=== PATIENT | female | born 1935 | race Caucasian/White ===

== ENCOUNTER 2023-06-02 18:45 | Emergency (ER) | payer MEDICARE, BC, SELFPAY ==
[2023-06-02 18:49] VITALS: BP 163/69; PULSE 87; RESP 20; TEMP 37.1; O2SAT 98; BMI 21.2
[2023-06-02] MEDS: TETANUS/DIPHTH/PERTUSSIS 0.5 ML SYRINGE IM (19:45)
--- NOTE | 2023-06-02 19:46 | ED_ITS ---
HPI - General Adult General Date Seen: 06/02/23 Chief complaint: Laceration/Wound Stated complaint: Lac R fnger Time Seen by Provider: 06/02/23 19:25 Source: patient Mode of arrival: ambulatory Limitations: no limitations History of Present Illness HPI narrative: Patient is an 87-year-old who was using a mandolin to cut dianai and she clipped off the tip of her right finger. She is on Eliquis. Bleeding has continued but is not brisk. Last tetanus unknown. Related Data Home Medications Medication Instructions Recorded Confirmed amiodarone 200 mg tablet 200 mg PO DAILY 05/24/23 06/02/23 apixaban 2.5 mg tablet (Eliquis) 2.5 mg PO BID 05/24/23 06/02/23 blood sugar diagnostic (Prodigy No #10 ea 05/24/23 05/24/23 Coding strips) bumetanide 1 mg tablet mg PO 05/24/23 05/24/23 carvedilol 3.125 mg tablet 3.125 mg PO BID 05/24/23 06/02/23 donepezil 5 mg tablet 5 mg PO DAILY 05/24/23 06/02/23 glimepiride 1 mg tablet mg PO 05/24/23 05/24/23 omeprazole 20 mg capsule,delayed 20 mg PO DAILY 05/24/23 06/02/23 release sacubitril 24 mg-valsartan 26 mg 1 tab PO BID 05/24/23 06/02/23 tablet (Entresto) sennosides 8.6 mg tablet (senna) 8.6 mg PO DAILY PRN 05/24/23 06/02/23 simvastatin 10 mg tablet 10 mg PO QPM 05/24/23 06/02/23 Allergies Allergy/AdvReac Type Severity Reaction Status Date / Time Penicillins Allergy Unknown Verified 05/24/23 13:17 PFSH PFSH Social History How often do you have a drink containing alcohol: never AUDIT-C Alcohol total score: 0 Non-prescribed substance use: denies use Exam Narrative: Exam Narrative: Vital signs reviewed In general, alert, will well-appearing elderly woman. Extremities: Examination of the right hand shows small avulsion off of finger tip, mild venous bleeding. Nail is not involved. Const: Vital Signs, click to edit/add: Vital Signs - 24 hr 06/02/23 18:49 Temperature 98.8 F Pulse Rate [Pulse Oximeter] 87 Respiratory Rate 20 Blood Pressure [Ri ght Upper Arm] 163/69 H Pulse Oximetry 98 Oxygen Delivery Me thod Room Air Documenting provider has reviewed patient's vital signs: yes Course Course Hospital Course: Wound is cleaned and dressed with surgery foam and tube gauze. I have advised that she can leave this on for couple of days and then gently removed, use Vaseline and a bandage over the area while it heals. Tetanus was updated today. Return for signs of infection. Vital Signs Vital signs: Initial Vital Signs Temperature 98.8 F 06/02/23 18:49 Temperature Source Temporal Artery Scan 06/02/23 18:49 Pulse Rate 87 06/02/23 18:49 Respiratory Rate 20 06/02/23 18:49 Blood Pressure 163/69 H 06/02/23 18:49 Blood Pressure Mean 100 06/02/23 18:49 Pulse Oximetry 98 06/02/23 18:49 Oxygen Delivery Method Room Air 06/02/23 18:49 Vital Signs Temperature 98.8 F 06/02/23 18:49 Pulse Rate 87 06/02/23 18:49 Respiratory Rate 20 06/02/23 18:49 Blood Pressure 163/69 H 06/02/23 18:49 Pulse Oximetry 98 06/02/23 18:49 Oxygen Delivery Method Room Air 06/02/23 18:49 Temperature 98.8 F 06/02/23 18:49 Pulse Rate 87 06/02/23 18:49 Respiratory Rate 20 06/02/23 18:49 Blood Pressure 163/69 H 06/02/23 18:49 Pulse Oximetry 98 06/02/23 18:49 Oxygen Delivery Method Room Air 06/02/23 18:49 Discharge Plan Discharge Clinical Impression: Avulsion of skin Patient Disposition: Home, Self-Care Condition: Stable Instructions: Laceration Without Closure (ED) Additional Instructions: Remove dressing in a couple of days, use an ointment after that such as Vaseline or Aquaphor, bandage while healing. Prescriptions: No Action simvastatin 10 mg tablet 10 mg PO QPM amiodarone 200 mg tablet 200 mg PO DAILY (DME) Prodigy No Coding Strip See Rx Instructions .ROUTE DAILY Qty: 10 Rx Instructions: As directed glimepiride 1 mg tablet PO carvedilol 3.125 mg tablet 3.125 mg PO BID donepezil 5 mg tablet 5 mg PO DAILY bumetanide 1 mg tablet PO omeprazole 20 mg capsule,delayed release(DR/EC) 20 mg PO DAILY Eliquis 2.5 mg tablet 2.5 mg PO BID Entresto 24-26 mg tablet 1 tab PO BID sennosides [senna] 8.6 mg tablet 8.6 mg PO DAILY PRN Follow Up/Referrals: Raphael Michelle MD [Referring] - Stand Alone Forms: [facility] Info Instructions
== END 2023-06-02 19:51 | disposition home or self-care (01) ==
LOC: ED 19:43
PROVIDERS: Emergency Provider Emergency Medicine; PCP Family Medicine
DX: S61.218A Laceration without foreign body of other finger without damage to nail, initial encounter (principal); W26.0XXA Contact with knife, initial encounter
CPT/HCPCS: 90471; 90715; 99282; 99284

== ENCOUNTER 2023-08-11 10:50 | Outpatient (CLI) | payer MEDICARE, BC, SELFPAY | END 2023-08-11 10:51 | disposition home or self-care (01) | LOC: AMB 08-13 15:53 | PROVIDERS: PCP Family Medicine; Visit Provider Emergency Medicine Emergency Medical Services | DX: S09.90XA Unspecified injury of head, initial encounter (principal); G89.29 Other chronic pain; M54.9 Dorsalgia, unspecified; W18.30XA Fall on same level, unspecified, initial encounter; Y92.009 Unspecified place in unspecified non-institutional (private) residence as the place of occurrence of the external cause | CPT/HCPCS: A0425; A0429 ==

== ENCOUNTER 2023-08-11 11:21 | Emergency (ER) | payer MEDICARE, BC, SELFPAY ==
[2023-08-11] VITALS (43 sets, daily range): BP systolic 122–177; BP diastolic 61–87; PULSE 59–78; RESP 16–20; TEMP 36.3; O2SAT 82–100; BMI 21.4
--- NOTE | 2023-08-11 11:50 | CRLHL7_ITS ---
For Patients: As a result of the Century Cures Act, medical imaging exams and procedure reports are released immediately into your electronic medical record. You may view this report before your referring provider. If you have questions, please contact your health care provider. Indication: Fall, midline back pain Technique: Noncontrast axial CT of the lumbar spine with coronal and sagittal reformats. Comparison: Same day CT thoracic Spine Findings: Preserved lumbar lordosis. No significant spondylolisthesis. No evidence of acute lumbar spine fracture. Severe chronic anterior wedge compression deformity of T12, with minor posterosuperior corner retropulsion, as noted on CT thoracic spine from same date. Aortoiliac atherosclerotic plaquing. Included SI joints are unremarkable. T12-L1: No significant neural foraminal or spinal canal stenosis. L1-L2: Mild diffuse disc bulge. No significant neural foraminal or spinal canal stenosis. L2-L3: Diffuse disc bulge, mild facet arthropathy. No significant neural foraminal stenosis. Moderate spinal canal stenosis. L3-L4: Diffuse disc bulge, facet arthropathy. Mild bilateral neural foraminal narrowing. Mild spinal canal narrowing. L4-L5: Diffuse disc bulge, facet arthropathy. No left, moderate right neural foraminal stenosis. No spinal canal stenosis. L5-S1: Diffuse disc bulge, facet arthropathy. Moderate left, moderately severe right neural foraminal stenosis. No spinal canal stenosis. Impression: 1. No evidence of acute fracture or traumatic malalignment in the lumbar spine 2. Severe chronic anterior wedge compression deformity of T12, with minor posterior superior corner retropulsion. 3. At L2-3, moderate spinal canal stenosis. 4. At L4-5, moderate right neural foraminal stenosis. 5. At L5-S1, moderate left and moderately severe right neural foraminal stenosis. Please note that all CT scans at this facility use dose modulation, iterative reconstruction, and/or weight-based dosing when appropriate to reduce radiation dose to as low as reasonably achievable. Dictated by Esther Goins MD @ 08/11/2023 2:37:18 PM (Electronically Signed)
--- NOTE | 2023-08-11 11:50 | CRLHL7_ITS ---
For Patients: As a result of the Century Cures Act, medical imaging exams and procedure reports are released immediately into your electronic medical record. You may view this report before your referring provider. If you have questions, please contact your health care provider. Indication: Fall, midline back pain Technique: Noncontrast axial CT of the thoracic spine with coronal and sagittal reformats. Comparison: CT chest abdomen pelvis 08/29/2019 Findings: Preserved thoracic kyphotic curve. No significant spondylolisthesis. Vertebral body heights are preserved. Mild chronic-appearing anterior wedge/superior plate deformities at C7 and T1. Thin anterior bridging syndesmophytes throughout the thoracic spine, with horizontally oriented fracture at the T10 level involving the superior endplate and vertebral body. No convincing evidence of posterior element extension. Chronic appearing severe anterior wedge compression deformity of T12, with minor posterosuperior cortical retropulsion. Chronic healed right lateral rib fractures. Spinal canal appears grossly patent, without evidence of significant spinal canal stenosis. Scattered spondylosis, with uncovertebral and facet arthropathy at C5-6 contributing to moderately severe bilateral neural foraminal stenosis. Thoracic facet arthropathy contributes to mild-moderate neural foraminal narrowing on the left at T8-9, right at T9-10, and left at T10-11. Left pectoral transvenous pacemaker and leads. Bibasal atelectasis. Scattered aortic atherosclerotic plaquing. Small hiatal hernia. Impression: 1. Acute, horizontally oriented fracture through anterior bridging syndesmophytes at the T10 level, involving the vertebral body and superior endplate, without convincing evidence of posterior element involvement. 2. Chronic-appearing severe anterior wedge compression deformity of T12, with minor posterosuperior corner retropulsion, new relative to 2019. 3. Multilevel spondylosis as detailed. Please note that all CT scans at this facility use dose modulation, iterative reconstruction, and/or weight-based dosing when appropriate to reduce radiation dose to as low as reasonably achievable. Dictated by Esther Goins MD @ 08/11/2023 2:30:56 PM (Electronically Signed)
--- NOTE | 2023-08-11 11:51 | CRLHL7_ITS ---
For Patients: As a result of the Century Cures Act, medical imaging exams and procedure reports are released immediately into your electronic medical record. You may view this report before your referring provider. If you have questions, please contact your health care provider. Indication: Fall Technique: Volumetric multidetector CT images of the head were obtained without the administration of low osmolar intravenous contrast. Comparison: CT head April 10, 2021 Findings: There is no intra-axial or extra-axial fluid collection. There is no mass effect or midline shift. There is age-related cortical atrophy with mild sulcal widening and ex vacuo dilatation of the lateral ventricles. There is encephalomalacia of the left temporal lobe with moderate chronic small vessel disease change of the subcortical and periventricular white matter. Likely calcified vascular lesion of the left basal ganglia is again seen. Additional encephalomalacia of the left occipital lobe is appreciated. The remaining brain parenchyma is preserved in attenuation and olivarez-white differentiation. The orbits and their contents are grossly within normal limits. The bony calvarium is grossly intact. The paranasal sinuses are clear. The mastoid air cells are well aerated. Impression: Stable age related and likely remote ischemic changes of the brain without acute intracranial abnormality. Please note that all CT scans at this facility use dose modulation, iterative reconstruction, and/or weight-based dosing when appropriate to reduce radiation dose to as low as reasonably achievable. Dictated by Raul Ellis MD @ 08/11/2023 2:25:46 PM (Electronically Signed)
--- NOTE | 2023-08-11 11:53 | CRLHL7_ITS ---
For Patients: As a result of the Century Cures Act, medical imaging exams and procedure reports are released immediately into your electronic medical record. You may view this report before your referring provider. If you have questions, please contact your health care provider. Indication: Fall, patient on blood thinners Technique: Volumetric multidetector CT images of the chest were obtained without the administration of IV contrast. Comparison: None available. Findings: The thoracic inlet and thyroid gland are unremarkable. The thoracic aorta is non aneurysmal with scattered atherosclerotic calcification. There is no mediastinal, hilar or axillary adenopathy. There is mild bronchial thickening. There is moderate dependent basilar atelectasis and parenchymal scar. There is mild biapical pleural thickening. There is no dense consolidation, effusion or pneumothorax. There is no evidence of pulmonary mass or suspicious pulmonary nodule. There are somewhat age-indeterminate deformities of the anterolateral right 5th, 6th and 7th ribs. No evidence of large, displaced fractures are identified. The thoracic vertebral body heights are grossly maintained with demonstration of an acute fracture through the superior T10 level with extension through bridging syndesmophytes. Chronic compression deformity of the T12 level is appreciated with minimal retropulsion. Impression: Demonstration of a horizontally oriented fracture through the superior T10 level extending through anterior and bridging syndesmophytes. Additional chronic vertebral plana change of the T12 level is identified. There is dependent basilar atelectasis and parenchymal scar. Age-indeterminate deformities of the anterolateral right 5th, 6th and 7th ribs. Please note that all CT scans at this facility use dose modulation, iterative reconstruction, and/or weight-based dosing when appropriate to reduce radiation dose to as low as reasonably achievable. Dictated by Raul Ellis MD @ 08/11/2023 2:38:23 PM (Electronically Signed)
[2023-08-11] MEDS: 0.9 % SODIUM CHLORIDE 500 ML 500 ML IV (12:30)
[2023-08-11] MEDS: MORPHINE 4 MG/ML INJ IVP ×2 (12:31→22:03)
[2023-08-11 12:40] LABS: Creatinine, Point-of-Care* 2.8 mg/dl (0.6-1.3)
[2023-08-11 12:49] LABS: Basophils Percent Auto 0.2 % (0.0-3.0); Eosinophils Percent Auto 2.1 % (0.0-7.0); Hematocrit 37.1 % (33.0-51.0); Hemoglobin* 11.9 gm/dL (12.0-16.0); Immature Granulocytes Pct Auto 1.3 %; Lymphocytes Percent Auto 5.2 % (20-44); Mean Corpuscular HGB Conc 32 gm/dL (32-36); Mean Corpuscular Hemoglobin 32 pg (26-34); Mean Corpuscular Volume 98 fL (80-100); Monocytes Percent Auto 4.7 % (0.0-11.0); Neutrophils Percent Auto 86.5 % (42.0-72.0); Platelet Count* 159 K/uL (140-440); RDW Coefficient of Variation % 13.8 % (11.5-15.5); Red Blood Count 3.78 m/uL (4.00-5.20); White Blood Count* 11.65 K/uL (4.50-11.00)
[2023-08-11 12:51] LABS: Slide Review Reflex No
[2023-08-11 12:58] LABS: Troponin, Point-of-Care* 0.02 ng/ml (0.01-0.04)
[2023-08-11 13:00] LABS: Albumin* 4.2 g/dL (3.3-5.0)
[2023-08-11 13:01] LABS: Chloride* 100 mmol/L (96-114); Potassium* 4.8 mmol/L (3.6-5.1); Sodium* 133 mmol/L (135-149)
[2023-08-11 13:03] LABS: Anion Gap 12 mEq/L (7-15); Bilirubin Direct* 0.2 mg/dL (0.0-0.5); Bilirubin Total* 0.6 mg/dL (0.1-1.5); Carbon Dioxide* 21 mmol/L (20-32); Creatinine* 2.5 mg/dL (0.5-1.5); Est. Creatinine Clearance* 13.95; Estimated Glomerular Filt Rate 18 ml/min
[2023-08-11 13:04] LABS: Alanine Aminotransferase* 23 U/L (4-35); Alkaline Phosphatase* 99 U/L (40-150); Aspartate Amino Transferase* 32 U/L (12-35); Blood Urea Nitrogen* 65 mg/dL (7-30); Glucose* 244 mg/dL (60-115); Total Protein* 7.5 g/dL (6.0-8.3)
[2023-08-11 13:13] LABS: INR 1.31 (0.91-1.10); Prothrombin Time 17.1 Seconds
[2023-08-11 13:39] LABS: Appearance Urine Clear (Clear); Bilirubin Urine Negative (Negative); Blood Urine Negative (Negative); Color Urine Yellow (Yellow); Glucose Urine Negative (Negative); Ketones Urine Negative (Negative); Leukocyte Esterase Urine Trace (Negative); Nitrite Urine Negative (Negative); Protein Urine Negative (Negative); Specific Gravity Urine 1.015 (1.000-1.030); Urobilinogen Urine 0.2 (0.2-1.0)
[2023-08-11 14:01] LABS: Bacteria Urine Few; RBC Urine 0-2 (0-2); Squamous Epithelial Cell Urine Few (None-Few); WBC Urine 0-2 (0-5)
--- NOTE | 2023-08-11 14:05 | ED.GENADULT ---
HPI - General Adult General Date Seen: 08/11/23 <Sindy Emmanuel MD - Last Filed: 08/12/23 14:48> Chief complaint: Fall/Minor Trauma <Sindy Emmanuel MD - Last Filed: 08/12/23 14:48> Stated complaint: Fall <Sindy Emmanuel MD - Last Filed: 08/12/23 14:48> Time Seen by Provider: 08/11/23 11:27 <Sindy Emmanuel MD - Last Filed: 08/12/23 14:48> Source: patient and EMS <Sindy Emmanuel MD - Last Filed: 08/12/23 14:48> Mode of arrival: EMS <Sindy Emmanuel MD - Last Filed: 08/12/23 14:48> Limitations: no limitations <Sindy Emmanuel MD - Last Filed: 08/12/23 14:48> History of Present Illness HPI narrative: Patient is an 88-year-old woman who comes in by EMS from home after a fall. She says that she was drinking her coffee, stood up to walk across the dining room got dizzy and fell back. She did hit her head, does take Eliquis, it does not report any loss of consciousness, hematoma, severe headache. She denies neck pain. Her primary complaint is of pain in her right posterior ribcage area and across her back fairly diffusely. She does not complain of any extremity pain, weakness, numbness. She says that she did have an episode of dizziness last week that she was not seen for. She has not had any syncope. She denies chest pain, palpitations, shortness of breath, fevers, vomiting or diarrhea, black or bloody stools or other complaints. Her daughter is here with her today. <Sindy Emmanuel MD - Last Filed: 08/12/23 14:48> Related Data Home medications: Home Medications Medication Instructions Recorded Confirmed amiodarone 200 mg tablet 200 mg PO DAILY 05/24/23 06/02/23 apixaban 2.5 mg tablet (Eliquis) 2.5 mg PO BID 05/24/23 06/02/23 blood sugar diagnostic (Lingohub No #10 ea 05/24/23 05/24/23 Coding strips) bumetanide 1 mg tablet mg PO 05/24/23 05/24/23 carvedilol 3.125 mg tablet 3.125 mg PO BID 05/24/23 06/02/23 donepezil 5 mg tablet 5 mg PO DAILY 05/24/23 06/02/23 glimepiride 1 mg tablet mg PO 05/24/23 05/24/23 omeprazole 20 mg capsule,delayed 20 mg PO DAILY 05/24/23 06/02/23 release sacubitril 24 mg-valsartan 26 mg 1 tab PO BID 05/24/23 06/02/23 tablet (Entresto) sennosides 8.6 mg tablet (senna) 8.6 mg PO DAILY PRN 05/24/23 06/02/23 simvastatin 10 mg tablet 10 mg PO QPM 05/24/23 06/02/23 <Sindy Emmanuel MD - Last Filed: 08/12/23 14:48> Allergies/adverse reactions: Allergies Allergy/AdvReac Type Severity Reaction Status Date / Time Penicillins Allergy Unknown Verified 05/24/23 13:17 <Sindy Emmanuel MD - Last Filed: 08/12/23 14:48> Review of Systems Status of ROS: Reports: 6 or more systems reviewed and unremarkable except as noted in History and below <Sindy Emmanuel MD - Last Filed: 08/12/23 14:48> [facility] Social History: Social History Smoking Status: Never smoker Do you use any of these nicotine containing products: None How often do you have a drink containing alcohol: never How often do you have six or more drinks on one occasion: Never AUDIT-C Alcohol total score: 0 Non-prescribed substance use: denies use <Sindy Emmanuel MD - Last Filed: 08/12/23 14:48> Exam Narrative: Exam Narrative: Vital signs as noted above. In general, an alert, well-appearing elderly woman. Conversant, cooperative. Head: Normocephalic, atraumatic. No hematoma, laceration, abrasion. Eyes: Pupils are equal reactive. Extraocular movements are full. Conjunctivae are normal. ENT: Mucous membranes are moist. No facial trauma. Neck: Supple without lymphadenopathy. Nontender to palpation. Heart: Regular rate and rhythm. No murmur or rub. Lungs: Clear bilaterally. No increased work of breathing, crackles or wheezes. Back: Atraumatic in appearance. She has some tenderness in the lower thoracic/upper lumbar region, as well as the right posterior thorax. No crepitus or subcu air. Abdomen: Soft and nontender. No organomegaly. Extremities: Well perfused. No edema. No calf tenderness. Pulses intact. Neurologic: Patient is alert and oriented to person and place. Speech is fluent. Face is symmetric. Moves all extremities equally. Affect: Normal. Skin: Warm and dry. Well perfused. <Sindy Emmanuel MD - Last Filed: 08/12/23 14:48> Const: Vital Signs, click to edit/add: Vital Signs - 24 hr 08/11/23 15:00 08/11/23 15:01 08/11/23 15:30 Pulse Rate 63 62 62 Pulse Rate [Pulse Oximeter] Respiratory Rate Blood Pressure 140/64 H Blood Pressure [Ri ght Upper Arm] Pulse Oximetry 99 98 95 Oxygen Delivery Me thod 08/11/23 15:32 08/11/23 16:00 08/11/23 16:02 Pulse Rate 63 67 63 Pulse Rate [Pulse Oximeter] Respiratory Rate 16 Blood Pressure 133/69 136/61 Blood Pressure [Ri ght Upper Arm] Pulse Oximetry 96 93 94 Oxygen Delivery Me thod 08/11/23 16:30 08/11/23 16:32 08/11/23 17:00 Pulse Rate 64 63 59 L Pulse Rate [Pulse Oximeter] Respiratory Rate Blood Pressure 148/80 H Blood Pressure [Ri ght Upper Arm] Pulse Oximetry 98 95 89 Oxygen Delivery Me thod 08/11/23 17:01 08/11/23 17:02 08/11/23 17:30 Pulse Rate 62 66 63 Pulse Rate [Pulse Oximeter] Respiratory Rate Blood Pressure 146/74 H Blood Pressure [Ri ght Upper Arm] Pulse Oximetry 96 95 97 Oxygen Delivery Me thod Room Air Room Air 08/11/23 17:32 08/11/23 18:00 08/11/23 18:05 Pulse Rate 65 68 67 Pulse Rate [Pulse Oximeter] Respiratory Rate Blood Pressure 164/82 H Blood Pressure [Ri ght Upper Arm] Pulse Oximetry 93 95 91 Oxygen Delivery Me od Room Air Room Air Room Air 08/11/23 18:20 08/11/23 18:30 08/11/23 18:31 Pulse Rate 71 72 69 Pulse Rate [Pulse Oximeter] Respiratory Rate Blood Pressure 137/75 122/80 Blood Pressure [Ri ght Upper Arm] Pulse Oximetry 95 96 94 Oxygen Delivery [facility] Room Air Room Air Room Air 08/11/23 19:00 08/11/23 19:02 08/11/23 19:03 Pulse Rate 70 68 69 Pulse Rate [Pulse Oximeter] Respiratory Rate Blood Pressure 145/87 H Blood Pressure [Ri ght Upper Arm] Pulse Oximetry 96 84 L 82 L Oxygen Delivery [facility] Room Air 08/11/23 19:30 08/11/23 19:33 08/11/23 20:00 Pulse Rate 67 70 68 Pulse Rate [Pulse Oximeter] Respiratory Rate 18 Blood Pressure 177/81 H Blood Pressure [Ri ght Upper Arm] Pulse Oximetry 96 97 97 Oxygen Delivery [facility] 08/11/23 20:02 08/11/23 20:30 08/11/23 20:32 Pulse Rate 68 74 72 Pulse Rate [Pulse Oximeter] Respiratory Rate Blood Pressure 151/71 H 171/79 H Blood Pressure [Ri ght Upper Arm] Pulse Oximetry 96 97 97 Oxygen Delivery [facility] 08/11/23 20:33 08/11/23 21:00 08/11/23 21:02 Pulse Rate 72 71 73 Pulse Rate [Pulse Oximeter] Respiratory Rate Blood Pressure 161/79 H Blood Pressure [Ri ght Upper Arm] Pulse Oximetry 99 85 L 95 Oxygen Delivery [facility] 08/11/23 21:30 08/11/23 21:32 08/11/23 22:00 Pulse Rate 74 71 77 Pulse Rate [Pulse Oximeter] Respiratory Rate Blood Pressure 163/79 H Blood Pressure [Ri ght Upper Arm] Pulse Oximetry 97 95 96 Oxygen Delivery [facility] 08/12/23 01:00 08/12/23 01:09 08/12/23 03:00 Pulse Rate 78 74 Pulse Rate [Pulse Oximeter] Respiratory Rate 16 16 Blood Pressure 152/70 H 145/74 H Blood Pressure [Ri ght Upper Arm] Pulse Oximetry 98 96 91 Oxygen Delivery Me od 08/12/23 06:24 08/12/23 07:00 08/12/23 07:30 Pulse Rate 78 66 82 Pulse Rate [Pulse Oximeter] Respiratory Rate 16 Blood Pressure 158/89 H Blood Pressure [Ri ght Upper Arm] Pulse Oximetry 95 92 96 Oxygen Delivery Me thod 08/12/23 08:00 08/12/23 08:25 08/12/23 08:25 Pulse Rate 69 74 Pulse Rate [Pulse Oximeter] 74 Respiratory Rate 18 Blood Pressure Blood Pressure [Ri ght Upper Arm] 132/71 Pulse Oximetry 94 94 94 Oxygen Delivery Me thod Room Air 08/12/23 08:27 08/12/23 08:30 08/12/23 09:00 Pulse Rate 71 72 67 Pulse Rate [Pulse Oximeter] Respiratory Rate Blood Pressure 132/71 Blood Pressure [Ri ght Upper Arm] Pulse Oximetry 93 94 96 Oxygen Delivery Me thod 08/12/23 09:30 08/12/23 10:00 08/12/23 10:30 Pulse Rate 72 66 64 Pulse Rate [Pulse Oximeter] Respiratory Rate Blood Pressure Blood Pressure [Ri ght Upper Arm] Pulse Oximetry 96 92 93 Oxygen Delivery Me thod 08/12/23 10:52 08/12/23 10:55 08/12/23 11:00 Pulse Rate 69 69 Pulse Rate [Pulse Oximeter] 70 Respiratory Rate 18 Blood Pressure 152/56 H Blood Pressure [Ri ght Upper Arm] 152/56 H Pulse Oximetry 93 96 94 Oxygen Delivery Me thod Room Air 08/12/23 11:30 Pulse Rate 65 Pulse Rate [Pulse Oximeter] Respiratory Rate Blood Pressure Blood Pressure [Ri ght Upper Arm] Pulse Oximetry 93 Oxygen Delivery Me thod <Sindy Emmanuel MD - Last Filed: 08/12/23 14:48> Vital Signs, click to edit/add: Vital Signs - 24 hr 08/11/23 15:00 08/11/23 15:01 08/11/23 15:30 Pulse Rate 63 62 62 Pulse Rate [Pulse Oximeter] Respiratory Rate Blood Pressure 140/64 H Blood Pressure [Ri ght Upper Arm] Pulse Oximetry 99 98 95 Oxygen Delivery Me thod 08/11/23 15:32 08/11/23 16:00 08/11/23 16:02 Pulse Rate 63 67 63 Pulse Rate [Pulse Oximeter] Respiratory Rate 16 Blood Pressure 133/69 136/61 Blood Pressure [Ri ght Upper Arm] Pulse Oximetry 96 93 94 Oxygen Delivery Me thod 08/11/23 16:30 08/11/23 16:32 08/11/23 17:00 Pulse Rate 64 63 59 L Pulse Rate [Pulse Oximeter] Respiratory Rate Blood Pressure 148/80 H Blood Pressure [Ri ght Upper Arm] Pulse Oximetry 98 95 89 Oxygen Delivery Me thod 08/11/23 17:01 08/11/23 17:02 08/11/23 17:30 Pulse Rate 62 66 63 Pulse Rate [Pulse Oximeter] Respiratory Rate Blood Pressure 146/74 H Blood Pressure [Ri ght Upper Arm] Pulse Oximetry 96 95 97 Oxygen Delivery Me thod Room Air Room Air 08/11/23 17:32 08/11/23 18:00 08/11/23 18:05 Pulse Rate 65 68 67 Pulse Rate [Pulse Oximeter] Respiratory Rate Blood Pressure 164/82 H Blood Pressure [Ri ght Upper Arm] Pulse Oximetry 93 95 91 Oxygen Delivery Me thod Room Air Room Air Room Air 08/11/23 18:20 08/11/23 18:30 08/11/23 18:31 Pulse Rate 71 72 69 Pulse Rate [Pulse Oximeter] Respiratory Rate Blood Pressure 137/75 122/80 Blood Pressure [Ri ght Upper Arm] Pulse Oximetry 95 96 94 Oxygen Delivery Me thod Room Air Room Air Room Air 08/11/23 19:00 08/11/23 19:02 08/11/23 19:03 Pulse Rate 70 68 69 Pulse Rate [Pulse Oximeter] Respiratory Rate Blood Pressure 145/87 H Blood Pressure [Ri ght Upper Arm] Pulse Oximetry 96 84 L 82 L Oxygen Delivery Me thod Room Air 08/11/23 19:30 08/11/23 19:33 08/11/23 20:00 Pulse Rate 67 70 68 Pulse Rate [Pulse Oximeter] Respiratory Rate 18 Blood Pressure 177/81 H Blood Pressure [Ri ght Upper Arm] Pulse Oximetry 96 97 97 Oxygen Delivery Me thod 08/11/23 20:02 08/11/23 20:30 08/11/23 20:32 Pulse Rate 68 74 72 Pulse Rate [Pulse Oximeter] Respiratory Rate Blood Pressure 151/71 H 171/79 H Blood Pressure [Ri ght Upper Arm] Pulse Oximetry 96 97 97 Oxygen Delivery Me thod 08/11/23 20:33 08/11/23 21:00 08/11/23 21:02 Pulse Rate 72 71 73 Pulse Rate [Pulse Oximeter] Respiratory Rate Blood Pressure 161/79 H Blood Pressure [Ri ght Upper Arm] Pulse Oximetry 99 85 L 95 Oxygen Delivery Me thod 08/11/23 21:30 08/11/23 21:32 08/11/23 22:00 Pulse Rate 74 71 77 Pulse Rate [Pulse Oximeter] Respiratory Rate Blood Pressure 163/79 H Blood Pressure [Ri ght Upper Arm] Pulse Oximetry 97 95 96 Oxygen Delivery Me thod 08/12/23 01:00 08/12/23 01:09 08/12/23 03:00 Pulse Rate 78 74 Pulse Rate [Pulse Oximeter] Respiratory Rate 16 16 Blood Pressure 152/70 H 145/74 H Blood Pressure [Ri ght Upper Arm] Pulse Oximetry 98 96 91 Oxygen Delivery Me thod 08/12/23 06:24 08/12/23 07:00 08/12/23 07:30 Pulse Rate 78 66 82 Pulse Rate [Pulse Oximeter] Respiratory Rate 16 Blood Pressure 158/89 H Blood Pressure [Ri ght Upper Arm] Pulse Oximetry 95 92 96 Oxygen Delivery Me thod 08/12/23 08:00 08/12/23 08:25 08/12/23 08:25 Pulse Rate 69 74 Pulse Rate [Pulse Oximeter] 74 Respiratory Rate 18 Blood Pressure Blood Pressure [Ri ght Upper Arm] 132/71 Pulse Oximetry 94 94 94 Oxygen Delivery Me thod Room Air 08/12/23 08:27 08/12/23 08:30 08/12/23 09:00 Pulse Rate 71 72 67 Pulse Rate [Pulse Oximeter] Respiratory Rate Blood Pressure 132/71 Blood Pressure [Ri ght Upper Arm] Pulse Oximetry 93 94 96 Oxygen Delivery Me thod 08/12/23 09:30 08/12/23 10:00 08/12/23 10:30 Pulse Rate 72 66 64 Pulse Rate [Pulse Oximeter] Respiratory Rate Blood Pressure Blood Pressure [Ri ght Upper Arm] Pulse Oximetry 96 92 93 Oxygen Delivery Me thod 08/12/23 10:52 08/12/23 10:55 08/12/23 11:00 Pulse Rate 69 69 Pulse Rate [Pulse Oximeter] 70 Respiratory Rate 18 Blood Pressure 152/56 H Blood Pressure [Ri ght Upper Arm] 152/56 H Pulse Oximetry 93 96 94 Oxygen Delivery Me thod Room Air 08/12/23 11:30 Pulse Rate 65 Pulse Rate [Pulse Oximeter] Respiratory Rate Blood Pressure Blood Pressure [Ri ght Upper Arm] Pulse Oximetry 93 Oxygen Delivery Me thod <Leo Raymond DO - Last Filed: 08/12/23 07:35> Documenting provider has reviewed patient's vital signs: yes <Sindy Emmanuel MD - Last Filed: 08/12/23 14:48> Course Course ED Course: Following initial evaluation, patient had an EKG which by my review showed a probable sinus rhythm, ventricular rate of 61. Right bundle-branch block, diffuse T-wave flattening or inversion. The appearance of her EKG today is slightly different in terms of the T-waves from previous EKGs although looking back these all seem to be clearly paste and I do not see obvious pacer spikes on today's EKG. Point of care troponin was 0.02. Creatinine is elevated today at 2.5 with a BUN of 65, suggesting there may be a component of prerenal azotemia. Her baseline creatinine generally looks to be about 1.6-1.7. I did give her 500 mL of normal saline. UA is negative, no ketones, 0-2 red cells 0-2 white cells. Other electrolytes are unremarkable. White blood cell count mildly elevated 11.6, hemoglobin 11.9. Patient went on to have CT scans of the head, thoracic and lumbar spine as well as the chest. By my review, CT of the chest is negative. She appears to have a significant compression fracture at T12 that looks like it was previously diagnosed in 2020, but there does appear to be a new fracture through T10. Radiology reads her thoracic spine imaging as follows:Findings: Preserved thoracic kyphotic curve. No significant spondylolisthesis. Vertebral body heights are preserved. Mild chronic-appearing anterior wedge/superior plate deformities at C7 and T1. Thin anterior bridging syndesmophytes throughout the thoracic spine, with horizontally oriented fracture at the T10 level involving the superior endplate and vertebral body. No convincing evidence of posterior element extension. Chronic appearing severe anterior wedge compression deformity of T12, with minor posterosuperior cortical retropulsion. Chronic healed right lateral rib fractures. Spinal canal appears grossly patent, without evidence of significant spinal canal stenosis. Scattered spondylosis, with uncovertebral and facet arthropathy at C5-6 contributing to moderately severe bilateral neural foraminal stenosis. Thoracic facet arthropathy contributes to mild-moderate neural foraminal narrowing on the left at T8-9, right at T9-10, and left at T10-11. Left pectoral transvenous pacemaker and leads. Bibasal atelectasis. Scattered aortic atherosclerotic plaquing. Small hiatal hernia. Impression: 1. Acute, horizontally oriented fracture through anterior bridging syndesmophytes at the T10 level, involving the vertebral body and superior endplate, without convincing evidence of posterior element involvement. 2. Chronic-appearing severe anterior wedge compression deformity of T12, with minor posterosuperior corner retropulsion, new relative to 2019. 3. Multilevel spondylosis as detailed. She does have rib fractures noted but they were read as age indeterminate on her chest CT and as healed old fractures on the CT, unlikely to be acute. I did discuss her T10 fracture with Dr. Thomas who was on-call for Neurosurgery at [facility]. She reviewed her CT scan as well. Patient has underlying DISH, which has led to significant calcifications along her entire spine. She has broken through those anterior calcifications at T10, leaving her with an unusual amount of mobility. There is not clear CT evidence of fracture through the posterior elements, but Dr. Thomas recommended that she have an MRI to make sure that there is not in the posterior fracture as that would make this an unstable fracture. She has a pacemaker and therefore we are not able to do MRI here. Plan will be transfer to [facility] for MRI and neurosurgery evaluation. With regard to her dizziness, I did not find any significant abnormalities in her lab aside from her elevated BUN and creatinine. I did give her 500 mL of normal saline here in bolus. Will add on some maintenance fluids as well. Patient should be NPO after midnight. Lumbar spine imaging and chest imaging otherwise unremarkable. Patient was still here when I came back to work this morning at 8. No changes overnight. Pain is controlled. I waited a few hours this morning that at about 11:00 a.m. called [facility] to find out the status of a possible bed for her. I was told that there is no clear sign that there will be a bed [facility] today, that when nursing staff rounds this afternoon it is possible that something will open up but right now there 10 discharges in 10 admissions to the spine floor. I attempted to talk with Dr. Thomas again, given the yesterday our plan was to get this patient to [facility], but was told that she is now gone until August 21. As a result, I had them look at other options and was able to provide a bed within 4 hours. I talked to nurse practitioner there with the last name Nikolay, who felt it would be reasonable to transfer the patient there. Images were pushed to the [facility] system, where they should be visible according to the manager of radiology. She had a regular medicines here, I do think she had her scheduled dose of Eliquis unfortunately. I did not start any DVT prophylaxis since she has been anticoagulated to this point. She has not had any further dizziness. <Sindy Emmanuel MD - Last Filed: 08/12/23 14:48> Vital Signs Vital signs: Initial Vital Signs Temperature 97.4 F L 08/11/23 11:35 Temperature Source Temporal Artery Scan 08/11/23 11:35 Pulse Rate 78 08/11/23 11:35 Respiratory Rate 18 08/11/23 11:35 Blood Pressure 158/77 H 08/11/23 11:35 Blood Pressure Mean 104 08/11/23 11:35 Pulse Oximetry 100 08/11/23 11:35 Oxygen Delivery Method Room Air 08/11/23 11:35 Vital Signs Temperature 97.4 F L 08/11/23 11:35 Pulse Rate 78 08/11/23 11:35 Respiratory Rate 18 08/11/23 11:35 Blood Pressure 158/77 H 08/11/23 11:35 Pulse Oximetry 100 08/11/23 11:35 Oxygen Delivery Method Room Air 08/11/23 11:35 Temperature 97.4 F L 08/11/23 11:35 Pulse Rate 65 08/12/23 11:30 Respiratory Rate 18 08/12/23 10:55 Blood Pressure 152/56 H 08/12/23 10:55 Pulse Oximetry 93 08/12/23 11:30 Oxygen Delivery Method Room Air 08/12/23 10:55 <Sindy Emmanuel MD - Last Filed: 08/12/23 14:48> Initial Vital Signs Temperature 97.4 F L 08/11/23 11:35 Temperature Source Temporal Artery Scan 08/11/23 11:35 Pulse Rate 78 08/11/23 11:35 Respiratory Rate 18 08/11/23 11:35 Blood Pressure 158/77 H 08/11/23 11:35 Blood Pressure Mean 104 08/11/23 11:35 Pulse Oximetry 100 08/11/23 11:35 Oxygen Delivery Method Room Air 08/11/23 11:35 Vital Signs Temperature 97.4 F L 08/11/23 11:35 Pulse Rate 78 08/11/23 11:35 Respiratory Rate 18 08/11/23 11:35 Blood Pressure 158/77 H 08/11/23 11:35 Pulse Oximetry 100 08/11/23 11:35 Oxygen Delivery Method Room Air 08/11/23 11:35 Temperature 97.4 F L 08/11/23 11:35 Pulse Rate 65 08/12/23 11:30 Respiratory Rate 18 08/12/23 10:55 Blood Pressure 152/56 H 08/12/23 10:55 Pulse Oximetry 93 08/12/23 11:30 Oxygen Delivery Method Room Air 08/12/23 10:55 <Leo Raymond, - Last Filed: 08/12/23 07:35> Medical Decision Making MDM Narrative Medical decision making narrative: Patient was signed out to me pending transfer. No acute events occurred during my shift. I did replace her lidocaine patch and give her some Mucinex because she states she has some mucus in her throat. Patient is doing well and was signed back out to Dr. Emmanuel <Leo Raymond, DO - Last Filed: 08/12/23 07:35> Lab Data Labs: Lab Results 08/11/23 08/11/23 08/11/23 Range/Units 11:52 12:28 12:39 WBC 11.65 H (4.50-11.00) K/uL RBC 3.78 L (4.00-5.20) m/uL Hgb 11.9 L (12.0-16.0) gm/dL Hct 37.1 (33.0-51.0) % MCV 98 (80-100) fL MCH 32 (26-34) pg MCHC 32 (32-36) gm/dL RDW Coeff of Vilma 13.8 (11.5-15.5) % Plt Count 159 (140-440) K/uL Neut % (Auto) 86.5 H (42.0-72.0) % Lymph % (Auto) 5.2 L (20-44) % Bowman % (Auto) 4.7 (0.0-11.0) % Eos % (Auto) 2.1 (0.0-7.0) % Baso % (Auto) 0.2 (0.0-3.0) % Neut # (Auto) 10.10 H (1.7-7.0) K/uL Lymph # (Auto) 0.60 L (0.90-2.90) K/uL Bowman # (Auto) 0.50 (0.00-0.90) K/UL Eos # (Auto) 0.20 (0.00-0.50) K/uL Baso # (Auto) 0.00 (0.00-0.30) K/uL Abs Immat Gran (auto) 0.20 (0.00-0.30) K/uL Imm/Tot Granulo (auto) 1.3 % INR 1.31 H (0.91-1.10) Sodium 133 L (135-149) mmol/L Potassium 4.8 (3.6-5.1) mmol/L Chloride 100 (96-114) mmol/L Carbon Dioxide 21 (20-32) mmol/L Anion Gap 12 (7-15) mEq/L BUN 65 H (7-30) mg/dL Creatinine 2.5 H (0.5-1.5) mg/dL Estimated Creat Clear 13.95 Estimated GFR 18 ml/min Glucose 244 H (60-115) mg/dL Calcium 10.0 (8.4-10.6) mg/dL Total Bilirubin 0.6 (0.1-1.5) mg/dL Direct Bilirubin 0.2 (0.0-0.5) mg/dL AST 32 (12-35) U/L ALT 23 (4-35) U/L Alkaline Phosphatase 99 (40-150) U/L Total Protein 7.5 (6.0-8.3) g/dL Albumin 4.2 (3.3-5.0) g/dL Urine Color (Yellow) Urine Appearance (Clear) Urine pH (5.0-8.5) Ur Specific [place] (1.000-1.030) Urine Protein (Negative) Urine Glucose (UA) (Negative) Urine Ketones (Negative) Urine Blood (Negative) Urine Nitrite (Negative) Urine Bilirubin (Negative) Urine Urobilinogen (0.2-1.0) Ur Leukocyte Esterase (Negative) Urine RBC (0-2) Urine WBC (0-5) Ur Squamous Epith Cells (None-Few) Urine Bacteria (None) POC Creatinine 2.8 H (0.6-1.3) mg/dl POC Troponin I 0.02 (0.01-0.04) ng/ml 08/11/23 Range/Units 13:15 WBC (4.50-11.00) K/uL RBC (4.00-5.20) m/uL Hgb (12.0-16.0) gm/dL Hct (33.0-51.0) % MCV (80-100) fL MCH (26-34) pg MCHC (32-36) gm/dL RDW Coeff of Vilma (11.5-15.5) % Plt Count (140-440) K/uL Neut % (Auto) (42.0-72.0) % Lymph % (Auto) (20-44) % Bowman % (Auto) (0.0-11.0) % Eos % (Auto) (0.0-7.0) % Baso % (Auto) (0.0-3.0) % Neut # (Auto) (1.7-7.0) K/uL Lymph # (Auto) (0.90-2.90) K/uL Bowman # (Auto) (0.00-0.90) K/UL Eos # (Auto) (0.00-0.50) K/uL Baso # (Auto) (0.00-0.30) K/uL Abs Immat Gran (auto) (0.00-0.30) K/uL Imm/Tot Granulo (auto) % INR (0.91-1.10) Sodium (135-149) mmol/L Potassium (3.6-5.1) mmol/L Chloride (96-114) mmol/L Carbon Dioxide (20-32) mmol/L Anion Gap (7-15) mEq/L BUN (7-30) mg/dL Creatinine (0.5-1.5) mg/dL Estimated Creat Clear Estimated GFR ml/min Glucose (60-115) mg/dL Calcium (8.4-10.6) mg/dL Total Bilirubin (0.1-1.5) mg/dL Direct Bilirubin (0.0-0.5) mg/dL AST (12-35) U/L ALT (4-35) U/L Alkaline Phosphatase (40-150) U/L Total Protein (6.0-8.3) g/dL Albumin (3.3-5.0) g/dL Urine Color Yellow (Yellow) Urine Appearance Clear (Clear) Urine pH 6.0 (5.0-8.5) Ur Specific [place] 1.015 (1.000-1.030) Urine Protein Negative (Negative) Urine Glucose (UA) Negative (Negative) Urine Ketones Negative (Negative) Urine Blood Negative (Negative) Urine Nitrite Negative (Negative) Urine Bilirubin Negative (Negative) Urine Urobilinogen 0.2 (0.2-1.0) Ur Leukocyte Esterase Trace A (Negative) Urine RBC 0-2 (0-2) Urine WBC 0-2 (0-5) Ur Squamous Epith Cells Few (None-Few) Urine Bacteria Few A (None) POC Creatinine (0.6-1.3) mg/dl POC Troponin I (0.01-0.04) ng/ml <Sindy Emmanuel MD - Last Filed: 08/12/23 14:48> Lab Results 08/11/23 08/11/23 08/11/23 Range/Units 11:52 12:28 12:39 WBC 11.65 H (4.50-11.00) K/uL RBC 3.78 L (4.00-5.20) m/uL Hgb 11.9 L (12.0-16.0) gm/dL Hct 37.1 (33.0-51.0) % MCV 98 (80-100) fL MCH 32 (26-34) pg MCHC 32 (32-36) gm/dL RDW Coeff of Vilma 13.8 (11.5-15.5) % Plt Count 159 (140-440) K/uL Neut % (Auto) 86.5 H (42.0-72.0) % Lymph % (Auto) 5.2 L (20-44) % Bowman % (Auto) 4.7 (0.0-11.0) % Eos % (Auto) 2.1 (0.0-7.0) % Baso % (Auto) 0.2 (0.0-3.0) % Neut # (Auto) 10.10 H (1.7-7.0) K/uL Lymph # (Auto) 0.60 L (0.90-2.90) K/uL Bowman # (Auto) 0.50 (0.00-0.90) K/UL Eos # (Auto) 0.20 (0.00-0.50) K/uL Baso # (Auto) 0.00 (0.00-0.30) K/uL Abs Immat Gran (auto) 0.20 (0.00-0.30) K/uL Imm/Tot Granulo (auto) 1.3 % INR 1.31 H (0.91-1.10) Sodium 133 L (135-149) mmol/L Potassium 4.8 (3.6-5.1) mmol/L Chloride 100 (96-114) mmol/L Carbon Dioxide 21 (20-32) mmol/L Anion Gap 12 (7-15) mEq/L BUN 65 H (7-30) mg/dL Creatinine 2.5 H (0.5-1.5) mg/dL Estimated Creat Clear 13.95 Estimated GFR 18 ml/min Glucose 244 H (60-115) mg/dL Calcium 10.0 (8.4-10.6) mg/dL Total Bilirubin 0.6 (0.1-1.5) mg/dL Direct Bilirubin 0.2 (0.0-0.5) mg/dL AST 32 (12-35) U/L ALT 23 (4-35) U/L Alkaline Phosphatase 99 (40-150) U/L Total Protein 7.5 (6.0-8.3) g/dL Albumin 4.2 (3.3-5.0) g/dL Urine Color (Yellow) Urine Appearance (Clear) Urine pH (5.0-8.5) Ur Specific [place] (1.000-1.030) Urine Protein (Negative) Urine Glucose (UA) (Negative) Urine Ketones (Negative) Urine Blood (Negative) Urine Nitrite (Negative) Urine Bilirubin (Negative) Urine Urobilinogen (0.2-1.0) Ur Leukocyte Esterase (Negative) Urine RBC (0-2) Urine WBC (0-5) Ur Squamous Epith Cells (None-Few) Urine Bacteria (None) POC Creatinine 2.8 H (0.6-1.3) mg/dl POC Troponin I 0.02 (0.01-0.04) ng/ml 08/11/23 Range/Units 13:15 WBC (4.50-11.00) K/uL RBC (4.00-5.20) m/uL Hgb (12.0-16.0) gm/dL Hct (33.0-51.0) % MCV (80-100) fL MCH (26-34) pg MCHC (32-36) gm/dL RDW Coeff of Vilma (11.5-15.5) % Plt Count (140-440) K/uL Neut % (Auto) (42.0-72.0) % Lymph % (Auto) (20-44) % [place] % (Auto) (0.0-11.0) % Eos % (Auto) (0.0-7.0) % Baso % (Auto) (0.0-3.0) % Neut # (Auto) (1.7-7.0) K/uL Lymph # (Auto) (0.90-2.90) K/uL [place] # (Auto) (0.00-0.90) K/UL Eos # (Auto) (0.00-0.50) K/uL Baso # (Auto) (0.00-0.30) K/uL Abs Immat Gran (auto) (0.00-0.30) K/uL Imm/Tot Granulo (auto) % INR (0.91-1.10) Sodium (135-149) mmol/L Potassium (3.6-5.1) mmol/L Chloride (96-114) mmol/L Carbon Dioxide (20-32) mmol/L Anion Gap (7-15) mEq/L BUN (7-30) mg/dL Creatinine (0.5-1.5) mg/dL Estimated Creat Clear Estimated GFR ml/min Glucose (60-115) mg/dL Calcium (8.4-10.6) mg/dL Total Bilirubin (0.1-1.5) mg/dL Direct Bilirubin (0.0-0.5) mg/dL AST (12-35) U/L ALT (4-35) U/L Alkaline Phosphatase (40-150) U/L Total Protein (6.0-8.3) g/dL Albumin (3.3-5.0) g/dL Urine Color Yellow (Yellow) Urine Appearance Clear (Clear) Urine pH 6.0 (5.0-8.5) Ur Specific [place] 1.015 (1.000-1.030) Urine Protein Negative (Negative) Urine Glucose (UA) Negative (Negative) Urine Ketones Negative (Negative) Urine Blood Negative (Negative) Urine Nitrite Negative (Negative) Urine Bilirubin Negative (Negative) Urine Urobilinogen 0.2 (0.2-1.0) Ur Leukocyte Esterase Trace A (Negative) Urine RBC 0-2 (0-2) Urine WBC 0-2 (0-5) Ur Squamous Epith Cells Few (None-Few) Urine Bacteria Few A (None) POC Creatinine (0.6-1.3) mg/dl POC Troponin I (0.01-0.04) ng/ml <Leo Raymond DO - Last Filed: 08/12/23 07:35> Discharge Plan Discharge Clinical Impression: Closed fracture of T10 vertebra, Renal insufficiency <Sindy Emmanuel MD - Last Filed: 08/12/23 14:48> Patient Disposition: Xfer Other <Sindy Emmanuel MD - Last Filed: 08/12/23 14:48> Condition: Stable <Sindy Emmanuel MD - Last Filed: 08/12/23 14:48> Prescriptions: No Action simvastatin 10 mg tablet 10 mg PO QPM amiodarone 200 mg tablet 200 mg PO DAILY (DME) Prodigy No Coding Strip See Rx Instructions .ROUTE DAILY Qty: 10 Rx Instructions: As directed glimepiride 1 mg tablet PO carvedilol 3.125 mg tablet 3.125 mg PO BID donepezil 5 mg tablet 5 mg PO DAILY bumetanide 1 mg tablet PO omeprazole 20 mg capsule,delayed release(DR/EC) 20 mg PO DAILY Eliquis 2.5 mg tablet 2.5 mg PO BID Entresto 24-26 mg tablet 1 tab PO BID sennosides [senna] 8.6 mg tablet 8.6 mg PO DAILY PRN <Sindy Emmanuel MD - Last Filed: 08/12/23 14:48> Stand Alone Forms: [facility] Info Instructions <Sindy Emmanuel MD - Last Filed: 08/12/23 14:48>
[2023-08-11] MEDS: HYDROmorphone 0.5 mg/0.5 ml inj IVP (14:57)
[2023-08-11] MEDS: LIDOCAINE 5% PATCH 1 PATCH TRANSDERMA (15:13)
--- NOTE | 2023-08-11 15:21 | ED.NURSE ---
pt feeling nauseous after Dilaudid given
--- NOTE | 2023-08-11 15:50 | ED.NURSE ---
pt reports no more nausea.
--- NOTE | 2023-08-11 17:52 | ED.NURSE ---
pt vomited 150ml of red/purple emesis. Does say she had a blueberry muffin this morning.
--- NOTE | 2023-08-11 18:24 | ED.NURSE ---
pt transferring to commode x1, reports not feeling dizzy.
[2023-08-11] MEDS: 0.9 % SODIUM CHLORIDE 1000 ml 1,000 ML 75 ML IV (18:45)
--- NOTE | 2023-08-11 21:09 | ED.NURSE ---
pt report given to oncjuan RN
[2023-08-12] VITALS (26 sets, daily range): BP systolic 132–183; BP diastolic 56–95; PULSE 64–83; RESP 16–18; O2SAT 91–98
--- NOTE | 2023-08-12 01:45 | ED.NURSE ---
pt. used bedpan to urinate.
[2023-08-12] MEDS: MELATONIN 3 MG TABLET 6 MG PO (01:47)
[2023-08-12] MEDS: LIDOCAINE 5% PATCH 1 PATCH TRANSDERMA (07:30)
--- NOTE | 2023-08-12 07:30 | ED.NURSE ---
Pt assisted to use bedpan to void. Clean draw sheet applied after voiding.
[2023-08-12] MEDS: guaiFENesin 600 MG TAB.ER.12H PO (08:31)
[2023-08-12] MEDS: 0.9 % SODIUM CHLORIDE 1000 ml 1,000 ML 75 ML IV (08:40)
--- NOTE | 2023-08-13 13:49 | ED.NURSE ---
patient was transferred to [facility] and called to see if patient was still there. Obtained fax number [phone] and att: [phone] results of the urine culture with the sensitivities so can have treatment.
== END 2023-08-12 15:00 | disposition other institution (70) ==
PROVIDERS: Emergency Provider Emergency Medicine; PCP Family Medicine
DX: S22.089A Unspecified fracture of T11-T12 vertebra, initial encounter for closed fracture (principal); N28.9 Disorder of kidney and ureter, unspecified; W18.30XA Fall on same level, unspecified, initial encounter; Y93.01 Activity, walking, marching and hiking; Y92.011 Dining room of single-family (private) house as the place of occurrence of the external cause
CPT/HCPCS: 36415; 70450; 71250; 72128; 72131; 80048; 80076; 81001; 82565; 84484; 85025; 85610; 87086; 87186; 93005; 94761; 96361; 96374; 96375; 96376; 99284; 99285; A9270; J1170; J2270; J7030; J7120

== ENCOUNTER 2024-01-27 04:35 | Outpatient (CLI) | payer MEDICARE, BC, SELFPAY | END 2024-01-27 04:36 | disposition home or self-care (01) | LOC: AMB 02-05 01:43 | PROVIDERS: PCP Family Medicine; Visit Provider Emergency Medicine | DX: S09.93XA Unspecified injury of face, initial encounter (principal); W18.30XA Fall on same level, unspecified, initial encounter; Y92.008 Other place in unspecified non-institutional (private) residence as the place of occurrence of the external cause | CPT/HCPCS: A0425; A0427 ==

== ENCOUNTER 2024-01-27 05:19 | Observation (INO) | payer MEDICARE, BC, SELFPAY ==
[2024-01-27] VITALS (25 sets, daily range): BP systolic 96–116; BP diastolic 47–76; PULSE 76–124; RESP 16–20; TEMP 35.9–36.6; O2SAT 94–99; BMI 22.9; BMI 23.6
--- NOTE | 2024-01-27 05:21 | ED_ITS ---
HPI - General Adult General Time Seen by Provider: 05:21 Date Seen: 01/27/24 Chief complaint: Fall/Minor Trauma Stated complaint: Fall Time Seen by Provider: 01/27/24 05:21 Source: patient, EMS, RN notes reviewed and old records reviewed Mode of arrival: EMS Limitations: no limitations History of Present Illness HPI narrative: 88-year-old female brought in by ambulance today for fall at home. Patient got up to go to the bathroom, says after going to the bathroom she got up and became lightheaded. Unsure if she passed out but she did fall. She complains of some back pain and pain in the right elbow, unsure if she hit her head. She denies any recent illness. No nausea, vomiting, diarrhea, cough, runny nose, chest pain, palpitations, shortness of breath. Related Data Home Medications Medication Instructions Recorded Confirmed apixaban 2.5 mg tablet (Eliquis) 2.5 mg PO BID 05/24/23 01/27/24 blood sugar diagnostic (Prodigy No #10 ea 05/24/23 01/27/24 Coding strips) carvedilol 3.125 mg tablet 3.125 mg PO BID 05/24/23 01/27/24 donepezil 5 mg tablet 5 mg PO HS 05/24/23 01/27/24 glimepiride 1 mg tablet 0.5 mg PO DAILY 05/24/23 01/27/24 sennosides 8.6 mg tablet (senna) 8.6 mg PO DAILY PRN 05/24/23 01/27/24 simvastatin 10 mg tablet 10 mg PO HS 05/24/23 01/27/24 acetaminophen 650 mg 1,300 mg PO HS PRN 01/27/24 01/27/24 tablet,extended release calcium carbonate 500 mg calcium 500 mg PO BID PRN 01/27/24 01/27/24 (1,250 mg) chewable tablet (Calcium 500) carvedilol 12.5 mg tablet 12.5 mg PO BID 01/27/24 01/27/24 clobetasol 0.05 % topical ointment 1 applic topical BID 01/27/24 01/27/24 gabapentin 100 mg capsule 100 mg PO HS 01/27/24 01/27/24 nitroglycerin 0.4 mg sublingual 0.4 mg sublingual Q5M PRN 01/27/24 01/27/24 tablet Previous Rx's Medication Instructions Recorded bumetanide 1 mg tablet 0.25 mg (1/4 x 1 mg) PO DAILY #20 01/28/24 tabs calcitonin (salmon) 200 1 spray intranasal HS #1 mL 01/28/24 unit/actuation nasal spray cephalexin 250 mg capsule 250 mg PO BID #12 caps 01/28/24 fluconazole 100 mg tablet 100 mg PO ONCE PRN #1 tab 01/28/24 (Diflucan) lidocaine 5 % topical patch 1 patch transdermal Q24H #30 ea 01/28/24 sacubitril 24 mg-valsartan 26 mg 0.5 tab PO BID #30 tabs 01/28/24 tablet (Entresto) Allergies Allergy/AdvReac Type Severity Reaction Status Date / Time Penicillins Allergy Unknown Verified 01/27/24 05:30 [facility] Medical History (Updated 01/28/24 @ 12:24 by Magy Weir MD) Chronic systolic heart failure ?I50.22 - Chronic systolic (congestive) heart failure (ICD-10) History of congestive heart failure ?Z86.79 - Personal history of other diseases of the circulatory system (ICD- 10) Recurrent falls ?R29.6 - Repeated falls (ICD-10) Type 2 diabetes mellitus ?E11.9 - Type 2 diabetes mellitus without complications (ICD-10) Compression fracture Essential tremor ?G25.0 - Essential tremor (ICD-10) Presence of CardioMEMS HF system ?Z95.818 - Presence of other cardiac implants and grafts (ICD-10) Paroxysmal A-fib ?I48.0 - Paroxysmal atrial fibrillation (ICD-10) Acute idiopathic myocarditis ?I40.1 - Isolated myocarditis (ICD-10) Osteopenia ?M85.80 - Other specified disorders of bone density and structure, unspecified site (ICD-10) Macular degeneration ?H35.30 - Unspecified macular degeneration (ICD-10) Psoriasis ?L40.9 - Psoriasis, unspecified (ICD-10) History of breast cancer ?Z85.3 - Personal history of malignant neoplasm of breast (ICD-10) Hypertension ?I10 - Essential (primary) hypertension (ICD-10) Surgical History (Updated 01/27/24 @ 13:09 by Magy Weir MD) Hx of tonsillectomy ?Z90.89 - Acquired absence of other organs (ICD-10) H/O mastectomy ?Z90.10 - Acquired absence of unspecified breast and nipple (ICD-10) History of hysterectomy ?Z90.710 - Acquired absence of both cervix and uterus (ICD-10) Hx of mitral valve repair ?Z98.890 - Other specified postprocedural states (ICD-10) Presence of combination internal cardiac defibrillator (ICD) and pacemaker ?Z95.810 - Presence of automatic (implantable) cardiac defibrillator (ICD-10) Social History What is your current living situation?: I presently have a place to live Problems where you live: no known problems Problems where you live details: n/a In the past 12 months, utilities in danger of being shut off: no In past 12 months, lack of transportation kept you from medical appts, meetings, work, or getting things needed for daily living: no In the past 12 mos, have been you worried that your food would run out before you had money to buy more?: never true In the past 12 mos, the food you bought just didn't last and you didn't have money to buy more?: never true Smoking Status: Never smoker Do you use any of these nicotine containing products: None How often do you have a drink containing alcohol: never How often do you have six or more drinks on one occasion: Never AUDIT-C Alcohol total score: 0 Non-prescribed substance use: denies use Caffeine: Yes How often does anyone, including family, friends and others, physically hurt you : never How often does anyone, including family, friends and others, insult or talk down to you: never How often does anyone, including family, friends and others, threaten you with harm: never How often does anyone, including family, friends and others, scream or curse at you: never service: No Exam Narrative: Exam Narrative: General: Well-developed and well-nourished, no acute distress Head: Atraumatic and normocephalic Eyes: Pupils are equal reactive, extraocular motions intact, conjunctiva clear ENT: External nose and ears are normal, posterior pharynx without erythema or exudate Neck: No midline cervical tenderness, full spontaneous range of motion the neck, trachea midline, no adenopathy Heart: Tachycardic but regular Lungs: Clear to auscultation bilaterally without wheezes or crackles Abdomen: Soft, nontender, nondistended with active bowel sounds Musculoskeletal: Mild midthoracic tenderness, hematoma the right elbow, no hip tenderness, straight leg raise sides with no difficulty Neurologic: Awake, alert, and oriented x3, no gross focal neurologic deficits, cranial nerves intact as tested Psych: Mood and affect are appropriate Skin: No rashes Const: Vital Signs, click to edit/add: Vital Signs - 24 hr 01/27/24 05:23 Temperature 97.9 F Pulse Rate [Right Pulse Oximeter] 112 H Respiratory Rate 20 Blood Pressure [Ri ght Upper Arm] 105/47 L Pulse Oximetry 94 Oxygen Delivery Me thod Room Air Course Course ED Course: Patient seen and examined, prior records reviewed. Patient presents today with a near syncopal episode after going to the bathroom this morning. She denies head injury, no external signs of head trauma but is on blood thinners, CT scan is ordered. Also some midline thoracic tenderness and CT scan is ordered. She does have a hematoma of the right elbow although good motion of this, x-rays ordered. She is little tachycardic and blood pressure is borderline, but at last emergency department his heart rate was in the 60s. Labs ordered along with IV fluids. Reevaluation(s) Time of Reevaluation #1: 06:58 Reevaluation #1: Labs ordered and independently interpreted by me with normal CBC, basic metabolic panel significant for creatinine of 2 which is similar to prior, glucose slightly elevated 178, lactate normal, BNP elevated 1960. Troponin is 0.02. Time of Reevaluation #2: 07:17 Reevaluation #2: CT scan of the head and panel interpreted by me with sequelae of old stroke but no acute findings. CT scan of the chest with cardiomegaly and mild vascular prominence but no acute pulmonary edema. CT of the lumbar spine with previously CT 10 compression fracture, now also appears to be a T8 compression Time of Reevaluation #3: 07:27 Reevaluation #3: Patient recheck, she still has no complaints. Still noted to be tachycardic and a little hypotensive. Urinalysis is pending. Anticipate admission due to abnormal vital signs and near syncopal episode Additional Reevaluation(s): 7:45 a.[address]. care discussed with Dr. Weir, hospitalist for observation, requests blood cultures and inflammatory markers. Vital Signs Vital signs: Initial Vital Signs Temperature 97.9 F 01/27/24 05:23 Temperature Source Temporal Artery Scan 01/27/24 05:23 Pulse Rate 112 H 01/27/24 05:23 Respiratory Rate 20 01/27/24 05:23 Blood Pressure 105/47 L 01/27/24 05:23 Blood Pressure Mean 66 L 01/27/24 05:23 Blood Pressure Position Supine 01/27/24 05:23 Pulse Oximetry 94 01/27/24 05:23 Oxygen Delivery Method Room Air 01/27/24 05:23 Vital Signs Temperature 97.9 F 01/27/24 05:23 Pulse Rate 112 H 01/27/24 05:23 Respiratory Rate 20 01/27/24 05:23 Blood Pressure 105/47 L 01/27/24 05:23 Pulse Oximetry 94 01/27/24 05:23 Oxygen Delivery Method Room Air 01/27/24 05:23 Temperature 97.6 F 01/28/24 07:00 Pulse Rate 64 01/28/24 07:39 Respiratory Rate 16 01/28/24 09:00 Blood Pressure 142/93 H 01/28/24 07:00 Pulse Oximetry 95 01/28/24 09:46 Oxygen Delivery Method Room Air 01/28/24 09:00 Medications Administered Medications: Discontinued Medications Generic Name Dose Route Start Last Admin Trade Name Freq PRN Reason Stop Dose Admin Acetaminophen 650 mg 01/27/24 06:57 01/27/24 07:15 Acetaminophen 325 Mg Tablet PO 01/27/24 06:58 650 mg ONCE ONE Administration Acetaminophen 650 - 975 mg 01/27/24 09:45 01/27/24 13:22 Acetaminophen 325 Mg Tablet PO 325 mg Q6H PRN Administration Acetaminophen 1,300 mg 01/27/24 13:27 01/27/24 21:22 Acetaminophen 650 Mg Tablet Er PO 1,300 mg TID PRN Administration Apixaban 2.5 mg 01/27/24 09:50 01/28/24 09:29 Apixaban 5 Mg Tablet PO 2.5 mg BID NGOC Administration Bumetanide 0.5 mg 01/27/24 09:50 01/27/24 10:34 Bumetanide 1 Mg Tablet PO 0.5 mg DAILY NGOC Administration Bumetanide 0.25 mg 01/28/24 09:00 01/28/24 09:28 Bumetanide 1 Mg Tablet PO 0.25 mg DAILY NGOC Administration Calcitonin [place] 1 spray 01/27/24 21:00 01/27/24 21:15 Calcitonin [place] Nasal [place] 200 Unit NOSTRIL-B 1 spray HS NGOC Administration Carvedilol 3.125 mg 01/27/24 10:00 01/27/24 10:37 Carvedilol 6.25 Mg Tablet PO 3.125 mg BID NGOC Administration Carvedilol 12.5 mg 01/27/24 09:50 01/28/24 09:28 Carvedilol 6.25 Mg Tablet PO 12.5 mg BID NGOC Administration Cephalexin HCl 250 mg 01/27/24 13:15 01/28/24 09:29 Cephalexin 250 Mg Capsule PO 250 mg BID NGOC Administration Donepezil HCl 5 mg 01/27/24 21:00 01/27/24 21:17 Donepezil 5 Mg Tablet PO 5 mg HS NGOC Administration Fluconazole 100 mg 01/27/24 12:59 01/27/24 13:16 Fluconazole 100 Mg Tablet PO 01/27/24 13:00 100 mg ONCE ONE Administration Gabapentin 100 mg 01/27/24 21:00 01/27/24 21:17 Gabapentin 100 Mg Capsule PO 100 mg HS NGOC Administration Glimepiride 0.5 mg 01/27/24 09:50 01/28/24 09:28 Glimepiride 1 Mg Tablet PO 0.5 mg DAILY NGOC Administration Sodium Chloride 500 mls @ 500 mls/hr 01/27/24 05:25 01/27/24 06:38 0.9 % Sodium Chloride 500 Ml IV 01/27/24 06:24 Infused .Q1H ONE Infusion Sodium Chloride 500 mls @ 500 mls/hr 01/27/24 07:26 01/27/24 09:00 0.9 % Sodium Chloride 500 Ml IV 01/27/24 08:25 Infused .Q1H ONE Infusion Sodium Chloride 500 mls @ 250 mls/hr 01/27/24 11:36 01/27/24 14:23 0.9 % Sodium Chloride 500 Ml IV 01/27/24 13:35 Infused .Q2H ONE Infusion Lidocaine 1 patch 01/27/24 13:00 01/27/24 13:16 Lidocaine 5% Patch TRANSDERMA 1 patch Q24H NGOC Administration Protocol Melatonin 3 - 6 mg 01/27/24 09:45 01/27/24 21:18 Melatonin 3 Mg Tablet PO 3 mg HS PRN Administration Menthol 1 applic 01/27/24 20:30 01/28/24 09:40 Menthol 57 Gm Gel TOPICAL 1 applic Q6H NGOC Administration Sacubitril/Valsartan 1 tab 01/27/24 09:50 01/27/24 10:34 Sacubitril 24 Mg/Valsartan 26 Mg Tablet PO 1 tab BID NGOC Administration Sacubitril/Valsartan 0.5 tab 01/27/24 21:00 01/28/24 09:29 Sacubitril 24 Mg/Valsartan 26 Mg Tablet PO 0.5 tab BID NGOC Administration Simvastatin 10 mg 01/27/24 21:00 01/27/24 21:18 Simvastatin 10 Mg Tablet PO 10 mg HS NGOC Administration Sodium Chloride 5 ml 01/27/24 21:00 01/28/24 09:40 Sodium Chloride 0.9 % (Flush) 10 Ml Syringe IVF 5 ml BID NGOC Administration Medical Decision Making Lab Data Labs: Lab Results 01/27/24 01/27/24 01/27/24 Range/Units 05:34 07:35 07:55 WBC 7.28 (4.50-11.00) K/uL RBC 3.72 L (4.00-5.20) m/uL Hgb 11.5 L (12.0-16.0) gm/dL Hct 36.3 (33.0-51.0) % MCV 98 (80-100) fL MCH 31 (26-34) pg MCHC 32 (32-36) gm/dL RDW Coeff of Vilma 14.6 (11.5-15.5) % Plt Count 166 (140-440) K/uL Neut % (Auto) 70.1 (42.0-72.0) % Lymph % (Auto) 15.5 L (20-44) % [place] % (Auto) 9.6 (0.0-11.0) % Eos % (Auto) 3.3 (0.0-7.0) % Baso % (Auto) 0.4 (0.0-3.0) % Neut # (Auto) 5.10 (1.7-7.0) K/uL Lymph # (Auto) 1.10 (0.90-2.90) K/uL [place] # (Auto) 0.70 (0.00-0.90) K/UL Eos # (Auto) 0.24 (0.00-0.50) K/uL Baso # (Auto) 0.03 (0.00-0.30) K/uL Abs Immat Gran (auto) 0.08 (0.00-0.30) K/uL Imm/Tot Granulo (auto) 1.1 % Sodium 136 (135-149) mmol/L Potassium 4.4 (3.6-5.1) mmol/L Chloride 106 (96-114) mmol/L Carbon Dioxide 21 (20-32) mmol/L Anion Gap 9 (7-15) mEq/L BUN 52 H (7-30) mg/dL Creatinine 2.0 H (0.5-1.5) mg/dL Estimated Creat Clear 16.70 Estimated GFR 24 ml/min Glucose 178 H (60-115) mg/dL Lactate 1.5 (0.5-1.9) mmol/L Calcium 11.1 H (8.4-10.6) mg/dL Magnesium 2.1 (1.5-2.6) mg/dL C-Reactive Protein < 0.5 L (0.5-1.0) mg/dL NT-Pro-B Natriuret Pep 1960 pg/mL TSH 6.480 H (0.270-4.20) uIU/mL Urine Color Yellow (Yellow) Urine Appearance Clear (Clear) Urine pH 6.0 (5.0-8.5) Ur Specific [place] 1.015 (1.000-1.030) Urine Protein 2+ A (Negative) Urine Glucose (UA) Negative (Negative) Urine Ketones Negative (Negative) Urine Blood Negative (Negative) Urine Nitrite Negative (Negative) Urine Bilirubin Negative (Negative) Urine Urobilinogen 0.2 (0.2-1.0) Ur Leukocyte Esterase 1+ A (Negative) Urine RBC 0-2 (0-2) Urine WBC 10-25 A (0-5) Ur Squamous Epith Cells Few (None-Few) Urine Bacteria Few A (None) SARS-CoV-2 (PCR) Negative SARS-CoV-2 (Negative) Influenza Type A (PCR) Negative PCR FLU A (Negative) Influenza Type B (PCR) Negative PCR FLU B (Negative) RSV (PCR) Negative PCR RSV (Negative) POC Troponin I 0.02 (0.01-0.04) ng/ml ECG Data Attestation: I personally reviewed and interpreted this ECG as follows: Prior ECG tracings: available for review Interpretation: Performed at 5:42 a.m. demonstrates paced rhythm rate 108, no acute ST elevations or depressions, QTC 522. Compared to prior of August 2023, paced rhythm has replaced sinus rhythm Discharge Plan Discharge Clinical Impression: Acute hypotension, Traumatic hematoma of right elbow, Near syncope, Tachycardia Patient Disposition: Admitted As Observation Activity Level: Activity as Tolerated Discharge Diet: Heart Healthy (2 gm sodium, low fat)
--- NOTE | 2024-01-27 05:25 | CT_ITS ---
Patient: AVIVA SANTOS Facility:?[facility] Patient ID:?[id number] Site Patient ID:?[id number]. Site :?[id number] Study:?CT-Spine Thoracic w/o-01/27/2024 7:14:36 AM Ordering Physician:Kenrick Garcia Final Report: INDICATION: Trauma. COMPARISON: The examination is compared to a CT of the chest dated August 11, 2023. TECHNIQUE: : CT examination of the chest was performed without contrast. Thin axial sections were obtained from above the apices of the lungs to the lung bases. In addition, a thoracic spine study was reformatted from the current acquisition. Please note that all CT scans at this facility use dose modulation, iterative reconstruction, and/or weight-based dosing when appropriate to reduce radiation dose to as low as reasonably achievable. FINDINGS: : HEART and MEDIASTINUM: The heart is enlarged. There is no mediastinal or hilar adenopathy or mass. No pericardial effusion. No mediastinal vascular injury identified within the limitations of a noncontrast study. LUNGS: The lungs show linear areas of basilar atelectasis or scarring. No pleural effusion or pneumothorax. PLEURAL SPACES: There is no pleural effusion, pneumothorax or pleural based mass. VISUALIZED UPPER ABDOMEN: No acute upper abdominal abnormality. OSSEOUS STRUCTURES: This includes the thoracic spine: There is no sternal fracture. There are nonacute rib fractures. There is syndesmophyte formation throughout much of the thoracic spine consistent with DISH or ankylosing spondylitis. There is minimal loss of height of the superior endplate of T3. This is new since the prior study. The age is uncertain though I suspect it as subacute. Correlate with point tenderness. Loss of height is about 10 percent. There is anterior distraction at T9-T10. 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 However, this is very similar to August 11, 2023. There is a superior endplate deformity of T10 which is slightly progressive since the prior study and could be acute on chronic. Loss of height is at most 15 percent. No visible burst component. There is complete loss of height of T12 in a vertebra plana configuration which is unchanged. TUBES and LINES: A pacer is noted IMPRESSION: 1. CHEST: No evidence of mediastinal vascular injury. Linear areas of atelectasis. No posttraumatic findings involving the lungs or pleural spaces. 2. OSSEOUS STRUCTURES EXCLUDING THE THORACIC SPINE: Nonacute rib fractures. 3. THORACIC SPINE: Syndesmophyte formation consistent with DISH or ankylosing spondylitis. Minimal loss of height of the superior endplate of T3 which is new since the prior study and may be acute. Fracture and distraction of the ossified anterior longitudinal ligament at T9-T10. However, this is unchanged. There is mild loss of height of T10 which is mildly progressive since the prior study and could be acute. Complete loss of height of T12 is again noted and is unchanged. Please note that all CT scans at this facility use dose modulation, iterative reconstruction, and/or weight-based dosing when appropriate to reduce radiation dose to as low as reasonably achievable. Dictated by Titus Casey MD @ 01/27/2024 7:38:30 AM Signed by:?Titus Casey MD @01/27/2024 7:38:30 AM (Electronic Signature)
--- NOTE | 2024-01-27 05:25 | CT_ITS ---
Patient: AVIVA SANTOS Facility:?[facility] R[facility] Patient ID:?[id number] Site Patient ID:?[id number]. Site :?[id number] Study:?CT-Head w/o-01/27/2024 7:14:32 AM Ordering Physician:?Roberto Garcia Final Report: INDICATION: Injury. On E liquids COMPARISON: August 11, 2020 TECHNIQUE: CT examination of the head was performed as axial sections without intravenous contrast. Images were obtained from the vertex of the skull through the skull base. Please note that all CT scans at this facility use dose modulation, iterative reconstruction, and/or weight-based dosing when appropriate to reduce radiation dose to as low as reasonably achievable. FINDINGS: The brain shows no sign of mass lesion, mass effect, hemorrhage, or edema. There are involutional changes. There is moderate cortical atrophy and there is moderate white matter disease. There is no hydrocephalus. The visualized portions of the orbits are normal in appearance. The osseous structures are normal in appearance with no sign of abnormality in the skull base or calvarium. Redemonstration of encephalomalacia of the left temporal lobe consistent with an old infarct. IMPRESSION: Involutional changes. No acute-appearing findings. 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 No intracranial hemorrhage. Please note that all CT scans at this facility use dose modulation, iterative reconstruction, and/or weight-based dosing when appropriate to reduce radiation dose to as low as reasonably achievable. Dictated by Titus Casey MD @ 01/27/2024 7:24:15 AM Signed by:?Titus Casey MD @01/27/2024 7:24:15 AM (Electronic Signature)
--- NOTE | 2024-01-27 05:25 | CT_ITS ---
Patient: AVIVA SANTOS Facility:?[facility] Patient ID:?[id number] Site Patient ID:?[id number]. Site :?1935 Study:?CT-Spine Cervical w/o-01/27/2024 7:14:34 AM Ordering Physician:?Roberto Garcia Final Report: INDICATION: Injury COMPARISON: A prior study dated August 29, 2019 TECHNIQUE: CT examination of the cervical spine is performed without contrast using spiral technique. Thin axial, sagittal and coronal reconstructions were made. Please note that all CT scans at this facility use dose modulation, iterative reconstruction, and/or weight-based dosing when appropriate to reduce radiation dose to as low as reasonably achievable. FINDINGS: : The osseous structures are demineralized. There are moderate degenerative changes. There is no visible acute fracture, dislocation or destructive process. Atherosclerotic vascular calcifications. IMPRESSION: No acute fracture, dislocation or destructive process. Please note that all CT scans at this facility use dose modulation, iterative reconstruction, and/or weight-based dosing when appropriate to reduce radiation dose to as low as reasonably achievable. Dictated by Titus Casey MD @ 01/27/2024 7:27:39 AM Signed by:?Titus Casey MD @01/27/2024 7:27:39 AM (Electronic Signature)
--- NOTE | 2024-01-27 05:25 | CT_ITS ---
Patient: AVIVA SANTOS Facility:?[facility] R[facility] Patient ID:?[id number] Site Patient ID:?[id number]. Site :?1935 Study:?CT-Chest w/o-01/27/2024 7:14:39 AM Ordering Physician:Kenrick Garcia Final Report: INDICATION: Trauma. COMPARISON: The examination is compared to a CT of the chest dated August 11, 2023. TECHNIQUE: : CT examination of the chest was performed without contrast. Thin axial sections were obtained from above the apices of the lungs to the lung bases. In addition, a thoracic spine study was reformatted from the current acquisition. Please note that all CT scans at this facility use dose modulation, iterative reconstruction, and/or weight-based dosing when appropriate to reduce radiation dose to as low as reasonably achievable. FINDINGS: : HEART and MEDIASTINUM: The heart is enlarged. There is no mediastinal or hilar adenopathy or mass. No pericardial effusion. No mediastinal vascular injury identified within the limitations of a noncontrast study. LUNGS: The lungs show linear areas of basilar atelectasis or scarring. No pleural effusion or pneumothorax. PLEURAL SPACES: There is no pleural effusion, pneumothorax or pleural based mass. VISUALIZED UPPER ABDOMEN: No acute upper abdominal abnormality. OSSEOUS STRUCTURES: This includes the thoracic spine: There is no sternal fracture. There are nonacute rib fractures. There is syndesmophyte formation throughout much of the thoracic spine consistent with DISH or ankylosing spondylitis. There is minimal loss of height of the superior endplate of T3. This is new since the prior study. The age is uncertain though I suspect it as subacute. Correlate with point tenderness. Loss of height is about 10 percent. There is anterior distraction at T9-T10. 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 However, this is very similar to August 11, 2023. There is a superior endplate deformity of T10 which is slightly progressive since the prior study and could be acute on chronic. Loss of height is at most 15 percent. No visible burst component. There is complete loss of height of T12 in a vertebra plana configuration which is unchanged. TUBES and LINES: A pacer is noted IMPRESSION: 1. CHEST: No evidence of mediastinal vascular injury. Linear areas of atelectasis. No posttraumatic findings involving the lungs or pleural spaces. 2. OSSEOUS STRUCTURES EXCLUDING THE THORACIC SPINE: Nonacute rib fractures. 3. THORACIC SPINE: Syndesmophyte formation consistent with DISH or ankylosing spondylitis. Minimal loss of height of the superior endplate of T3 which is new since the prior study and may be acute. Fracture and distraction of the ossified anterior longitudinal ligament at T9-T10. However, this is unchanged. There is mild loss of height of T10 which is mildly progressive since the prior study and could be acute. Complete loss of height of T12 is again noted and is unchanged. Please note that all CT scans at this facility use dose modulation, iterative reconstruction, and/or weight-based dosing when appropriate to reduce radiation dose to as low as reasonably achievable. Dictated by Titus Casey MD @ 01/27/2024 7:37:53 AM Signed by:?Titus Casey MD @01/27/2024 7:37:53 AM (Electronic Signature)
[2024-01-27 05:40] LABS: Lactate* 1.5 mmol/L (0.5-1.9)
[2024-01-27] MEDS: 0.9 % SODIUM CHLORIDE 500 ML 500 ML IV ×2 (05:41→07:40)
[2024-01-27 05:44] LABS: Troponin, Point-of-Care* 0.02 ng/ml (0.01-0.04)
[2024-01-27 05:50] LABS: Basophils Absolute Auto 0.03 K/uL (0.00-0.30); Basophils Percent Auto 0.4 % (0.0-3.0); Eosinophils Absolute Auto 0.24 K/uL (0.00-0.50); Eosinophils Percent Auto 3.3 % (0.0-7.0); Hematocrit 36.3 % (33.0-51.0); Hemoglobin* 11.5 gm/dL (12.0-16.0); Immature Granulocytes Abs Auto 0.08 K/uL (0.00-0.30); Immature Granulocytes Pct Auto 1.1 %; Lymphocytes Percent Auto 15.5 % (20-44); Mean Corpuscular HGB Conc 32 gm/dL (32-36); Mean Corpuscular Hemoglobin 31 pg (26-34); Mean Corpuscular Volume 98 fL (80-100); Monocytes Percent Auto 9.6 % (0.0-11.0); Neutrophils Percent Auto 70.1 % (42.0-72.0); Platelet Count* 166 K/uL (140-440); RDW Coefficient of Variation % 14.6 % (11.5-15.5); Red Blood Count 3.72 m/uL (4.00-5.20); White Blood Count* 7.28 K/uL (4.50-11.00)
[2024-01-27 05:53] LABS: Slide Review Reflex No
[2024-01-27 06:21] LABS: NT Pro B Type NatriureticPept* 1960 pg/mL
[2024-01-27 06:27] LABS: Chloride* 106 mmol/L (96-114)
[2024-01-27 06:28] LABS: Potassium* 4.4 mmol/L (3.6-5.1); Sodium* 136 mmol/L (135-149)
[2024-01-27 06:30] LABS: Estimated Glomerular Filt Rate 24 ml/min
[2024-01-27 06:31] LABS: Anion Gap 9 mEq/L (7-15); Blood Urea Nitrogen* 52 mg/dL (7-30); Calcium* 11.1 mg/dL (8.4-10.6); Carbon Dioxide* 21 mmol/L (20-32); Glucose* 178 mg/dL (60-115); Magnesium* 2.1 mg/dL (1.5-2.6)
[2024-01-27] MEDS: ACETAMINOPHEN 325 MG TABLET 650 MG PO (07:15)
[2024-01-27 07:42] LABS: Appearance Urine Clear (Clear); Bilirubin Urine Negative (Negative); Blood Urine Negative (Negative); Color Urine Yellow (Yellow); Glucose Urine Negative (Negative); Ketones Urine Negative (Negative); Leukocyte Esterase Urine 1+ (Negative); Nitrite Urine Negative (Negative); Protein Urine 2+ (Negative); Specific Gravity Urine 1.015 (1.000-1.030); Urobilinogen Urine 0.2 (0.2-1.0)
[2024-01-27 07:46] LABS: PCR FLU A Negative PCR FLU A (Negative); PCR FLU B Negative PCR FLU B (Negative); PCR RSV Negative PCR RSV (Negative); SARS PCR* Negative SARS-CoV-2 (Negative)
[2024-01-27 07:58] LABS: Bacteria Urine Few; RBC Urine 0-2 (0-2); Squamous Epithelial Cell Urine Few (None-Few)
[2024-01-27 08:35] LABS: C Reactive Protein* < 0.5 mg/dL (0.5-1.0)
--- NOTE | 2024-01-27 09:07 | ED.NURSE ---
pt report given to shanta CAMACHO
--- NOTE | 2024-01-27 09:48 | PM.IMHP1 ---
Hospitalist- H&P: HPI History of Present Illness Date Seen: 01/27/24 Chief complaint: Fall Narrative: ADMISSION HISTORY AND PHYSICAL - HOSPITALIST Chief Complaint: I fell and I could not get up HPI: This is a 88-year-old female who lives with her adult daughter and has been in her usual state of health until she fell this morning about 3:00 a.m.. She had gotten up to go to the restroom and just felt like was going down and then she was on the floor. She does not remember hitting her head or passing out. She was able to scoot and call 911. Her daughter was home but was sleeping so hard she did hear her phone. EMS brought her into the ER. They identified a ventricular paced rhythm that was over 100 and some mild hypotension. This is slightly new for her. Otherwise her workup was essentially negative. She has a known T10 compression fracture and she has a new hematoma on her right elbow. She was able to ambulate and denies pain. ER COURSE: Small fluid blows, acetaminophen, labs and x-rays. Secondary to her syncope, tachycardia, hypotension hospital medicine team was asked to admit. CODE STATUS: FULL CODE EMERGENCY CONTACT PLAN: Justine Russo? Daughter?Rel to [facility]? [phone]?Cell Phone? I've updated the PFSH, medications and allergies in the Expanse tabs. INVESTIGATIONS: LABS/MICRO/ECG/IMAGING from cardiology Tonya Wyatt Russo is a 88 y.o. female with CAD (with history of NSTEMI felt due to embolic event), chronic systolic CHF (LVEF ~20%, has cardiomems), s/p biventricular dual chamber ICD 11/2017, LBBB, parox atrial fibrillation, hypertension, type 2 diabetes, stage 3 CKD, chronic head tremor, anxiety and history breast cancer (s/p right mastectomy 1999, completed chemotherapy 11/2000) who was hospitalized at?[facility] from 03/02/2021-?03/05/2021 with left parietal intracerebral hemorrhage. CBC demonstrates stability. No elevation in her white blood cell count. Hemoglobin is 11.5, historically 11.9. Normal platelets. Electrolytes are all normal. Her renal function is actually better than it is typically. Her BUN is 52 and a creatinine is 2.0. GFR for 24. Lactate normal. CRP less than 0.5 BNP 1960 Calcium mildly elevated 11.1 UA shows a clear urine sample with 2+ protein, 1+ leukocyte esterase and some pyuria. Urine cultures pending. Two blood cultures are pending Quad respiratory screen negative Troponin 0.02 EKG shows a paced ventricular rhythm with a rate anywhere from 99-114 Orthostatic blood pressure check shows that her systolic dropped from 116-108 pulse goes up from 113-[address] Involutional changes. No acute-appearing findings. 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 No intracranial hemorrhage. Cspine CT No acute fracture, dislocation or destructive proces TSPINE CT CHEST CT 1. CHEST: No evidence of mediastinal vascular injury. Linear areas of atelectasis. No posttraumatic findings involving the lungs or pleural spaces. 2. OSSEOUS STRUCTURES EXCLUDING THE THORACIC SPINE: Nonacute rib fractures. 3. THORACIC SPINE: Syndesmophyte formation consistent with DISH or ankylosing spondylitis. Minimal loss of height of the superior endplate of T3 which is new since the prior study and may be acute. Fracture and distraction of the ossified anterior longitudinal ligament at T9-T10. However, this is unchanged. There is mild loss of height of T10 which is mildly progressive since the prior study and could be acute. Complete loss of height of T12 is again noted and is unchanged. February 2022 Final Impressions: Limited Echocardiogram performed 1. Normal LV size, moderately increased wall thickness, moderately reduced global systolic function with an estimated EF of 35%. 2. Right ventricular cavity size is mildly enlarged, global systolic RV function is normal. 3. Severely enlarged left atrium. 4. The mitral valve is repaired using a MitraClip, mild mitral regurgitation. Mean gradient 3.3 mmHg at HR 62 bpm. 5. Color Doppler suggests a left to right atrial level shunt. REVIEW OF SYSTEMS: 12-point ROS completed with patient and negative unless otherwise stated in HPI or below. PHYSICAL EXAM: CONSTITUTIONAL: Conversive, good historian. A/O. Knows setting and context. resting tremor VITAL SIGNS: see record. HEENT: Normocephalic, atraumatic. PERRL, EOMI, conjunctivae pink, no scleral icterus. Ears and nose externally normal. Pharynx normal. NECK: No JVD. No carotid bruit, no thyromegaly, no adenopathy. CHEST: Clear to auscultation bilaterally HEART: S1 and S2 normal. No harsh murmurs. No edema MUSCULOSKELETAL: No gross joint deformity or swelling. NEURO: Cranial nerves intact. Grossly intact. No asymmetric findings. SKIN: No rashes, petechiae, concerning changes PSYCHIATRIC: Euthymic. ADMIT TO MEDSURG: FLOOR CARE DVT: apixiban GI: PO intake Time spent: Today I spent 75 minutes seeing the patient, discussing the patient with ER staff, reviewing Expanse and EPIC notes/diagnostics, discussing the care plan with our care time that includes social work, PT/OT, pharmacy, RT, chcf and documenting my impressions and plan in the medical record. [facility] Medical History (Updated 01/27/24 @ 13:28 by Magy Weir MD) Chronic systolic heart failure ?I50.22 - Chronic systolic (congestive) heart failure (ICD-10) History of congestive heart failure ?Z86.79 - Personal history of other diseases of the circulatory system (ICD-10) Recurrent falls ?R29.6 - Repeated falls (ICD-10) Type 2 diabetes mellitus ?E11.9 - Type 2 diabetes mellitus without complications (ICD-10) Compression fracture Essential tremor ?G25.0 - Essential tremor (ICD-10) Presence of CardioMEMS HF system ?Z95.818 - Presence of other cardiac implants and grafts (ICD-10) Paroxysmal A-fib ?I48.0 - Paroxysmal atrial fibrillation (ICD-10) Acute idiopathic myocarditis ?I40.1 - Isolated myocarditis (ICD-10) Osteopenia ?M85.80 - Other specified disorders of bone density and structure, unspecified site (ICD-10) Macular degeneration ?H35.30 - Unspecified macular degeneration (ICD-10) Psoriasis ?L40.9 - Psoriasis, unspecified (ICD-10) History of breast cancer ?Z85.3 - Personal history of malignant neoplasm of breast (ICD-10) Hypertension ?I10 - Essential (primary) hypertension (ICD-10) Surgical History (Updated 01/27/24 @ 13:09 by Magy Weir MD) Hx of tonsillectomy ?Z90.89 - Acquired absence of other organs (ICD-10) H/O mastectomy ?Z90.10 - Acquired absence of unspecified breast and nipple (ICD-10) History of hysterectomy ?Z90.710 - Acquired absence of both cervix and uterus (ICD-10) Hx of mitral valve repair ?Z98.890 - Other specified postprocedural states (ICD-10) Presence of combination internal cardiac defibrillator (ICD) and pacemaker ?Z95.810 - Presence of automatic (implantable) cardiac defibrillator (ICD-10) Social History What is your current living situation?: I presently have a place to live Problems where you live: no known problems Problems where you live details: n/a In the past 12 months, utilities in danger of being shut off: no In past 12 months, lack of transportation kept you from medical appts, meetings, work, or getting things needed for daily living: no In the past 12 mos, have been you worried that your food would run out before you had money to buy more?: never true In the past 12 mos, the food you bought just didn't last and you didn't have money to buy more?: never true Smoking Status: Never smoker Do you use any of these nicotine containing products: None How often do you have a drink containing alcohol: never How often do you have six or more drinks on one occasion: Never AUDIT-C Alcohol total score: 0 Non-prescribed substance use: denies use Caffeine: Yes How often does anyone, including family, friends and others, physically hurt you: never How often does anyone, including family, friends and others, insult or talk down to you: never How often does anyone, including family, friends and others, threaten you with harm: never How often does anyone, including family, friends and others, scream or curse at you: never service: No Meds Home Medications and Allergies Home Medications Medication Instructions Recorded Confirmed Type apixaban 2.5 mg tablet (Eliquis) 2.5 mg PO BID 05/24/23 01/27/24 History blood sugar diagnostic (Prodigy No #10 ea 05/24/23 01/27/24 History Coding strips) bumetanide 1 mg tablet 0.5 - 1 mg PO DAILY 05/24/23 01/27/24 History carvedilol 3.125 mg tablet 3.125 mg PO BID 05/24/23 01/27/24 History donepezil 5 mg tablet 5 mg PO HS 05/24/23 01/27/24 History glimepiride 1 mg tablet 0.5 mg PO DAILY 05/24/23 01/27/24 History sacubitril 24 mg-valsartan 26 mg 1 tab PO BID 05/24/23 01/27/24 History tablet (Entresto) sennosides 8.6 mg tablet (senna) 8.6 mg PO DAILY PRN 05/24/23 01/27/24 History simvastatin 10 mg tablet 10 mg PO HS 05/24/23 01/27/24 History acetaminophen 650 mg 1,300 mg PO HS PRN 01/27/24 01/27/24 History tablet,extended release calcium carbonate 500 mg calcium 500 mg PO BID PRN 01/27/24 01/27/24 History (1,250 mg) chewable tablet (Calcium 500) carvedilol 12.5 mg tablet 12.5 mg PO BID 01/27/24 01/27/24 History clobetasol 0.05 % topical ointment 1 applic topical BID 01/27/24 01/27/24 History gabapentin 100 mg capsule 100 mg PO HS 01/27/24 01/27/24 History nitroglycerin 0.4 mg sublingual 0.4 mg sublingual Q5M PRN 01/27/24 01/27/24 History tablet Allergies Allergy/AdvReac Type Severity Reaction Status Date / Time Penicillins Allergy Unknown Verified 01/27/24 05:30 Exam Const: Vital Signs, click to edit/add: Vital Signs - 24 hr 01/27/24 05:23 01/27/24 07:50 01/27/24 07:51 Temperature 97.9 F Pulse Rate 109 H 102 H Pulse Rate [Right Pulse Oximeter] 112 H Respiratory Rate 20 Blood Pressure 104/58 L Blood Pressure [Ri ght Upper Arm] 105/47 L Pulse Oximetry 94 96 94 Oxygen Delivery Me thod Room Air 01/27/24 08:00 01/27/24 08:15 01/27/24 08:16 Temperature Pulse Rate 107 H 102 H 116 H Pulse Rate [Right Pulse Oximeter] Respiratory Rate Blood Pressure 96/64 Blood Pressure [Ri ght Upper Arm] Pulse Oximetry 96 95 94 Oxygen Delivery Me thod 01/27/24 08:30 01/27/24 08:32 01/27/24 08:45 Temperature Pulse Rate 99 99 109 H Pulse Rate [Right Pulse Oximeter] Respiratory Rate Blood Pressure 100/67 Blood Pressure [Ri ght Upper Arm] Pulse Oximetry 95 94 95 Oxygen Delivery In thod 01/27/24 08:46 01/27/24 08:46 01/27/24 08:47 Temperature Pulse Rate 102 H 102 H 106 H Pulse Rate [Right Pulse Oximeter] Respiratory Rate Blood Pressure 101/76 101/76 Blood Pressure [Ri ght Upper Arm] Pulse Oximetry 96 96 97 Oxygen Delivery [facility] Hospitalist - H&P: Result Labs Labs: Short CBC 01/27/24 Range/Units 05:34 WBC 7.28 (4.50-11.00) K/uL Hgb 11.5 L (12.0-16.0) gm/dL Hct 36.3 (33.0-51.0) % Plt Count 166 (140-440) K/uL BMP 01/27/24 05:34 Sodium 136 Potassium 4.4 Chloride 106 Carbon Dioxide 21 BUN 52 H Creatinine 2.0 H Glucose 178 H Calcium 11.1 H Urine 01/27/24 Range/Units 07:35 Urine Color Yellow (Yellow) Urine Appearance Clear (Clear) Urine pH 6.0 (5.0-8.5) Ur Specific [place] 1.015 (1.000-1.030) Urine Protein 2+ A (Negative) Urine Glucose (UA) Negative (Negative) Assessment and Plan Assessment and plan (1) Acute hypotension: Problem comment: Mild. Systolic is 95-116. Chronic med adjustment pt is at risk for hypovolumia given her bumex/PAD goal 12-14 (MEMs-guided management) will reduce coreg to 12.5mg will reduce entresto by 1/2 will reduce bumex by 1/2 Status: Acute (2) Near syncope: Problem comment: Multifactorial. Status: Acute (3) Tachycardia: Problem comment: Patient has a ventricularly paced rhythm so this is difficult to interpret. Fluid bolus for mild hypovolemia. However lactate creatinine are stable. Status: Acute (4) Chronic systolic heart failure: Problem comment: With reduced ejection fraction, 20% Likely related to embolic [place] and non ischemic changes (+/- left bundle branch block, +/- chemotherapy). Stage III, NYHA II LVEF: * 35% by echo Feb * 20% by JOSE LUIS (Oct) * 10-20% by echo Jun (LV 5.8 cm, noted severe MR) * 25-30% with mild MR by echo Jan GDMT: * Coreg 15.625 mg bid * Entresto 24/26 mg bid * Aldosterone antagonist: Stopped d/t prior TAM and hyperkalemia * SGLT2i: Prompted hypotension/syncope Structural options: Mitral CRISTY Jan with mild MR and mean gradient 3.3 at 62 bpm Volume status and diuretics: Management by Cardiomems/bumex. Change PAD to 14-20. Decrease Bumex to 0.5mg daily with 1mg dose 1 time per week Device therapy: TAPE RECORDER REPAIRER-D Nov Ischemic assessment: As above Status: Acute (5) Recurrent falls: Problem comment: -multifactorial. Her essential tremor is severe, she has macular degeneration, she has nonischemic heart disease with dilated cardiomyopathy Status: Acute (6) Traumatic hematoma of right elbow: Problem comment: X-rays were not done but her flexion and extension are normal. Status: Acute (7) Chronic kidney disease: Problem comment: -stable Status: Acute (8) Presence of CardioMEMS HF system: Problem comment: 04/16/2018, Dr. Shoemaker, [place] [facility] safe Status: Acute (9) Essential tremor: Problem comment: Severe Status: Acute (10) UTI (urinary tract infection): Problem comment: keflex 250mg bid; awaiting c/s Status: Acute (11) Vaginitis: Problem comment: diflucan x 1 Status: Acute (12) Compression fracture: Problem comment: continue lidoderm; add nasal calcitonin scheduled acetaminophen Status: Acute
[2024-01-27] MEDS: BUMETANIDE 1 MG TABLET 0.5 MG PO (10:34)
[2024-01-27] MEDS: SACUBITRIL 24 mg/VALSARTAN 26 mg TABLET 1 TAB PO (10:34)
[2024-01-27] MEDS: APIXABAN 5 MG TABLET 2.5 MG PO ×2 (10:35→21:14)
[2024-01-27] MEDS: GLIMEPIRIDE 1 MG TABLET 0.5 MG PO (10:36)
[2024-01-27] MEDS: carvediloL 6.25 MG TABLET 12.5 MG PO ×2 (10:37→21:16)
[2024-01-27] MEDS: carvediloL 6.25 MG TABLET 3.125 MG PO (10:37)
[2024-01-27] MEDS: 0.9 % SODIUM CHLORIDE 500 ML 500 ML 250 ML IV (12:08)
[2024-01-27] MEDS: cephALEXin 250 MG CAPSULE PO ×2 (13:16→21:17)
[2024-01-27] MEDS: LIDOCAINE 5% PATCH 1 PATCH TRANSDERMA (13:16)
[2024-01-27] MEDS: FLUCONAZOLE 100 MG TABLET PO (13:16)
[2024-01-27] MEDS: ACETAMINOPHEN 325 MG TABLET PO (13:22)
--- NOTE | 2024-01-27 14:13 | PC.NURSE ---
End of shift [id number]: Pt arrived to unit at 0900 from ED accompanied by her daughter. She comes from home independently with adult daughter living with her. Pt is A&O x4, afebrile and VSS. Pt is SBA with 4ww and gait belt for ambulation. Denies any dizziness or nausea with activity today. PIV in left AC SL and C/D/I. Pt received x1 500mL bolus for acute hypovolemia. Received 325mg Tylenol (per pt request) @1320 for chronic lower back pain. Lidocaine patch applied to lower back. Pt had x1 BM today after walking the halls with PT. TELE reads ventricular paced with BBB. Right arm restriction d/t h/o breast CA. Plan to have an ECHO done, adjust medications and hopefully discharge back home tomorrow 01/27. ?
[2024-01-27] MEDS: ACETAMINOPHEN 650 MG TABLET ER 1300 MG PO ×2 (18:08→21:22)
--- NOTE | 2024-01-27 18:18 | PC.NURSE ---
End of Shift [id number] - RN took over pt care at approximately 1500. Pt alert, oriented, pleasant. Up with standby assistance to bathroom, continent of bladder. Pt tolerating RA, regular diet, fluids. Pt reported pain in R elbow, R hip from fall prior to hospital stay. Pt requested Tylenol from JAN appropriately. Family at bedside, pt appears to be resting comfortably at end of shift.
[2024-01-27] MEDS: CALCITONIN SALMON NASAL SPRAY 200 UNIT 1 SPRAY NOSTRIL-B (21:15)
[2024-01-27] MEDS: DONEPEZIL 5 MG TABLET PO (21:17)
[2024-01-27] MEDS: GABAPENTIN 100 MG CAPSULE PO (21:17)
[2024-01-27] MEDS: SIMVASTATIN 10 MG TABLET PO (21:18)
[2024-01-27] MEDS: MELATONIN 3 MG TABLET PO (21:18)
[2024-01-27] MEDS: SACUBITRIL 24 mg/VALSARTAN 26 mg TABLET 0.5 TAB PO (21:19)
[2024-01-27] MEDS: SODIUM CHLORIDE 0.9 % (FLUSH) 10 ML SYRINGE 5 ML IVF (21:20)
[2024-01-27] MEDS: MENTHOL 57 GM GEL 1 APPLIC TOPICAL (21:30)
[2024-01-28] VITALS (7 sets, daily range): BP systolic 118–142; BP diastolic 60–93; PULSE 64–76; RESP 16; TEMP 36.3–36.4; O2SAT 90–95
[2024-01-28] MEDS: MENTHOL 57 GM GEL 1 APPLIC TOPICAL ×2 (02:09→09:40)
--- NOTE | 2024-01-28 06:25 | PC.NURSE ---
End of shift note [id number]: Pt noted to be alert & oriented x 4 and able to make needs known. IV to L hand patent and SL. Pt continent of bladder. VSS and pt has been afebrile this shift. Pt remains on telemetry and is V paced. She is transferring/ambulating with SBA using GB and walker. Pt requested to sleep with pants on last night. Pt and daughter report pt has had vaginal itching which was reported to day hospitalist today per pt and daughter report. Pt currently being treated with oral ABX for suspected UTI. Pt denies cough when asked and has no edema noted. Hematoma to R elbow present as a result of fall sustained at home before admission and covered with dressing. Pt noted to have tremor which is also noted in hx. Pt requested PRN Melatonin and PRN Tylenol last evening, rating pain to R elbow, shoulder and hip??/? with no further complaints of pain noted throughout the shift. ?
[2024-01-28 06:30] LABS: HCO3 VBG 22 mmol/L (21-28); PCO2 VBG 38 mmHG (40-50); PO2 VBG 86.2 mmHG (25-47); pH VBG 7.376 (7.32-7.43)
[2024-01-28 06:43] LABS: Hematocrit 29.1 % (33.0-51.0); Hemoglobin* 9.2 gm/dL (12.0-16.0); Mean Corpuscular HGB Conc 32 gm/dL (32-36); Mean Corpuscular Hemoglobin 31 pg (26-34); Mean Corpuscular Volume 98 fL (80-100); Platelet Count* 115 K/uL (140-440); Red Blood Count 2.98 m/uL (4.00-5.20); White Blood Count* 6.88 K/uL (4.50-11.00)
[2024-01-28 06:47] LABS: Slide Review Reflex No
[2024-01-28 07:06] LABS: Albumin* 3.5 g/dL (3.3-5.0); Chloride* 107 mmol/L (96-114); Potassium* 4.8 mmol/L (3.6-5.1); Sodium* 132 mmol/L (135-149)
[2024-01-28 07:09] LABS: Anion Gap 4 mEq/L (7-15); Carbon Dioxide* 21 mmol/L (20-32); Creatinine* 2.1 mg/dL (0.5-1.5); Est. Creatinine Clearance* 15.91; Estimated Glomerular Filt Rate 23 ml/min
[2024-01-28 07:10] LABS: Blood Urea Nitrogen* 59 mg/dL (7-30); Calcium* 9.5 mg/dL (8.4-10.6); Glucose* 72 mg/dL (60-115); Phosphorus* 4.7 mg/dL (2.5-4.5)
[2024-01-28] MEDS: BUMETANIDE 1 MG TABLET 0.25 MG PO (09:28)
[2024-01-28] MEDS: GLIMEPIRIDE 1 MG TABLET 0.5 MG PO (09:28)
[2024-01-28] MEDS: carvediloL 6.25 MG TABLET 12.5 MG PO (09:28)
[2024-01-28] MEDS: APIXABAN 5 MG TABLET 2.5 MG PO (09:29)
[2024-01-28] MEDS: cephALEXin 250 MG CAPSULE PO (09:29)
[2024-01-28] MEDS: SACUBITRIL 24 mg/VALSARTAN 26 mg TABLET 0.5 TAB PO (09:29)
[2024-01-28] MEDS: SODIUM CHLORIDE 0.9 % (FLUSH) 10 ML SYRINGE 5 ML IVF (09:40)
[2024-01-28 10:37] LABS: Free T4 Free Thyroxine* 1.46 ng/dL (0.70-1.85)
--- NOTE | 2024-01-28 12:21 | PM.DS1 ---
DS: Providers Provider Date Seen: 01/28/24 Date of admission: 01/27/24 09:13 Primary care physician: Radha Grimes MD Admitting Clinician: Magy Weir MD Consults: 01/27/24 09:45 Consult to Occupational Therapy [CONS] Routine Comment: Reason(s) for OT Consult:: Evaluate and Treat Any Restrictions?:: No Restrictions Consult to Physical Therapy [CONS] Routine Comment: Reason(s) for PT Consult:: Evaluate and Treat Any Restrictions?:: No Restrictions Consult to Radiographer Mammographer [CONS] Routine Comment: Reason for Consult:: Social Service Consult Attending Physician on discharge: Magy Weir MD Date of Discharge: 01/28/24 DS: Diagnosis Discharge Diagnosis (1) Chronic systolic heart failure: Status: Acute Problem details: With reduced ejection fraction, 35-40% Likely related to embolic LA and non ischemic changes (+/- left bundle branch block, +/- chemotherapy). Stage III, NYHA II LVEF: * 35% by echo Feb * 20% by JOSE LUIS (Oct) * 10-20% by echo Jun (LV 5.8 cm, noted severe MR) * 25-30% with mild MR by echo Jan GDMT: * Coreg 15.625 mg bid * Entresto 24/26 mg bid * Aldosterone antagonist: Stopped d/t prior TAM and hyperkalemia * SGLT2i: Prompted hypotension/syncope Structural options: Mitral CRISTY Jan with mild MR and mean gradient 3.3 at 62 bpm Volume status and diuretics: Management by Cardiomems/bumex. Change PAD to 14-20. 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 Her essential tremor is severe, she has macular degeneration, she has nonischemic heart disease with dilated cardiomyopathy, recent UTI (3) Near syncope: Status: Acute Problem details: Multifactorial. (4) Acute hypotension: Status: Acute Problem details: Mild. Systolic is 95-116. I will temporarily adjust chronic medications. pt is at risk for hypovolumia given her bumex/PAD goal 12-14 (MEMs-guided management) will reduce coreg to 12.5mg will reduce entresto by 1/2 will reduce bumex by 1/2 (5) Tachycardia: Status: Acute Problem details: Patient has a ventricularly paced rhythm so this is difficult to interpret. Fluid bolus for mild hypovolemia. However lactate creatinine are stable. (6) Traumatic hematoma of right elbow: Status: Acute Problem details: X-rays were not done but her flexion and extension are normal. (7) UTI (urinary tract infection): Status: Acute Problem details: keflex 250mg bid; awaiting c/s (8) Vaginitis: Status: Acute Problem details: diflucan x 1 (9) Compression fracture: Status: Acute Problem details: continue lidoderm; add nasal calcitonin scheduled acetaminophen DS: Summary Hospital Course Hospital Course: FINAL DIAGNOSIS/FOLLOW UP ISSUES: 1. Relative hypotension and tachycardia causing syncope. It is unclear if this was just a UTI, chronic medication in need of adjustment, relative hypovolemia. I adjusted down her Coreg, Bumex, Entresto. A very strict precautions to reach out to Dr. Paez and his staff review these changes. 2. UTI, finished course of oral Keflex. 3. Vaginitis, given 1 dose of Diflucan 4. Insufficiency compression fractures, continued her Lidoderm patch, scheduled Tylenol and trial of nasal Calcitonin. BRIEF HOSPITAL COURSE: Patient was admitted overnight. Synopsis of acute inpatient issues are outlined above. Chronic medical conditions with notable findings outlined above. Essentially several hours after her arrival her vital sign seemed all stabilized. She was independent within the room. We identified an acute UTI and vaginitis to treat. I adjusted some of her chronic medications. She felt well this morning and would like to go home a follow-up with cardiology. DISCHARGE MEDICATIONS: See reconciled list with reductions in her 3 most significant cardiac meds. Specific instructions to the patient and follow-up are outlined below. REVIEW OF SYSTEMS No new chest pain or dyspnea Pain controlled No voiding difficulties Tolerating diet challenge PHYSICAL EXAM: CONSTITUTIONAL: VITAL SIGNS: see record. HEENT: Normocephalic, atraumatic. PERRL, EOMI, conjunctivae pink, no scleral icterus. Ears and nose externally normal. Pharynx normal. NECK: No JVD. No carotid bruit, no thyromegaly, no adenopathy. CHEST: Clear to auscultation bilaterally. HEART: S1 and S2 normal. Edema ABDOMEN: Soft, nontender. Normal bowel sounds. MUSCULOSKELETAL: No gross joint deformity or swelling. NEURO: Cranial nerves intact. Grossly intact. No asymmetric findings. SKIN: No rashes, petechiae, concerning changes PSYCHIATRIC: Mood euthymic. DISPOSITION: Home with daughter Time spent on discharge 37 minutes. Status at Discharge Functional status at discharge: uses cane/walker Overall status at discharge: patient is progressing back to baseline Time Spent with Patient Time attestation: Total time spent providing and/or coordinating discharge services: Time spent: Greater than 30 minutes Exam Const: Vital Signs, click to edit/add: Vital Signs - 24 hr 01/27/24 13:03 01/27/24 17:13 01/27/24 17:24 Temperature 97.7 F Pulse Rate 84 Pulse Rate [Pulse Oximeter] 99 Respiratory Rate 20 Blood Pressure [Le ft Arm] 105/67 Pulse Oximetry 97 96 Oxygen Delivery Me thod Room Air Room Air 01/27/24 17:27 01/27/24 20:05 01/27/24 20:09 Temperature 96.7 F L Pulse Rate Pulse Rate [Pulse Oximeter] 77 Respiratory Rate 20 18 18 Blood Pressure [Le ft Arm] 115/67 Pulse Oximetry 96 95 95 Oxygen Delivery Me thod Room Air Room Air Room Air 01/27/24 22:41 01/27/24 23:00 01/27/24 23:06 Temperature 96.7 F L Pulse Rate 76 Pulse Rate [Pulse Oximeter] 77 77 Respiratory Rate 16 16 Blood Pressure [Le ft Arm] 112/56 L Pulse Oximetry 96 Oxygen Delivery Me thod Room Air 01/28/24 01:00 01/28/24 02:39 01/28/24 04:57 Temperature 97.4 F L Pulse Rate Pulse Rate [Pulse Oximeter] 74 Respiratory Rate 16 16 16 Blood Pressure [Le ft Arm] 118/60 Pulse Oximetry 90 94 94 Oxygen Delivery Me thod Room Air Room Air Room Air 01/28/24 07:00 01/28/24 07:39 01/28/24 09:00 Temperature 97.6 F Pulse Rate 64 Pulse Rate [Pulse Oximeter] 76 Respiratory Rate 16 16 Blood Pressure [Le ft Arm] 142/93 H Pulse Oximetry 95 95 Oxygen Delivery Me thod Room Air Room Air 01/28/24 09:46 Temperature Pulse Rate Pulse Rate [Pulse Oximeter] Respiratory Rate Blood Pressure [Le ft Arm] Pulse Oximetry 95 Oxygen Delivery Me thod DS: Data Data Completed and Pending Labs on day of discharge: Labs from last 24 hours 01/28/24 01/28/24 01/27/24 07:08 05:51 13:29 WBC 6.88 RBC 2.98 L Hgb 9.2 L Hct 29.1 L MCV 98 MCH 31 MCHC 32 Plt Count 115 L VBG pH 7.376 VBG pCO2 38 L VBG pO2 86.2 H VBG HCO3 22 Sodium 132 L Potassium 4.8 Chloride 107 Carbon Dioxide 21 Anion Gap 4 L BUN 59 H Creatinine 2.1 H Estimated Creat Clear 15.91 Estimated GFR 23 Glucose 72 Calcium 9.5 Phosphorus 4.7 H Albumin 3.5 TSH Free T4 1.46 Lab Acknowledgement Test Added Test Added 01/27/24 05:34 WBC RBC Hgb Hct MCV MCH MCHC Plt Count VBG pH VBG pCO2 VBG pO2 VBG HCO3 Sodium Potassium Chloride Carbon Dioxide Anion Gap BUN Creatinine Estimated Creat Clear Estimated GFR Glucose Calcium Phosphorus Albumin TSH 6.480 H Free T4 Lab Acknowledgement Preliminary micro results at discharge 01/27/24 07:55 Blood Culture - Preliminary Blood NO GROWTH AFTER 24 HOURS 01/27/24 07:55 Blood Culture - Preliminary Blood NO GROWTH AFTER 24 HOURS 01/27/24 Unknown Urine Culture - Preliminary Urine,Clean Catch Gram negative damion Discharge Plan Discharge Disposition: Home w/ Parent or Adult Date of Admission: 01/27/24 09:13 Attending Provider on Discharge: Magy Weir Primary Care Provider: Radha Grimes Anticipated Discharge Date/Time: 01/28/24 10:38 Discharge Medications: New cephalexin 250 mg Capsule 250 mg PO BID Qty: 12 0RF lidocaine 5 % Adhesive Patch,Medicated 1 patch transdermal Q24H Qty: 30 0RF fluconazole [Diflucan] 100 mg tablet 100 mg PO ONCE PRNQty: 1 0RF calcitonin (salmon) 200 unit/actuation [place],Non-Aerosol 1 spray intranasal HS Qty: 1 0RF Continued simvastatin 10 mg tablet 10 mg PO HS (DME) Prodigy No Coding Strip See Rx Instructions .ROUTE DAILY Qty: 10 Rx Instructions: As directed glimepiride 1 mg tablet 0.5 mg PO DAILY donepezil 5 mg tablet 5 mg PO HS Eliquis 2.5 mg tablet 2.5 mg PO BID sennosides [senna] 8.6 mg tablet 8.6 mg PO DAILY PRN nitroglycerin 0.4 mg tablet, sublingual 0.4 mg sublingual Q5M PRN gabapentin 100 mg capsule 100 mg PO HS clobetasol 0.05 % ointment 1 applic topical BID carvedilol 12.5 mg tablet 12.5 mg PO BID acetaminophen 650 mg tablet extended release 1,300 mg PO HS PRN calcium carbonate [Calcium 500] 500 mg calcium (1,250 mg) tablet,chewable 500 mg PO BID PRN Changed bumetanide 1 mg tablet 0.25 mg PO DAILY Qty: 20 0RF Rx Instructions: TAKES 0.5 MG DAILY 1 MG ONE DAY PER WEEK Entresto 24-26 mg tablet 0.5 tab PO BID Qty: 30 0RF Held carvedilol 3.125 mg tablet 3.125 mg PO BID Hold Instructions: Resume on 02/04/24. until you speak with Dr. 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 This persisted for many hours. We diagnosed you with a UTI, you are now on Keflex. In addition I made some temporary changes: I decreased your Coreg to 12.5mg BID (holding the 3.125mg dose), I decreased your Bumex and Entresto dose by 1/2. Please take your blood pressure, pulse and pulse ox twice a day and use your CardioMEMS system to check in on your volume status as we discussed. You also had one dose of diflucan for your vaginal yeast infection. I've made one available dose if needed in the future. Activity Level: Activity as Tolerated Discharge Diet: Heart Healthy (2 gm sodium, low fat) Follow Up Appointments: Radha Grimes MD [Primary Care Provider] - 02/05/24 9:05 am ([facility] for follow-up.) Forms: [employer] Info Instructions
--- NOTE | 2024-01-28 12:33 | PC.NURSE ---
Discharge - Pt alert, oriented, cooperative and pleasant. Pt up to bathroom with standby assistance, continent of bladder. Pt tolerating RA, regular diet, fluids. Denies pain, reports stiffness of R shoulder, elbow, hip. Pt stated medicated pain cream provided relief, RN administered per JAN. Family at bedside. IV catheter removed with tip intact, discharge education given to patient and family member/primary healthcare project manager. Understanding verbalized. Pt discharged to home via wheelchair with family member at approximately 1205.
== END 2024-01-28 12:05 | disposition home or self-care (01) ==
LOC: ED 09:12 → MEDSURG 09:14
PROVIDERS: Admitting Provider Family Medicine; Emergency Provider Family Medicine; PCP Family Medicine; Visit Provider Family Medicine
DX: R55 Syncope and collapse (principal); I95.9 Hypotension, unspecified; R00.0 Tachycardia, unspecified; N39.0 Urinary tract infection, site not specified; B96.20 Unspecified Escherichia coli [E. coli] as the cause of diseases classified elsewhere; N76.0 Acute vaginitis; S50.01XA Contusion of right elbow, initial encounter; M25.521 Pain in right elbow; M54.9 Dorsalgia, unspecified; G25.0 Essential tremor; R29.6 Repeated falls; E11.22 Type 2 diabetes mellitus with diabetic chronic kidney disease; I13.0 Hypertensive heart and chronic kidney disease with heart failure and stage 1 through stage 4 chronic kidney disease, or unspecified chronic kidney disease; N18.30 Chronic kidney disease, stage 3 unspecified; I50.22 Chronic systolic (congestive) heart failure; I25.10 Atherosclerotic heart disease of native coronary artery without angina pectoris; I42.8 Other cardiomyopathies; T14.8XXA Other injury of unspecified body region, initial encounter; H35.30 Unspecified macular degeneration; M85.80 Other specified disorders of bone density and structure, unspecified site; I44.7 Left bundle-branch block, unspecified; Z79.84 Long term (current) use of oral hypoglycemic drugs; Z79.01 Long term (current) use of anticoagulants; Z95.818 Presence of other cardiac implants and grafts; Z95.810 Presence of automatic (implantable) cardiac defibrillator; Z85.3 Personal history of malignant neoplasm of breast; Z86.79 Personal history of other diseases of the circulatory system; Z90.710 Acquired absence of both cervix and uterus; Z90.89 Acquired absence of other organs; Z90.10 Acquired absence of unspecified breast and nipple; Z98.890 Other specified postprocedural states
CPT/HCPCS: 36415; 70450; 71250; 72125; 72128; 80048; 80069; 81001; 82803; 83605; 83735; 83880; 84439; 84443; 84484; 85025; 85027; 86140; 87040; 87086; 87186; 87631; 93005; 93306; 96360; 96361; 97161; 97165; 97535; 99285; G0378; A9270; J7030

== ENCOUNTER 2024-02-15 09:18 | Outpatient (CLI) | payer MEDICARE, BC, SELFPAY | END 2024-02-15 09:19 | disposition home or self-care (01) | LOC: AMB 02-19 10:06 | PROVIDERS: PCP Family Medicine; Visit Provider Family Medicine | DX: R53.1 Weakness (principal); R29.810 Facial weakness | CPT/HCPCS: A0425; A0427 ==

== ENCOUNTER 2024-07-11 20:01 | Observation (INO) | payer MEDICARE, BC, SELFPAY ==
[2024-07-11 20:03] VITALS: BP 183/100; PULSE 92; RESP 18; TEMP 36.2; O2SAT 95; BMI 22.7
[2024-07-11 20:23] LABS: Fecal Occult Blood* Positive (Negative)
--- NOTE | 2024-07-11 20:39 | ED.GIBLEED ---
HPI - GI Bleed General Date Seen: 07/11/24 Chief complaint: GI Bleed Stated complaint: blood in urine/stool Time Seen by Provider: 07/11/24 20:06 Source: patient and family Mode of arrival: ambulatory Limitations: no limitations History of Present Illness HPI Narrative: Patient is a very nice 89-year-old female who presents here for evaluation of blood in her stools, they noticed this in the last hour she had some blood, when she went to the bathroom it was not a lot in here she had approximately 10-15 mL of clotted jelly like blood. Stains Hemoccult positive. She says she is otherwise asymptomatic she does not feel lightheaded she has no abdominal pain she does remember ever having this before her daughter confirms this. She does not remember when her last colonoscopy was, she does have a history of chronic kidney disease hypertension diabetes and heart failure. She is on Eliquis, I believe for atrial fibrillation. MD complaint: blood streaked stool and gross hematochezia Onset (ago): hour(s) Pain Consistency: intermittent and now resolved Severity: mild Relieving factors: none Exacerbating factors: bowel movement Context: anticoagulant use Associated symptoms: denies other symptoms Treatments Prior to Arrival: none Related Data Home Medications ?Medication ?Instructions ?Recorded ?Confirmed apixaban 2.5 mg tablet (Eliquis) 2.5 mg PO BID 05/24/23 01/27/24 blood sugar diagnostic (Prodigy No #10 ea 05/24/23 01/27/24 Coding strips) carvedilol 3.125 mg tablet 3.125 mg PO BID 05/24/23 01/27/24 donepezil 5 mg tablet 5 mg PO HS 05/24/23 01/27/24 glimepiride 1 mg tablet 0.5 mg PO DAILY 05/24/23 01/27/24 sennosides 8.6 mg tablet (senna) 8.6 mg PO DAILY PRN 05/24/23 01/27/24 simvastatin 10 mg tablet 10 mg PO HS 05/24/23 01/27/24 acetaminophen 650 mg 1,300 mg PO HS PRN 01/27/24 01/27/24 tablet,extended release calcium carbonate (Calcium 500) 500 mg PO BID PRN 01/27/24 01/27/24 carvedilol 12.5 mg tablet 12.5 mg PO BID 01/27/24 01/27/24 gabapentin 100 mg capsule 100 mg PO HS 01/27/24 01/27/24 nitroglycerin 0.4 mg sublingual 0.4 mg sublingual Q5M PRN 01/27/24 01/27/24 tablet Previous Rx's ?Medication ?Instructions ?Recorded bumetanide 1 mg tablet 0.25 mg (1/4 x 1 mg) PO DAILY #20 01/28/24 tabs calcitonin (salmon) 200 1 spray intranasal HS #1 mL 01/28/24 unit/actuation nasal spray cephalexin 250 mg capsule 250 mg PO BID #12 caps 01/28/24 fluconazole 100 mg tablet 100 mg PO ONCE PRN #1 tab 01/28/24 (Diflucan) lidocaine 5 % topical patch 1 patch transdermal Q24H #30 ea 01/28/24 sacubitril 24 mg-valsartan 26 mg 0.5 tab PO BID #30 tabs 01/28/24 tablet (Entresto) Allergies Allergy/AdvReac Type Severity Reaction Status Date / Time Penicillins Allergy Unknown Verified 01/27/24 05:30 Review of Systems Status of ROS: Reports: 10 or more systems reviewed and unremarkable except as noted in History and below [facility] Medical History Chronic systolic heart failure ?I50.22 - Chronic systolic (congestive) heart failure (ICD-10) History of congestive heart failure ?Z86.79 - Personal history of other diseases of the circulatory system (ICD-10) Recurrent falls ?R29.6 - Repeated falls (ICD-10) Type 2 diabetes mellitus ?E11.9 - Type 2 diabetes mellitus without complications (ICD-10) Compression fracture Essential tremor ?G25.0 - Essential tremor (ICD-10) Presence of CardioMEMS HF system ?Z95.818 - Presence of other cardiac implants and grafts (ICD-10) Paroxysmal A-fib ?I48.0 - Paroxysmal atrial fibrillation (ICD-10) Acute idiopathic myocarditis ?I40.1 - Isolated myocarditis (ICD-10) Osteopenia ?M85.80 - Other specified disorders of bone density and structure, unspecified site (ICD-10) Macular degeneration ?H35.30 - Unspecified macular degeneration (ICD-10) Psoriasis ?L40.9 - Psoriasis, unspecified (ICD-10) History of breast cancer ?Z85.3 - Personal history of malignant neoplasm of breast (ICD-10) Hypertension ?I10 - Essential (primary) hypertension (ICD-10) Surgical History Hx of tonsillectomy ?Z90.89 - Acquired absence of other organs (ICD-10) H/O mastectomy ?Z90.10 - Acquired absence of unspecified breast and nipple (ICD-10) History of hysterectomy ?Z90.710 - Acquired absence of both cervix and uterus (ICD-10) Hx of mitral valve repair ?Z98.890 - Other specified postprocedural states (ICD-10) Presence of combination internal cardiac defibrillator (ICD) and pacemaker ?Z95.810 - Presence of automatic (implantable) cardiac defibrillator (ICD-10) Social History What is your current living situation?: I presently have a place to live Problems where you live: no known problems Problems where you live details: n/a In the past 12 months, utilities in danger of being shut off: no In past 12 months, lack of transportation kept you from medical appts, meetings, work, or getting things needed for daily living: no In the past 12 mos, have been you worried that your food would run out before you had money to buy more?: never true In the past 12 mos, the food you bought just didn't last and you didn't have money to buy more?: never true Smoking Status: Never smoker Do you use any of these nicotine containing products: None How often do you have a drink containing alcohol: never How often do you have six or more drinks on one occasion: Never AUDIT-C Alcohol total score: 0 Non-prescribed substance use: denies use Caffeine: Yes How often does anyone, including family, friends and others, physically hurt you: never How often does anyone, including family, friends and others, insult or talk down to you: never How often does anyone, including family, friends and others, threaten you with harm: never How often does anyone, including family, friends and others, scream or curse at you: never service: No Exam Narrative: Exam Narrative: Patient is seen in room 5 she is in no apparent distress she is seen with the 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 Her pupils equal round reactive to light there is no scleral icterus redness TMs normal oropharynx normal or abdomen is soft, there is no guarding no organomegaly heart sounds 106 systolic murmur across the left sternal border, do not hear an S3 or S4. Her chest is good air entry bilaterally no wheezing crackles noted. Moves all extremities independently well. Using anus scope, I was able to evaluate her, finger digital little bit of blood on the finger, and the bleeding of the right hand scope appears to be higher than the actually anoscope. The no masses felt, no tenderness. Const: Vital Signs, click to edit/add: Vital Signs - 24 hr 07/11/24 20:03 Temperature 97.1 F L Pulse Rate [Right Pulse Oximeter] 92 Respiratory Rate 18 Blood Pressure [Le ft Upper Arm] 183/100 H Pulse Oximetry 95 Oxygen Delivery Me thod Room Air Documenting provider has reviewed patient's vital signs: yes Course Course ED Course: I spoke to the hospitalist about admission, she was requesting a CT scan to, this is to be done without contrast, read results of the CT showed no acute findings, she does have a left-sided exophytic renal lesion, and will need a follow-up CT scan with renal protocol or MRI. She has had no further bleeding here in the ER despite going to the bathroom once, but given the fact she is anticoagulated with Eliquis for atrial fibrillation, I do believe admission to observation status is warranted, serial hemoglobins and see how she does. We do have the option of a colonoscopy tomorrow, if needed, but I would suspect that we will need this given her stability and if she stops bleeding. I do not think that we need to reverse her anticoagulation at the present time, I did type and screen her for packed red blood cells. Vital Signs Vital signs: Initial Vital Signs Temperature 97.1 F L 07/11/24 20:03 Temperature Source Temporal Artery Scan 07/11/24 20:03 Pulse Rate 92 07/11/24 20:03 Pulse Rhythm Regular 07/11/24 20:03 Respiratory Rate 18 07/11/24 20:03 Blood Pressure 183/100 H 07/11/24 20:03 Blood Pressure Mean 127 H 07/11/24 20:03 Blood Pressure Position Sitting 07/11/24 20:03 Pulse Oximetry 95 07/11/24 20:03 Oxygen Delivery Method Room Air 07/11/24 20:03 Vital Signs Temperature 97.1 F L 07/11/24 20:03 Pulse Rate 92 07/11/24 20:03 Respiratory Rate 18 07/11/24 20:03 Blood Pressure 183/100 H 07/11/24 20:03 Pulse Oximetry 95 07/11/24 20:03 Oxygen Delivery Method Room Air 07/11/24 20:03 Temperature 97.1 F L 07/11/24 20:03 Pulse Rate 92 07/11/24 20:03 Respiratory Rate 18 07/11/24 20:03 Blood Pressure 183/100 H 07/11/24 20:03 Pulse Oximetry 95 07/11/24 20:03 Oxygen Delivery Method Room Air 07/11/24 20:03 MDM - GI Bleed MDM Narrative Medical decision making narrative: Differential diagnosis includes but is not limited to Crohn's disease, gastric ulcer, duodenal ulcer, intussusception, lower GI bleeding, bleeding from hemorrhoids, anal fissure, angiodysplasia, inflammatory bowel disease, dysentery, ulcerative colitis, Meckel's diverticulum, Henoch-Schoenlein purpura, colorectal polyps or with or without removal. Life-threatening differential diagnosis include hypovolemia from the bleeding and/or cancer Medical Records Attestation: I reviewed the patient's medical records. Lab Data Attestation: I reviewed the patient's lab results. Labs: Lab Results 07/11/24 07/11/24 Range/Units 20:15 20:52 WBC 5.60 (4.50-11.00) K/uL RBC 3.57 L (4.00-5.20) m/uL Hgb 11.0 L (12.0-16.0) gm/dL Hct 34.1 (33.0-51.0) % MCV 96 (80-100) fL MCH 31 (26-34) pg MCHC 32 (32-36) gm/dL RDW Coeff of Vilma 16.7 H (11.5-15.5) % Plt Count 170 (140-440) K/uL Neut % (Auto) 68.9 (42.0-72.0) % Lymph % (Auto) 15.0 L (20-44) % [place] % (Auto) 12.9 H (0.0-11.0) % Eos % (Auto) 1.6 (0.0-7.0) % Baso % (Auto) 0.5 (0.0-3.0) % Neut # (Auto) 3.86 (1.7-7.0) K/uL Lymph # (Auto) 0.80 L (0.90-2.90) K/uL [place] # (Auto) 0.70 (0.00-0.90) K/UL Eos # (Auto) 0.09 (0.00-0.50) K/uL Baso # (Auto) 0.03 (0.00-0.30) K/uL Abs Immat Gran (auto) 0.06 (0.00-0.30) K/uL Imm/Tot Granulo (auto) 1.1 % INR 1.12 H (0.91-1.10) APTT 30 (23-33) Seconds Sodium 131 L (135-149) mmol/L Potassium 5.2 H (3.6-5.1) mmol/L Chloride 99 (96-114) mmol/L Carbon Dioxide 19 L (20-32) mmol/L Anion Gap 13 (7-15) mEq/L BUN 57 H (7-30) mg/dL Creatinine 2.1 H (0.5-1.5) mg/dL Estimated Creat Clear 15.61 Estimated GFR 22 ml/min Glucose 279 H (60-115) mg/dL Calcium 10.3 (8.4-10.6) mg/dL Stool Occult Blood Positive A (Negative) Blood Type A Positive Antibody Screen NEGATIVE ECG Data Attestation: I personally reviewed and interpreted this ECG as follows: ECG interpretation date: 07/11/24 Prior ECG tracings: available for review Interpretation: Paced rhythm, rate was 71. No change from previous Discharge Plan Discharge Clinical Impression: Acute lower gastrointestinal bleeding, Chronic anticoagulation, Congestive heart failure, Atrial fibrillation, Chronic kidney insufficiency Patient Disposition: Admitted As Observation Condition: Stable
[2024-07-11 21:06] LABS: Basophils Absolute Auto 0.03 K/uL (0.00-0.30); Basophils Percent Auto 0.5 % (0.0-3.0); Eosinophils Absolute Auto 0.09 K/uL (0.00-0.50); Eosinophils Percent Auto 1.6 % (0.0-7.0); Hematocrit 34.1 % (33.0-51.0); Immature Granulocytes Abs Auto 0.06 K/uL (0.00-0.30); Immature Granulocytes Pct Auto 1.1 %; Mean Corpuscular HGB Conc 32 gm/dL (32-36); Mean Corpuscular Hemoglobin 31 pg (26-34); Mean Corpuscular Volume 96 fL (80-100); Monocytes Percent Auto 12.9 % (0.0-11.0); Neutrophils Absolute Auto 3.86 K/uL (1.7-7.0); Neutrophils Percent Auto 68.9 % (42.0-72.0); Platelet Count* 170 K/uL (140-440); RDW Coefficient of Variation % 16.7 % (11.5-15.5); Red Blood Count 3.57 m/uL (4.00-5.20)
[2024-07-11 21:09] LABS: Chloride* 99 mmol/L (96-114); Potassium* 5.2 mmol/L (3.6-5.1); Sodium* 131 mmol/L (135-149)
[2024-07-11 21:10] LABS: Slide Review Reflex No
[2024-07-11 21:11] LABS: Creatinine* 2.1 mg/dL (0.5-1.5); Est. Creatinine Clearance* 15.61; Estimated Glomerular Filt Rate 22 ml/min
[2024-07-11 21:12] LABS: Anion Gap 13 mEq/L (7-15); Blood Urea Nitrogen* 57 mg/dL (7-30); Calcium* 10.3 mg/dL (8.4-10.6); Carbon Dioxide* 19 mmol/L (20-32); Glucose* 279 mg/dL (60-115)
[2024-07-11 21:14] LABS: INR 1.12 (0.91-1.10); Partial Thromboplastin Time* 30 Seconds (23-33); Prothrombin Time 15.1 Seconds
--- NOTE | 2024-07-11 21:30 | CRLHL7_ITS ---
For Patients: As a result of the Century Cures Act, medical imaging exams and procedure reports are released immediately into your electronic medical record. You may view this report before your referring provider. If you have questions, please contact your health care provider. INDICATION: Hematochezia. TECHNIQUE: CT abdomen and pelvis without contrast. COMPARISON: 08/29/2019. FINDINGS: Lower chest: Bibasilar atelectasis/scarring, unchanged. Stable cardiomegaly. Liver: Normal in size and attenuation. Gallbladder and bile ducts: Cholelithiasis. No inflammation. No biliary ductal dilatation. Spleen: Normal in size. Adrenal glands: Normal in size. No nodules. Pancreas: Unremarkable. No mass or inflammation. Kidneys: Heterogeneous exophytic mass along the left renal lower pole measuring approximately 4.5 cm. Bilateral proteinaceous/hemorrhagic cysts. No stones or hydronephrosis. GI tract: Tiny hiatal hernia. Colonic diverticulosis without evidence of diverticulitis. No evidence of obstruction. Normal appendix. Lymph nodes: No lymphadenopathy. Vasculature: Moderate scattered atherosclerotic calcifications. Abdominal aorta is normal in caliber. Abdominal wall/Omentum/Peritoneum: Fat containing umbilical hernia. No free air or significant free fluid. Pelvis: Status post hysterectomy. Bones: Degenerative changes. Chronic appearing severe T12 anterior wedge deformity. IMPRESSION: 1. No acute abdominal or pelvic abnormality on this noncontrast examination. 2. 4.5 cm left renal lower pole exophytic mass. Recommend further characterization with CT or MRI abdomen (renal protocol). 3. Colonic diverticulosis without evidence of diverticulitis. 4. Cholelithiasis. Please note that all CT scans at this facility use dose modulation, iterative reconstruction, and/or weight-based dosing when appropriate to reduce radiation dose to as low as reasonably achievable. Dictated by Jae Alexander MD @ 07/11/2024 10:06:07 PM (Electronically Signed)
[2024-07-11 22:54] VITALS: BP 161/84; PULSE 77; RESP 18; TEMP 36.4; O2SAT 99; BMI 23.6
--- NOTE | 2024-07-11 23:50 | PM.IMHP1 ---
Hospitalist- H&P: HPI History of Present Illness Date Seen: 07/12/24 Chief complaint: blood in urine/stool Narrative: Tonya Russo is a 89 year old female with CAD, chronic systolic CHF (LVEF ~20%), s/p biventricular dual chamber ICD 11/2017, LBBB, parox atrial fibrillation, hypertension, type 2 diabetes, stage 3 CKD, chronic head tremor, Hx of left parietal intracerebral hemorrhage, anxiety and history breast cancer (s/p right mastectomy 1999 and chemotherapy) who presents to the ED due to lower GI bleed. The patient lives with her daughter . Pt found out that her diaper has about 10-15 mL of jellylike blood in her stool today at 6.30 pm. Later on patient had another bowel movement at our ED that did not show any bleeding. Patient is hemodynamically stable hemoglobin is stable at 11 (her last hemoglobin in 01/2024 was about the same). CT scan w/out IV contrast ordered d/t CKD and it didn?t show free air or significant free fluid. No acute abdominal or pelvic abnormality on this noncontrast examination. Colonic diverticulosis without evidence of diverticulitis. There is a 4.5 cm left renal lower pole exophytic mass. Recommend further characterization with CT or MRI abdomen (renal protocol). Review of Systems Status of ROS: Reports: 6 or more systems reviewed and unremarkable except as noted in History and below PFSH FORMERLY [facility], [facility] Medical History Chronic systolic heart failure ?I50.22 - Chronic systolic (congestive) heart failure (ICD-10) History of congestive heart failure ?Z86.79 - Personal history of other diseases of the circulatory system (ICD-10) Recurrent falls ?R29.6 - Repeated falls (ICD-10) Type 2 diabetes mellitus ?E11.9 - Type 2 diabetes mellitus without complications (ICD-10) Compression fracture Essential tremor ?G25.0 - Essential tremor (ICD-10) Presence of CardioMEMS HF system ?Z95.818 - Presence of other cardiac implants and grafts (ICD-10) Paroxysmal A-fib ?I48.0 - Paroxysmal atrial fibrillation (ICD-10) Acute idiopathic myocarditis ?I40.1 - Isolated myocarditis (ICD-10) Osteopenia ?M85.80 - Other specified disorders of bone density and structure, unspecified site (ICD-10) Macular degeneration ?H35.30 - Unspecified macular degeneration (ICD-10) Psoriasis ?L40.9 - Psoriasis, unspecified (ICD-10) History of breast cancer ?Z85.3 - Personal history of malignant neoplasm of breast (ICD-10) Hypertension ?I10 - Essential (primary) hypertension (ICD-10) Surgical History Hx of tonsillectomy ?Z90.89 - Acquired absence of other organs (ICD-10) H/O mastectomy ?Z90.10 - Acquired absence of unspecified breast and nipple (ICD-10) History of hysterectomy ?Z90.710 - Acquired absence of both cervix and uterus (ICD-10) Hx of mitral valve repair ?Z98.890 - Other specified postprocedural states (ICD-10) Presence of combination internal cardiac defibrillator (ICD) and pacemaker ?Z95.810 - Presence of automatic (implantable) cardiac defibrillator (ICD-10) Social History What is your current living situation?: I presently have a place to live Problems where you live: no known problems Problems where you live details: n/a In the past 12 months, utilities in danger of being shut off: no In past 12 months, lack of transportation kept you from medical appts, meetings, work, or getting things needed for daily living: no In the past 12 mos, have been you worried that your food would run out before you had money to buy more?: never true In the past 12 mos, the food you bought just didn't last and you didn't have money to buy more?: never true Smoking Status: Never smoker Do you use any of these nicotine containing products: None How often do you have a drink containing alcohol: never How often do you have six or more drinks on one occasion: Never AUDIT-C Alcohol total score: 0 Non-prescribed substance use: denies use Caffeine: Yes How often does anyone, including family, friends and others, physically hurt you: never How often does anyone, including family, friends and others, insult or talk down to you: never How often does anyone, including family, friends and others, threaten you with harm: never How often does anyone, including family, friends and others, scream or curse at you: never service: No Meds Home Medications and Allergies Home Medications ?Medication ?Instructions ?Recorded ?Confirmed ?Type apixaban 2.5 mg tablet (Eliquis) 2.5 mg PO BID 05/24/23 01/27/24 History blood sugar diagnostic (Prodigy No #10 ea 05/24/23 01/27/24 History Coding strips) carvedilol 3.125 mg tablet 3.125 mg PO BID 05/24/23 01/27/24 History donepezil 5 mg tablet 5 mg PO HS 05/24/23 01/27/24 History glimepiride 1 mg tablet 0.5 mg PO DAILY 05/24/23 01/27/24 History sennosides 8.6 mg tablet (senna) 8.6 mg PO DAILY PRN 05/24/23 01/27/24 History simvastatin 10 mg tablet 10 mg PO HS 05/24/23 01/27/24 History acetaminophen 650 mg 1,300 mg PO HS PRN 01/27/24 01/27/24 History tablet,extended release calcium carbonate (Calcium 500) 500 mg PO BID PRN 01/27/24 01/27/24 History carvedilol 12.5 mg tablet 12.5 mg PO BID 01/27/24 01/27/24 History gabapentin 100 mg capsule 100 mg PO HS 01/27/24 01/27/24 History nitroglycerin 0.4 mg sublingual 0.4 mg sublingual Q5M PRN 01/27/24 01/27/24 History tablet Allergies Allergy/AdvReac Type Severity Reaction Status Date / Time Penicillins Allergy Unknown Verified 01/27/24 05:30 Exam Narrative: Exam Narrative: Physical exam GENERAL: Comfortable, no acute distress. HEAD AND NECK: Atraumatic, normocephalic CARDIOVASCULAR: Normal S1, S2. No murmurs. RESPIRATORY: Clear to auscultation B/L. Good air entry B/L. No wheezes or rhonchi. GASTROINTESTINAL: obese, not tender to palpation. NEUROLOGY: Alert, awake oriented , no focal weakness PSYCH: Normal mood, normal affect. Const: Vital Signs, click to edit/add: Vital Signs - 24 hr 07/11/24 20:03 Temperature 97.1 F L Pulse Rate [Right Pulse Oximeter] 92 Respiratory Rate 18 Blood Pressure [Le ft Upper Arm] 183/100 H Pulse Oximetry 95 Oxygen Delivery Me thod Room Air Hospitalist - H&P: Result Labs Labs: Short CBC 07/11/24 Range/Units 20:52 WBC 5.60 (4.50-11.00) K/uL Hgb 11.0 L (12.0-16.0) gm/dL Hct 34.1 (33.0-51.0) % Plt Count 170 (140-440) K/uL BMP 07/11/24 20:52 Sodium 131 L Potassium 5.2 H Chloride 99 Carbon Dioxide 19 L BUN 57 H Creatinine 2.1 H Glucose 279 H Calcium 10.[address] scan - abdomen: Radiologist's impression: CT abdomen and pelvis without contrast. COMPARISON: 08/29/2019. FINDINGS: Lower chest: Bibasilar atelectasis/scarring, unchanged. Stable cardiomegaly. Liver: Normal in size and attenuation. Gallbladder and bile ducts: Cholelithiasis. No inflammation. No biliary ductal dilatation. Spleen: Normal in size. Adrenal glands: Normal in size. No nodules. Pancreas: Unremarkable. No mass or inflammation. Kidneys: Heterogeneous exophytic mass along the left renal lower pole measuring approximately 4.5 cm. Bilateral proteinaceous/hemorrhagic cysts. No stones or hydronephrosis. GI tract: Tiny hiatal hernia. Colonic diverticulosis without evidence of diverticulitis. No evidence of obstruction. Normal appendix. Lymph nodes: No lymphadenopathy. Vasculature: Moderate scattered atherosclerotic calcifications. Abdominal aorta is normal in caliber. Abdominal wall/Omentum/Peritoneum: Fat containing umbilical hernia. No free air or significant free fluid. Pelvis: Status post hysterectomy. Bones: Degenerative changes. Chronic appearing severe T12 anterior wedge deformity. IMPRESSION: 1. No acute abdominal or pelvic abnormality on this noncontrast examination. 2. 4.5 cm left renal lower pole exophytic mass. Recommend further characterization with CT or MRI abdomen (renal protocol). 3. Colonic diverticulosis without evidence of diverticulitis. 4. Cholelithiasis. Please note that all CT scans at this facility use dose modulation, iterative reconstruction, and/or weight-based dosing when appropriate to reduce radiation dose to as low as reasonably achievable. Dictated by Jae Alexander MD @ 07/11/2024 10:06:07 PM Assessment and Plan Assessment and plan (1) Acute lower gastrointestinal bleeding: Problem comment: - CT scan w/out IV contrast ordered d/t CKD and it didn?t show free air or significant free fluid. No acute abdominal or pelvic abnormality on this noncontrast examination. Colonic diverticulosis without evidence of diverticulitis. - There is a 4.5 cm left renal lower pole exophytic mass. Radiologist recommends further characterization with CT or MRI abdomen (renal protocol). - Type & Screen ordered. Transfuse blood only if symptomatic or if Hb is < 8 as pt has CAD and HF. - Frequent Hb - Hold apixaban - IV Pantoprazole 80 mg ordered - NPO - Pt will need colonoscopy. Status: Acute (2) Atrial fibrillation: Problem comment: -Hold Apixaban Status: Acute (3) Chronic anticoagulation: Problem comment: Hold Apixaban Status: Acute (4) Chronic kidney insufficiency: Status: Acute (5) Congestive heart failure: Problem comment: Resume home meds Status: Acute (6) Essential tremor: Problem comment: Severe Status: Acute Plan As above Total Time Spent Total Time Spent: Time spent: Today I spent 75 minutes seeing the patient, discussing the patient with ER staff, reviewing Expanse and EPIC notes/diagnostics, discussing the care plan with our care time that includes social work, PT/OT, pharmacy, RT, chcf and documenting my impressions and plan in the medical record.
[2024-07-12] VITALS (7 sets, daily range): BP systolic 99–134; BP diastolic 50–74; PULSE 70–84; RESP 16–18; TEMP 36.4–36.5; O2SAT 94–99
[2024-07-12] MEDS: PANTOPRAZOLE SODIUM 40 MG INJ 80 MG IVP (00:55)
[2024-07-12 01:00] LABS: Hemoglobin* 9.9 gm/dL (12.0-16.0)
[2024-07-12] MEDS: SODIUM CHLORIDE 0.9 % (FLUSH) 10 ML SYRINGE 5 ML IVF ×2 (01:01→09:46)
[2024-07-12 01:19] LABS: Potassium* 4.6 mmol/L (3.6-5.1)
--- NOTE | 2024-07-12 06:53 | PC.NURSE ---
Pt alert and oriented to self x3. Afebrile. Room air. Pt denies pain, chest pain, SOB, and N/V. Pt had 1 smear bm overnight with scant?bright red streaks on toilet paper. Pt is up SBA with walker, tolerating and NPO diet since 225407/11/24. ?
[2024-07-12 07:11] LABS: Basophils Absolute Auto 0.02 K/uL (0.00-0.30); Basophils Percent Auto 0.3 % (0.0-3.0); Eosinophils Absolute Auto 0.15 K/uL (0.00-0.50); Eosinophils Percent Auto 2.5 % (0.0-7.0); Hematocrit 33.6 % (33.0-51.0); Hemoglobin* 10.8 gm/dL (12.0-16.0); Immature Granulocytes Abs Auto 0.08 K/uL (0.00-0.30); Immature Granulocytes Pct Auto 1.3 %; Lymphocytes Percent Auto 18.1 % (20-44); Mean Corpuscular HGB Conc 32 gm/dL (32-36); Mean Corpuscular Hemoglobin 31 pg (26-34); Mean Corpuscular Volume 96 fL (80-100); Monocytes Percent Auto 13.7 % (0.0-11.0); Neutrophils Absolute Auto 3.83 K/uL (1.7-7.0); Neutrophils Percent Auto 64.1 % (42.0-72.0); Platelet Count* 168 K/uL (140-440); RDW Coefficient of Variation % 16.7 % (11.5-15.5); Red Blood Count 3.52 m/uL (4.00-5.20); White Blood Count* 5.98 K/uL (4.50-11.00)
[2024-07-12 07:22] LABS: Slide Review Reflex No
[2024-07-12 08:01] LABS: Chloride* 104 mmol/L (96-114)
[2024-07-12 08:02] LABS: Albumin* 4.3 g/dL (3.3-5.0); Potassium* 4.7 mmol/L (3.6-5.1); Sodium* 133 mmol/L (135-149)
[2024-07-12 08:05] LABS: Alanine Aminotransferase* 15 U/L (4-35); Alkaline Phosphatase* 71 U/L (40-150); Anion Gap 11 mEq/L (7-15); Aspartate Amino Transferase* 22 U/L (12-35); Bilirubin Total* 0.4 mg/dL (0.1-1.5); Blood Urea Nitrogen* 55 mg/dL (7-30); Carbon Dioxide* 18 mmol/L (20-32); Creatinine* 2.1 mg/dL (0.5-1.5); Est. Creatinine Clearance* 15.61; Estimated Glomerular Filt Rate 22 ml/min; Glucose* 159 mg/dL (60-115); Phosphorus* 4.3 mg/dL (2.5-4.5); Total Protein* 7.4 g/dL (6.0-8.3)
[2024-07-12 08:06] LABS: Calcium* 10.8 mg/dL (8.4-10.6)
[2024-07-12] MEDS: carvediloL 6.25 MG TABLET 15.625 MG PO (09:46)
[2024-07-12] MEDS: BUMETANIDE 1 MG TABLET 0.25 MG PO (09:48)
[2024-07-12] MEDS: SACUBITRIL 24 mg/VALSARTAN 26 mg TABLET 1 TAB PO (09:48)
--- NOTE | 2024-07-12 09:54 | REH.OT ---
OT - Patient had a bowel movement with blood in stool. Nursing and MD informed.
--- NOTE | 2024-07-12 11:42 | PM.DS1 ---
DS: Providers Provider Date Seen: 07/12/24 Date of admission: 07/11/24 22:47 Primary care physician: Radha Grimes MD Admitting Clinician: Niya Verduzco MD Consults: OT, PT Attending Physician on discharge: Tammy Troy MD Date of Discharge: 07/12/24 DS: Diagnosis Discharge Diagnosis (1) Acute lower gastrointestinal bleeding: Status: Acute Problem details: - CT on 07/11 revealed no acute abnormalities, + diverticulosis without evidence of diverticulitis - incidentally noted: 4.5 cm left renal lower pole exophytic mass. Radiologist recommends further characterization with CT or MRI abdomen (renal protocol) as outpt - Hgb remained stable during stay - Apixaban held - Patient noted decreased bleeding and back to baseline 07/12; Tonya wasn't sure if she wanted to proceed with colonoscopy, plans to discuss with PCP (2) Atrial fibrillation: Status: Acute Problem details: - paroxysmal, has pacemaker. Remained in sinus rhythm during stay - held Eliquis during stay and will hold upon d/c until f/u with PCP (3) Essential tremor: Status: Acute Problem details: - stable (4) Renal mass: Status: Acute Problem details: - incidental finding on imaging 07/11 - outpatient f/u with PCP for this (5) Congestive heart failure: Status: Acute Problem details: - HFrEF, on Entresto and Carvedilol - continued these during stay and will continue upon d/c - last TTE 02/24 with results below: 1. Normal LV size, normal wall thickness, mildly reduced global systolic function with an estimated EF of 35 - 40%. 2. Right ventricular cavity size is mildly enlarged, global systolic RV function is normal. Pacemaker wire present. 3. The mitral valve is repaired with a MitraClip, mild mitral regurgitation. Mean diastolic gradient not obtained. 4. Tricuspid valve is non coapting. 5. Severe tricuspid regurgitation. 6. Mildly enlarged left atrium. 7. Right to left shunt (atrial) noted on color doppler. 8. The inferior vena cava is normal sized, respiratory size variation less than 50%. 9. Echo contrast was administered to enhance visualization of all left ventricular segments. DS: Summary Hospital Course Hospital Course: Tonya is a delightful 89-year-old female with a past medical history of HFrEF, essential tremor, paroxysmal atrial fibrillation (anticoagulated on Eliquis), hyperlipidemia, and CKD who presented to the hospital on 07/11/2024 for painless rectal bleeding. Exam (including anoscope) in the ER did not reveal any obvious masses, external or internal hemorrhoids. CT scan reassuring without evidence of acute abnormalities (incidental diverticulosis and renal mass noted, see details above). On hospital day 1, bleeding improved (noted x1 on TP after wiping post BM). Tonya had no abdmoinal pain and was toleraring po intake. Seen and cleared by PT/OT. Hgb stable (11 --> 9.9 --> 10.8), did have mild hypotension but no tachycardia (upon chart review, she has had hypotension during hospital stays before, likely iatrogenic). She was asymptomatic from her lower blood pressures and appropriate for d/c home with close f/u on 07/12/24. We are holding her Eliquis until PCP f/u and Hgb recheck. Time Spent with Patient Time attestation: Total time spent providing and/or coordinating discharge services: Exam Narrative: Exam Narrative: GEN: Alert and oriented, sitting in bedside chair HEENT: EOMIs bilaterally, no scleral icterus CV: RRR, No concerning murmurs R: LCTA bilaterally without concerning wheezing Ab: Soft, no tenderness to palpation Skin: No concerning skin lesions or rashes on exposed skin Neuro: Essential tremor noted, primarily head. Noted to be ambulating well with walker during therapies Psych: Appropriate Const: Vital Signs, click to edit/add: Vital Signs - 24 hr 07/11/24 20:03 07/11/24 22:54 07/11/24 22:54 Temperature 97.1 F L 97.6 F Pulse Rate Pulse Rate [Pulse Oximeter] 77 Pulse Rate [Right Pulse Oximeter] 92 Pulse Rate [orthos tatic lying] Pulse Rate [orthos tatic sitting] Pulse Rate [orthos tatic standing] Respiratory Rate 18 18 Blood Pressure [Le ft Arm] 161/84 H Blood Pressure [Le ft Upper Arm] 183/100 H Blood Pressure [or thostatic lying Le ft Arm] Blood Pressure [or thostatic sitting Left Arm] Blood Pressure [or thostatic standing Left Arm] Pulse Oximetry 95 99 99 Oxygen Delivery Me thod Room Air Room Air Room Air 07/12/24 03:30 07/12/24 06:30 07/12/24 07:55 Temperature 97.6 F Pulse Rate 84 Pulse Rate [Pulse Oximeter] 72 Pulse Rate [Right Pulse Oximeter] Pulse Rate [orthos tatic lying] 72 Pulse Rate [orthos tatic sitting] 71 Pulse Rate [orthos tatic standing] 78 Respiratory Rate 16 Blood Pressure [Le ft Arm] 106/58 L Blood Pressure [Le ft Upper Arm] Blood Pressure [or thostatic lying Le ft Arm] 134/71 Blood Pressure [or thostatic sitting Left Arm] 133/73 Blood Pressure [or thostatic standing Left Arm] 123/74 Pulse Oximetry 96 Oxygen Delivery Me thod Room Air 07/12/24 08:24 Temperature 97.7 F Pulse Rate Pulse Rate [Pulse Oximeter] 70 Pulse Rate [Right Pulse Oximeter] Pulse Rate [orthos tatic lying] Pulse Rate [orthos tatic sitting] Pulse Rate [orthos tatic standing] Respiratory Rate 16 Blood Pressure [Le ft Arm] 99/50 L Blood Pressure [Le ft Upper Arm] Blood Pressure [or thostatic lying Le ft Arm] Blood Pressure [or thostatic sitting Left Arm] Blood Pressure [or thostatic standing Left Arm] Pulse Oximetry 99 Oxygen Delivery Me thod Room Air DS: Data Data Completed and Pending Labs on day of discharge: Labs from last 24 hours 07/12/24 07/12/24 07/11/24 07:00 00:55 20:52 WBC 5.98 5.60 RBC 3.52 L 3.57 L Hgb 10.8 L 9.9 L 11.0 L Hct 33.6 34.1 MCV 96 96 MCH 31 31 MCHC 32 32 RDW Coeff of Vilma 16.7 H 16.7 H Plt Count 168 170 Neut % (Auto) 64.1 68.9 Lymph % (Auto) 18.1 L 15.0 L [place] % (Auto) 13.7 H 12.9 H Eos % (Auto) 2.5 1.6 Baso % (Auto) 0.3 0.5 Neut # (Auto) 3.83 3.86 Lymph # (Auto) 1.10 0.80 L [place] # (Auto) 0.80 0.70 Eos # (Auto) 0.15 0.09 Baso # (Auto) 0.02 0.03 Abs Immat Gran (auto) 0.08 0.06 Imm/Tot Granulo (auto) 1.3 1.1 INR 1.12 H APTT 30 Sodium 133 L 131 L Potassium 4.7 4.6 5.2 H Chloride 104 99 Carbon Dioxide 18 L 19 L Anion Gap 11 13 BUN 55 H 57 H Creatinine 2.1 H 2.1 H Estimated Creat Clear 15.61 15.61 Estimated GFR 22 22 Glucose 159 H 279 H Calcium 10.8 H 10.3 Phosphorus 4.3 Magnesium 2.0 Total Bilirubin 0.4 AST 22 ALT 15 Alkaline Phosphatase 71 Total Protein 7.4 Albumin 4.3 Stool Occult Blood Blood Type A Positive A Positive Antibody Screen NEGATIVE NEGATIVE 07/11/24 20:15 WBC RBC Hgb Hct MCV MCH MCHC RDW Coeff of Vilma Plt Count Neut % (Auto) Lymph % (Auto) [place] % (Auto) Eos % (Auto) Baso % (Auto) Neut # (Auto) Lymph # (Auto) [place] # (Auto) Eos # (Auto) Baso # (Auto) Abs Immat Gran (auto) Imm/Tot Granulo (auto) INR APTT Sodium Potassium Chloride Carbon Dioxide Anion Gap BUN Creatinine Estimated Creat Clear Estimated GFR Glucose Calcium Phosphorus Magnesium Total Bilirubin AST ALT Alkaline Phosphatase Total Protein Albumin Stool Occult Blood Positive A Blood Type Antibody Screen Discharge Plan Discharge Disposition: Home, Self-Care Date of Admission: 07/11/24 22:47 Attending Provider on Discharge: Tammy Troy Primary Care Provider: Radha Grimes Condition: Stable Anticipated Discharge Date/Time: 07/12/24 16:30 Discharge Medications: Continued simvastatin 10 mg tablet 10 mg PO HS (DME) Prodigy No Coding Strip See Rx Instructions .ROUTE DAILY Qty: 10 Rx Instructions: As directed carvedilol 3.125 mg tablet 3.125 mg PO BID Hold Instructions: Resume on 02/04/24. until you speak with Dr. Frey donepezil 5 mg tablet 5 mg PO HS nitroglycerin 0.4 mg tablet, sublingual 0.4 mg sublingual Q5M PRN gabapentin 100 mg capsule 100 mg PO HS carvedilol 12.5 mg tablet 12.5 mg PO BID acetaminophen 650 mg tablet extended release 1,300 mg PO HS PRN calcium carbonate [Calcium 500] 500 mg calcium (1,250 mg) tablet,chewable 500 mg PO BID PRN lidocaine 5 % Adhesive Patch,Medicated 1 patch transdermal Q24H Qty: 30 0RF bumetanide 1 mg tablet 0.25 mg PO DAILY Qty: 20 0RF Rx Instructions: TAKES 0.5 MG DAILY 1 MG ONE DAY PER WEEK glipizide 5 mg tablet 5 mg PO DAILY Entresto 24-26 mg tablet 1 tab PO BID Ocuvite with Lutein 300 mcg-200 mg-27 mg-2 mg tablet 1 tab PO DAILY Rx Instructions: administer after a meal polyethylene glycol 3350 [ClearLax] 17 gram/dose powder 17 g PO DAILY Held Eliquis 2.5 mg tablet 2.5 mg PO BID Hold Instructions: Hold until f/u with Dr. Grimes Discontinued bumetanide 0.5 mg tablet PO Discharge Orders: Discharge Order (Routine); Ordered 07/12/24 Ordered By: Tammy Troy Patient Education: Diverticulosis Diet (GEN) Additional Instructions: The only change to your home medications: HOLD Eliquis until your followup appointment with Dr. Grimes. I've left a message for both her and Dr. Frey with this plan. Keep an eye on your bleeding; a little bit of blood on your TP or in the toilet is okay as long as you DON'T have any dizziness or lightheadedness. If your bleeding changes or worsens, or you feel dizzy or lightheaded, you need to return to the clinic or ER. Activity Level: Activity as Tolerated Discharge Diet: High Fiber Follow Up Appointments: Radha Grimes MD [Primary Care Provider] - 07/15/24 9:05 am ([facility] [place] hospital f/u and Hgb check.) Forms: [facility] Info Instructions
[2024-07-12] MEDS: INSULIN ASPART 100 UNIT/ML SUBCUT (12:11)
--- NOTE | 2024-07-12 17:06 | NUTR.NU ---
Nutrition: Message received late today, related to patient request for diabetes education prior to discharge. Patient does not want to come to clinic for outpatient education. Provided brief education reviewing carbohydrate foods and choices. Also, reviewed non-carbohydrate foods and balanced intake using the plate method for blood sugar management and satiety. Handouts provided: Carbohydrate counting for people with diabetes (NCM) and My Plate Special Distribution Clerk. Patient and daughter expressed gratitude for information provided. Provided contact information for follow up questions and encouraged to contact.
--- NOTE | 2024-07-12 17:19 | PC.NURSE ---
discharge pt has been very pleasant, Pt alert and oriented to self x3. No pain. Pt is up SBA with walker. went over discharge packet with pt and daughter. went over medications, appointment, education and instructions. SL was d/c intact. tele was removed. pt got a w/c ride out
== END 2024-07-12 17:15 | disposition home or self-care (01) ==
LOC: ED 22:27 → MEDSURG 22:48
PROVIDERS: Admitting Provider Student in an Organized Health Care Education/Training Program; Emergency Provider Family Medicine; PCP Family Medicine; Visit Provider Student in an Organized Health Care Education/Training Program
DX: K92.2 Gastrointestinal hemorrhage, unspecified (principal); I48.0 Paroxysmal atrial fibrillation; Z79.02 Long term (current) use of antithrombotics/antiplatelets; E78.5 Hyperlipidemia, unspecified; E11.9 Type 2 diabetes mellitus without complications; I50.20 Unspecified systolic (congestive) heart failure; N28.9 Disorder of kidney and ureter, unspecified
CPT/HCPCS: 36415; 74176; 80048; 80053; 82270; 82962; 83735; 84100; 84132; 85018; 85025; 85610; 85730; 86850; 86900; 86901; 93005; 96374; 97161; 97165; 99284; 99285; G0378; A9270; J2470

== ENCOUNTER 2024-12-11 13:05 | Emergency (ER) | payer MEDICARE, BC, SELFPAY ==
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
--- OUTSIDE RECORDS SUMMARY | 2024-12-11 13:07 | XMS_ITS | Clinical Summary ---
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 Name Role Phone Leonard Newman MD Unavailable Sony Darling MD Unavailable Titus Grijalva MD Unavailable [phone] Jose Daniel Lilly MD Unavailable Unavail able Nurses, Advanced Heart Failure Unavailable + Kashif Frey MD Unavailable Rosie Sabillon RN Unavailable oYla Hernandez RN Unavailable Unavailable Radha Grimes MD Primary Care Provide r Shaka Alicea Unavailable Allergies Active Allergy Reactions Criticality Noted Date Comments Dapagliflozin Intolerance-Can't Take High 04/20/2020 Syncope and falls Furosemide Rash Medium 07/16/2017 Hydralazine Nausea And Vomiting High 06/24/2018 Penicillins Edema Medium 10/12/2024 Arm swelling 07/13/15 received rx for Keflex 30 doses per med history Medications vit A,C and P-ytlakc-spnqddct (OCUVITE WITH LUTEIN) 300 mcg-200 mg-27 mg-2 mg tabIndications:vi tamin deficiency Take 1 tablet by mouth once daily. Active acetaminophen SR (Tylenol Arthritis Pain) 650 mg Extended-Release tabletIndications :arthritic pain,back pain,pain Take 2 every night at bedtime. Max acetaminophen dose: 4000mg in 24 hrs. 0 021 Active calcium carbonate 500 mg calcium (1,250 mg) chewable tabletIndications :hypocalcemia prevention,post-m enopausal osteoporosis prevention CHEW 1 TAB BY MOUTH TWICE DAILY NEEDED Active lidocaine 4 % topical patchIndications: Traumatic compression fracture of T10 thoracic vertebra, sequela Apply to intact skin to cover most painful area for max 12hr per 24hr period. 0 023 Active simvastatin (ZOCOR) 10 mg tabletIndications :hyperlipidemia Take 1 Tablet (10 mg) by mouth at bedtime. 90 Tablet 3 023 Active nitroglycerin (NITROSTAT) 0.4 mg sublingual tabletIndications :Nonischemic cardiomyopathy (HC) Place 1 Tablet (0.4 mg) under the tongue every 5 minutes if needed for Chest Pain. Up to 3 tablets in 15 minutes. 25 Tablet 024 Active carvediloL (COREG) 12.5 mg tabletIndications :chf Take 1 Tablet (12.5 mg) by mouth two times daily. Take with (1) 3.125 mg tablet twice daily for a total of 15.625 mg twice daily. 180 Tablet 3 024 Active miconazole nitrate 2% ointment (CRITIC-AID CLEAR AF) 2 % ointIndications:V ulvar dermatitis Apply topically to affected area(s) two times daily. 56.7 g 024 Active polyethylene glycoL (MIRALAX) 17 gram/scoop powderIndications :Constipation, acute Mix 1 scoop (17 g) in liquid then take by mouth once daily. 765 g 024 Active miscellaneous medical supply miscIndications:C hronic systolic CHF (congestive heart failure), NYHA class 3 (HC),Bilateral exudative age-related macular degeneration, unspecified stage (HC) As directed. Talking scale--patient has CHF and poor vision due to macular degeneration 1 Each 024 Active sennosides (SENNA) 8.6 mg tablet Take 8.6 mg by mouth once daily if needed for Constipation. 023 Active carvediloL (Coreg) 3.125 mg tabletIndications :Chronic systolic CHF (congestive heart failure), NYHA class 3 (HC) Take 1 Tablet (3.125 mg) by mouth two times daily with meals. Take with (1) 12.5 mg tablet twice daily for a total of 15.625 mg twice daily. 180 Tablet 3 024 Active apixaban (Eliquis) 2.5 mg tabletIndications :Paroxysmal atrial fibrillation (HC) Take 1 Tablet (2.5 mg) by mouth two times daily. 180 Tablet 3 024 Active sacubitril-valsar jung (ENTRESTO) 24-26 mg tabletIndications :chronic heart failure Take 1 Tablet by mouth two times daily. 180 Tablet 3 024 Active bumetanide (BUMEX) 0.5 mg tabletIndications :Chronic systolic CHF (congestive heart failure), NYHA class 3 (HC) Take 0.5 tablet (0.25 mg) by mouth every other day. Take an additional 0.5 tablet (0.25 mg) by mouth once daily as needed for weight gain of 3 lbs in 1 day or 5 lbs in 1 week. 68 Tablet 3 024 Active pen needle (BD Insulin Pen Needle UF) 31 gauge x 5/16 (disposable insulin pen needle)Indication s:Type 2 diabetes mellitus with stage 3 chronic kidney disease, with long-term current use of insulin, unspecified whether stage 3a or 3b CKD (HC) For administering insulin at home. 100 Each 3 024 Active clobetasol (TEMOVATE) 0.05 % ointmentIndicatio ns:Atrophic vaginitis Apply topically to vulva once nightly for 2-3 times per week 60 g 5 025 Active gabapentin (NEURONTIN) 100 mg capsuleIndication s:Restless legs TAKE 1 CAPSULE (100 MG) BY MOUTH AT BEDTIME. 90 Capsule 1 025 Active blood sugar diagnostic (Prodigy No Coding) stripIndications: Type 2 diabetes mellitus without complication, without long-term current use of insulin (HC) As directed two times daily. Dispense item covered by pt ins. E11.9 NIDDM type II - Test 2 times daily 200 Each 3 02/05/2 025 Active empty container (Sharps Container) miscIndications:T ype 2 diabetes mellitus with stage 3 chronic kidney disease, with long-term current use of insulin, unspecified whether stage 3a or 3b CKD (HC) As directed. 1 Each 025 Active Basaglar KwikPen U-100 Insulin 100 unit/mL (3 mL) penIndications:Ty pe 2 diabetes mellitus with stage 3 chronic kidney disease, with long-term current use of insulin, unspecified whether stage 3a or 3b CKD (HC) Product desired: BASAGLAR KWIKPEN. Take 6 units in the AM and 2 units in the PM 3 mL 3 025 Active pen needle (Arianna Pen Needle) 32 gauge x 5/32 (disposable insulin pen needle)Indication s:Type 2 diabetes mellitus with stage 3 chronic kidney disease, with long-term current use of insulin, unspecified whether stage 3a or 3b CKD (HC) Remove the 2 covers on the pen needle before administering medication dose. Check Blood glucose 2 times daily 200 Each 11 025 Active gabapentin (NEURONTIN) 100 mg capsuleIndication s:Restless legs Take 1 Capsule (100 mg) by mouth at bedtime. 90 Capsule 3 024 2024 Discontinued blood sugar diagnostic (Prodigy No Coding) stripIndications: Type 2 diabetes mellitus without complication, without long-term current use of insulin (HC) DIRECTED ONCE DAILY. DISPENSE ITEM COVERED BY PT INS. E11.9 NIDDM TYPE II - TEST 1 TIME/DAY 100 Each 3 024 2024 Discontinued(R eorder (E-cancel not sent)) Basaglar KwikPen U-100 Insulin 100 unit/mL (3 mL) penIndications:Ty pe 2 diabetes mellitus with stage 3 chronic kidney disease, with long-term current use of insulin, unspecified whether stage 3a or 3b CKD (HC) Product desired: BASAGLAR KWIKPEN. Take 4 units in the AM and 2 units in the PM 025 2024 Discontinued(R eorder (E-cancel not sent)) Basaglar KwikPen U-100 Insulin 100 unit/mL (3 mL) penIndications:Ty pe 2 diabetes mellitus with stage 3 chronic kidney disease, with long-term current use of insulin, unspecified whether stage 3a or 3b CKD (HC) Product desired: ALICIA OVALLE. Take 6 units in the AM and 2 units in the PM 025 2024 Discontinued(R eorder (E-cancel not sent)) pen needle (Arianna Pen Needle) 32 gauge x 5/32 (disposable insulin pen needle)Indication s:Type 2 diabetes mellitus with stage 3 chronic kidney disease, with long-term current use of insulin, unspecified whether stage 3a or 3b CKD (HC) Remove the 2 covers on the pen needle before administering medication dose. 200 Each 11 025 2024 Discontinued(* Medication adjustment) Active Problems Patient Care Coordination No te Formatting of this note migh t be different from the original. HF/Structural Research Eligibility Review Date: 07/29/19 Age: 84 y.o. Insurance: Medicare Etiology: Likely combination of embolic MO and nonischemic (perhaps +/- LBBB +/- chemotherapy) EF: 25-30% Valve/Imaging: No moderate-severe disease NYHA: III Pro-BNP: 18,914 Last HF admit: (dx: chronic systolic CHF) Comments: s/p CardioMEMs HF: FID: No d/t receiving iron infusions (but last appears to be 03/26/18) Guide-HF: No d/t s/p CardioMEMs AccuCinch 5017: no d/t GFR Reduce LAP: No d/t EF <40% Structural: Does not qualify d/t no moderate-severe disease Alt Flow: No d/t PCW <15 per latest RHC Problem Noted Date Diagnosed Date Mitral regurgitation s/p MitraClip 02/18/2024 Tricuspid regurgitation 02/18/2024 atrial right to left shunt 02/18/2024 Atrial fibrillation with RVR 02/15/2024 Traumatic subdural hemorrhag e with loss of consciousness of unspecified duration, initial encounter 02/05/2024 Fall 08/12/2023 Traumatic compression fracture of T10 vertebra 1 T12 compression fracture, sequela 08/12/2023 Hoarseness 04/22/2022 Anemia in stage 4 chronic kidney disease 022 Compression fracture of T12 vertebra 09/13/2021 Overview (09/13/2021): Noted on x-ray from 09/13/2021 SAH (subarachnoid hemorrhage) 03/09/2021 Type 2 diabetes mellitus wit h chronic kidney disease, without long-term current use of insulin 12/13/2020 Hematoma of occipital surface of head 05/14/2020 Closed wedge compression fra cture of T1 vertebra with routine healing 04/18/2020 Overview (04/18/2020): Noted on CT scan on 04/14/2020 Benign head tremor 07/21/2018 Coronary artery disease involving [place] coronar y artery 06/24/2018 Overview (06/24/2018): Non-obstructive Nonischemic cardiomyopathy 04/15/2018 CardioMEMS PAD Goal 14-20 04/06/2018 Overview (01/24/2021): CardioMEMs device implanted on 04/06/2018. Primary business office director is Kashif Frey MD. CardioMEMs is MRI safe. Please see FYI section for more information. 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 william mber biventricular implantable cardioverter defibrillator on 12/02/2017 12/02/2017 CKD (chronic kidney disease) stage 4, GFR 15-29 ml/min 08/05/2017 Onychomycosis 07/29/2017 Iron deficiency anemia 07/24/2017 Anxiety 07/09/2017 LBBB (left bundle branch block) 04/23/2017 Overview (04/23/2017): - present since 2012 per [facility] NSTEMI (non-ST elevated myocardial infarction) 0 04/23/2017 Overview (04/23/2017): - negative angiogram, ?Stress cmp ACP (advance care planning) 05/11/2013 Overview (05/11/2013): Patient has identified Health Care Agent(s): Yes Add Health Care Agents: Yes Health Care Agent(s): Primary Health Care Agent: Jeffery Russo Relationship: spouse Secondary Health Care Agent: Delmy Russo Relationship: daughter (y) [phone](w) Secondary Health Care Agent: Justine Russo Relationship: daughter (c) [phone] (w) Guardian: Relationship: Phone: Patient has Advance Care Plan Documents (Health Care Directive, POLST): Yes Advance Care Plan Documents: Health Care Directive Patient has identified Specific Treatment Preferences: Yes Specific Treatment Preferences: Code Status: CPR/Attempt Resuscitation Tonya would want CPR attempted unless her provider determines any of the following: She has an incurable illness or injury and is dying; She has no reasonable chance of survival if her heart stops; She has little chance of shelter survival if her heart stops and the process of resuscutation would cause significant suffering. Goals of Treatment: Limited Interventions and treat reversible conditions. Provide interventions aimed at treatment of new or reversible illness/injury or non-life threatening chronic conditions. Duration of invasive or uncomfortable interventions should generally be limited.- Trial of intubation short term for reversible conditions and with physician recommendation. c.) Interventions and Treatments: Short term use of medical interventions, based on advice of my physician in consultation with my family. Do not prolong my life if low chance of survival or I do not know who I am or who I am with, keep me comfortable as possible. Assessment & Plan (05/11/2013 10:30 AM CDT): Advance Care Planning: Disease-specific Session Tonya Russo is a [facility] patient. Her PCP is Dr Raphael Michelle at [facility]. Advance care planning discussions were completed with Tonya and her spouse and healthcare agent, Jeffery Russo. Her daughter and alternative HCA, Delmy Russo, was also present. Understanding of Illness and Disease [place]: Tonya identifies her medical condition as being a survivor of breast cancer, mastectomy in 1999, Diabetes managed with oral medications and diet: Congestive Heart Failure, hospitalized and diagnosed Dec 2012; hypertension; macular degeneration and describes it as stable. She identifies the following symptoms of her medical condition as being the most bothersome:Complying with diabetic diet-to be able to eat and drink anything; if you cheat, you pay; shortness of breath episode leading to hospitalization in Dec. Goals of Care: Tonya currently hopes to maintain independence, delay progression of, but not cure, the illness, have comfort cares and with dignity. Hope to maintain good health and not have to change my current life style. Lifestyle has not changed due to medical conditions, able to drive, complete all activities of daily living. Has LTC insurance. Hopes to remain home with support of family and services i.e. Home Care and /or Hospice when/if appropriate. Would desire placement at [facility] if not able to be cared for at home. 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 oTnya priyanka with serious challenges in her life: Family: Spouse and Daughters, always there and my jurgen. Tonya identifies the following fears and worries about her medical care: Daughter defines worry, My name is Tonya. Tonya states only worries for good reason. Difficulty breathing, not being able to communicate and losing mental capacity are some fears, does not dwell on illness, too many things to do yet. Treatment and Care Preferences: Past experiences in dealing with family and/or friends that have or been seriously ill include her mother and sister. Cared for mother 6 years in her home and moved to detention center prior to . As a result of these experiences, Tonya expresses these health care preferences: Summary Tonya's Treatment Preferences: LOW SURVIVAL; HIGH TREATMENT BURDEN: If Tonya suffered a serious complication, such that she was facing a prolonged hospital stay, required ongoing medical interventions, and the chance of living through the complication was low (for example, only 5 out of 100 would live), Tonya would choose: to focus treatment on comfort and quality of life (Quality of life is more important than length of life to Tonya.) HIGH SURVIVAL; LOW FUNCTIONAL STATUS: If Tonya had a serious complication and had a good chance of living through the complication but it was expected that she would never be able to walk or talk again and would require 24 hour nursing care, she would choose: to focus treatment on comfort and quality of life (Quality of life is more important than length of life to Tonya.) Limited trial of medical interventions based on advise of physician in consultation with family. HIGH SURVIVAL; LOW COGNITIVE STATUS: If Tonya had a serious complication and had a good chance of living through the complication but it was expected that she would never know who she was or who she was with and would require 24 hour nursing care, she would choose: to focus treatment on comfort and quality of life (Quality of life is more important than length of life to Tonya.) CARDIO-PULMONARY RESUSCITATION (CPR): The facts, risks and benefits of CPR were discussed with Tonya. If she had a sudden event that caused her heart and breathing to stop, she: WOULD want CPR attempted unless her provider determines any one of the following: she has an incurable illness or injury and is dying, she has no reasonable chance of survival if her heart stops or she has little chance of long-term survival if her heart stops and the process of resuscutation would cause significant suffering. MECHANICAL VENTILATION: If Tonya had an episode where she was unable to breathe on her own, she would choose the following: attempt to use any appropriate non- invasive method to assist breathing, and use mechanical ventilation if other methods fail short term per physician recommendation Tonya has chosen her healthcare agent to: do what he or she thinks is best at the time, considering Tonya's wishes Follow Up Plan: Tonya was encouraged to continue advance care planning discussions with her family and primary care provider. Hard Choices for [employer] booklet was given to Tonya and her health care agent for review. Tonya identified the following concerns during her advance care planning session: effectiveness of CPR in Tonya's current health state Questions identified for her primary care provider: Effectiveness of CPR Documents addressed during this advance care planning session: Health Care Directive completed and scanned into medical record. Statement of Treatment Preferences for advanced illness completed and scanned into the medical record. Recommendations/Plan: Tonya and her health care agent to review Advance Care Plan with family her alternative healthcare agents. Tonya would benefit from: Home Care and/ or Hospice when /if appropriate. Hospice Care, [facility], Home Care, and [facility] brochure(s) were given to Tonya and/or her healthcare agent. Advance Care Planning recommendations and Tonya's concerns and questions were cc e d to her primary provider. Interviewer: Maris Cantrell RN 05/10/2013 Essential hypertension 03/17/2012 Osteopenia 10/04/2009 Macular degeneration (senile) of retina, unspeci fied 03/17/2009 Psoriasis 08/12/2008 Personal history of malignant neoplasm of breast 09/03/2007 Overview (09/03/2007): s/p R mastectomy 07/2000 chemotherapy completed 11/2000 Diverticulosis of colon (without mention of hemo rrhage) 09/03/2007 UNSPECIFIED ESSENTIAL HYPERTENSION Other atopic dermatitis and related conditions Acute idiopathic myocarditis Paroxysmal atrial fibrillation Acute on chronic systolic heart failure Resolved Problems Problem Noted Date Diagnosed Date Resolved Date Dementia without behavioral disturbance, psychotic disturbance, mood disturbance, or anxiety, unspecified dementia severity, unspecified dementia type 03/10/2024 10/12/2024 T12 compression fracture, initial encounter 08/12/2023 08/12/2023 Traumatic compression fractu re of T10 thoracic vertebra, sequela 08/12/2023 08/12/2023 SDH (subdural hematoma) 03/09/202111/04 Traumatic hemorrhage of left cerebrum without loss of consciousness 03/02/2021 11/28/2021 Anemia of unknown etiology 07/09/2017 0 07/09/2017 Pseudoaneurysm of right femoral artery 05/27/2017 01/10/2020 Diastolic heart failure 03/17/201203/03 Need for prophylactic vaccin ation and inoculation against influenza 09/18/2007 09/13/2010 Cardiogenic shock 01/10/2020 Encounters Date Type Department Care Team Description 12/08/2024 3:30 PM CURRICULUM SUPERVISOR Orders Only [facility] [address] [place] [address] Lab, [place] [facility] 12/08/2024 Travel 12/01/2024 Telephone [facility] [address] [place] [address] Kashif Frey MD Cardiology Appointment 11/29/2024 9:50 AM CURRICULUM SUPERVISOR Procedure Only [facility] [address] [place] [address] Device Check (Monthly Remote CardioMEMs De... 11/29/2024 Travel 11/26/2024 Telephone [facility] [address] [place] [address] Maty Baer RN EP Procedure 11/23/2024 Refill [facility] [address] [place] [address] Radha Grimes MD Refill Request (Gabapentin) 11/09/2024 3:30 PM CURRICULUM SUPERVISOR Office Visit [facility] [address] [place] [address] Radha Grimes MD Follow Up (Diabetes/insulin/D oing 3 units BID. Diet is not much different from day to day.) 11/09/2024 Travel 11/05/2024 Travel 11/05/2024 Telephone [facility] [address] [place] [address] Piper Espinoza RN Follow Up 10/29/2024 9:30 AM CURRICULUM SUPERVISOR Procedure Only [facility] [address] [place] [address] Device Check (Monthly Remote CardioMEMs De... 10/29/2024 Travel 10/20/2024 Refill [facility] [address] [place] [address] Radha Grimes MD Refill Request (Test strips ) 10/19/2024 3:20 PM CURRICULUM SUPERVISOR Nurse/Clinic Staff Only [facility] [address] [place] [address] Education (Basaglar insulin teaching) 10/19/2024 Travel 10/12/2024 3:30 PM CURRICULUM SUPERVISOR Office Visit [facility] [address] [place] [address] Radha Grimes MD Diabetes (Discuss labs/Mouth is always dry/Nose bleeds, using saline spray at night and it has help) 10/12/2024 Telephone [facility] [address] [place] [address] Radha Grimes MD Medication Management (Basaglar) 10/12/2024 Telephone [facility] [address] [place] [address] Radha Grimes MD Medication Management (Lantus Solostar U-100 Insulin 100 unit/mL (3 mL) pen) 10/12/2024 Travel 10/07/2024 9:15 AM CURRICULUM SUPERVISOR Orders Only [address] [address] Lab, [place] [facility] 10/07/2024 Travel 10/05/2024 Telephone [facility] [address] [place] [address] Radha Grimes MD 10/04/2024 Telephone [facility] [address] [place] [address] [facility] 09/29/2024 9:30 AM CURRICULUM SUPERVISOR Procedure Only [facility] [address] [place] [address] Device Check (Monthly Remote CardioMEMs De... 09/29/2024 Travel 09/17/2024 Refill [facility] [address] [place] [address] Kashif Frey MD Refill Request (Eliquis) from Last 3 Months Immunizations Name Administration Dates Next Due AMB INFLUENZA IIV3 (AGE 65+ YRS) PF (Flu Clinic Only) 08/01/2017 AMB Influenza, IIV3 (Age >=3 years)(Flu Clinic Only) 09/24/2010,09/24/2010 AMB Influenza, IIV4 PF (=>6 mos Flulaval,Fluzone Fluarix)(Flu Clinic Only) 08/11/2019 Amb Influenza, Inact (High-d ose) (Flu Clinic Only) 09/01/2014 Amb Influenza, Inactivated A IIV4 (Age 65+ Years) Preserv Free 07/26/2020 COVID-19 VACCINE SPIKEVAX (M ODERNA 50MCG/0.5ML) 12YO+ PFS 09/11/2023 COVID-19 vaccine (Moderna 100mcg/0.5mL) PF, MDV 02/04/2022 COVID-19 vaccine (Moderna 50 mcg/0.5mL) 12YO+ BIVALENT PF, MDV 07/17/2022 COVID-19 vaccine (Seekly NTech 30mcg/0.3mL) 12YO+ BIVALENT PF, MDV 03/07/2023 COVID-19 vaccine (Seekly NTech 30mcg/0.3mL) PF, MDV 12/30/2020,12/09/2020 DTP 09/18/2007 Dtap-5 Pertussis Antigens 09/18/2007 Influenza A (H1N1), Inactiva eusebio (Age >=3 Years) 11/16/2009 Influenza Virus, Unspecified 08/07/2022, 07/25/2021,07/26/2020,08/01,10/11/2016,09/26/2015,09/01/2014 ,09/21/2013,09/18/2012,09/17/2011,09/04,11/16/2009,09/08/2009, 8,08/25/2007,09/24/2005,08/24/2004,,09/03/2002 Influenza, High-dose Inactivated 024,10/11/2016,09/26/2015,09/01 Influenza, IIV3 (Age 6-35 mos) 09/17/2011 Influenza, IIV3 (Age >=3 years) 08/07/20 22,07/25/2021,07/26/2020,08/01,10/11/2016,09/26/2015,09/01/2014 ,09/21/2013,09/18/2012,09/17/2011,09/04,11/16/2009,09/08/2009, 8,08/25/2007,09/01/2006,09/24/2005,,08/31/2003,09/03/2002 Influenza, IIV4 07/27/2018, 3,09/18/2012,09/17,09/08/2009,09/06/2008,08/25/2007 Influenza, Inactivated AIIV4 (Age 65+ Years) Preserv Free 08/26/2023,08/07/2022,07/25/2021 Pneumococcal Poly,23-Valent (Pneumovax) 08/02/2003 Pneumococcal conj 13-Valent (Prevnar 13) 09/22/2014 RSV, Bivalent Vaccine Recons tituted (Abrysvo 120MCG/0.5mL) 10/31/2024 Td (Age >=7 Years) 10/14/2017 Td, Preservative Free (age >= 7 Years) 7 Tdap 06/02/2023 Family History Medical History Relation Name Comments Cancer-breast Daughter Diabetes Father d 85 yo Arthritis Mother also had tempor al arteritis d 95 yo Hypertension Mother also had CHF Diabetes type II Other 1 paernal aunt 1 Diabetes Other 2 cousin Diabetes Other 3 cousin Diabetes Other 4 cousin Diabetes Paternal Aunt 1 Diabetes Paternal Aunt 2 Diabetes Paternal Grandmother Cancer-breast Sister Relation Name Status Comments Daughter Father Mother (Age 95) Other 1 paernal aunt 1 Other 2 cousin Alive Other 3 cousin Alive Other 4 cousin Alive Paternal Aunt 1 Paternal Aunt 2 Paternal Grandmother Sister Social History Tobacco Use Types Packs/Day Years Used Date Smoking Tobacco: Never Smokeless Tobacco: Never Tobacco Cessation:Counseling Given: No Alcohol Use Standard Drinks/Week Comments Not Currently 1 (1 standard drink = 0.6 oz pure alcohol) glass of wine once in a while PHQ-2 Answer Date Recorded PHQ-2 TOTAL SCORE 1 07/09/2024 Social Connections Answer Date Recorded Do you often feel lonely or isolated from those around you? 0 10/12/2024 Financial Resource Strain Answer Date R ecorded Difficulty of Paying Living Expenses 3 10/12/2024 Difficulty of Paying Living Expenses Not on file 10/12/2024 Food Insecurity Answer Date Recorded Do you worry your food will run out before you are able to buy more? 1 10/12/2024 Transportation Needs Answer Date Record ed Does lack of transportation keep you from medica l appointments? 1 10/12/2024 Does lack of transportation keep you from work, meetings or getting things that you need? 1 10/12/2024 Housing Stability Answer Date Recorded What is your housing situation today? 1 10/12/2024 Interpersonal Safety Answer Date Record ed Are you being hit, kicked, p ushed or yelled at (see row info)? No 02/15/2024 Interpersonal Safety Abuse 12 - 18 Not on file 02/15/2024 Interpersonal Safety Ambulatory Vulnerability No t on file 02/15/2024 Utilities Answer Date Recorded Do you have trouble paying f or utilities (for example, heat, electricity, water, phone)? 1 10/12/2024 Comments No Sex and Gender Information Value Date Recorded Sex Assigned at Female 02/15/2024 10:51 AM CDT Legal Sex Female 5:24 AM CURRICULUM SUPERVISOR Gender Identity Female 02/15/2024 10:51 AM CDT Sexual Orientation Not on file Occupation Industry Job Start Date Job End Date retired Not on file Not on file Not on file Obstetrics History Para Term AB IAB SAB Ectopic Multiple Livin g Live Births 2 2 2 0 0 0 0 0 2 Date Outcome GA Total Labor Labor/2nd/3rd Weight Sex Type Anes PTL Snehal A1 A5 Name Clin Term Term Last Filed Vital Signs Vital Sign Reading Time Taken Comments Blood Pressure 148/87 11/09/2024 3:43 PM CURRICULUM SUPERVISOR Pulse 86 11/09/2024 3:43 PM CURRICULUM SUPERVISOR Temperature 36.7 C (98.1 F) 03/26/2024 10:45 AM CDT Respiratory Rate 16 03/26/2024 10:45 AM CDT Oxygen Saturation 99% 11/09/2024 3:41 PM CURRICULUM SUPERVISOR Inhaled Oxygen Concentration - - Weight 57.2 kg (126 lb) 11/09/2024 3:41 PM CURRICULUM SUPERVISOR Height 160 cm (5' 3) 07/09/2024 12:03 PM CDT Body Mass Index 22.32 07/09/2024 12:03 PM CDT Plan of Treatment Upcoming Encounters Date Type Department Care Team (Late st Contact Info) Description 12/16/2024 11:00 AM CURRICULUM SUPERVISOR Appointment [facility] [id number] [facility] [address] [place] [address] Kaila Hu MD [address] [place] [address] 12/29/2024 9:50 AM CURRICULUM SUPERVISOR Procedure Only [facility] [address] [place] [address] 01/28/2025 9:50 AM CDT Procedure Only [facility] [address] [place] [address] 02/09/2025 9:00 AM CDT Orders Only [facility] [address] [place] [address] 02/09/2025 10:00 AM CDT Office Visit [facility] [address] [place] [address] Kashif Frey MD [address] [place] [address] 02/28/2025 9:50 AM CDT Procedure Only [facility] [address] [place] [address] 03/30/2025 9:50 AM CDT Procedure Only [facility] [address] [place] [address] 04/29/2025 9:50 AM CDT Procedure Only [facility] [address] [place] [address] 05/30/2025 9:50 AM CDT Procedure Only [facility] [address] [place] [address] 06/29/2025 9:50 AM CDT Procedure Only [facility] [address] [place] [address] 07/29/2025 9:50 AM CDT Procedure Only [facility] [address] [place] [address] 08/29/2025 9:50 AM CDT Procedure Only [facility] [address] [place] [address] 09/28/2025 9:50 AM CURRICULUM SUPERVISOR Procedure Only [facility] [address] [place] [address] 10/28/2025 9:50 AM CURRICULUM SUPERVISOR Procedure Only [facility] [address] [place] [address] Health Maintenance Due Date Last Done Comments Zoster (shingles) series for age 50+ (1 of 2) 1987 BMI (ht and wt on same day) for age 18+ 07/09/2025 07/09/2024, 03/16/2024, 04/04/2023, Additional history exists Medicare Wellness for age 65+ 07/10/2025, 08/07/2022, 02/08/2019, Additional history exists Depression screening for age 12+ 07/12/2025 07/12/2024, 07/09/2024, 06/30/2024, Additional history exists Tetanus booster 06/02/2033 06/02/2023, 10/03, 10/14/2017, Additional history exists DEXA/DXA scan for age 65+ Completed 2010, 09/22/2009, 04/17/2004 Pneumococcal series for age 50+ Completed 4, 08/02/2003 Tdap Completed 06/02/2023 COVID-19 vaccine series Completed 08/04/20 24, 09/11/2023, 03/07/2023, Additional history exists Influenza for age 65+ Completed 08/04/2024 , 08/26/2023, 08/07/2022, Additional history exists RSV vaccine for adults or Completed 10/31/2024 Goals Goal Patient Goal Type Associated Problems Recent Progress Patient-Stated? Author BLOOD PRESSURE - Maintains BP less than 140/90 Blood Pressure No Christianne Bridges LPN Medical Devices Implanted Type Area Computer Technology Instructor Device Identifier Shelf Expiration Date Model / Serial / Lot Mri Conditional Human Resource Statistician-D Implanted:12/02 by Simone Lemon MD (Quantity not on file) GANG DRILL OPERATOR-D [employer] CLARIA MRI QUAD GANG DRILL OPERATOR-D SURESCAN [id number] / [id number] / Cardiomems-2017 Implanted:04/06 (Quantity not on file) [facility]ioMEMS Procedures Procedure Name Priority Date/Time Associated Diagnosis Comments CBC W PLT NO DIFF Routine 12/08/2024 3:4 3 PM CURRICULUM SUPERVISOR Pre-op testing BASIC METABOLIC PANEL Routine 12/08/2024 3:43 PM CURRICULUM SUPERVISOR Pre-op testing HEMOGLOBIN A1C MONITORING (POCT) Routine 10/07/2024 9:52 AM CURRICULUM SUPERVISOR Type 2 diabetes mellitus with stage 3a chronic kidney disease, without long-term current use of insulin (HC) BASIC METABOLIC PANEL Routine 10/07/2024 9:51 AM CURRICULUM SUPERVISOR Chronic systolic CHF (congestive heart failure), NYHA class 3 (HC) CBC WITH AUTO DIFFERENTIAL Routine 10/07/2024 9:51 AM CURRICULUM SUPERVISOR Type 2 diabetes mellitus with stage 3a chronic kidney disease, without long-term current use of insulin (HC) XR DXA BONE DENSITY 2 SITES AXIAL Routine 10/03/2011 11:17 AM CURRICULUM SUPERVISOR Osteopenia from Last 3 Months or Most Recently Relevant to Health Maintenance Results * CBC W PLT NO DIFF (12/08/2024 3:43 PM CURRICULUM SUPERVISOR) WHITE BLOOD CELL COUNT 9.3 3.8 - 10.8 Thousand/u L [facility] RED BLOOD CELL COUNT 3.93 3.80 - 5.10 Million/uL [facility] HEMOGLOBIN 12.6 11.7 - 15.5 g/dL [facility] HEMATOCRIT 38.5 35.0 - 45.0 % [facility] MCV 98.0 80.0 - 100.0 fL [facility] MCH 32.1 27.0 - 33.0 pg [facility] MCHC 32.7 32.0 - 36.0 g/dL [facility] Comment: For adults, a slight decrease in the calculated MCHC value (in the range of 30 to 32 g/dL) is most likely not clinically significant; however, it should be interpreted with caution in correlation with other red cell parameters and the patient's clinical condition. RDW 11.9 11.0 - 15.0 % [email or web address] PLATELET COUNT 159 140 - 400 Thousand/u L [facility] MPV 12.4 7.5 - 12.5 fL [facility] Blood BLOOD SPECIMEN / Unknown 12/08/2024 3:43 PM CURRICULUM SUPERVISOR 12/08/2024 3:43 PM CURRICULUM SUPERVISOR us Kaila Hu MD HEMATOLOGY Final Re sult [id number] [place] [address], [facility] [address] * (ABNORMAL) BASIC METABOLIC PANEL (12/08/2024 3:43 PM CURRICULUM SUPERVISOR) Only the most recent of2 resultswithin the time period is included. GLUCOSE 455(H) 65 - 99 mg/dL [facility] Comment: Verified by repeat analysis. Fasting reference interval For someone without known diabetes, a glucose value >125 mg/dL indicates that they may have diabetes and this should be confirmed with a follow-up test. UREA NITROGEN (BUN) 47(H) 7 - 25 mg/dL [facility] CREATININE 1.81(H) 0.60 - 0.95 mg/dL [facility] EGFR 27(L) > OR = 60 mL/min/1.7 3m2 [facility] BUN/CREATININE RATIO 26(H) 6 - 22 (calc) [facility] SODIUM 133(L) 135 - 146 mmol/L [facility] POTASSIUM 5.5(H) 3.5 - 5.3 mmol/L [facility] CHLORIDE 102 98 - 110 mmol/L [facility] CARBON DIOXIDE 21 20 - 32 mmol/L [facility] ELECTROLYTE BALANCE 10 7 - 17 mmol/L (calc) [facility] CALCIUM 10.5(H) 8.6 - 10.4 mg/dL [facility] Blood BLOOD SPECIMEN / Unknown 12/08/2024 3:43 PM CURRICULUM SUPERVISOR 12/08/2024 3:43 PM CURRICULUM SUPERVISOR Kaila Hu MD CHEMISTRY Final Re sult [facility] [address] [place] [address], [place] [phone] [facility] [address] [place] [address] * (ABNORMAL) HEMOGLOBIN A1C MONITORING (POCT) (10/07/2024 9:52 AM CURRICULUM SUPERVISOR) POC HEMOGLOBIN A1C 11.8(H) <6.0 % OF TOTAL HGB [facility] Comment: Any point of care results exhibiting inconsistency with the patient's clinical status should be repeated using a different testing method. Blood BLOOD SPECIMEN / Unknown 10/07/2024 9:52 AM CURRICULUM SUPERVISOR 10/07/2024 9:52 AM CURRICULUM SUPERVISOR Radha Grimes MD CHEMISTRY Final Result [facility] [address] [place] [address], [place] [phone] [facility] [address] [place] [address] * (ABNORMAL) CBC AND DIFFERENTIAL (10/07/2024 9:51 AM CURRICULUM SUPERVISOR) WHITE BLOOD CELL COUNT 7.6 3.8 - 10.8 Thousand/u L [facility] RED BLOOD CELL COUNT 3.72(L) 3.80 - 5.10 Million/uL [facility] HEMOGLOBIN 11.7 11.7 - 15.5 g/dL [facility] HEMATOCRIT 36.7 35.0 - 45.0 % [facility] MCV 98.7 80.0 - 100.0 fL [facility] MCH 31.5 27.0 - 33.0 pg [facility] MCHC 31.9(L) 32.0 - 36.0 g/dL [facility] Comment: For adults, a slight decrease in the calculated MCHC value (in the range of 30 to 32 g/dL) is most likely not clinically significant; however, it should be interpreted with caution in correlation with other red cell parameters and the patient's clinical condition. RDW 11.7 11.0 - 15.0 % [facility] PLATELET COUNT 181 140 - 400 Thousand/u L [facility] MPV 11.6 7.5 - 12.5 fL [facility] ABSOLUTE NEUTROPHILS 5,860 1,500 - 7,800 cells/uL [facility] ABSOLUTE LYMPHOCYTES 768(L) 850 - 3,900 cells/uL [facility] ABSOLUTE MONOCYTES 745 200 - 950 cells/uL [facility] ABSOLUTE EOSINOPHILS 190 15 - 500 cells/uL [facility] ABSOLUTE BASOPHILS 38 0 - 200 cells/uL [facility] NEUTROPHILS 77.1 % [facility] LYMPHOCYTES 10.1 % [facility] MONOCYTES 9.8 % [facility] EOSINOPHILS 2.5 % [facility] BASOPHILS 0.5 % [facility] Blood BLOOD SPECIMEN / Unknown 10/07/2024 9:51 AM CURRICULUM SUPERVISOR 10/07/2024 9:51 AM CURRICULUM SUPERVISOR us Radha Grimes MD HEMATOLOGY Final Result [facility] [address] [place] [address], [facility] [address] [place] [address] * XR DEXA BONE DENSITY 2 SITES (10/03/2011 11:17 AM CURRICULUM SUPERVISOR) Anatomical Region Laterality Modality Spine, HIPS, HIPL, HIPR Other Narrative 10/16/2011 2:29 PM CURRICULUM SUPERVISOR Please see scanned document for results of this study. Procedure Note Rita Augustin - 10/16/2011 Please see scanned document for results of this study. us Raphael Michelle MD DEXA Final Re sult from Last 3 Months or Most Recently Relevant to Health Maintenance Insurance MEDICARE [place] ONLY MEDICARE PART B HB ONLY [facility] MEDICARE PART A HB [place] [address] MEDICARE PPS MEDICARE PART B HB ONLY [facility] MEDICARE PART A HB ONLY [place] MEDICARE PB ONLY [facility] Advance Directives Documents on File Type Date Recorded Patient Blueprint Developer Expl anation POLST 03/14/2021 12:00 AM * Full Code (Latest Code Status on File) Date Activated Date Inactivated Comments 02/15/2024 3:11 PM 02/19/2024 1:00 PM Question Answer Comments Code Status Discussion: Reviewed Preferences * Full Code Date Activated Date Inactivated Comments 08/12/2023 4:04 PM 08/19/2023 1:43 PM Question Answer Comments Code Status Discussion: Reviewed Preferences * Full Code Date Activated Date Inactivated Comments 01/17/2022 11:59 AM 01/18/2022 2:29 PM Question Answer Comments Code Status Discussion: Reviewed Preferences * DNR Date Activated Date Inactivated Comments 03/02/2021 11:08 PM 03/09/2021 12:31 PM Question Answer Comments Code Status Discussion: Discussed * DNR Date Activated Date Inactivated Comments 05/14/2020 7:25 PM 05/15/2020 6:27 PM Question Answer Comments Code Status Discussion: Discussed Care Teams Motor Scooter Repairer Relationship Specialty Start Date End Date Radha Grimes MD [address] [place] [id number] PCP - General Family Practice 02/26/23 Leonard Newman MD [address] [place] [address] Cardiology Cardiovascular Disease 02/25/12 Sony Darling MD [address] [place] [address] Surgery - Otolaryngology 09/18/12 Titus Grijalva MD [address] [place] [address] Otolaryngology Surgery - Otolaryngology 02/02/13 Jose Daniel Lilly MD [address] [place] [address] Surgery - Orthopedics 09/21/13 Nurses, Advanced Heart Failure [address] [place] [address] Heart Failure Care Coordination Surfacing Machine Operator 04/28/17 Kashif Frey MD [address] [place] [address] Cardiology - CHF Cardiovascular Disease 03/09/18 Rosie Sabillon RN [address] [address] Registered Nurse Registered Nurse 06/17/18 Yola Hernandez, RN Registered Nurse 07/27/18 Shaka Alicea [facility] [address] [place] [address] Occupational Therapy 02/20/24
--- OUTSIDE RECORDS SUMMARY | 2024-12-11 13:07 | XMS_ITS | Data Portability ---
Author Organization [place] [facility] [place] [facility] Address [address] [place] [address] Care Team Providers Care Principal Electrical Engineer Name Role Phone KENDRAPERICO RILEY Referring Provider [phone] Assessment No assessment recorded. Plan of Treatment Reminders Order Date Submit Date Provider Last Modified By Organization Details Last Modified Time Details Appointments None recorded . Lab None recorded . Referral None recorded . Procedures None recorded . Surgeries None recorded . Imaging US, kidney 024 01/13/20 25 [email or web address] 89 [facility], [address], [place], [address], 14:51:19 Medication Orders None recorded . Patient TargetsNo targets recorded. Patient InstructionsNo instructions recorded. Reason for Referral None Reported. Results Created Date Observation Date Name Description Value Unit Range Abnormal Flag Note LastModifiedBy Organization Detail LastModifiedTime 07/26/20 24 07/15/2024 US, renal No observ ation record ed. [email or web address] Not Available 2023 12:09:19 07/26/[address], abdom en + pelvi s, w/o contr ast No observ ation record ed. [email or web address] Not Available 2023 12:11:28 Result Notes None recorded. Procedures Surgical History None recorded. Imaging Results Imaging Date Name Status LastModified by Organiz ation Details LastModified Time 07/15/2024 US, renal completed Information no t available 07/26/2024 12:09:[address], abdomen + pelvis, w/o contrast completed Information not available 07/26/2024 12:11:28 Procedure Notes None recorded. Medical Equipment None Reported. Allergies Allergen ID Allergen Name Allergen Category Reaction Reaction Severity Criticality Documentation Date Start Date Code Code System Note Provider Name and Address Organization Details Recorded Time 953832 Product containin g penicilli n and antibioti c (product) medicatio n Not available Not available Not available 07/29/2024 10767 05 SNOMED Not Available Not Available Not Available Medications Name Sig Start Date Stop Date Status Note LastModified by Organization Details LastModified Time fluconazole 100 mg tablet TAKE ONE TABLET BY MOUTH ONCE NEEDED active Not Available Not Available No t Available carvedilol 12.5 mg tablet TAKE 1 TABLET (12.5 MG) BY MOUTH TWO TIMES DAILY. TAKE WITH (1) 3.125 MG TABLET FOR A TOTAL OF 15.625 MG active Not Available Not Available No t Available donepezil 5 mg tablet TAKE 1 TABLET (5 MG) BY MOUTH AT BEDTIME. active Not Available Not Available No t Available ketoconazol e 2 % shampoo WASH SCALP, EARS, AND FACE 2-3X WEEKLY. LATHER AND LET SIT FOR SEVERAL MINUTES BEFORE RINSING. active Not Available Not Available No t Available fluconazole 150 mg tablet TAKE 1 TABLET (150 MG) BY MOUTH ONE TIME FOR 1 DOSE. IF SYMPTOMS PERSISTEN T AFTER 72 HOURS, TAKE THE SECOND TABLET. active Not Available Not Available No t Available amiodarone 200 mg tablet TAKE 1 TABLET (200 MG) BY MOUTH ONCE DAILY. active Not Available Not Available No t Available cephalexin 250 mg capsule TAKE ONE CAPSULE BY MOUTH TWICE A DAY 07/29 completed Not Available Not Available Not Available simvastatin 10 mg tablet TAKE 1 TABLET (10 MG) BY MOUTH AT BEDTIME. active Not Available Not Available No t Available carvedilol 3.125 mg tablet TAKE 1 TABLET (3.125 MG) BY MOUTH TWO TIMES DAILY WITH MEALS. TAKE WITH (1) 12.5 MG TABLET TWICE DAILY FOR A TOTAL OF 15.625 MG. active Not Available Not Available No t Available glimepiride 1 mg tablet TAKE ONE-HALF TABLET DAILY WITH A MEAL DO NOT TAKE IF NOT EATING active Not Available Not Available No t Available calcitonin (salmon) 200 unit/actuat ion nasal spray USE 1 SPRAY INTRANASA LLY AT BEDTIME active Not Available Not Available No t Available bumetanide 0.5 mg tablet TAKE ONE-HALF TABLET (0.25 MG) BY MOUTH ONCE DAILY. active Not Available Not Available No t Available triamcinolo ne acetonide 0.1 % topical ointment APPLY TO AFFECTED AREAS ON EARS TWICE DAILY FOR UP TO TWO WEEKS AND THE EYEBROWS FOR ONE WEEK. REPEAT NEEDED FOR FLARES. active Not Available Not Available No t Available nitroglycer in 0.[address] 1 TABLET (0.4 MG) UNDER THE TONGUE EVERY 5 MINUTES IF NEEDED FOR CHEST PAIN. UP TO 3 TABLETS IN 15 MINUTES. active Not Available Not Available No t Available bumetanide 1 mg tablet TAKE ONE TABLET (1 MG) BY MOUTH EVERY MORNING. TAKE AN ADDITIONA L 0.5 MG ONLY DIRECTED BY CARDIOLOG Y. active Not Available Not Available No t Available gabapentin 100 mg capsule TAKE 1 CAPSULE (100 MG) BY MOUTH AT BEDTIME. active Not Available Not Available No t Available clobetasol 0.05 % topical ointment APPLY TOPICALLY TO VULVA ONCE NIGHTLY FOR 12 WEEKS. THIS CAN TAKE UP TO 4-6 WEEKS TO START TO IMPROVE, FOLLOW-UP IN CLINIC AT THAT TIME. active Not Available Not Available No t Available polyethylen e glycol 3350 17 gram/dose oral powder MIX 1 SCOOP (17 G) IN LIQUID THEN TAKE BY MOUTH ONCE DAILY. active Not Available Not Available No t Available clobetasol 0.05 % scalp solution APPLY A THIN LAYER TO AFFECTED AREAS ON SCALP 1-2X DAILY FOR UP TO 2 WEEKS, THEN TAKE 2 WEEKS OFF, THEN REPEAT ON/OFF CYCLE NEEDED FOR [place] active Not Available Not Available No t Available doxycycline hyclate 100 mg tablet TAKE ONE TABLET BY MOUTH TWICE A DAY FOR 10 DAYS active Not Available Not Available No t Available glipizide 5 mg tablet TAKE 1 TABLET (5 MG) BY MOUTH ONCE DAILY BEFORE A MEAL. active Not Available Not Available No t Available Ventolin HFA 90 mcg/actuati on aerosol inhaler INHALE 1-2 PUFFS BY MOUTH EVERY 4 HOURS IF NEEDED FOR WHEEZING. active Not Available Not Available No t Available Critic-Aid Clear AF (miconazole ) 2 % topical ointment APPLY TO AFFECTED AREA TOPICALLY TWICE A DAY active Not Available Not Available No t Available Prodigy Autocode Meter kit FOR HOME USE active Not Available Not Available No t Available Prodigy No Coding strips DIRECTED ONCE DAILY. DISPENSE ITEM COVERED BY PT INS. E11.9 NIDDM TYPE II - TEST 1 TIME/DAY active Not Available Not Available No t Available Eliquis 2.5 mg tablet TAKE 1 TABLET (2.5 MG) BY MOUTH TWO TIMES DAILY. active Not Available Not Available No t Available Entresto 24 mg-26 mg tablet TAKE 1 TABLET BY MOUTH TWO TIMES DAILY. active Not Available Not Available No t Available Vitals Date Recorded Body weight Body mass index (BMI) Body height Provider Name and Address Organization Details Last Updated DateTime 07/29/2024 94316.82 g 22.7 kg/m2 160.02 cm Jeannette Chamberlain [facility] 07/29/2024 14:08:54 Social History Question Answer Notes LastModified by [employer] Details LastModified Time Tobacco Smoking Status Never Smoker Jeannette Chamberlain [facility] 07/29/2024 14:10:18 What Is Your Level Of Alcohol Consumption? None Information not available 07/29/2024 What Is Your Level Of Caffeine Consumption? None Information not available 07/29/2024 What Was The Date Of Your Most Recent Tobacco Screening? 07/29/2024 Information not available 07/29/2024 Sex: Unknown Functional Status None recorded. Mental Status None recorded. Family History Relationship Description Onset Age of this Age Resolved Age Notes LastModified by Organization Details LastModified Time Father No current problems or disability [email or web address] Not available 14:10:06 Mother No current problems or disability [email or web address] Not available 14:10:06 Medical History Condition Response Diabetes N Sexually Transmitted Infection N Other N Bleeding Disorder N High Blood Pressure N Kidney Stones N Cancer N Lung Disease N Depression N High Cholesterol N GERD/Acid Reflux N Heart Disease N Gynecological HistoryNo gynecological history recorded. Obstetrics History GPAL:G 0 P 0 0 0 0 Immunizations Vaccine Type Date Status Note Provider Nam e and Address Organization Details Recorded Time Influenza, adjuvanted, trivalent, PF 7 completed Jeannette Chamberlain [facility] 07/29/2024 14:09:25 Influenza, adjuvanted, quadrivalent, PF [facility] 14:09:25 Influenza, adjuvanted, quadrivalent, PF 0 [facility] 14:09:25 Influenza, adjuvanted, quadrivalent, PF 2 completed [facility] 14:09:25 Influenza, adjuvanted, quadrivalent, PF 3 completed [facility] 14:09:25 COVID-19, mRNA, LNP-S, PF, 100 mcg/0.5mL dose or 50 mcg/0.25mL dose 2 [facility] 14:09:25 COVID-19, mRNA, LNP-S, PF, 30 mcg/0.3 mL dose 1 [facility] 14:09:25 COVID-19, mRNA, LNP-S, PF, 30 mcg/0.3 mL dose 1 [facility] 14:09:25 COVID-19, mRNA, LNP-S, PF, 30 mcg/0.3 mL dose 1 completed [facility]24 14:09:26 COVID-19, mRNA, LNP-S, bivalent, PF, 50 mcg/0.5 mL or 25mcg/0.25 mL dose 2 completed [facility] 14:09:26 COVID-19, mRNA, LNP-S, bivalent, PF, 30 mcg/0.3 mL dose 3 completed [facility] 14:09:26 COVID-19, mRNA, LNP-S, PF, 50 mcg/0.5 mL 3 completed [facility]24 14:09:26 pneumococcal polysaccharide PPV23 3 completed Jeannette adan, [facility] 07/29/2024 14:09:26 Tdap 3 completed Jeannette adan, [facility] 07/29/2024 14:09:26 Novel [id number], all formulations 0 completed Jeannette adan, [facility] 07/29/2024 14:09:26 Pneumococcal conjugate PCV 13 4 completed Jeannette adan, [facility] 07/29/2024 14:09:26 DTP 7 completed Jeannette Nashuday loco, [facility] 07/29/2024 14:09:26 Influenza, high-dose, trivalent, PF 4 completed Jeannette Nashbrenchrist adan, [facility] 07/29/2024 14:09:26 Influenza, high-dose, trivalent, PF 5 completed Jeannette Nashuday loco, [facility] 07/29/2024 14:09:26 Influenza, high-dose, trivalent, PF 6 completed Jeannette Nashbrenauer loco, [facility] 07/29/2024 14:09:26 Influenza, split virus, trivalent, preservative 4 completed Jeannette adan, [facility] 07/29/2024 14:09:26 Influenza, split virus, trivalent, preservative 7 completed Jeannette Nashuday loco, [facility] 07/29/2024 14:09:26 Influenza, split virus, trivalent, preservative 3 completed Jeannette Nashbrenauer null, [facility] 07/29/2024 14:09:26 Influenza, split virus, trivalent, preservative 2 completed Jeannette Nashbrenauer null, [facility] 07/29/2024 14:09:26 Influenza, split virus, trivalent, preservative 8 completed Jeannette Nashbrenauer loco, [facility] 07/29/2024 14:09:26 Influenza, split virus, trivalent, preservative 9 [facility] 14:09:26 Influenza, split virus, trivalent, preservative 2 completed [facility] 14:09:26 Influenza, split virus, trivalent, preservative 3 completed [facility] 14:09:26 Influenza, split virus, trivalent, preservative 5 completed [facility] 14:09:26 Influenza, split virus, trivalent, preservative 0 completed [facility] 14:09:26 Influenza, split virus, trivalent, PF 1 completed [facility] 07/29/2024 14:09:26 Td (adult), 5 Lf tetanus toxoid, preservative free, adsorbed 7 completed [facility] 07/29/2024 14:09:26 Influenza, split virus, quadrivalent, PF 8 [facility] 14:09:26 Influenza, split virus, quadrivalent, PF 9 completed [facility] 07/29/2024 14:09:26 Past Encounters Encounter ID Performer Location Encounter Start Date Encounter Closed Date Diagnosis/Indication Diagnosis SNOMED-CT Code Diagnosis ICD10 Code Diagnosis Note [id number] MD DARYL Lucio_Yolanda [address] [place], [place] [address] 07/29/2024 14:00:36 07/30/2024 14:51:18 Renal mass [id number] N28.89 We discussed the AUA guidelines for small renal masses and the options include: surveillan ce, robotic partial nephrectom y or thermal ablation. After a thorough discussion of the risks and benefits, the patient would like to proceed with surveillan ce. Ultrasound in six months. Health Concerns Section Related Observation LastModified by Organization Detai ls LastModified Time None Recorded Concern Status LastModified by Organization Details LastModified Time None Recorded Advance Directives Directive None Recorded Payers Encounter Date Sequence Insurance Name Policy Number Policy Wisdom Covered Member ID Wisdom Member ID Guarantor Name 07/29/2024 1 [place] [employer] [facility] Tonya Russo [id number] Tonya Wyatt Russo 07/29/2024 2 [place] [id number] Tonya Wyatt Russo [id number] Tonya Wyatt Russo Notes Date Note Type Note Provider Name and Address Organization Details Recorded Time 07/29/2024 text/html Referred for the incidental finding of 4cm lower pole left renal mass. This was an incidental finding on a CT scan done for diverticulitis.Sh e is diabetic and has renal insufficiency, CHF, pacemaker. Efrain Hugo MD [address], [place], [address], [facility] 07/29/2024 14:25:53 OBGyn Episode No OBEpisode recorded.
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
[2024-12-11 13:16] VITALS: BP 172/93; PULSE 84; RESP 20; TEMP 35; O2SAT 97; BMI 22.1
--- NOTE | 2024-12-11 13:24 | CRLHL7_ITS ---
For Patients: As a result of the Century Cures Act, medical imaging exams and procedure reports are released immediately into your electronic medical record. You may view this report before your referring provider. If you have questions, please contact your health care provider. INDICATION: Fall TECHNIQUE: Noncontrast axial CT of the head. Coronal and sagittal reformats. Bone and soft tissue algorithms. COMPARISON: CT head 02/15/2024, CT head report 03/02/2021 FINDINGS: Left posterior parietal scalp hematoma. No skull fracture identified. No acute intracranial hemorrhage or abnormal extra-axial fluid collection. Encephalomalacia and gliosis throughout the left temporal lobe, sequela of remote traumatic parenchymal contusion/hematoma. Parsons-white matter differentiation is grossly preserved. Small foci of encephalomalacia at the paramedian left frontal lobe and posterior left occipital lobe.. Mineralization changes at the basal ganglia. Calcific intracranial atherosclerotic plaquing. Clear visualized paranasal sinuses and mastoid air cells. Bilateral lens implants. IMPRESSION: 1. Left posterior parietal scalp hematoma. 2. No skull fracture or acute intracranial hemorrhage identified. 3. Remote sequela of left temporal hemorrhagic contusion/hematoma 4. Small foci of encephalomalacia at the left frontal and left occipital lobe. Please note that all CT scans at this facility use dose modulation, iterative reconstruction, and/or weight-based dosing when appropriate to reduce radiation dose to as low as reasonably achievable. Dictated by Esther Goins MD @ 12/11/2024 2:41:44 PM (Electronically Signed)
--- NOTE | 2024-12-11 13:39 | CRLHL7_ITS ---
For Patients: As a result of the Century Cures Act, medical imaging exams and procedure reports are released immediately into your electronic medical record. You may view this report before your referring provider. If you have questions, please contact your health care provider. Indication: Fall Technique: Noncontrast axial CT of the cervical spine with coronal and sagittal reformats. Comparison: CT cervical spine report 02/15/2024 Findings: The normal cervical lordosis is preserved. No evidence for traumatic malalignment. Vertebral body heights are maintained. No acute fracture identified. Scattered spondylosis, without evidence of high-grade spinal canal stenosis. Neural foraminal narrowing greatest on the left at C3-4, right at C4-5, bilaterally at C5-6. No suspicious findings in the prevertebral or paraspinal soft tissues. Included intracranial structures are detailed in a separate report. No apical pneumothorax. Impression: 1. No evidence of acute fracture or traumatic malalignment in the cervical spine. 2. Cervical spondylosis as detailed. Please note that all CT scans at this facility use dose modulation, iterative reconstruction, and/or weight-based dosing when appropriate to reduce radiation dose to as low as reasonably achievable. Dictated by Esther Goins MD @ 12/11/2024 2:36:05 PM (Electronically Signed)
--- NOTE | 2024-12-11 13:39 | CRLHL7_ITS ---
For Patients: As a result of the Century Cures Act, medical imaging exams and procedure reports are released immediately into your electronic medical record. You may view this report before your referring provider. If you have questions, please contact your health care provider. INDICATION: Trauma, fall. Thoracic pain. TECHNIQUE: CT chest without contrast. COMPARISON: 01/27/2024. FINDINGS: Lungs and pleura: Few linear parenchymal bands, likely representing subsegmental atelectasis. No suspicious nodules or infiltrates. No pleural effusions, pleural thickening, or pneumothorax. Heart and vasculature: Stable mild cardiomegaly. Thoracic aorta and pulmonary artery are normal in caliber. Mitral annular, thoracic aorta, and coronary artery calcifications. Mitral clip and left chest wall cardiac conduction device, unchanged. Lymph nodes/mediastinum: No mediastinal, hilar, or axillary adenopathy. Thyroid gland is unremarkable. Chest wall: Right mastectomy. Upper abdomen: Left renal midpole hyperdense cyst. Bones: Diffuse osteopenia. No acute fracture or dislocation. Old rib fractures. Chronic mild T3 superior endplate, mild T10 superior endplate, and severe T12 vertebral body compression deformities. Degenerative changes of the spine with exaggerated thoracic kyphosis. Bridging syndesmophytes, which may be seen in the setting of ankylosing spondylitis. IMPRESSION: 1. No acute traumatic abnormality of the chest. 2. Chronic findings as above. Please note that all CT scans at this facility use dose modulation, iterative reconstruction, and/or weight-based dosing when appropriate to reduce radiation dose to as low as reasonably achievable. Dictated by Jae Alexander MD @ 12/11/2024 3:17:40 PM (Electronically Signed)
--- NOTE | 2024-12-11 13:42 | ED_ITS ---
HPI - Fall General Chief Complaint: Fall/Minor Trauma Stated Complaint: fell, hit head Time Seen by Provider: 12/11/24 13:12 History of Present Illness HPI Narrative: Patient is an 89-year-old woman who unfortunately fell today in her friend's garage. Patient was about to go up some stairs using a grab bar when she stumbled falling in to the car. Patient struck the back of her head on the car. She did not lose consciousness. She has had no seizure activity. She was able to get up but because she is on blood thinners in the form of Coumadin she is brought in the emergency room by her friends. Patient has no neck pain but does have pain in the left side of her chest wall. He is now having no difficulty breathing. She has a small area of tenderness in the left posterior elbow. No other injuries no skin breakdown no bruising. Patient has a I a normal sensorium and feels well with the exception of the posterior occiput. Related Data Home Medications ?Medication ?Instructions ?Recorded ?Confirmed apixaban 2.5 mg tablet (Eliquis) 2.5 mg PO BID 05/24/23 07/12/24 blood sugar diagnostic (Prodigy No #10 ea 05/24/23 01/27/24 Coding strips) carvedilol 3.125 mg tablet 3.125 mg PO BID 05/24/23 07/12/24 donepezil 5 mg tablet 5 mg PO HS 05/24/23 07/12/24 simvastatin 10 mg tablet 10 mg PO HS 05/24/23 07/12/24 acetaminophen 650 mg 1,300 mg PO HS PRN 01/27/24 07/12/24 tablet,extended release calcium carbonate (Calcium 500) 500 mg PO BID PRN 01/27/24 07/12/24 carvedilol 12.5 mg tablet 12.5 mg PO BID 01/27/24 07/12/24 gabapentin 100 mg capsule 100 mg PO HS 01/27/24 07/12/24 nitroglycerin 0.4 mg sublingual 0.4 mg sublingual Q5M PRN 01/27/24 07/12/24 tablet glipizide 5 mg tablet 5 mg PO DAILY 07/12/24 07/12/24 polyethylene glycol 3350 17 17 g PO DAILY 09/09/24 09/09/24 gram/dose oral powder (ClearLax) sacubitril 24 mg-valsartan 26 mg 1 tab PO BID 07/12/24 07/12/24 tablet (Entresto) vit A 300 mcg-C 200 mg-E 27 1 tab PO DAILY 07/12/24 07/12/24 mg-lutein 2 mg and minerals tablet (Ocuvite with Lutein) Previous Rx's ?Medication ?Instructions ?Recorded bumetanide 1 mg tablet 0.25 mg (1/4 x 1 mg) PO DAILY #20 01/28/24 tabs lidocaine 5 % topical patch 1 patch transdermal Q24H #30 ea 01/28/24 Allergies Allergy/AdvReac Type Severity Reaction Status Date / Time Penicillins Allergy Unknown Verified 12/11/24 13:15 Review of Systems Status of ROS: Reports: 10 or more systems reviewed and unremarkable except as noted in History and below [facility] Medical History Chronic kidney insufficiency ?N18.9 - Chronic kidney disease, unspecified (ICD-10) Atrial fibrillation ?I48.91 - Unspecified atrial fibrillation (ICD-10) Congestive heart failure ?I50.9 - Heart failure, unspecified (ICD-10) Chronic anticoagulation ?Z79.01 - FDC (current) use of anticoagulants (ICD-10) Acute lower gastrointestinal bleeding ?K92.2 - Gastrointestinal hemorrhage, unspecified (ICD-10) Chronic systolic heart failure ?I50.22 - Chronic systolic (congestive) heart failure (ICD-10) History of congestive heart failure ?Z86.79 - Personal history of other diseases of the circulatory system (ICD- 10) Recurrent falls ?R29.6 - Repeated falls (ICD-10) Type 2 diabetes mellitus ?E11.9 - Type 2 diabetes mellitus without complications (ICD-10) Compression fracture Essential tremor ?G25.0 - Essential tremor (ICD-10) Presence of CardioMEMS HF system ?Z95.818 - Presence of other cardiac implants and grafts (ICD-10) Paroxysmal A-fib ?I48.0 - Paroxysmal atrial fibrillation (ICD-10) Acute idiopathic myocarditis ?I40.1 - Isolated myocarditis (ICD-10) Osteopenia ?M85.80 - Other specified disorders of bone density and structure, unspecified site (ICD-10) Macular degeneration ?H35.30 - Unspecified macular degeneration (ICD-10) Psoriasis ?L40.9 - Psoriasis, unspecified (ICD-10) History of breast cancer ?Z85.3 - Personal history of malignant neoplasm of breast (ICD-10) Hypertension ?I10 - Essential (primary) hypertension (ICD-10) Surgical History Hx of tonsillectomy ?Z90.89 - Acquired absence of other organs (ICD-10) H/O mastectomy ?Z90.10 - Acquired absence of unspecified breast and nipple (ICD-10) History of hysterectomy ?Z90.710 - Acquired absence of both cervix and uterus (ICD-10) Hx of mitral valve repair ?Z98.890 - Other specified postprocedural states (ICD-10) Presence of combination internal cardiac defibrillator (ICD) and pacemaker ?Z95.810 - Presence of automatic (implantable) cardiac defibrillator (ICD-10) Social History What is your current living situation?: I presently have a place to live Problems where you live: no known problems Problems where you live details: no known problems In the past 12 months, utilities in danger of being shut off: no In past 12 months, lack of transportation kept you from medical appts, meetings, work, or getting things needed for daily living: no In the past 12 mos, have been you worried that your food would run out before you had money to buy more?: never true In the past 12 mos, the food you bought just didn't last and you didn't have money to buy more?: never true Smoking Status: Never smoker Do you use any of these nicotine containing products: None Second hand tobacco smoke exposure: No How often do you have a drink containing alcohol: never How often do you have six or more drinks on one occasion: Never AUDIT-C Alcohol total score: 0 Non-prescribed substance use: denies use Caffeine: Yes (coffee) How often does anyone, including family, friends and others, physically hurt you : never How often does anyone, including family, friends and others, insult or talk down to you: never How often does anyone, including family, friends and others, threaten you with harm: never How often does anyone, including family, friends and others, scream or curse at you: never service: No Exam Narrative: Exam Narrative: EXAM GENERAL: Patient appears comfortable and well. Hematoma noted the posterior occiput without skin breakdown. EYES: No scleral icterus. LYMPH: No supraclavicular or cervical lymphadenopathy. SKIN: Visible skin seen during exam normal or with benign process only. EXT: No dependent lower extremity pedal edema. Left elbow thoroughly examined no signs of fracture. HEART: Regular rate and rhythm with no murmurs, rubs, or gallops. LUNGS: Clear to auscultation bilaterally with no crackles or wheezes. No chest wall pain with palpation. ABD: Soft, non tender, non distended. PSYCH: Good eye contact, speech is not pressured. Const: Vital Signs, click to edit/add: Vital Signs - 24 hr 12/11/24 13:16 Temperature 95 F L Pulse Rate [Pulse Oximeter] 84 Respiratory Rate 20 Blood Pressure [Le ft Upper Arm] 172/93 H Pulse Oximetry 97 Oxygen Delivery Me thod Room Air Course Course ED Course: Patient seen and examined. CT chest cervical spine and thorax pending. Vital Signs Vital signs: Initial Vital Signs Temperature 95 F L 12/11/24 13:16 Temperature Source Temporal Artery Scan 12/11/24 13:16 Pulse Rate 84 12/11/24 13:16 Pulse Rhythm Regular 12/11/24 13:16 Respiratory Rate 20 12/11/24 13:16 Blood Pressure 172/93 H 12/11/24 13:16 Blood Pressure Mean 119 H 12/11/24 13:16 Blood Pressure Position Semi-Fowlers 12/11/24 13:16 Pulse Oximetry 97 12/11/24 13:16 Oxygen Delivery Method Room Air 12/11/24 13:16 Vital Signs Temperature 95 F L 12/11/24 13:16 Pulse Rate 84 12/11/24 13:16 Respiratory Rate 20 12/11/24 13:16 Blood Pressure 172/93 H 12/11/24 13:16 Pulse Oximetry 97 12/11/24 13:16 Oxygen Delivery Method Room Air 12/11/24 13:16 Temperature 95 F L 12/11/24 13:16 Pulse Rate 84 12/11/24 13:16 Respiratory Rate 20 12/11/24 13:16 Blood Pressure 172/93 H 12/11/24 13:16 Pulse Oximetry 97 12/11/24 13:16 Oxygen Delivery Method Room Air 12/11/24 13:16 MDM - Fall MDM Narrative Medical decision making narrative: Patient is 89-year-old woman on Coumadin for atrial fibrillation who fell today. She has a hematoma on the posterior occiput. CT head and neck as well as chest showed no acute abnormalities. She appears to be otherwise uninjured. I did check an INR is 1.2. I gave her these result asked her to adjust her Coumadin per previous recommendations. At this time symptomatic care Tylenol ice follow- up with her primary physician as needed. Lab Data Labs: Lab Results 12/11/24 12/11/24 Range/Units 13:11 14:30 INR 1.20 H (0.91-1.10) Urine Color Yellow (Yellow) Urine Appearance Clear (Clear) Urine pH 5.5 (5.0-8.5) Ur Specific [place] 1.015 (1.000-1.030) Urine Protein 2+ A (Negative) Urine Glucose (UA) 1+ A (Negative) Urine Ketones Negative (Negative) Urine Blood 2+ A (Negative) Urine Nitrite Negative (Negative) Urine Bilirubin Negative (Negative) Urine Urobilinogen 0.2 (0.2-1.0) Ur Leukocyte Esterase 2+ A (Negative) Discharge Plan Discharge Clinical Impression: Fall Patient Disposition: Home, Self-Care Condition: Stable Instructions: Head Injury (ED) Additional Instructions: Ice Tylenol Rest INR is 1.2 please report this to your primary doctor on Friday. Activity Level: No Restrictions Discharge Diet: Regular Prescriptions: No Action simvastatin 10 mg tablet 10 mg PO HS (DME) Prodigy No Coding Strip See Rx Instructions .ROUTE DAILY Qty: 10 Rx Instructions: As directed carvedilol 3.125 mg tablet 3.125 mg PO BID donepezil 5 mg tablet 5 mg PO HS Eliquis 2.5 mg tablet 2.5 mg PO BID nitroglycerin 0.4 mg tablet, sublingual 0.4 mg sublingual Q5M PRN gabapentin 100 mg capsule 100 mg PO HS carvedilol 12.5 mg tablet 12.5 mg PO BID acetaminophen 650 mg tablet extended release 1,300 mg PO HS PRN calcium carbonate [Calcium 500] 500 mg calcium (1,250 mg) tablet,chewable 500 mg PO BID PRN lidocaine 5 % Adhesive Patch,Medicated 1 patch transdermal Q24H Qty: 30 0RF bumetanide 1 mg tablet 0.25 mg PO DAILY Qty: 20 0RF Rx Instructions: TAKES 0.5 MG DAILY 1 MG ONE DAY PER WEEK glipizide 5 mg tablet 5 mg PO DAILY Entresto 24-26 mg tablet 1 tab PO BID Ocuvite with Lutein 300 mcg-200 mg-27 mg-2 mg tablet 1 tab PO DAILY Rx Instructions: administer after a meal polyethylene glycol 3350 [ClearLax] 17 gram/dose powder 17 g PO DAILY Follow Up/Referrals: Radha Grimes MD [Primary Care Provider] - Stand Alone Forms: Turned On [employer] Info Instructions
--- OUTSIDE RECORDS SUMMARY | 2024-12-11 14:14 | XMS_ITS | Referral Summary ---
Author Organization [facility] Address [address] [place] [id number] Phone Care Team Providers Care Supervisor Feed House Name Role Phone Raphael Michelle MD Primary Care Provider [phone] Source Comments [employer] is fully rolled out on [employer]. 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 Lemon at [facility]. 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 PatientFamily Care Teams Supervisor Feed House Relationship Specialty Start Date End Date Raphael Michelle MD PCP - General Outside Provider 08/30/19
--- OUTSIDE RECORDS SUMMARY | 2024-12-11 14:14 | XMS_ITS | Clinical Summary ---
Author Organization [facility] Address [address] [place] [id number] Phone Care Team Providers Care Manager Of Digital Name Role Phone Raphael Michelle MD Primary Care Provider [phone] Source Comments [employer] is fully rolled out on [employer]. 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 Lemon at [facility]. 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 PatientFamily Care Teams Manager Of Digital Relationship Specialty Start Date End Date Raphael Michelle MD PCP - General Outside Provider 08/30/19
--- OUTSIDE RECORDS SUMMARY | 2024-12-11 14:14 | XMS_ITS | Clinical Summary ---
Author Organization [employer] [facility] Address [place], [place] [address] Care Team Providers Care Dry Transfer Worker Name Role Phone Leonard Newman MD Unavailable Sony Darling MD Unavailable Titus Grijalva MD Unavailable Jose Daniel Lilly MD Unavailable Unavail able Nurses, Advanced Heart Failure Unavailable + Kashif Frey MD Unavailable Rosie Sabillon RN Unavailable [phone] Yola Hernandez RN Unavailable Unavailable Radha Grimes MD Primary Care Provide r Shaka Alicea Unavailable Allergies Active Allergy Reactions Criticality Noted Date Comments Dapagliflozin Intolerance-Can't Take High 04/20/2020 Syncope and falls Furosemide Rash Medium 07/16/2017 Hydralazine Nausea And Vomiting High 06/24/2018 Penicillins Edema Medium 10/12/2024 Arm swelling 07/13/15 received rx for Keflex 30 doses per med history Medications vit A,C and W-mxkogp-jffdmzuv (OCUVITE WITH LUTEIN) 300 mcg-200 mg-27 mg-2 [...] Insurance: Medicare 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 Primary cement truck driver is Kashif Frey MD. CardioMEMs is MRI [...] Overview (04/23/2017): - present since 2012 per [facility] NSTEMI (non-ST elevated myocardial infarction) 0 04/23/2017 Overview (04/23/2017): - negative angiogram, ?Stress cmp ACP (advance care planning) 05/11/2013 Overview (05/11/2013): Patient has identified Health Care Agent(s): Yes Add Health Care Agents: Yes Health Care Agent(s): Primary Health Care Agent: Jeffery Russo Relationship: spouse Secondary Health Care Agent: Delmy Russo Relationship: daughter (q) [phone](w) Secondary Health Care Agent: Justine Russo Relationship: daughter (c) [phone] (w) Guardian: Relationship: Phone: Patient has Advance [...] heart stops; She has little chance of skilled nursing survival if her heart stops and the [...] Her PCP is Dr Raphael Michelle at [facility]. Advance care planning discussions were completed with Tonya and her spouse and healthcare agent, Jeffery Russo. Her daughter and alternative HCA, Delmy Russo, was also present. Understanding of Illness and Disease [place]: Tonya identifies her medical condition as being [...] Hospice when/if appropriate. Would desire placement at [facility] if not able to be cared for at home. 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 Tonya priyanka with serious challenges in her life: [...] years in her home and [facility] to . As a result [...] and primary care provider. Hard Choices for [place] People booklet was given to Tonya and [...] or Hospice when /if appropriate. Hospice Care, [facility], Home Care, and Lost of [...] Department Care Team Description 12/08/2024 3:30 PM SALES & SERVICE ASSOCIATE Orders Only [facility] [address] [place] [address] Lab, [place] Lab 12/08/2024 Travel 12/01/2024 Telephone [facility] [address] [place] [address] Kashif Frey MD Cardiology Appointment 11/29/2024 9:50 AM SALES & SERVICE ASSOCIATE Procedure Only [facility] [address] [place] [address] Device Check (Monthly Remote CardioMEMs De... 11/29/2024 Travel 11/26/2024 Telephone [facility] [address] [place] [address] Maty Baer RN EP Procedure 11/23/2024 Refill [facility] [address] [place] [address] Radha Grimes MD Refill Request (Gabapentin) 11/09/2024 3:30 PM SALES & SERVICE ASSOCIATE Office Visit [facility] [address] [place] [address] Radha Grimes MD Follow Up (Diabetes/insulin/D oing 3 units BID. Diet is not much different from day to day.) 11/09/2024 Travel 11/05/2024 Travel 11/05/2024 Telephone [facility] [address] [place] [address] Piper Espinoza RN Follow Up 10/29/2024 9:30 AM SALES & SERVICE ASSOCIATE Procedure Only [facility] [address] [place] [address] Device Check (Monthly Remote CardioMEMs De... 10/29/2024 Travel 10/20/2024 Refill [facility] [address] [place] [address] Radha Grimes MD Refill Request (Test strips ) 10/19/2024 3:20 PM SALES & SERVICE ASSOCIATE Nurse/Clinic Staff Only [facility] [address] [place] [address] Education (Basaglar insulin teaching) 10/19/2024 Travel 10/12/2024 3:30 PM SALES & SERVICE ASSOCIATE Office Visit [facility] [address] [place] [address] Radha Grimes MD Diabetes (Discuss labs/Mouth is always dry/Nose bleeds, using saline spray at night and it has help) 10/12/2024 Telephone [facility] [address] [place] [address] Radha Grimes MD Medication Management (Basaglar) 10/12/2024 Telephone [facility] [address] [place] [address] Radha Grimes MD Medication Management (Lantus Solostar U-100 Insulin 100 unit/mL (3 mL) pen) 10/12/2024 Travel 10/07/2024 9:15 AM SALES & SERVICE ASSOCIATE Orders Only [address] [address] Lab, [place] Lab 10/07/2024 Travel 10/05/2024 Telephone [facility] [address] [place] [address] Radha Grimes MD 10/04/2024 Telephone [facility] [address] [place] [address] [facility] 09/29/2024 9:30 AM SALES & SERVICE ASSOCIATE Procedure Only [facility] [address] [place] [address] Device Check (Monthly Remote CardioMEMs De... 09/29/2024 Travel 09/17/2024 Refill [facility] [address] [place] [address] Kashif Frey MD Refill Request (Eliquis) from [...] 12YO+ BIVALENT PF, MDV 07/17/2022 COVID-19 vaccine (Diversion NTech 30mcg/0.3mL) 12YO+ BIVALENT PF, MDV 03/07/2023 COVID-19 vaccine (Diversion NTech 30mcg/0.3mL) PF, MDV 12/30/2020,12/09/2020 DTP 09/18/2007 [...] AM CDT Legal Sex Female 5:24 AM SALES & SERVICE ASSOCIATE Gender Identity Female 02/15/2024 10:51 AM CDT [...] Comments Blood Pressure 148/87 11/09/2024 3:43 PM SALES & SERVICE ASSOCIATE Pulse 86 11/09/2024 3:43 PM SALES & SERVICE ASSOCIATE Temperature 36.7 C (98.1 F) 03/26/2024 10:45 AM CDT Respiratory Rate 16 03/26/2024 10:45 AM CDT Oxygen Saturation 99% 11/09/2024 3:41 PM SALES & SERVICE ASSOCIATE Inhaled Oxygen Concentration - - Weight 57.2 kg (126 lb) 11/09/2024 3:41 PM SALES & SERVICE ASSOCIATE Height 160 cm (5' 3) 07/09/2024 12:03 PM CDT Body Mass Index 22.32 07/09/2024 12:03 PM CDT Plan of Treatment Upcoming Encounters Date Type Department Care Team (Late st Contact Info) Description 12/16/2024 11:00 AM SALES & SERVICE ASSOCIATE [facility]ointment [facility] [address] [facility] [address] [place] [address] Kaila Hu MD [address] [place] [address] 12/29/2024 9:50 AM SALES & SERVICE ASSOCIATE Procedure Only [facility] [address] [place] [address] 01/28/2025 9:50 AM CDT Procedure Only [facility] [address] [place] [address] 02/09/2025 9:00 AM CDT Orders Only [facility] [address] [place] [address] 02/09/2025 10:00 AM CDT Office Visit [facility] [address] [place] [address] Kashif Frey MD [address] [place] [address] 02/28/2025 9:50 AM CDT Procedure Only [facility] [address] [place] [address] 03/30/2025 9:50 AM CDT Procedure Only [facility] [address] [place] [address] 04/29/2025 9:50 AM CDT Procedure Only [facility] [address] [place] [address] 05/30/2025 9:50 AM CDT Procedure Only [facility] [address] [place] [address] 06/29/2025 9:50 AM CDT Procedure Only [facility] [address] [place] [address] 07/29/2025 9:50 AM CDT Procedure Only [facility] [address] [place] [address] 08/29/2025 9:50 AM CDT Procedure Only [facility] [address] [place] [address] 09/28/2025 9:50 AM SALES & SERVICE ASSOCIATE Procedure Only [facility] [address] [place] [address] 10/28/2025 9:50 AM SALES & SERVICE ASSOCIATE Procedure Only [facility] [address] [place] [address] Health Maintenance Due Date Last Done Comments [...] Bridges LPN Medical Devices Implanted Type Area Communications Specialist Device Identifier Shelf Expiration Date Model / Serial / Lot Mri Conditional Derrick Builder-D Implanted:12/02 by Simone Lemon MD (Quantity not on file) ELEMENTARY SCHOOL TEACHER-D Medtronic MEDTRONIC CLARIA MRI QUAD ELEMENTARY SCHOOL TEACHER-D SURESCAN [id number] / [id number] / Cardiomems-2017 Implanted:04/06 (Quantity not on file) CardioMEMS Procedures Procedure Name Priority Date/Time Associated Diagnosis Comments CBC W PLT NO DIFF Routine 12/08/2024 3:4 3 PM SALES & SERVICE ASSOCIATE Pre-op testing BASIC METABOLIC PANEL Routine 12/08/2024 3:43 PM SALES & SERVICE ASSOCIATE Pre-op testing HEMOGLOBIN A1C MONITORING (POCT) Routine 10/07/2024 9:52 AM SALES & SERVICE ASSOCIATE Type 2 diabetes mellitus with stage 3a chronic kidney disease, without long-term current use of insulin (HC) BASIC METABOLIC PANEL Routine 10/07/2024 9:51 AM SALES & SERVICE ASSOCIATE Chronic systolic CHF (congestive heart failure), NYHA class 3 (HC) CBC WITH AUTO DIFFERENTIAL Routine 10/07/2024 9:51 AM SALES & SERVICE ASSOCIATE Type 2 diabetes mellitus with stage 3a chronic kidney disease, without long-term current use of insulin (HC) XR DXA BONE DENSITY 2 SITES AXIAL Routine 10/03/2011 11:17 AM SALES & SERVICE ASSOCIATE Osteopenia from Last 3 Months or Most Recently Relevant to Health Maintenance Results * CBC W PLT NO DIFF (12/08/2024 3:43 PM SALES & SERVICE ASSOCIATE) WHITE BLOOD CELL COUNT 9.3 3.8 - 10.8 Thousand/u L [facility] RED BLOOD CELL COUNT 3.93 3.80 - 5.10 Million/uL [facility] HEMOGLOBIN 12.6 11.7 - 15.5 g/dL [facility] HEMATOCRIT 38.5 35.0 - 45.0 % [facility] MCV 98.0 80.0 - 100.0 fL [facility] MCH 32.1 27.0 - 33.0 pg [facility] MCHC 32.7 32.0 - 36.0 g/dL [facility] Comment: For adults, a slight decrease in the calculated MCHC value (in the range of 30 to 32 g/dL) is most likely not clinically significant; however, it should be interpreted with caution in correlation with other red cell parameters and the patient's clinical condition. RDW 11.9 11.0 - 15.0 % [facility] PLATELET COUNT 159 140 - 400 Thousand/u L [facility] MPV 12.4 7.5 - 12.5 fL [facility] Blood BLOOD SPECIMEN / Unknown 12/08/2024 3:43 PM SALES & SERVICE ASSOCIATE 12/08/2024 3:43 PM SALES & SERVICE ASSOCIATE us Kaila Hu MD HEMATOLOGY Final Re sult [facility] [address] [place] [address], [facility] [address] * (ABNORMAL) BASIC METABOLIC PANEL (12/08/2024 3:43 PM SALES & SERVICE ASSOCIATE) Only the most recent of2 resultswithin the time period is included. GLUCOSE 455(H) 65 - 99 mg/dL [facility] Comment: Verified by repeat analysis. Fasting reference interval For someone without known diabetes, a glucose value >125 mg/dL indicates that they may have diabetes and this should be confirmed with a follow-up test. UREA NITROGEN (BUN) 47(H) 7 - 25 mg/dL [facility] CREATININE 1.81(H) 0.60 - 0.95 mg/dL [facility] EGFR 27(L) > OR = [...] BLOOD SPECIMEN / Unknown 12/08/2024 3:43 PM SALES & SERVICE ASSOCIATE 12/08/2024 3:43 PM SALES & SERVICE ASSOCIATE Kaila Hu MD CHEMISTRY Final Re sult [facility] [address] [place] [address], [place] [phone] [facility] [address] [place] [address] * (ABNORMAL) HEMOGLOBIN A1C MONITORING (POCT) (10/07/2024 9:52 AM SALES & SERVICE ASSOCIATE) POC HEMOGLOBIN A1C 11.8(H) <6.0 % OF TOTAL HGB [facility] Comment: Any point of care results exhibiting inconsistency with the patient's clinical status should be repeated using a different testing method. Blood BLOOD SPECIMEN / Unknown 10/07/2024 9:52 AM SALES & SERVICE ASSOCIATE 10/07/2024 9:52 AM SALES & SERVICE ASSOCIATE Radha Grimes MD CHEMISTRY Final Result [facility] [address] [place] [address], [place] [phone] [facility] [address] [place] [address] * (ABNORMAL) CBC AND DIFFERENTIAL (10/07/2024 9:51 AM SALES & SERVICE ASSOCIATE) WHITE BLOOD CELL COUNT 7.6 3.8 - [...] BLOOD SPECIMEN / Unknown 10/07/2024 9:51 AM SALES & SERVICE ASSOCIATE 10/07/2024 9:51 AM SALES & SERVICE ASSOCIATE us Radha Grimes MD HEMATOLOGY Final Result [facility] [address] [place] [address], [facility] [address] [place] [address] * XR DEXA BONE DENSITY 2 SITES (10/03/2011 11:17 AM SALES & SERVICE ASSOCIATE) Anatomical Region Laterality Modality Spine, HIPS, HIPL, HIPR Other Narrative 10/16/2011 2:29 PM SALES & SERVICE ASSOCIATE Please see scanned document for results of this study. Procedure Note Rita Augustin - 10/16/2011 Please see scanned document for results of this study. us Raphael Michelle MD DEXA Final Re sult from Last 3 Months or Most Recently Relevant to Health Maintenance Insurance MEDICARE PB ONLY MEDICARE PART B HB ONLY [facility]IC[facility] PART A [place] [address] [place] [address] MEDICARE PPS MEDICARE PART B HB ONLY [facility] MEDICARE PART A HB ONLY [place] MEDICARE PB ONLY [facility] Advance Directives Documents on File Type Date Recorded Patient Director Immunology Expl anation POLST 03/14/2021 12:00 AM * [...] Comments Code Status Discussion: Discussed Care Teams Dry Transfer Worker Relationship Specialty Start Date End Date Radha Grimes MD [address] [place] [address] PCP - General Family Practice 02/26/23 Leonard Newman MD [address] [place] [address] Cardiology Cardiovascular Disease 02/25/12 Sony Darling MD [address] [place] [address] Surgery - Otolaryngology 09/18/12 Titus Grijalva MD [address] [place] [address] Otolaryngology Surgery - Otolaryngology 02/02/13 Jose Daniel Lilly MD [address] [place] [address] Surgery - Orthopedics 09/21/13 Nurses, Advanced Heart Failure [address] [place] [address] Heart Failure Care Coordination [place]ucl[place] Operator 04/28/17 Kashif Fery MD [address] [place] [address] Cardiology - CHF Cardiovascular Disease 03/09/18 Rosie Sabillon RN [address] [address] Registered Nurse Registered Nurse 06/17/18 Yola Hernandez, RN Registered Nurse 07/27/18 Shaka Alicea COTA [address] [place] [address] Occupational Therapy 02/20/24
[2024-12-11 15:04] LABS: Appearance Urine Clear (Clear); Bilirubin Urine Negative (Negative); Blood Urine 2+ (Negative); Color Urine Yellow (Yellow); Glucose Urine 1+ (Negative); Ketones Urine Negative (Negative); Leukocyte Esterase Urine 2+ (Negative); Nitrite Urine Negative (Negative); Protein Urine 2+ (Negative); Specific Gravity Urine 1.015 (1.000-1.030); Urobilinogen Urine 0.2 (0.2-1.0); pH Urine 5.5 (5.0-8.5)
[2024-12-11 15:28] LABS: Bacteria Urine Moderate; RBC Urine 50-100 (0-2); Squamous Epithelial Cell Urine Few (None-Few); WBC Urine >100 (0-5)
== END 2024-12-11 15:47 | disposition home or self-care (01) ==
PROVIDERS: Emergency Provider Internal Medicine; PCP Family Medicine
DX: S09.90XA Unspecified injury of head, initial encounter (principal); W10.9XXA Fall (on) (from) unspecified stairs and steps, initial encounter; Y92.015 Private garage of single-family (private) house as the place of occurrence of the external cause; I48.91 Unspecified atrial fibrillation; Z79.01 Long term (current) use of anticoagulants; Z79.85 Long-term (current) use of injectable non-insulin antidiabetic drugs
CPT/HCPCS: 36415; 70450; 71250; 72125; 81001; 85610; 87086; 99283; 99285

== ENCOUNTER 2024-12-13 13:39 | Emergency (ER) | payer MEDICARE, BC, SELFPAY ==
--- OUTSIDE RECORDS SUMMARY | 2024-12-13 13:42 | XMS_ITS | Referral Summary ---
Author Organization [employer] Address [address] [place] [address] Phone Care Team Providers Care Back Digger Operator Name Role Phone Raphael Michelle MD Primary Care Provider [phone] Source Comments [employer] is fully rolled out on Virtual Call Center. Last update 04/07/09.[facility] Allergies Active Allergy Reactions Criticality Noted Date [...] cardioverter-defibrillator) in place 04/14/2020 Overview (04/14/2020): Medtronic Nevolutionia MRI CABLE REPAIRER-D SN [id number] Implanted 12/02/[address] Lemon at [facility]. Syncope, unspecified syncope type 04/14/2020 Acute blood [...] on file Legal Sex Female 10:27 AM DEAN OF WOMEN Gender Identity Not on file Sexual Orientation [...] of Treatment Not on file Insurance MEDICARE [facility] MEDICARE [facility] [employer] Advance Directives For more information, please contact: [phone] * Full Code (Latest Code Status on [...] Code Status With Whom? PatientFamily Care Teams Back Digger Operator Relationship Specialty Start Date End Date Raphael Michelle MD PCP - General Outside Provider 08/30/19
--- OUTSIDE RECORDS SUMMARY | 2024-12-13 13:42 | XMS_ITS | Clinical Summary ---
Author Organization [facility] Address [place], [place] [address] Care Team Providers Care Runner On Name Role Phone Leonard Newman MD Unavailable Sony Darling MD Unavailable [phone] Titus Grijalva MD Unavailable [phone] JoseD aniel Lilly MD Unavailable Unavail able Nurses, Advanced Heart Failure Unavailable + Kashif Frey MD Unavailable [phone] Rosie Sabillon RN Unavailable [phone] Yola Hernandez RN Unavailable Unavailable Radha Grimes MD Primary Care Provide r Shaka Alicea Unavailable [phone] Allergies Active Allergy Reactions Criticality Noted Date Comments Dapagliflozin Intolerance-Can't Take High 04/20/2020 Syncope and falls Furosemide Rash Medium 07/16/2017 Hydralazine Nausea And Vomiting High 06/24/2018 Penicillins Edema Medium 10/12/2024 Arm swelling 07/13/15 received rx for Keflex 30 doses per med history Medications vit A,C and A-lmhqeh-pzrpluum (OCUVITE WITH LUTEIN) 300 mcg-200 mg-27 mg-2 [...] Insurance: Medicare 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 Primary head wood grinder is Kashif Frey MD. CardioMEMs is MRI [...] Overview (04/23/2017): - present since [address] [facility] NSTEMI (non-ST elevated myocardial infarction) 0 04/23/2017 Overview (04/23/2017): - negative angiogram, ?Stress cmp ACP (advance care planning) 05/11/2013 Overview (05/11/2013): Patient has identified Health Care Agent(s): Yes Add Health Care Agents: Yes Health Care Agent(s): Primary Health Care Agent: Jeffery Russo Relationship: spouse Secondary Health Care Agent: Delmy Russo Relationship: daughter (w) [phone](w) Secondary Health Care Agent: Justine Russo Relationship: daughter (c) [phone] (w) Guardian: Relationship: Phone: Patient has Advance [...] heart stops; She has little chance of [place] [facility] survival if her heart stops and the [...] Her PCP is Dr Raphael Michelle at [facility]. Advance care planning discussions were completed with Tonya and her spouse and healthcare agent, Jeffery Russo. Her daughter and alternative HCA, Delmy Russo, was also present. Understanding of Illness and Disease [place]: Tonya identifies her medical condition as being [...] when/if appropriate. Would desire placement at [facility] if not able to be cared for at home. 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 Tonya priyanka with serious challenges [...] years in her home and moved to residential center prior to . As a result [...] and primary care provider. Hard Choices for [place] People booklet was given to Tonya and [...] or Hospice when /if appropriate. Hospice Care, [facility], Home Care, and Lost of [...] Encounters Date Type Department Care Team Description 12/13/2024 Telephone [facility] [place] [facility] [place] [address] [place] [phone] Maty Baer RN 12/11/2024 Orders Only [facility] Scanner 1 scan: (1-Ord) [facility], CT HEAD/BRAIN WO CON, 12/11/2024 12/08/2024 3:30 PM INSECT CONTROL AIDE Orders Only [facility] [address] [place] [address] Lab, [place] Lab 12/08/2024 Travel 12/01/[address] [facility] [address] [place] [phone] Kashif Frey MD Cardiology Appointment 11/29/2024 9:50 AM INSECT CONTROL AIDE Procedure Only [facility] [address] [place] [address] Device Check (Monthly Remote CardioMEMs De... 11/29/2024 Travel 11/26/[address] [facility] [address] [place] [address] Maty Baer, RN EP Procedure 11/23/2024 Refill [facility] [address] [place] [address] Radha Grimes MD Refill Request (Gabapentin) 11/09/2024 3:30 PM INSECT CONTROL AIDE Office Visit [facility] [address] [place] [address] Radha Grimes MD Follow Up (Diabetes/insulin/D oing 3 units BID. Diet is not much different from day to day.) 11/09/2024 Travel 11/05/2024 Travel 11/05/[address] [facility] [address] [place] [address] Piper Espinoza, JANICE Follow Up 10/29/2024 9:30 AM INSECT CONTROL AIDE Procedure Only [facility] [address] [place] [address] Device Check (Monthly Remote CardioMEMs De... 10/29/2024 Travel 10/20/2024 Refill [facility] [address] [place] [address] Radha Grimes MD Refill Request (Test strips ) 10/19/2024 3:20 PM INSECT CONTROL AIDE Nurse/Clinic Staff Only [facility] [address] [place] [address] Education (Basaglar insulin teaching) 10/19/2024 Travel 10/12/2024 3:30 PM INSECT CONTROL AIDE Office Visit [facility] [address] [facility] [place] [address] Radha Grimes MD Diabetes (Discuss labs/Mouth is always dry/Nose bleeds, using saline spray at night and it has help) 10/12/2024 Telephone [facility] [address] [place] [address] Radha Grimes MD Medication Management (Basaglar) 10/12/2024 Telephone [facility] [address] [place] [address] Radha Grimes MD Medication Management (Lantus Solostar U-100 Insulin 100 unit/mL (3 mL) pen) 10/12/2024 Travel 10/07/2024 9:15 AM INSECT CONTROL AIDE Orders Only [address] [place] [address] Lab, [place] [facility] 10/07/2024 Travel 10/05/2024 Telephone [facility] [address] [place] [address] Radha Grimes MD 10/04/[address] [facility] [address] [place] [address] Cardiomeor, [facility] CardioMEMS 09/29/2024 9:30 AM INSECT CONTROL AIDE Procedure Only [facility] [address] [place] [address] Device Check (Monthly Remote CardioMEMs De... 09/29/2024 Travel 09/17/[address] [facility] [address] [place] [address] Kashif Frey MD Refill Request (Eliquis) from [...] 12YO+ BIVALENT PF, MDV 07/17/2022 COVID-19 vaccine (Pfizer-Bio NTech 30mcg/0.3mL) 12YO+ BIVALENT PF, MDV 03/07/2023 COVID-19 vaccine (Pfizer-Bio NTech 30mcg/0.3mL) PF, MDV 12/30/2020,12/09/2020 DTP 09/18/2007 [...] AM CDT Legal Sex Female 5:24 AM INSECT CONTROL AIDE Gender Identity Female 02/15/2024 10:51 AM CDT [...] Comments Blood Pressure 148/87 11/09/2024 3:43 PM INSECT CONTROL AIDE Pulse 86 11/09/2024 3:43 PM INSECT CONTROL AIDE Temperature 36.7 C (98.1 F) 03/26/2024 10:45 AM CDT Respiratory Rate 16 03/26/2024 10:45 AM CDT Oxygen Saturation 99% 11/09/2024 3:41 PM INSECT CONTROL AIDE Inhaled Oxygen Concentration - - Weight 57.2 kg (126 lb) 11/09/2024 3:41 PM INSECT CONTROL AIDE Height 160 cm (5' 3) 07/09/2024 12:03 PM CDT Body Mass Index 22.32 07/09/2024 12:03 PM CDT Plan of Treatment Upcoming Encounters Date Type Department Care Team (Late st Contact Info) Description 12/17/2024 11:00 AM INSECT CONTROL AIDE Appointment [facility] [address] [place] [address] 12/17/2024 2:00 PM INSECT CONTROL AIDE Appointment [facility] [address] [place] [address] Harley Espinal MD [address] [place] [address] 12/29/2024 9:50 AM INSECT CONTROL AIDE Procedure Only [facility] [address] [place] [address] 01/28/2025 9:50 AM CDT Procedure Only [facility] [address] [place] [address] 02/09/2025 9:00 AM CDT Orders Only [facility] [address] [place] [address] 02/09/2025 10:00 AM CDT Office Visit [facility] [address] [place] [address] Kashif Frey MD [address] [place] [address] 02/28/2025 9:50 AM CDT Procedure Only [facility] [address] [place] [address] 03/30/2025 9:50 AM CDT Procedure Only [facility] [address] [place] [address] 04/29/2025 9:50 AM CDT Procedure Only [facility] [address] [place] [address] 05/30/2025 9:50 AM CDT Procedure Only [facility] [address] [place] [address] 06/29/2025 9:50 AM CDT Procedure Only [facility] [address] [place] [address] 07/29/2025 9:50 AM CDT Procedure Only [facility] [address] [place] [address] 08/29/2025 9:50 AM CDT Procedure Only [facility] [address] [place] [address] 09/28/2025 9:50 AM INSECT CONTROL AIDE Procedure Only [facility] [address] [place] [address] 10/28/2025 9:50 AM INSECT CONTROL AIDE Procedure Only [facility] [address] [place] [address] Health Maintenance Due Date Last Done Comments [...] Bridges LPN Medical Devices Implanted Type Area Crew Director Device Identifier Shelf Expiration Date Model / Serial / Lot Mri Conditional Game Designer/Creative Director-D Implanted:12/02 by Simone Lemon MD (Quantity not on file) EDI SPECIALIST-D Medtronic MEDTRONIC CLARIA MRI QUAD EDI SPECIALIST-D SURESCAN [id number] / [id number] / Cardiomems-2017 Implanted:04/06 (Quantity not on file) CardioMEMS Procedures Procedure Name Priority Date/Time Associated Diagnosis Comments SCAN-CT INTERPRETATION 12:00 AM INSECT CONTROL AIDE CBC W PLT NO DIFF Routine 12/08/2024 3:4 3 PM INSECT CONTROL AIDE Pre-op testing BASIC METABOLIC PANEL Routine 12/08/2024 3:43 PM INSECT CONTROL AIDE Pre-op testing HEMOGLOBIN A1C MONITORING (POCT) Routine 10/07/2024 9:52 AM INSECT CONTROL AIDE Type 2 diabetes mellitus with stage 3a chronic kidney disease, without long-term current use of insulin (HC) BASIC METABOLIC PANEL Routine 10/07/2024 9:51 AM INSECT CONTROL AIDE Chronic systolic CHF (congestive heart failure), NYHA class 3 (HC) CBC WITH AUTO DIFFERENTIAL Routine 10/07/2024 9:51 AM INSECT CONTROL AIDE Type 2 diabetes mellitus with stage 3a chronic kidney disease, without long-term current use of insulin (HC) XR DXA BONE DENSITY 2 SITES AXIAL Routine 10/03/2011 11:17 AM INSECT CONTROL AIDE Osteopenia from Last 3 Months or Most Recently Relevant to Health Maintenance Results * SCAN-CT INTERPRETATION (12/11/2024 12:00 AM INSECT CONTROL AIDE) Anatomical Region Laterality Modality Other us Scanner OTHER Final Result * CBC W PLT NO DIFF (12/08/2024 3:43 PM INSECT CONTROL AIDE) WHITE BLOOD CELL COUNT 9.3 3.8 - 10.8 Thousand/u L [facility] RED BLOOD CELL COUNT 3.93 3.80 - 5.10 Million/uL [facility] HEMOGLOBIN 12.6 11.7 - 15.5 g/dL [facility] HEMATOCRIT 38.5 35.0 - 45.0 % [facility] MCV 98.0 80.0 - 100.0 fL [facility] MCH 32.1 27.0 - 33.0 pg [facility] MCHC 32.7 32.0 - 36.0 g/dL [facility] Comment: For adults, a slight decrease in the calculated MCHC value (in the range of 30 to 32 g/dL) is most likely not clinically significant; however, it should be interpreted with caution in correlation with other red cell parameters and the patient's clinical condition. RDW 11.9 11.0 - 15.0 % [facility] PLATELET COUNT 159 140 - 400 Thousand/u L [facility] MPV 12.4 7.5 - 12.5 fL [facility] Blood BLOOD SPECIMEN / Unknown 12/08/2024 3:43 PM INSECT CONTROL AIDE 12/08/2024 3:43 PM INSECT CONTROL AIDE Kaila Hu MD HEMATOLOGY Final Re sult [facility] [address] [facility] [address], As Seen on [employer] [address] [place] [address] * (ABNORMAL) BASIC METABOLIC PANEL (12/08/2024 3:43 PM INSECT CONTROL AIDE) Only the most recent of2 resultswithin the time period is included. GLUCOSE 455(H) 65 - 99 mg/dL [facility] Comment: Verified by repeat analysis. Fasting reference interval For someone without known diabetes, a glucose value >125 mg/dL indicates that they may have diabetes and this should be confirmed with a follow-up test. UREA NITROGEN (BUN) 47(H) 7 - 25 mg/dL [facility] CREATININE 1.81(H) 0.60 - 0.95 mg/dL [facility] EGFR 27(L) > OR = 60 mL/min/1.7 3m2 [facility] BUN/CREATININE RATIO 26(H) 6 - 22 (calc) [facility] SODIUM 133(L) 135 - 146 mmol/L [facility] POTASSIUM 5.5(H) 3.5 - 5.3 mmol/L [facility] CHLORIDE 102 98 - 110 mmol/L [facility] CARBON DIOXIDE 21 20 - 32 mmol/L [facility] ELECTROLYTE BALANCE 10 7 - 17 mmol/L (calc) [facility] CALCIUM 10.5(H) 8.6 - 10.4 mg/dL [facility] Blood BLOOD SPECIMEN / Unknown 12/08/2024 3:43 PM INSECT CONTROL AIDE 12/08/2024 3:43 PM INSECT CONTROL AIDE us Kaila Hu MD CHEMISTRY Final Re sult [facility] [address] [place] [address], [facility] [address] [place] [address] * (ABNORMAL) HEMOGLOBIN A1C MONITORING (POCT) (10/07/2024 9:52 AM INSECT CONTROL AIDE) [facility] POC HEMOGLOBIN A1C 11.8(H) <6.0 % OF TOTAL HGB [facility] Comment: Any point of care results exhibiting inconsistency with the patient's clinical status should be repeated using a different testing method. Blood BLOOD SPECIMEN / Unknown 10/07/2024 9:52 AM INSECT CONTROL AIDE 10/07/2024 9:52 AM INSECT CONTROL AIDE Radha Grimes MD CHEMISTRY Final Result [facility] [address] [place] [address], [facility] [address] [place] [address] * (ABNORMAL) CBC AND DIFFERENTIAL (10/07/2024 9:51 AM INSECT CONTROL AIDE) [facility] WHITE BLOOD CELL COUNT 7.6 3.8 - [...] BLOOD SPECIMEN / Unknown 10/07/2024 9:51 AM INSECT CONTROL AIDE 10/07/2024 9:51 AM INSECT CONTROL AIDE us Radha Grimes MD HEMATOLOGY Final Result [facility] [address] [place] [address], [facility] [address] [place] [address] * XR DEXA BONE DENSITY 2 SITES (10/03/2011 11:17 AM INSECT CONTROL AIDE) Anatomical Region Laterality Modality Spine, HIPS, HIPL, HIPR Other Narrative 10/16/2011 2:29 PM INSECT CONTROL AIDE Please see scanned document for results of this study. Procedure Note Rita Augustin - 10/16/2011 Please see scanned document for results of this study. us Raphael Michelle MD DEXA Final Re sult from Last 3 Months or Most Recently Relevant to Health Maintenance Insurance MEDICARE PB ONLY MEDICARE PART B HB ONLY [facility] MEDICARE PART A HB ONLY [facility] HC MEDICARE PPS MEDICARE PART B HB ONLY [facility] MEDICARE PART A HB ONLY MEDICARE PB ONLY [facility] Advance Directives Documents on File Type Date Recorded Patient Resource Director Scott MARRUFO 03/14/2021 12:00 AM * Full Code (Latest [...] Comments Code Status Discussion: Discussed Care Teams Runner On Relationship Specialty Start Date End Date Radha Grimes MD [address] [place] [address] PCP - General Family Practice 02/26/23 Leonard Newman MD [address] [place] [address] Cardiology Cardiovascular Disease 02/25/12 Sony Darling MD [address] [address] Surgery - Otolaryngology 09/18/12 Titus Grijalva MD [address] [address] Otolaryngology Surgery - Otolaryngology 02/02/13 Jose Daniel Lilly MD [address] [place] [address] Surgery - Orthopedics 09/21/13 Nurses, Advanced Heart Failure [address] [place] [address] Heart Failure Care Coordination Numerical Control Machine Machinist 04/28/17 Kashif Frey MD [address] [place] [address] Cardiology - CHF Cardiovascular Disease 03/09/18 Rosie Sabillon RN [address] [place] [address] Registered Nurse Registered Nurse 06/17/18 Yola Hernandez, RN Registered Nurse 07/27/18 Shaka Alicea COTA [address] [place] [address] Occupational Therapy 02/20/24
--- OUTSIDE RECORDS SUMMARY | 2024-12-13 13:42 | XMS_ITS | Clinical Summary ---
Author Organization [employer] Address [address] [place] [address] Phone Care Team Providers Care Training Instructor Name Role Phone Raphael Michelle MD Primary Care Provider [phone] Source Comments [employer] is fully rolled out on [employer]. Last update 04/07/09.[facility] Allergies Active Allergy Reactions Criticality Noted Date [...] place 04/14/2020 Overview (04/14/2020): Medtronic Claria MRI COACH PROFESSIONAL ATHLETES-D SN [id number] Implanted 12/02/[address] Lemon at [facility]. 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 PatientFamily Care Teams Training Instructor Relationship Specialty Start Date End Date Raphael Michelle MD PCP - General Outside Provider 08/30/19
[2024-12-13 13:52] VITALS: BP 155/69; PULSE 100; RESP 16; TEMP 36.7; O2SAT 96
--- NOTE | 2024-12-13 15:03 | ED.DIZZY ---
HPI - Dizziness General Chief Complaint: Dizziness/Vertigo Stated Complaint: Dizziness, was here Friday Time Seen by Provider: 12/13/24 13:46 History of Present Illness HPI Narrative: This 89-year-old female comes in with her daughter because of an episode of vertigo that came on rather suddenly prior to arrival. She states that those symptoms have now completely resolved. She did fall and hit her head 3 days ago and had a CT scan here which was negative for any acute findings. She does have a hematoma on the back of her head with some bruising that is clearing. She does not report any nausea or headache symptoms. She normally ambulates without any assistance. She was able to get up and ambulate normally here. Related Data Home Medications ?Medication ?Instructions ?Recorded ?Confirmed apixaban 2.5 mg tablet (Eliquis) 2.5 mg PO BID 05/24/23 07/12/24 blood sugar diagnostic ([employer] No #10 ea 05/24/23 01/27/24 Coding strips) carvedilol 3.125 mg tablet 3.125 mg PO BID 05/24/23 07/12/24 donepezil 5 mg tablet 5 mg PO HS 05/24/23 07/12/24 simvastatin 10 mg tablet 10 mg PO HS 05/24/23 07/12/24 acetaminophen 650 mg 1,300 mg PO HS PRN 01/27/24 07/12/24 tablet,extended release calcium carbonate (Calcium 500) 500 mg PO BID PRN 01/27/24 07/12/24 carvedilol 12.5 mg tablet 12.5 mg PO BID 01/27/24 07/12/24 gabapentin 100 mg capsule 100 mg PO HS 01/27/24 07/12/24 nitroglycerin 0.4 mg sublingual 0.4 mg sublingual Q5M PRN 01/27/24 07/12/24 tablet glipizide 5 mg tablet 5 mg PO DAILY 07/12/24 07/12/24 polyethylene glycol 3350 17 17 g PO DAILY 07/12/24 07/12/24 gram/dose oral powder (ClearLax) sacubitril 24 mg-valsartan 26 mg 1 tab PO BID 07/12/24 07/12/24 tablet (Entresto) vit A 300 mcg-C 200 mg-E 27 1 tab PO DAILY 07/12/24 07/12/24 mg-lutein 2 mg and minerals tablet (Ocuvite with Lutein) Previous Rx's ?Medication ?Instructions ?Recorded bumetanide 1 mg tablet 0.25 mg (1/4 x 1 mg) PO DAILY #20 01/28/24 tabs lidocaine 5 % topical patch 1 patch transdermal Q24H #30 ea 01/28/24 meclizine 25 mg tablet 25 mg PO QID #20 tabs 12/13/24 Allergies Allergy/AdvReac Type Severity Reaction Status Date / Time Penicillins Allergy Unknown Verified 12/11/24 13:15 Review of Systems Status of ROS: Reports: 10 or more systems reviewed and unremarkable except as noted in History and below Narrative: Constitutional: No fevers, no weight gain or loss. Eyes: No discharge. No vision changes. HENT: No congestion, no sore throat, no ear pain. Cardiovascular: No chest pain, no palpitations. Respiratory: No shortness of breath, no wheezes, no cough. Gastrointestinal: No abdominal pain, no vomiting, no diarrhea. Genitourinary: No dysuria, no hematuria. Musculoskeletal: Normal range of motion. Skin: No rashes, no pruritis. Neurological: No weakness, sensory change, speech change. Vertigo episode that is resolved. Endo/Heme/Allergies: No polydipsia. Pysch: no suicidality, no anxiety, no insomnia. All other systems reviewed and are negative. [facility] Medical History Chronic kidney insufficiency ?N18.9 - Chronic kidney disease, unspecified (ICD-10) Atrial fibrillation ?I48.91 - Unspecified atrial fibrillation (ICD-10) Congestive heart failure ?I50.9 - Heart failure, unspecified (ICD-10) Chronic anticoagulation ?Z79.01 - prison (current) use of anticoagulants (ICD-10) Acute lower gastrointestinal bleeding ?K92.2 - Gastrointestinal hemorrhage, unspecified (ICD-10) Chronic systolic heart failure ?I50.22 - Chronic systolic (congestive) heart failure (ICD-10) History of congestive heart failure ?Z86.79 - Personal history of other diseases of the circulatory system (ICD-10) Recurrent falls ?R29.6 - Repeated falls (ICD-10) Type 2 diabetes mellitus ?E11.9 - Type 2 diabetes mellitus without complications (ICD-10) Compression fracture Essential tremor ?G25.0 - Essential tremor (ICD-10) Presence of CardioMEMS HF system ?Z95.818 - Presence of other cardiac implants and grafts (ICD-10) Paroxysmal A-fib ?I48.0 - Paroxysmal atrial fibrillation (ICD-10) Acute idiopathic myocarditis ?I40.1 - Isolated myocarditis (ICD-10) Osteopenia ?M85.80 - Other specified disorders of bone density and structure, unspecified site (ICD-10) Macular degeneration ?H35.30 - Unspecified macular degeneration (ICD-10) Psoriasis ?L40.9 - Psoriasis, unspecified (ICD-10) History of breast cancer ?Z85.3 - Personal history of malignant neoplasm of breast (ICD-10) Hypertension ?I10 - Essential (primary) hypertension (ICD-10) Surgical History Hx of tonsillectomy ?Z90.89 - Acquired absence of other organs (ICD-10) H/O mastectomy ?Z90.10 - Acquired absence of unspecified breast and nipple (ICD-10) History of hysterectomy ?Z90.710 - Acquired absence of both cervix and uterus (ICD-10) Hx of mitral valve repair ?Z98.890 - Other specified postprocedural states (ICD-10) Presence of combination internal cardiac defibrillator (ICD) and pacemaker ?Z95.810 - Presence of automatic (implantable) cardiac defibrillator (ICD-10) Social History What is your current living situation?: I presently have a place to live Problems where you live: no known problems Problems where you live details: no known problems In the past 12 months, utilities in danger of being shut off: no In past 12 months, lack of transportation kept you from medical appts, meetings, work, or getting things needed for daily living: no In the past 12 mos, have been you worried that your food would run out before you had money to buy more?: never true In the past 12 mos, the food you bought just didn't last and you didn't have money to buy more?: never true Smoking Status: Never smoker Do you use any of these nicotine containing products: None Second hand tobacco smoke exposure: No How often do you have a drink containing alcohol: never How often do you have six or more drinks on one occasion: Never AUDIT-C Alcohol total score: 0 Non-prescribed substance use: denies use Caffeine: Yes (coffee) How often does anyone, including family, friends and others, physically hurt you: never How often does anyone, including family, friends and others, insult or talk down to you: never How often does anyone, including family, friends and others, threaten you with harm: never How often does anyone, including family, friends and others, scream or curse at you: never service: No Exam Narrative: Exam Narrative: Constitutional: Well-developed, well-nourished, no acute distress. HEENT: Bruising on the back of her head from a previous fall. Neck: Normal range of motion. Nontender. Supple. Heart: Regular. No murmurs. Normal rate. Intact distal pulses. Lungs: Clear to auscultation. No chest discomfort. No wheezes, rhonchi, or rales. Abdomen: Normal bowel sounds. Nontender. No rebound tenderness. Genitalia: Deferred. Back: No midline tenderness. Normal range of motion. Extremities: Normal range of motion. No injury. Skin: Intact. No rash. Warm. No erythema or pallor. Neurologic: No altered sensation. No weakness. Alert and oriented. No nystagmus. No facial asymmetry. Tongue is midline. [id number] is normal. No pronator drift. 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 Able to raise each leg from the bed. Psychiatric: No suicidality. No anxiety or depression. No insomnia. Nursing notes and vitals signs are reviewed. Const: Vital Signs, click to edit/add: Vital Signs - 24 hr 12/13/24 13:52 Temperature 98.0 F Pulse Rate [Pulse Oximeter] 100 Respiratory Rate 16 Blood Pressure [Ri ght Upper Arm] 155/69 H Pulse Oximetry 96 Oxygen Delivery Me thod Room Air Course Vital Signs Vital signs: Initial Vital Signs Temperature 98.0 F 12/13/24 13:52 Temperature Source Temporal Artery Scan 12/13/24 13:52 Pulse Rate 100 12/13/24 13:52 Respiratory Rate 16 12/13/24 13:52 Blood Pressure 155/69 H 12/13/24 13:52 Blood Pressure Mean 97 12/13/24 13:52 Blood Pressure Position Sitting 12/13/24 13:52 Pulse Oximetry 96 12/13/24 13:52 Oxygen Delivery Method Room Air 12/13/24 13:52 Vital Signs Temperature 98.0 F 12/13/24 13:52 Pulse Rate 100 12/13/24 13:52 Respiratory Rate 16 12/13/24 13:52 Blood Pressure 155/69 H 12/13/24 13:52 Pulse Oximetry 96 12/13/24 13:52 Oxygen Delivery Method Room Air 12/13/24 13:52 Temperature 98.0 F 12/13/24 13:52 Pulse Rate 100 12/13/24 13:52 Respiratory Rate 16 12/13/24 13:52 Blood Pressure 155/69 H 12/13/24 13:52 Pulse Oximetry 96 12/13/24 13:52 Oxygen Delivery Method Room Air 12/13/24 13:52 Medications Administered Medications: Discontinued Medications Generic Name Dose Route Start Last Admin Trade Name Bebeto PRN Reason Stop Dose Admin Meclizine HCl 25 mg 12/13/24 15:02 12/13/24 15:11 Meclizine Hcl 25 Mg Tablet PO 12/13/24 15:03 25 mg ONCE ONE Administration MDM - Dizziness MDM Narrative Medical decision making narrative: This patient comes in for evaluation of a rather sudden onset of vertigo symptoms that have now resolved. She does not report any hearing changes or neurologic deficits. She did not fall. She did not have any nausea or vomiting. Her neurologic exam is completely normal. She did have a CT scan 2 days ago to evaluate for the injuries from the fall that occurred then. I did discuss repeating studies but these were declined in a process of shared decision making. Her exam is report of her symptoms are reassuring however I stressed the importance of taking care not to fall again. The patient did receive an oral dose of meclizine and a prescription for the same. Discharge Plan Discharge Clinical Impression: Vertigo Patient Disposition: Home w/ Parent or Adult Condition: Stable Instructions: Vertigo (ED) Additional Instructions: Take medication as needed and directed. Continue current plans. Follow up with MD as scheduled or return if symptoms are recurrent or worsening. Prescriptions: New meclizine 25 mg tablet 25 mg PO QID Qty: 20 0RF No Action simvastatin 10 mg tablet 10 mg PO HS (DME) Prodigy No Coding Strip See Rx Instructions .ROUTE DAILY Qty: 10 Rx Instructions: As directed carvedilol 3.125 mg tablet 3.125 mg PO BID donepezil 5 mg tablet 5 mg PO HS Eliquis 2.5 mg tablet 2.5 mg PO BID nitroglycerin 0.4 mg tablet, sublingual 0.4 mg sublingual Q5M PRN gabapentin 100 mg capsule 100 mg PO HS carvedilol 12.5 mg tablet 12.5 mg PO BID acetaminophen 650 mg tablet extended release 1,300 mg PO HS PRN calcium carbonate [Calcium 500] 500 mg calcium (1,250 mg) tablet,chewable 500 mg PO BID PRN lidocaine 5 % Adhesive Patch,Medicated 1 patch transdermal Q24H Qty: 30 0RF bumetanide 1 mg tablet 0.25 mg PO DAILY Qty: 20 0RF Rx Instructions: TAKES 0.5 MG DAILY 1 MG ONE DAY PER WEEK glipizide 5 mg tablet 5 mg PO DAILY Entresto 24-26 mg tablet 1 tab PO BID Ocuvite with Lutein 300 mcg-200 mg-27 mg-2 mg tablet 1 tab PO DAILY Rx Instructions: administer after a meal polyethylene glycol 3350 [ClearLax] 17 gram/dose powder 17 g PO DAILY Follow Up/Referrals: Radha Grimes MD [Primary Care Provider] - Stand Alone Forms: MyHealth Info Instructions
[2024-12-13] MEDS: MECLIZINE HCL 25 MG TABLET PO (15:11)
--- OUTSIDE RECORDS SUMMARY | 2024-12-13 15:16 | XMS_ITS | Referral Summary ---
Author Organization [employer] Address [address] [place] [address] Phone Care Team Providers Care Central Scheduler Name Role Phone Raphael Michelle MD Primary Care Provider [phone] Source Comments [employer] is fully rolled out on [employer]. 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 Lemon at [facility]. 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 PatientFamily Care Teams Central Scheduler Relationship Specialty Start Date End Date Raphael Michelle MD PCP - General Outside Provider 08/30/19
--- OUTSIDE RECORDS SUMMARY | 2024-12-13 15:16 | XMS_ITS | Data Portability ---
Author Organization [place] [facility] Address [address] [place] [address] Care Team Providers Care Armature Winder Repair Helper Name Role Phone KENDRAPERICO RILEY Referring Provider [phone] Assessment No assessment recorded. Plan of Treatment Reminders Order Date Submit Date Provider Last Modified By Organization Details Last Modified Time Details Appointments None recorded . Lab None recorded . Referral None recorded . Procedures None recorded . Surgeries None recorded . Imaging US, kidney 024 01/13/20 25 [email or web address] 89 [facility], [address], [place], [address], 14:51:19 Medication Orders None recorded . Patient [...] Name and Address Organization Details Recorded Time 142141 Product containin g penicilli n and antibioti c (product) medicatio n Not available Not available Not available 07/29/2024 [id number] SNOMED Not Available Not Available Not [...] Address Organization Details Last Updated DateTime 07/29/2024 30232.82 g 22.7 kg/m2 160.[address] [facility] 07/29/2024 14:08:54 Social History Question Answer Notes LastModified by [employer] ion Details LastModified Time Tobacco Smoking Status Never Smoker Jeannette Chamberlain [facility] 07/29/2024 14:10:18 What Is Your Level Of [...] High Blood Pressure N Kidney Stones N High Cholesterol N GERD/Acid Reflux N Heart Disease N Cancer N Lung Disease N Depression N Gynecological HistoryNo gynecological history recorded. Obstetrics History GPAL:G 0 P 0 0 0 0 Immunizations Vaccine Type Date Status Note Provider Nam e and Address Organization Details Recorded Time Influenza, adjuvanted, trivalent, PF 7 completed Jeannette Chamberlain [facility] 07/29/2024 14:09:25 Influenza, adjuvanted, quadrivalent, PF 1 [facility] 14:09:25 Influenza, adjuvanted, quadrivalent, PF [facility] 14:09:25 Influenza, adjuvanted, quadrivalent, PF 2 completed [facility] 14:09:25 Influenza, adjuvanted, quadrivalent, PF 3 [facility]24 14:09:25 COVID-19, mRNA, LNP-S, PF, 100 mcg/0.5mL dose or 50 mcg/0.25mL dose 2 [facility]24 14:09:25 COVID-19, mRNA, LNP-S, PF, 30 mcg/0.3 mL dose 1 [facility]24 14:09:25 COVID-19, mRNA, LNP-S, PF, 30 mcg/0.3 mL dose 1 [facility] 14:09:25 COVID-19, mRNA, LNP-S, PF, 30 mcg/0.3 mL dose 1 [facility]24 14:09:26 COVID-19, mRNA, LNP-S, bivalent, PF, 50 mcg/0.5 mL or 25mcg/0.25 mL dose 2 completed [facility]24 14:09:26 COVID-19, mRNA, LNP-S, bivalent, PF, 30 mcg/0.3 mL dose 3 completed [facility]24 14:09:26 COVID-19, mRNA, LNP-S, PF, 50 mcg/0.5 mL 3 completed [facility]24 14:09:26 pneumococcal polysaccharide PPV23 3 completed Jeannette adan, [facility] 07/29/2024 14:09:26 Tdap 3 completed Jeannette adan, [facility] 07/29/2024 14:09:26 Novel Qnnnalumz-[id number], all formulations 0 completed Jeannette adan, [facility] 07/29/2024 14:09:26 Pneumococcal conjugate PCV 13 4 completed Jeannette adan, [facility] 07/29/2024 14:09:26 DTP 7 completed Jeannette Nashuday loco, [facility] 07/29/2024 14:09:26 Influenza, high-dose, trivalent, PF 4 completed Jeannette Nashbrenchrist adan, [facility] 07/29/2024 14:09:26 Influenza, high-dose, trivalent, PF 5 completed Jeannette Nashuday loco, [facility] 07/29/2024 14:09:26 Influenza, high-dose, trivalent, PF 6 completed Jeannette Nashbrenauer loco, [facility] 07/29/2024 14:09:26 Influenza, split virus, trivalent, preservative 4 completed Jeannette adan, [facility] 07/29/2024 14:09:26 Influenza, split virus, trivalent, preservative 7 completed Jeannette Nashuday loco, [facility] 07/29/2024 14:09:26 Influenza, split virus, trivalent, preservative 3 completed Jeannette Nashbrenauer null, [facility] 07/29/2024 14:09:26 Influenza, split virus, trivalent, preservative 2 completed Jeannette Nashbrenauer null, [facility] 07/29/2024 14:09:26 Influenza, split virus, trivalent, preservative 8 completed Jeannette Nashbrenauer loco, [facility] 07/29/2024 14:09:26 Influenza, split virus, trivalent, preservative 9 [facility] 14:09:26 Influenza, split virus, trivalent, preservative 2 completed [facility] 14:09:26 Influenza, split virus, trivalent, preservative 3 completed [facility] 07/29/2024 14:09:26 Influenza, split virus, trivalent, preservative 5 completed [facility] 07/29/2024 14:09:26 Influenza, split virus, trivalent, preservative 0 completed [facility] 07/29/2024 14:09:26 Influenza, split virus, trivalent, PF 1 completed [facility] 07/29/2024 14:09:26 Td (adult), 5 Lf tetanus toxoid, preservative free, adsorbed 7 completed [facility] 07/29/2024 14:09:26 Influenza, split virus, quadrivalent, PF 8 [facility] 14:09:26 Influenza, split virus, quadrivalent, PF 9 completed [facility] 07/29/2024 14:09:26 Past Encounters Encounter ID Performer Location Encounter Start Date Encounter Closed Date Diagnosis/Indication Diagnosis SNOMED-CT Code Diagnosis ICD10 Code Diagnosis Note [id number] MD DARYL Lucio_Yolanda [address] [place], [place] [address] 07/29/2024 14:00:36 07/30/2024 14:51:18 Renal mass [id number] N28.89 We discussed the AUA guidelines for [...] ID Guarantor Name 07/29/2024 1 [place] [employer] [facility] Tonya Russo [id number] Tonya Wyatt Russo 07/29/2024 2 [place] [id number] Tonya Wyatt Russo [id number] Tonya Wyatt Russo Notes Date Note Type Note Provider Name and Address Organization Details Recorded Time 07/29/2024 text/html Referred for the incidental finding of 4cm lower pole left renal mass. This was an incidental finding on a CT scan done for diverticulitis.Sh e is diabetic and has renal insufficiency, CHF, pacemaker. Efrain Hugo MD [address], [place], [address], [facility] 07/29/2024 14:25:53 OBGyn Episode No OBEpisode recorded.
--- OUTSIDE RECORDS SUMMARY | 2024-12-13 15:16 | XMS_ITS | Clinical Summary ---
Author Organization [employer] Address [address] [place] [address] Phone Care Team Providers Care Hot Air Furnace Installer Repairer Name Role Phone Raphael Michelle MD Primary Care Provider [phone] Source Comments [employer] is fully rolled out on [employer]. 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 Lemon at [facility]. 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 PatientFamily Care Teams Hot Air Furnace Installer Repairer Relationship Specialty Start Date End Date Raphael Michelle MD PCP - General Outside Provider 08/30/19
== END 2024-12-13 15:20 | disposition home or self-care (01) ==
LOC: ED 15:14
PROVIDERS: Emergency Provider Emergency Medicine Emergency Medical Services; PCP Family Medicine
DX: R42 Dizziness and giddiness (principal)
CPT/HCPCS: 99283; 99284; A9270

== ENCOUNTER 2025-04-10 16:36 | Inpatient (IN) | payer MEDICARE, BC, SELFPAY ==
[2025-04-10] VITALS (10 sets, daily range): BP systolic 184–191; BP diastolic 100–107; PULSE 71–83; RESP 18–20; TEMP 36.1–37.1; O2SAT 90–99; BMI 22.1
--- OUTSIDE RECORDS SUMMARY | 2025-04-10 16:38 | XMS_ITS | Data Portability ---
Author Organization [place] [facility], [facility] Address [address] [place] [address] Care Team Providers Care Grades 9 Thru 12 Visiting Teacher Name Role Phone KENDRAPERICO RILEY Referring Provider Assessment No assessment recorded. Plan of Treatment Reminders Order Date Submit Date Provider Last Modified By Organization Details Last Modified Time Details Appointments None recorded. Lab None recorded. Referral None recorded. Procedures None recorded. Surgeries None recorded. Imaging US, kidney - Please call to schedule pt. Results are needed by February 09 for follow up. Thank you! 2023 025 [email or web address] [facility], [address], [place], [address], 08:36:47 Medication Orders None recorded. Patient TargetsNo targets recorded. Patient InstructionsNo instructions recorded. Reason for Referral None Reported. Results Created Date Observation Date Name Description Value Unit Range Abnormal Flag Note LastModifiedBy Organization Detail LastModifiedTime 07/26/2007/15/2024 US, renal No observ ation record ed. [email or web address] Not Available 2023 12:09:19 07/26/[address], abdom en + pelvi s, w/o contr ast No observ ation record ed. [email or web address] Not Available 2023 12:11:28 02/08/2012/27/2024 US, renal No observ ation record ed. [email or web address] Not Available 2024 11:38:27 Result Notes None recorded. Medical Equipment None Reported. Allergies Allergen ID Allergen Name Allergen Category Reaction Reaction Severity Criticality Documentation Date Start Date Code Code System Note Provider Name and Address Organization Details Recorded Time 318088 Product containin g penicilli n (product) medicatio n Not available Not available Not available 07/29/2024 48638 8001 SNOMED Jeannette Elissa adan [place] [facility] 4 14:09:38 Medications Name Sig Start Date Stop Date [...] % shampoo WASH SCALP, EARS, AND FACE 2X WEEKLY. LATHER AND LET SIT FOR SEVERAL MINUTES BEFORE RINSING. INCREASE TO MORE DAYS OF THE WEEK IF SYMPTOMS P active Not Available Not Available No t [...] completed Not Available Not Available Not Available glipizide 10 mg tablet TAKE ONE TABLET (10MG) BY MOUTH TWICE A DAY BEFORE MEALS. TAKE 30 MINUTES BEFORE THE MEAL. active Not Available Not Available No t Available simvastatin 10 mg tablet TAKE 1 TABLET (10 MG) BY MOUTH AT BEDTIME. active Not Available Not Available No t Available carvedilol 3.125 mg tablet TAKE 1 TABLET (3.125 MG) BY MOUTH TWO TIMES DAILY WITH MEALS ALONG WITH 1-12.5MG TABLET FOR TOTAL OF 15.625 MG DAILY active Not Available Not Available No t Available glimepiride 1 mg tablet TAKE ONE-HALF TABLET DAILY WITH A MEAL DO NOT TAKE IF NOT EATING active Not Available Not Available No t Available calcitonin (salmon) 200 unit/actuat ion nasal spray USE 1 SPRAY INTRANASA LLY AT BEDTIME active Not Available Not Available No t Available meclizine 25 mg tablet TAKE ONE TABLET BY MOUTH FOUR TIMES A DAY active Not Available Not Available No t Available bumetanide 0.5 mg tablet TAKE 1/2 TABLET (0.25 MG) BY MOUTH ONCE DAILY. TAKE AN ADDITIONA L 1/2 TAB ONCE DAILY NEEDED FOR WEIGHT GAIN OF 3 LBS. IN 1 DAY OR 5LBS/1WEE K active Not Available Not Available No t [...] APPLY TOPICALLY TO VULVA ONCE NIGHTLY FOR 2-3 TIMES PER WEEK active Not Available Not Available No t [...] MOUTH TWICE A DAY FOR 10 DAYS 02/09 completed Not Available Not Available Not Available glipizide 5 mg tablet TAKE 1 TABLET (5 MG) BY MOUTH ONCE DAILY BEFORE A MEAL. active Not Available Not Available No t Available Ventolin HFA 90 mcg/actuati on aerosol inhaler INHALE 1-2 PUFFS BY MOUTH EVERY 4 HOURS IF NEEDED FOR WHEEZING. active Not Available Not Available No t Available BD Ultra-Fine Short Pen Needle 31 gauge x 5/16 REMOVE THE 2 COVERS ON THE PEN NEEDLE BEFORE ADMINISTE RING MEDICATIO N DOSE. CHECK BLOOD GLUCOSE 2 TIMES DAILY active Not Available Not Available No t Available Critic-Aid Clear AF (miconazole ) 2 % topical ointment APPLY TO AFFECTED AREA TOPICALLY TWICE A DAY active Not Available Not Available No t Available Prodigy Autocode Meter kit FOR HOME USE active Not Available Not Available No t Available Prodigy No Coding strips TEST 4 TIMES/DAY . REASON: UNSTABLE DIABETES active Not Available Not Available No t Available Eliquis 2.5 mg tablet TAKE 1 TABLET (2.5 MG) BY MOUTH TWO TIMES DAILY. RESUME ELIQUIS ON 12/18/2024 AM active Not Available Not Available No t Available Entresto 24 mg-26 mg tablet TAKE 1 TABLET BY MOUTH TWO TIMES DAILY. active Not Available Not Available No t Available Basaglar KwikPen U-100 Insulin 100 unit/mL (3 mL) subcutaneou s PRODUCT DESIRED: BASAGLAR KWIKPEN. INJECT 18 UNITS ONCE DAILY IN THE MORNING. active Not Available Not Available No t Available Vitals Date Recorded Body height Body mass index (BMI) Body weight Provider Name and Address Organization Details Last Updated DateTime 02/09/2025 160.02 cm 22.7 kg/m2 58834.82 g Efrain Hugo MD [address] [place] [address],[facility] [address], [place], [address] [place] [address] Urolog 02/09/2025 15:27:30 Date Recorded Body weight Body mass index (BMI) Body height Provider Name and Address Organization Details Last Updated DateTime 07/29/2024 12765.82 g 22.7 kg/m2 160.02 cm Jeannette Chamberlain [facility] 07/29/2024 14:08:54 Social History Question Answer Notes LastModified by Organizat ion Details LastModified Time Tobacco Smoking Status Never Smoker Jeannette Chamberlain [facility] 07/29/2024 14:10:18 What Is Your Level Of Caffeine Consumption? None [email or web address] Information not available 07/29/2024 What Was The Date Of Your Most Recent Tobacco Screening? 02/09/2025 [email or web address] Information not available 02/09/2025 Sex: Unknown Functional Status Question Answer Note LastModified by Organization D etails LastModified Time What is your level of alcohol consumption? None [email or web address] Information not available 07/29/2024 Mental Status None recorded. Family History Relationship Description Onset Age of this Age Resolved Age Notes LastModified by Organization Details LastModified Time Father No current problems or disability [email or web address] Not available 14:10:06 Mother No current problems or disability [email or web address] Not available 14:10:06 Medical History Condition Response Sexually Transmitted Infection N Diabetes N Bleeding Disorder N Other N High Blood Pressure N Kidney Stones N High Cholesterol N GERD/Acid Reflux N Heart Disease N Cancer N Lung Disease N Depression N Gynecological HistoryNo gynecological history recorded. Obstetrics History GPAL:G 0 P 0 0 0 0 Immunizations Vaccine Type Date Status Note Provider Nam e and Address Organization Details Recorded Time Influenza, adjuvanted, trivalent, PF 7 completed Jeannette Chamberlain [facility] 07/29/2024 14:09:25 Influenza, adjuvanted, quadrivalent, PF 1 completed Jeannette Chamberlain [facility] 07/29/2024 14:09:25 Influenza, adjuvanted, quadrivalent, PF 0 completed Jeannette Chamberlain [facility] 07/29/2024 14:09:25 Influenza, adjuvanted, quadrivalent, PF 2 completed Jeannette Chamberlain [facility] 07/29/2024 14:09:25 Influenza, adjuvanted, quadrivalent, PF 3 completed Jeannette Chamberlain [facility] 07/29/2024 14:09:25 COVID-19, mRNA, LNP-S, PF, 100 mcg/0.5mL dose or 50 mcg/0.25mL dose 2 [facility] 14:09:25 COVID-19, mRNA, LNP-S, PF, 30 mcg/0.3 mL dose 1 [facility] 14:09:25 COVID-19, mRNA, LNP-S, PF, 30 mcg/0.3 mL dose 1 completed Jeannette Osterbauer [facility] 07/29/2024 14:09:25 COVID-19, mRNA, LNP-S, PF, 30 mcg/0.3 mL dose 1 completed Jeannette Charitybrenauer [facility] 07/29/2024 14:09:26 COVID-19, mRNA, LNP-S, bivalent, PF, 50 mcg/0.5 mL or 25mcg/0.25 mL dose 2 completed Jeannettemonique Nashbrenauer [facility] 07/29/2024 14:09:26 COVID-19, mRNA, LNP-S, bivalent, PF, 30 mcg/0.3 mL dose 3 completed Jeannette Nashbrenauer [facility] 07/29/2024 14:09:26 COVID-19, mRNA, LNP-S, PF, 50 mcg/0.5 mL 3 completed Jeannette Bulmaro [facility] 07/29/2024 14:09:26 pneumococcal polysaccharide PPV23 3 completed [facility] Charityuday [facility] 07/29/2024 14:09:26 Tdap 3 completed [facility] 14:09:26 Novel Srfltxhpz-L0A2-24, all formulations 0 completed [facility]/2024 14:09:26 Pneumococcal conjugate PCV 13 4 completed Jeannette Charityuday [facility] 07/29/2024 14:09:26 DTP 7 completed Jeannette Souravauer [facility] 07/29/2024 14:09:26 Influenza, high-dose, trivalent, PF 4 completed Jeannette Charitybrenauer [facility] 07/29/2024 14:09:26 Influenza, high-dose, trivalent, PF 5 completed [facility] 14:09:26 Influenza, high-dose, trivalent, PF 6 completed [facility]24 14:09:26 Influenza, split virus, trivalent, preservative 4 completed Jeannettemonique Benjaminauer [facility] 07/29/2024 14:09:26 Influenza, split virus, trivalent, preservative 7 completed Jeannette Benjaminauer [facility] 07/29/2024 14:09:26 Influenza, split virus, trivalent, preservative 3 completed [facility] 07/[facility]24 14:09:26 Influenza, split virus, trivalent, preservative 2 completed Jeannettemonique Benjaminauer [facility] 07/29/2024 14:09:26 Influenza, split virus, trivalent, preservative 8 completed Jeannette Benjaminauer [facility] 07/29/2024 14:09:26 Influenza, split virus, trivalent, preservative 9 completed [facility] 07/[facility]/2024 14:09:26 Influenza, split virus, trivalent, preservative 2 completed Jeannettemonique Benjaminauer [facility] 07/29/2024 14:09:26 Influenza, split virus, trivalent, preservative 3 completed Jeannette Benjaminauer [facility] 07/29/2024 14:09:26 Influenza, split virus, trivalent, preservative 5 completed [facility]ique [facility]2024 14:09:26 Influenza, split virus, trivalent, preservative 0 completed [facility] Souravauer [facility] 07/29/2024 14:09:26 Influenza, split virus, trivalent, PF 1 completed [facility] Souravchrist [facility] 07/29/2024 14:09:26 Td (adult), 5 Lf tetanus toxoid, preservative free, adsorbed 7 completed Jeannette adan, [facility] 07/29/2024 14:09:26 Influenza, split virus, quadrivalent, PF 8 completed Jeannette adan, [facility] 07/29/2024 14:09:26 Influenza, split virus, quadrivalent, PF 9 completed Jeannette adan, [facility] 07/29/2024 14:09:26 COVID-19, mRNA, LNP-S, PF, 50 mcg/0.5 mL 4 completed Not Available [facility] 02/09/2025 15:24:00 Influenza, high-dose, trivalent, PF 4 completed Not Available [facility] 02/09/2025 15:24:00 RSV, bivalent, protein subunit RSVpreF, diluent reconstituted, 0.5 mL, PF 4 completed Not Available [facility] 02/09/2025 15:24:00 Past Encounters Encounter ID Performer Location Encounter Start Date Encounter Closed Date Diagnosis/Indication Diagnosis SNOMED-CT Code Diagnosis ICD10 Code Diagnosis Note [id number] Efrain Hugo MD [address] [place] [address] 07/29/2024 14:00:36 07/30/2024 14:51:18 Renal mass [id number] N28.89 We discussed the AUA guidelines for small renal masses and the options include: surveillan ce, robotic partial nephrectom y or thermal ablation. After a thorough discussion of the risks and benefits, the patient would like to proceed with surveillan ce. Ultrasound in six months. [id number] Efrain Hugo MD _[facility] [address] [facility] [address] [place] [address] 02/09/2025 15:20:48 02/14/2025 11:36:48 Renal mass [id number] N28.89 This is very complex and high risk situation. We discussed this with her two daughters. A nephrectom y would likely place her on dialysis, which she does not want.Therm al ablation can be considered but there could be injury to neighborin g structures . Also, the mass is large for this. Health Concerns Section Related Observation LastModified by Organization Detai ls LastModified Time None Recorded Concern Status LastModified by Organization Details LastModified Time None Recorded Advance Directives Directive None Recorded Payers Insurance Date Sequence Insurance Name Policy Number Policy Wisdom Covered Member ID Wisdom Member ID Guarantor Name 02/14/2025 2 [place] [id number] Tonya M Croone [id number] Tonya M Croone 02/06/2025 1 [place] [employer] Tonya G Croone [id number] Tonya M Croone Notes Date Note Type Note Provider Name and Address Organization Details Recorded Time 07/29/2024 text/html Referred for the incidental finding of 4cm lower pole left renal mass. This was an incidental finding on a CT scan done for diverticulitis.Maine ohara is diabetic and has renal insufficiency, CHF, pacemaker. Efrain Hugo MD [address] [place] [address],[address], [address], [facility] 07/29/2024 14:25:53 02/09/2025 text/html Follow up for kristian ohara incidental finding of 4cm lower pole left renal mass. This was an incidental finding on a CT scan done for diverticulitis.Maine ohara is diabetic and has renal insufficiency, CHF, pacemaker.She takes insulin now. Her CHF is stable and could withstand a procedure.GFR is 31 and has been improving from 19.She really wants to avoid dialysis. Efrain Hugo MD [address] [place] [address],[address], [address], [facility] 02/09/2025 16:10:47 OBGyn Episode No OBEpisode recorded.
--- OUTSIDE RECORDS SUMMARY | 2025-04-10 16:39 | XMS_ITS | Data Portability ---
Author Organization [place] [facility] [place] [facility], [facility] Address [address] [place] [address] Care Team Providers Care Facilities Clerk Name Role Phone KENDRAPERICO RILEY Referring Provider [...] follow up. Thank you! 2023 025 [email or web address] [facility], [address], [place], [address], 08:36:47 Medication Orders None recorded. Patient TargetsNo [...] Name and Address Organization Details Recorded Time 881982 Product containin g penicilli n (product) medicatio n Not available Not available Not available 07/29/2024 65100 8001 SNOMED Jeannette Elissa adan [place] [facility] 4 14:09:38 Medications Name Sig Start [...] Updated DateTime 02/09/2025 160.02 cm 22.7 kg/m2 89780.82 g Efrain Hugo MD [address] [place] [address],[facility] [address], [address] [place] [address] Urolog 02/09/2025 15:27:30 Date Recorded Body weight Body mass index (BMI) Body height Provider Name and Address Organization Details Last Updated DateTime 07/29/2024 88282.82 g 22.7 kg/m2 160.02 cm Jeannette Chamberlain [facility] 07/29/2024 14:08:54 Social History Question Answer Notes LastModified by Organizat ion Details LastModified Time Tobacco Smoking Status Never Smoker Jeannette Chamberlain [facility] 07/29/2024 14:10:18 What Is Your Level [...] adjuvanted, trivalent, PF 7 completed Jeannette Chamberlain [facility] 07/29/2024 14:09:25 Influenza, adjuvanted, quadrivalent, PF 1 completed Jeannette Chamberlain [facility] 07/29/2024 14:09:25 Influenza, adjuvanted, quadrivalent, PF 0 completed Jeannette Chamberlain [facility] 07/29/2024 14:09:25 Influenza, adjuvanted, quadrivalent, PF 2 completed Jeannette Chamberlain [facility] 07/29/2024 14:09:25 Influenza, adjuvanted, quadrivalent, PF 3 completed Jeannette Chamberlain [facility] 07/29/2024 14:09:25 COVID-19, mRNA, LNP-S, PF, 100 mcg/0.5mL dose or 50 mcg/0.25mL dose 2 [facility] 14:09:25 COVID-19, mRNA, LNP-S, PF, 30 mcg/0.3 mL dose 1 [facility]/29/2024 14:09:25 COVID-19, mRNA, LNP-S, PF, 30 mcg/0.3 mL dose 1 completed Jeannette Osterbauer [facility] 07/29/2024 14:09:25 COVID-19, mRNA, LNP-S, PF, 30 mcg/0.3 mL dose 1 completed Jeannette Charitybrenauer [facility] 07/29/2024 14:09:26 COVID-19, mRNA, LNP-S, bivalent, PF, 50 mcg/0.5 mL or 25mcg/0.25 mL dose 2 completed Jeannettemonique Nashbrenauer [facility] 07/29/2024 14:09:26 COVID-19, mRNA, LNP-S, bivalent, PF, 30 mcg/0.3 mL dose 3 completed Jeannette Nashbrenauer [facility] 07/29/2024 14:09:26 COVID-19, mRNA, LNP-S, PF, 50 mcg/0.5 mL 3 completed Jeannette Bulmaro [facility] 07/29/2024 14:09:26 pneumococcal polysaccharide PPV23 3 completed [facility] Charityuday [facility] 07/29/2024 14:09:26 Tdap 3 completed [facility]24 14:09:26 Novel Mntshdlgd-H6A5-20, all formulations 0 completed [facility] 07/29/2024 14:09:26 Pneumococcal conjugate PCV 13 4 completed Jeannette Charityuday [facility] 07/29/2024 14:09:26 DTP 7 completed Jeannette Souravauer [facility] 07/29/2024 14:09:26 Influenza, high-dose, trivalent, PF 4 completed Jeannette Charitybrenauer [facility] 07/29/2024 14:09:26 Influenza, high-dose, trivalent, PF 5 completed [facility] 14:09:26 Influenza, high-dose, trivalent, PF 6 completed [facility] 07/29/2024 14:09:26 Influenza, split virus, trivalent, preservative 4 completed Jeannettemonique Benjaminauer [facility] 07/29/2024 14:09:26 Influenza, split virus, trivalent, preservative 7 completed Jeannette Benjaminauer [facility] 07/29/2024 14:09:26 Influenza, split virus, trivalent, preservative 3 completed [facility]rbauer [facility]/2024 14:09:26 Influenza, split virus, trivalent, preservative 2 completed Jeannettemonique Benjaminauer [facility] 07/29/2024 14:09:26 Influenza, split virus, trivalent, preservative 8 completed Jeannette Benjaminauer [facility] 07/29/2024 14:09:26 Influenza, split virus, trivalent, preservative 9 completed [facility]emonique [facility] 07/29/2024 14:09:26 Influenza, split virus, trivalent, preservative 2 completed Jeannettemonique Benjaminauer [facility] 07/29/2024 14:09:26 Influenza, split virus, trivalent, preservative 3 completed Jeannette Benjaminauer [facility] 07/29/2024 14:09:26 Influenza, split virus, trivalent, preservative 5 completed [facility]emonique [facility] 07/29/2024 14:09:26 Influenza, split virus, trivalent, preservative 0 completed [facility] Souravauer [facility] 07/29/2024 14:09:26 Influenza, split virus, trivalent, PF 1 completed [facility] Souravchrist [facility] 07/29/2024 14:09:26 Td (adult), 5 Lf tetanus toxoid, preservative free, adsorbed 7 completed Jeannette adan, [facility] 07/29/2024 14:09:26 Influenza, split virus, quadrivalent, PF 8 completed Jeannette adan, [facility] 07/29/2024 14:09:26 Influenza, split virus, quadrivalent, PF 9 completed Jeannette adan, [facility] 07/29/2024 14:09:26 COVID-19, mRNA, LNP-S, PF, 50 mcg/0.5 mL 4 completed Not Available [facility] 02/09/2025 15:24:00 Influenza, high-dose, trivalent, PF 4 completed Not Available [facility] 02/09/2025 15:24:00 RSV, bivalent, protein subunit RSVpreF, diluent reconstituted, 0.5 mL, PF 4 completed Not Available [facility] 02/09/2025 15:24:00 Past Encounters Encounter ID Performer Location Encounter Start Date Encounter Closed Date Diagnosis/Indication Diagnosis SNOMED-CT Code Diagnosis ICD10 Code Diagnosis Note [id number] Efrain Hugo MD [address] [place] [place] [address] 07/29/2024 14:00:36 07/30/2024 14:51:18 Renal mass [id number] N28.89 We discussed the AUA guidelines for small renal masses and the options include: surveillan ce, robotic partial nephrectom y or thermal ablation. After a thorough discussion of the risks and benefits, the patient would like to proceed with surveillan ce. Ultrasound in six months. [id number] Efrain Hugo MD _[facility] [address] [facility] [address] [place] [address] 02/09/2025 15:20:48 02/14/2025 11:36:48 Renal mass [id number] N28.89 This is very complex and high [...] 02/14/2025 2 [place] [id number] Tonya M Croone [id number] Tonya M Croone 02/06/2025 1 [place] [employer] Tonya G Croone [id number] Tonya M Croone Notes Date Note Type Note Provider Name and Address Organization Details Recorded Time 07/29/2024 text/html Referred for the incidental finding of 4cm lower pole left renal mass. This was an incidental finding on a CT scan done for diverticulitis.Maine ohara is diabetic and has renal insufficiency, CHF, pacemaker. Efrain Hugo MD [address] [place] [address],[address], [address], [facility] 07/29/2024 14:25:53 02/09/2025 text/html Follow up [...] wants to avoid dialysis. Efrain Hugo MD [address] [place] [address],[address], [address], [facility] 02/09/2025 16:10:47 OBGyn Episode No OBEpisode recorded.
--- OUTSIDE RECORDS SUMMARY | 2025-04-10 16:39 | XMS_ITS | Clinical Summary ---
Author Organization [facility] Address [address] [place] [address] Care Team Providers Care Meat Clerk Name Role Phone Leonard Newman MD Unavailable [phone] Sony Darling MD Unavailable [phone] Titus Grijalva MD Unavailable Jose Daniel Lilly MD Unavailable Unavail able Nurses, Advanced Heart Failure Unavailable + Kashif Frey MD Unavailable [phone] Rosie Sabillon RN Unavailable [phone] Yola Hernandez RN Unavailable Unavailable Radha Grimes MD Primary Care Provide r Shaka Alicea Unavailable [phone] More Izquierdo RN Unavailable Toby Rayo MD Unavailable [phone] Allergies Active Allergy Reactions Criticality Noted Date Comments Dapagliflozin Intolerance-Can't Take High 04/20/2020 Syncope and falls Furosemide Rash Medium 07/16/2017 Hydralazine Nausea And Vomiting High 06/24/2018 Penicillins Edema Medium 10/12/2024 Arm swelling 07/13/15 received rx for Keflex 30 doses per med history Medications vit A,C and W-njpbfg-xjxogeih (OCUVITE WITH LUTEIN) 300 mcg-200 mg-27 mg-2 mg tabIndications:vit man deficiency Take 1 tablet. by mouth once daily in the evening. Active calcium carbonate 500 mg calcium (1,250 mg) chewable tabletIndications: hypocalcemia prevention,post-me nopausal osteoporosis prevention CHEW 1 TAB BY MOUTH TWICE DAILY NEEDED 03/09/20 21 Active lidocaine 4 % topical patchIndications:T raumatic compression fracture of T10 thoracic vertebra, sequela Apply to intact skin to cover most painful area for max 12hr per 24hr period. 0 08/19/20 23 Active nitroglycerin (NITROSTAT) 0.4 mg sublingual tabletIndications: Nonischemic cardiomyopathy (HC) Place 1 Tablet (0.4 mg) under the tongue every 5 minutes if needed for Chest Pain. Up to 3 tablets in 15 minutes. 25 Tablet 11/13/19 24 Active carvediloL (COREG) 12.5 mg tabletIndications: chf Take 1 Tablet (12.5 mg) by mouth two times daily. Take with (1) 3.125 mg tablet twice daily for a total of 15.625 mg twice daily. 180 Tablet 3 02/06/20 24 Active miconazole nitrate 2% ointment (CRITIC-AID CLEAR AF) 2 % ointIndications:Vu lvar dermatitis Apply topically to affected area(s) two times daily. 56.7 g 03/10/20 24 Active miscellaneous medical supply miscIndications:Ch ronic systolic CHF (congestive heart failure), NYHA class 3 (HC),Bilateral exudative age-related macular degeneration, unspecified stage (HC) As directed. Talking scale--patient has CHF and poor vision due to macular degeneration 1 Each 07/09/20 24 Active sennosides (SENNA) 8.6 mg tablet Take 8.6 mg by mouth once daily if needed for Constipation. 05/24/20 23 Active carvediloL (Coreg) 3.125 mg tabletIndications: Chronic systolic CHF (congestive heart failure), NYHA class 3 (HC) Take 1 Tablet (3.125 mg) by mouth two times daily with meals. Take with (1) 12.5 mg tablet twice daily for a total of 15.625 mg twice daily. 180 Tablet 3 08/25/20 24 Active sacubitril-valsart an (ENTRESTO) 24-26 mg tabletIndications: chronic heart failure Take 1 Tablet by mouth two times daily. 180 Tablet 3 09/17/20 24 Active bumetanide (BUMEX) 0.5 mg tabletIndications: Chronic systolic CHF (congestive heart failure), NYHA class 3 (HC) Take 0.5 tablet (0.25 mg) by mouth every other day. Take an additional 0.5 tablet (0.25 mg) by mouth once daily as needed for weight gain of 3 lbs in 1 day or 5 lbs in 1 week. 68 Tablet 3 10/08/20 24 Active pen needle (BD Insulin Pen Needle UF) 31 gauge x 5/16 (disposable insulin pen needle)Indications :Type 2 diabetes mellitus with stage 3 chronic kidney disease, with long-term current use of insulin, unspecified whether stage 3a or 3b CKD (HC) For administering insulin at home. 100 Each 3 10/12/20 24 Active clobetasol (TEMOVATE) 0.05 % ointmentIndication s:Atrophic vaginitis Apply topically to vulva once nightly for 2-3 times per week 60 g 5 11/09/19 25 Active gabapentin (NEURONTIN) 100 mg capsuleIndications :Restless legs TAKE 1 CAPSULE (100 MG) BY MOUTH AT BEDTIME. 90 Capsule 1 11/26/19 25 Active empty container (Sharps Container) miscIndications:Ty pe 2 diabetes mellitus with stage 3 chronic kidney disease, with long-term current use of insulin, unspecified whether stage 3a or 3b CKD (HC) As directed. 1 Each 12/09/19 25 Active pen needle (Arianna Pen Needle) 32 gauge x 5/32 (disposable insulin pen needle)Indications :Type 2 diabetes mellitus with stage 3 chronic kidney disease, with long-term current use of insulin, unspecified whether stage 3a or 3b CKD (HC) Remove the 2 covers on the pen needle before administering medication dose. Check Blood glucose 2 times daily 200 Each 11 12/10/19 25 Active apixaban (Eliquis) 2.5 mg tabletIndications: Paroxysmal atrial fibrillation (HC) Take 1 Tablet (2.5 mg) by mouth two times daily. resume Eliquis on 12/18/2024 PM 12/18/19 25 Active Prodigy No Coding stripIndications:T ype 2 diabetes mellitus with stage 3 chronic kidney disease, with long-term current use of insulin, unspecified whether stage 3a or 3b CKD (HC) As directed two times daily. Dispense item covered by pt ins. E11.9 IDDM type II - Test 4 times/day. Reason: Unstable diabetes 400 Each 3 12/21/19 Active Diabetic ShoeIndications:Ty pe 2 diabetes mellitus with stage 3 chronic kidney disease, with long-term current use of insulin, unspecified whether stage 3a or 3b CKD (HC) As directed. 1 Each 01/14/20 Active Post Mastectomy BraIndications:Eunice estes cancer of right breast (HC),S/P mastectomy, right For personal use. 1 Packet 01/14/20 Active Basaglar KwikPen U-100 Insulin 100 unit/mL (3 mL) penIndications:Typ e 2 diabetes mellitus with stage 3 chronic kidney disease, with long-term current use of insulin, unspecified whether stage 3a or 3b CKD (HC) Product desired: BASAGLAR KWIKPEN. Take 18 units once daily in the morning. 3 mL 3 01/14/20 Active simvastatin 10 mg tabletIndications: hyperlipidemia TAKE 1 TABLET (10 MG) BY MOUTH AT BEDTIME. 90 Tablet 01/21/20 25 Active semaglutide (Rybelsus) 3 mg tabletIndications: Type 2 diabetes mellitus with stage 3 chronic kidney disease, with long-term current use of insulin, unspecified whether stage 3a or 3b CKD (HC) Take 1 Tablet (3 mg) by mouth once daily before a meal. 30 Tablet 1 02/19/20 25 Active semaglutide (Rybelsus) 7 mg tabletIndications: Type 2 diabetes mellitus with stage 3 chronic kidney disease, with long-term current use of insulin, unspecified whether stage 3a or 3b CKD (HC) Take 1 Tablet (7 mg) by mouth once daily before a meal. Through [facility]. 03/23/20 25 Active Active Problems Patient Care Coordination No te Formatting of this note migh t be different from the original. HF/Structural Research Eligibility Review Date: 07/29/19 Age: 84 y.o. Insurance: Medicare Etiology: Likely combination of embolic [place] and nonischemic (perhaps +/- LBBB +/- chemotherapy) [...] latest RHC Problem Noted Date Diagnosed Date Bilateral exudative age-rela eusebio macular degeneration, unspecified stage 01/26/2025 Mitral regurgitation s/p MitraClip 02/18/2024 Tricuspid regurgitation 02/18/2024 atrial right to left shunt 02/18/2024 Atrial fibrillation with RVR 02/15/2024 Fall 08/12/2023 Traumatic compression fracture of T10 [...] head tremor 07/21/2018 Coronary artery disease involving curyung coronar y artery 06/24/2018 Overview (06/24/2018): Non-obstructive Nonischemic cardiomyopathy 04/15/2018 CardioMEMS PAD Goal 14-20 04/06/2018 Overview (01/24/2021): CardioMEMs device implanted on 04/06/2018. Primary launch operator is Kashif Frey MD. CardioMEMs is MRI [...] Overview (04/23/2017): - present since 2012 per [facility] NSTEMI (non-ST elevated myocardial infarction) 0 04/23/2017 Overview (04/23/2017): - negative angiogram, ?Stress cmp ACP (advance care planning) 05/11/2013 Overview (05/11/2013): Patient has identified Health Care Agent(s): Yes Add Health Care Agents: Yes Health Care Agent(s): Primary Health Care Agent: Jeffery Karan Relationship: spouse Secondary Health Care Agent: Delmy Colinpedrito Relationship: daughter (j) [phone](w) Secondary Health Care Agent: Justine Russo Relationship: daughter (c) [phone] (w) Guardian: Relationship: Phone: Patient has Advance [...] heart stops; She has little chance of halfway survival if her heart stops and the [...] Her PCP is Dr Raphael Michelle at [facility]. Advance care planning discussions were completed with Tonya and her spouse and healthcare agent, Jeffery Russo. Her daughter and alternative HCA, Delmy Russo, was also present. Understanding of Illness and Disease Holden: Tonya identifies her medical condition as being [...] Hospice when/if appropriate. Would desire placement at [facility] if not able to be cared for at home. 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 Tonya priyanka with serious challenges in her life: Family: Spouse and Daughters, always there and my jurgen. Tonya identifies the following fears and worries about her medical care: Daughter defines worry, My name is Tonya. oTnya states only worries for good reason. Difficulty [...] years in her home and [facility] prior to . As a result [...] and primary care provider. Hard Choices for [place] [employer] booklet was given to Tonya and [...] or Hospice when /if appropriate. Hospice Care, [facility], Home Care, and Lost of [...] conditions Acute idiopathic myocarditis Paroxysmal atrial fibrillation Resolved Problems Problem Noted Date Diagnosed Date Resolved Date Dementia without behavioral disturbance, psychotic disturbance, mood disturbance, or anxiety, unspecified dementia severity, unspecified dementia type 03/10/2024 10/12/2024 Traumatic subdural hemorrhag e with loss of consciousness of unspecified duration, initial encounter 02/05/2024 01/26/2025 T12 compression fracture, initial encounter 08/12/2023 08/12/2023 [...] against influenza 09/18/2007 09/13/2010 Cardiogenic shock 01/10/2020 Acute on chronic systolic heart failure 01/26/2025 Encounters Date Type Department Care Team Description 04/07/2025 Telephone [employer] Prescription Assistance Program IntraStage [id number] [place] [phone] Ramila Jones PharmD Medication Management ([employer] Prescription Assistance- Rybelsus/) 03/30/2025 9:50 AM CDT Procedure Only [employer] [facility] [address] [place], [place] [id number] Device Check (Monthly Remote CardioMEMs De... 03/30/2025 Travel 03/23/2025 Telephone [employer] Prescription Assistance Program IntraStage [facility] [place] [phone] Ramila Jones PharmD Medication Management ([employer] Prescription Assistance- Rybelsus/) 03/23/2025 [facility]phone [facility] [address] [facility] [address] [place] [address] Toby Rayo MD Diabetes (Rybelsus) 03/22/2025 Telephone [facility] [address] [place] [address] Rito Goode, AuD HEARING AID 02/28/2025 9:50 AM CDT Procedure Only [facility] [address] [place] [address] Device Check (Monthly Remote CardioMEMs De... 02/28/2025 Travel 02/18/2025 1:00 PM CDT Patient [facility] [address] [place] [address] More Izquierdo, JANICE Telehealth; Diabetes (Type 2 f/u) 02/18/2025 Orders Only [facility] Scanner 1 scan: (1-Ord) [facility] PROFESSIONAL, 02/18/2025 02/09/2025 10:00 AM CDT Office Visit [facility] [address] [place] [address] Kashif Frey MD CV Heart Failure Est (Appointment Note//CHF IN PERSON F/U VISIT. LABS DONE PRIOR. WANTED TO BE SEEN IN EARLY ) 02/09/2025 9:00 AM CDT Orders Only [facility] [address] [place] [address] Lab 02/09/2025 Travel 01/28/2025 9:50 AM CDT Procedure Only [facility] [address] [place] [address] Device Check (Monthly Remote CardioMEMs De... 01/28/2025 Travel 01/26/2025 1:40 PM CDT Office Visit [facility] [address] [place] [address] Krzysztof Watson MD Cough (Dry cough, started about 4 days ago); Sinus Problem (Runny nose, sneezing); Urinary Problem (Frequent urination, incontinence, started about a week ago) 01/26/2025 Travel 01/19/2025 Refill [facility] [address] [place] [address] Kashif Frey MD Refill Request (Simvastatin) 01/13/2025 10:20 AM CDT Office Visit [facility] [address] [place] [address] Radha Grimes MD Follow Up (Pacemaker in place. Feels as though it is going well. Healing up nicely./Asks if she should take B/P at home on a schedule?) 01/13/2025 Travel 01/12/2025 Transcribe Orders [facility] [place] [phone] Efrain Hugo MD from Last 3 Months Immunizations Immunization Administration Dates Next Due AMB INFLUENZA IIV3 [...] or yelled at (see row info)? No 12/17/2024 Interpersonal Safety Abuse 12 - 18 Not on file 12/17/2024 Interpersonal Safety Ambulatory Vulnerability No t on file 12/17/2024 Utilities Answer Date Recorded Do you have trouble paying f or utilities (for example, heat, electricity, water, phone)? 1 10/12/2024 Comments No Sex and Gender Information Value Date Recorded Sex Assigned at Female 02/15/2024 10:51 AM CDT Legal Sex Female 5:24 AM NEPHROLOGY NURSE Gender Identity Female 02/15/2024 10:51 AM CDT [...] Sign Reading Time Taken Comments Blood Pressure 145/83 02/09/2025 9:39 AM CDT Pulse 76 02/09/2025 9:39 AM CDT Temperature 36.5 C (97.7 F) 12/17/2024 4:45 PM NEPHROLOGY NURSE Respiratory Rate 17 12/17/2024 4:33 PM NEPHROLOGY NURSE Oxygen Saturation 95% 02/09/2025 9:39 AM CDT Inhaled Oxygen Concentration - - Weight 57.7 kg (127 lb 3.2 oz) 02/09/2025 9:39 A M CDT Height 162.6 cm (5' 4) 12/17/2024 12:45 PM NEPHROLOGY NURSE Body Mass Index 21.83 12/17/2024 12:45 PM NEPHROLOGY NURSE Plan of Treatment Upcoming Encounters Date Type Department Care Team (Late st Contact Info) Description 04/12/2025 11:30 AM CDT Cardiac Device Check [facility] [address] [place] [address] 04/28/2025 11:45 AM CDT [facility] [address] [address] [place] [address] [place] [address] 04/29/2025 9:50 AM CDT Procedure Only [facility] [address] [place] [address] 05/30/2025 9:50 AM CDT Procedure Only [facility] [address] [place] [address] 06/29/2025 9:50 AM CDT Procedure Only [facility] [address] [place] [address] 07/29/2025 9:50 AM CDT Procedure Only [facility] [address] [place] [address] 08/29/2025 9:50 AM CDT Procedure Only [facility] [address] [place] [address] 09/28/2025 9:50 AM NEPHROLOGY NURSE Procedure Only [facility] [address] [place] [address] 10/28/2025 9:50 AM NEPHROLOGY NURSE Procedure Only [facility] [address] [place] [address] Health Maintenance Due Date Last Done Comments Zoster (shingles) series for age 50+ (1 of 2) 1954 COVID-19 vaccine series (9 - Pfizer risk season) 2025 08/04/2024, 09/11/2023, 03/07/2023, Additional history exists BMI (ht and wt on same day) for age 18+ 07/09/2025 07/09/2024, 03/16/2024, 04/04/2023, Additional history exists Medicare Wellness for age 65+ 07/10/2025 07/09/2024, 08/07/2022, 02/08/2019, Additional history exists Depression screening for age 12+ 07/12/2025 07/12/2024, 07/09/2024, 06/30/2024, Additional history exists Tetanus booster 06/02/2033 06/02/2023, 10/03, 10/14/2017, Additional history exists DEXA/DXA scan for age 65+ Completed 2010, 09/22/2009, 04/17/2004 Pneumococcal series for age 50+ Completed 09/22/2014, 08/02/2003 Tdap Completed 06/02/2023 Influenza Vaccine Completed 08/04/2024, , 08/07/2022, Additional history exists RSV vaccine for adults or Completed 10/31/2024 Hepatitis B series for 19+ Aged Out N o longer eligible based on patient's age to complete this topic Goals Goal Patient Goal Type Associated Problems Recent Progress Patient-Stated? Author BLOOD PRESSURE - Maintains BP less than 140/90 Blood Pressure No Christianne Bridges, MANUEL Medical Devices Implanted Type Area Rat Breeder Device Identifier Shelf Expiration Date Model / Serial / Lot Mri Conditional Power House Engineer-D Implanted:12/02 by Simone Lemon MD (Quantity not on file) FRONT DESK MONITOR-D [employer] MED[employer] CLARIA MRI QUAD FRONT DESK MONITOR-D SURESCAN [id number] / [id number] / Cardiomems-2017 Implanted:04/06 (Quantity not on file) CardioMEMS Procedures Procedure Name Priority Date/Time Associated Diagnosis Comments SCAN-EYE EXAM 02/18/2025 12:00 AM CDT PRO-BNP Routine 02/09/2025 9:31 AM CDT Chronic systolic CHF (congestive heart failure), NYHA class 3 (HC) BASIC METABOLIC PANEL Routine 02/09/2025 9:31 AM CDT Chronic systolic CHF (congestive heart failure), NYHA class 3 (HC) HEMOGLOBIN A1C Routine 02/09/2025 9:30 AM CDT Type 2 diabetes mellitus with stage 3 chronic kidney disease, with long-term current use of insulin, unspecified whether stage 3a or 3b CKD (HC) COVID/FLU/RSV PANEL Routine 01/26/2025 1 :54 PM CDT Flu-like symptoms URINALYSIS MACROSCOPIC - [facility] ONLY POC DIP (QUEST) Routine 01/26/2025 1:50 PM CDT Dysuria URINALYSIS MICROSCOPIC Routine 01/26/2025 1:49 PM CDT Dysuria URINE CULTURE Routine 01/26/2025 1:49 PM CDT Dysuria HEMOGLOBIN A1C MONITORING (POCT) Routine 01/13/2025 11:52 AM CDT Type 2 diabetes mellitus with stage 3 chronic kidney disease, with long-term current use of insulin, unspecified whether stage 3a or 3b CKD (HC) XR DXA BONE DENSITY 2 SITES AXIAL Routine 10/03/2011 11:17 AM NEPHROLOGY NURSE Osteopenia from Last 3 Months or Most Recently Relevant to Health Maintenance Results * SCAN-EYE EXAM (02/18/2025 12:00 AM CDT) us Scanner OTHER Final Result * (ABNORMAL) PRO-BNP (02/09/2025 9:31 AM CDT) [facility] PRO-BNP 5,833(H) <450 pg/mL 02/09/2025 10:24 AM CDT [facility] Language Learning Class [facility] Blood BLOOD SPECIMEN / Unknown Butterfly / Unknown 02/09/2025 9:31 AM CDT 02/09/2025 9:49 AM CDT [facility] Language Learning Class [facility] - 02/09/2025 10:24 AM CDT The following cut-points have been suggested for the use of proBNP for the diagnostic evaluation of heart failure (HF) in patient with acute dyspnea. Patients with eGFR >= 60 Diagnosis (rule in CHF) <50 Years Old 450 pg/mL 50 - 75 Years Old 900 pg/mL >75 Years Old 1800 pg/mL Exclusion (rule out CHF) Age Independent 300 pg/mL A cutoff of 1200 pg/mL for patients with an eGFR <60 yields a diagnostic sensitivity of 89% and specificity of 72% for acute congestive heart failure. Kashif Frey MD SEND OUTS Final Re sult [facility] Language Learning Class [facility] [address] [place] [address], * (ABNORMAL) BASIC METABOLIC PANEL (02/09/2025 9:31 AM CDT) SODIUM 135(L) 136 - 145 mmol/L 02/09/2025 10:22 AM CDT [facility] POTASSIUM 4.6 3.5 - 5.1 mmol/L 02/09/2025 10:22 AM T [facility] CHLORIDE 103 98 - 107 mmol/L 02/09/2025 10:22 AM T [facility] CO2,TOTAL 20(L) 22 - 29 mmol/L 02/09/2025 10:22 AM T [facility] ANION GAP 12 5 - 18 02/09/2025 10:22 AM T [facility] GLUCOSE 134(H) 70 - 99 mg/dL 02/09/2025 10:22 AM T [facility] CALCIUM 10.7(H) 8.8 - 10.4 mg/dL 02/09/2025 10:22 AM [facility] Comment: Reference ranges for this test were updated on 09/07/2024 to reflect our healthy population more accurately. Reference range changes are not retroactively applied to results, but previous results using the same methodology can be interpreted in the context of the new reference range. BUN 39(H) 8 - 23 mg/dL 02/09/2025 10:22 AM [facility] CREATININE 1.60(H) 0.50 - 0.90 mg/dL 02/09/2025 10:22 AM [facility] BUN/CREAT RATIO 24(H) 10 - 20 10:22 AM [facility] eGFR 31(L) >90 mL/min/1. 73m2 02/09/2025 10:22 AM [facility] Comment:As of 2022, eG FR is calculated by the CKD-EPI creatinine equation without race adjustment. eGFR can be influenced by muscle mass, exercise, and diet. The reported eGFR is an estimation only and is only applicable if the renal function is stable. Blood BLOOD SPECIMEN / Unknown Butterfly / Unknown 02/09/2025 9:31 AM CDT 02/09/2025 9:49 AM CDT Kashif Frey MD CHEMISTRY Final Re sult Performing Organization Address [facility] Co de Phone Number [facility] [address] [place] [address], * (ABNORMAL) HEMOGLOBIN A1C (02/09/2025 9:30 AM CDT) Pathologist [facility] HEMOGLOBIN A1C SCREENING 9.3(H) <=6.4 % 02/09/2025 6:11 PM CDT [facility] Blood BLOOD SPECIMEN / Unknown Butterfly / Unknown 02/09/2025 9:30 AM CDT 02/09/2025 9:49 AM CDT Narrative [facility] - 02/09/2025 6:11 PM CDT (<5.7%) Normal (5.7% to 6.4%) Indicates prediabetes (>=6.5%) Confirms diabetes Falsely low levels may be seen with: Recent Transfusion, Recent Significant Blood Loss, Hemolytic Diseases, or Falsely elevated levels may be seen with: Untreated Anemias, Splenectomy Toby Rayo MD CHEMISTRY Final Result Performing Organization Address [facility] Co de Phone Number [facility] [address] [place] [address], [place] * COVID/FLU/RSV PANEL (01/26/2025 1:54 PM CDT) Pathologist [facility] COVID 19 [facility] Negative Negative 01/27/2025 12:27 AM CDT [facility] Comment:All PCR tests are [place] bject to false negative result due to variability in viral load and collection technique. A negative result does not rule out a SARS-CoV-2 infection. Clinical correlation required. INFLUENZA A PCR Negative 5 12:27 AM CDT [facility] INFLUENZA B PCR Negative 5 12:27 AM CDT [facility] Respiratory Syncytial Virus Negative 01/27/2025 12:27 AM CDT [facility] Swab NASOPHARYNGEAL SWAB / Unknown Non-Blood / Unknown 01/26/2025 1:54 PM CDT 01/26/2025 1:54 PM CDT us Krzysztof Watson MD MICROBIOLOGY Final Result [facility] [address] [place] [address], [place] * (ABNORMAL) POCT Urinalysis Dipstick Only [[id number]] (01/26/2025 1:50 PM CDT) PH 5.5 5.0 - 8.0 [employer] SPECIFIC GRAVITY 1.015 1.001 - 1.035 [employer] GLUCOSE NEGATIVE NEGATIVE [employer] BILIRUBIN NEGATIVE NEGATIVE [employer] KETONES NEGATIVE NEGATIVE [employer] OCCULT BLOOD TRACE(A) NEGATIVE [employer] PROTEIN 2+(A) NEGATIVE [employer] NITRITE NEGATIVE NEGATIVE [employer] LEUKOCYTE ESTERASE TRACE(A) NEGATIVE [employer] Urine URINE SPECIMEN / Unknown 01/26/2025 1:50 PM CDT 01/26/2025 1:50 PM CDT us Krzysztof Watson MD URINE Final Result [facility] [address] [place] [address], [place] [phone] [employer] [employer] [address] [place] [address] * (ABNORMAL) URINALYSIS MICROSCOPIC [65875.1] - routine (01/26/2025 1:49 PM CDT) RBC 0-2 0-2, None Seen /HPF 01/27/2025 12:44 AM CDT [facility] WBC 11-25(A) 0-2, 3-5, None Seen /HPF 01/27/2025 12:44 AM CDT [facility] BACTERIA None Seen None Seen, Rare, Few Bacteria/ HPF 01/27/2025 12:44 AM CDT [facility] EPITHELIAL CELLS None Seen None Seen, Few Epi/HPF 01/27/2025 12:44 AM CDT [facility] HYALINE CASTS 3-5 0-2, 3-5 /LPF 01/27/2025 12:44 AM CDT [facility] Urine URINE SPECIMEN / Unknown Non-Blood / Unknown 01/26/2025 1:49 PM CDT 01/26/2025 1:49 PM CDT us Krzysztof Watson MD URINE Final Result Performing Organization Address City/[facility]/ZIP Co de Phone Number [facility] [address] [place] [address], * URINE CULTURE [[id number]] (01/26/2025 1:49 PM CDT) Pathologist [facility] CULTURE <10,000 CFU/mL multiple organisms 01/28/2025 2:49 PM CDT [facility] Urine URINE SPECIMEN / Unknown Non-Blood / Unknown 01/26/2025 1:49 PM CDT 01/26/2025 1:49 PM CDT us Krzysztof Watson MD MICROBIOLOGY Final Result Performing Organization Address City/[facility]/ZIP Co de Phone Number [facility] [address] [place] [address], * (ABNORMAL) HEMOGLOBIN A1C MONITORING (POCT) (01/13/2025 11:52 AM CDT) POC HEMOGLOBIN A1C 9.9(H) <6.0 % OF TOTAL HGB [employer] [employer] Comment: Any point of care results exhibiting inconsistency with the patient's clinical status should be repeated using a different testing method. Blood BLOOD SPECIMEN / Unknown 01/13/2025 11:52 AM CDT 01/13/2025 11:53 AM CDT us Radha Grimes MD CHEMISTRY Final Result [facility] [address] [place] [address], [facility] [employer] [address] [place] [address] * XR DEXA BONE DENSITY 2 SITES (10/03/2011 11:17 AM NEPHROLOGY NURSE) Anatomical Region Laterality Modality Spine, HIPS, HIPL, HIPR Other Narrative 10/16/2011 2:29 PM NEPHROLOGY NURSE Please see scanned document for results of this study. Procedure Note Rita Augustin - 10/16/2011 Please see scanned document for results of this study. us Raphael Michelle MD DEXA Final Re sult from Last 3 Months or Most Recently Relevant to Health Maintenance Insurance MEDICARE PB ONLY MEDICARE PART B HB ONLY [facility] MEDICARE PART A HB ONLY MEDICARE PPS MEDICARE PART B HB ONLY [facility] MEDICARE PART A HB ONLY [address] [address] MEDICARE PB ONLY [facility] Advance Directives Documents on File Type Date Recorded Patient Burn Nurse Scott MARRUFO 03/14/2021 12:00 AM * Full Code (Latest Code Status on File) Date Activated Date Inactivated Comments 12/17/2024 4:02 PM 12/17/2024 8:31 PM Question Answer Comments Code Status Discussion: Other * Full Code Date Activated Date Inactivated Comments 02/15/2024 3:11 [...] Comments Code Status Discussion: Discussed Care Teams Meat Clerk Relationship Specialty Start Date End Date Radha Grimes MD [address] [place] [id number] PCP - General Family Practice 02/26/23 Leonard Newman MD [address] [place] [phone] Cardiology Cardiovascular Disease 02/25/12 Sony Darling MD [address] [place] [phone] Surgery - Otolaryngology 09/18/12 Titus Grijalva MD [address] [place] [phone] Otolaryngology Surgery - Otolaryngology 02/02/13 Jose Daniel Lilly MD [address] [place] [phone] Surgery - Orthopedics 09/21/13 Nurses, Advanced Heart Failure [address] [place] [address] Heart Failure Care Coordination Warp Starter 04/28/17 Kashif Frey MD [address] [place] [phone] Cardiology - CHF Cardiovascular Disease 03/09/18 Rosie Sabillon RN [address] [place] [place] [phone] Registered Nurse Registered Nurse 06/17/18 Yola Hernandez, RN Registered Nurse 07/27/18 Shaka Alicea, CANTRELL [address] [place] [address] Occupational Therapy 02/20/24 More Izquierdo, JANICE [address] [place] [address] Carpet Weaver Registered Nurse 12/21/24 06/20/25 [place] [address] [place] [address] Endocrinology Endocrinology 01/07/25
--- NOTE | 2025-04-10 16:56 | ED.GENADULT ---
HPI - General Adult General Date Seen: 04/10/25 Chief complaint: Extremity Pain/Injury, Lower Stated complaint: left knee injury Time Seen by Provider: 04/10/25 16:49 History of Present Illness HPI narrative: Pleasant 89-year-old female presenting to the ER today with a left knee injury. She was at a bridal shower today when she tripped and fell and landed on her left knee. Since the fall she has been having pain, difficulty walking, and swelling in her left knee. She has a past medical history including atrial fibrillation (on Eliquis) chronic renal disease, heart failure, recurrent falls, UTIs, previous compression spinal fractures and some longstanding left hip pain. She has been in her usual state of health lately. She was with her family and had a bridal shower today. As she was leaving a bridal shower she was walking down some steps in the garage. She there was 2 steps to go down but she did not know about the 2nd step so when she moved forward, she could not see because the garage was dark, and then she fell off the bottom step. She fell forward and injured her left anterior knee. Also a little bit of pain in her right ankle. She is confident that she did not hit her head. She did not injure her shoulders, elbows, wrists, hands or upper extremities. She has had pain in her left knee and a little bit in her right ankle. She has was able to get up and walk but has pain when she bears weight on her left knee. Her daughter brought her here to the ER. EN route they noted that she developed swelling and bruising on the anterior left knee. She is not having any pain her hip, thigh, lower leg, or left foot. Related Data Home Medications ?Medication ?Instructions ?Recorded ?Confirmed apixaban 2.5 mg tablet (Eliquis) 2.5 mg PO BID 05/24/23 07/12/24 Held on 07/12/24. Instructions: Hold until f/u with Dr. Grimes blood sugar diagnostic (Prodigy No #10 ea 05/24/23 01/27/24 Coding strips) carvedilol 3.125 mg tablet 3.125 mg PO BID 05/24/23 07/12/24 donepezil 5 mg tablet 5 mg PO HS 05/24/23 07/12/24 simvastatin 10 mg tablet 10 mg PO HS 05/24/23 07/12/24 acetaminophen 650 mg 1,300 mg PO HS PRN 01/27/24 07/12/24 tablet,extended release calcium carbonate (Calcium 500) 500 mg PO BID PRN 01/27/24 07/12/24 carvedilol 12.5 mg tablet 12.5 mg PO BID 01/27/24 07/12/24 gabapentin 100 mg capsule 100 mg PO HS 01/27/24 07/12/24 nitroglycerin 0.4 mg sublingual 0.4 mg sublingual Q5M PRN 01/27/24 07/12/24 tablet glipizide 5 mg tablet 5 mg PO DAILY 07/12/24 07/12/24 polyethylene glycol 3350 17 17 g PO DAILY 07/12/24 07/12/24 gram/dose oral powder (ClearLax) sacubitril 24 mg-valsartan 26 mg 1 tab PO BID 07/12/24 07/12/24 tablet (Entresto) vit A 300 mcg-C 200 mg-E 27 1 tab PO DAILY 07/12/24 07/12/24 mg-lutein 2 mg and minerals tablet (Ocuvite with Lutein) Previous Rx's ?Medication ?Instructions ?Recorded bumetanide 1 mg tablet 0.25 mg (1/4 x 1 mg) PO DAILY #20 01/28/24 tabs lidocaine 5 % topical patch 1 patch transdermal Q24H #30 ea 01/28/24 meclizine 25 mg tablet 25 mg PO QID #20 tabs 12/13/24 Allergies Allergy/AdvReac Type Severity Reaction Status Date / Time Penicillins Allergy Unknown Verified 12/11/24 13:15 [facility] Medical History Chronic kidney insufficiency ?N18.9 - Chronic kidney disease, unspecified (ICD-10) Atrial fibrillation ?I48.91 - Unspecified atrial fibrillation (ICD-10) Congestive heart failure ?I50.9 - Heart failure, unspecified (ICD-10) Chronic anticoagulation ?Z79.01 - [facility] (current) use of anticoagulants (ICD-10) Acute lower gastrointestinal bleeding ?K92.2 - Gastrointestinal hemorrhage, unspecified (ICD-10) Chronic systolic heart failure ?I50.22 - Chronic systolic (congestive) heart failure (ICD-10) History of congestive heart failure ?Z86.79 - Personal history of other diseases of the circulatory system (ICD-10) Recurrent falls ?R29.6 - Repeated falls (ICD-10) Type 2 diabetes mellitus ?E11.9 - Type 2 diabetes mellitus without complications (ICD-10) Compression fracture Essential tremor ?G25.0 - Essential tremor (ICD-10) Presence of CardioMEMS HF system ?Z95.818 - Presence of other cardiac implants and grafts (ICD-10) Paroxysmal A-fib ?I48.0 - Paroxysmal atrial fibrillation (ICD-10) Acute idiopathic myocarditis ?I40.1 - Isolated myocarditis (ICD-10) Osteopenia ?M85.80 - Other specified disorders of bone density and structure, unspecified site (ICD-10) Macular degeneration ?H35.30 - Unspecified macular degeneration (ICD-10) Psoriasis ?L40.9 - Psoriasis, unspecified (ICD-10) History of breast cancer ?Z85.3 - Personal history of malignant neoplasm of breast (ICD-10) Hypertension ?I10 - Essential (primary) hypertension (ICD-10) Surgical History Hx of tonsillectomy ?Z90.89 - Acquired absence of other organs (ICD-10) H/O mastectomy ?Z90.10 - Acquired absence of unspecified breast and nipple (ICD-10) History of hysterectomy ?Z90.710 - Acquired absence of both cervix and uterus (ICD-10) Hx of mitral valve repair ?Z98.890 - Other specified postprocedural states (ICD-10) Presence of combination internal cardiac defibrillator (ICD) and pacemaker ?Z95.810 - Presence of automatic (implantable) cardiac defibrillator (ICD-10) Social History What is your current living situation?: I presently have a place to live Problems where you live: no known problems Problems where you live details: no known problems In the past 12 months, utilities in danger of being shut off: no In past 12 months, lack of transportation kept you from medical appts, meetings, work, or getting things needed for daily living: no In the past 12 mos, have been you worried that your food would run out before you had money to buy more?: never true In the past 12 mos, the food you bought just didn't last and you didn't have money to buy more?: never true Smoking Status: Never smoker Do you use any of these nicotine containing products: None Second hand tobacco smoke exposure: No How often do you have a drink containing alcohol: never How often do you have six or more drinks on one occasion: Never AUDIT-C Alcohol total score: 0 Non-prescribed substance use: denies use Caffeine: Yes (coffee) How often does anyone, including family, friends and others, physically hurt you: never How often does anyone, including family, friends and others, insult or talk down to you: never How often does anyone, including family, friends and others, threaten you with harm: never How often does anyone, including family, friends and others, scream or curse at you: never service: No Exam Narrative: Exam Narrative: Constitutional: Appears well-developed and well-nourished. Alert. Conversant. Non toxic. HENT: Head: Atraumatic. Nose: Nose normal. Mouth/Throat: Oral mucosa is clear and moist. no trismus. Pharynx normal. Tonsils symmetric. No tonsillar enlargement, erythema, or exudate. Eyes: Conjunctivae normal. EOM normal. Pupils equal, round, and reactive to light. No scleral icterus. Neck: Normal range of motion. Neck supple. No tracheal deviation present. Cardiovascular: Normal rate, regular rhythm. No gallop. No friction rub. No murmur heard. Symmetric DP and PT artery pulses Pulmonary/Chest: Effort normal. No stridor. No respiratory distress. No wheezes. No rales. No rhonchi . No tenderness. Abdominal: Soft. No distension. No mass. No tenderness. No rebound. No guarding. Musculoskeletal: No C, T, L-spine tenderness. Pelvis is stable. RUE: Normal range of motion. No tenderness. No deformity LUE: Normal range of motion. No tenderness. No deformity RLE: Normal range of motion in her hip and knee. No tenderness of the hip, fever, quad, hamstring. No tenderness of the knee. Normal knee range of motion. Tibial spine, gastrocnemius, and lower leg are nontender. She does have ecchymosis and tenderness over the lateral malleolus including the bony malleolus. Somewhat limited ankle range of motion. He will, midfoot, proximal 5th metatarsal, forefoot, and toes are nontender. No edema. LLE: Mild left hip tenderness but she says that is chronic and baseline. Femur it is nontender. Quad and hamstring nontender. She does have ecchymosis and swelling on the anterior knee. She is able to flex to about 60? but stops there. She has pain when she tries to chart picker her left leg keeping the knee extended. Mild tenderness over the anterior knee and patella. No tenderness over the proximal tibia, proximal fibula, or posteriorly on the knee. Tibial spine, gastrocs, Achilles, ankle, foot are nontender. Normal range of motion in her ankle and toes. No edema. Lymph: No cervical adenopathy. Neurological: Alert and oriented to person, place, and time. Normal strength. CN II-VII intact. No sensory deficit. GCS eye subscore is 4. GCS verbal subscore is 5. GCS motor subscore is 6. Normal coordination Skin: Skin is warm and dry. No rash noted. No pallor. Normal capillary refill. Psychiatric: Normal mood. Normal affect. Very polite. Const: Vital Signs, click to edit/add: Vital Signs - 24 hr 04/10/25 16:46 Temperature 97.2 F L Pulse Rate [Pulse Oximeter] 83 Respiratory Rate 18 Blood Pressure [Le ft Upper Arm] 191/107 H Pulse Oximetry 96 Oxygen Delivery Me thod Room Air Course Vital Signs Vital signs: Initial Vital Signs Temperature 97.2 F L 04/10/25 16:46 Temperature Source Temporal Artery Scan 04/10/25 16:46 Pulse Rate 83 04/10/25 16:46 Pulse Rhythm Regular 04/10/25 16:46 Respiratory Rate 18 04/10/25 16:46 Blood Pressure 191/107 H 04/10/25 16:46 Blood Pressure Mean 135 H 04/10/25 16:46 Blood Pressure Position Sitting 04/10/25 16:46 Pulse Oximetry 96 04/10/25 16:46 Oxygen Delivery Method Room Air 04/10/25 16:46 Vital Signs Temperature 97.2 F L 04/10/25 16:46 Pulse Rate 83 04/10/25 16:46 Respiratory Rate 18 04/10/25 16:46 Blood Pressure 191/107 H 04/10/25 16:46 Pulse Oximetry 96 04/10/25 16:46 Oxygen Delivery Method Room Air 04/10/25 16:46 Temperature 97.2 F L 04/10/25 16:46 Pulse Rate 83 04/10/25 16:46 Respiratory Rate 18 04/10/25 16:46 Blood Pressure 191/107 H 04/10/25 16:46 Pulse Oximetry 96 04/10/25 16:46 Oxygen Delivery Method Room Air 04/10/25 16:46 Medications Administered Medications: Discontinued Medications Generic Name Dose Route Start Last Admin Trade Name Bebeto PRN Reason Stop Dose Admin Acetaminophen 1,000 mg 04/10/25 17:07 04/10/25 17:39 Acetaminophen 500 Mg Tablet PO 04/10/25 17:08 1,000 mg ONCE ONE Administration Medical Decision Making MDM Narrative Medical decision making narrative: Very pleasant 89-year-old female presenting to the ER today by private car with her daughter for evaluation of injuries after she missed a step walking down flight of stairs containing 2 steps and fell forward. She is confident she did not hit her head. No head injury, headache, loss of consciousness. She is not having any neck pain or back pain. No evidence for any hip or pelvic fracture. Her main sites of pain would be, primarily, her left anterior knee, and secondarily, her right lateral ankle. X-rays of the patient's left knee do confirm a transverse fracture through the patella with mild displacement. Discussed with orthopedics on-call, JAISON Sauer. she would say that this would be appropriate for at least a trial of non operative management but may ultimately require surgical fixation. Placed the patient into a knee immobilizer to keep her knee straight for now. She can bear weight on this so if she is stable enough a knee immobilizer that she will not fall she could discharge home with close outpatient follow-up with the ortho clinic. If she is too unstable, especially given her contralateral sprain, admission for supportive care is warranted and opt orthopedics will consult while she is inpatient tomorrow. Right ankle pain. Signs and symptoms are consistent with an ankle sprain. There are no signs of fracture on radiograph. The patients neurovascular status is normal. Knee exam is normal. I don't think this is a Maisonneuve injury or a intraosseous ligament injury based on the location of tenderness. Patient was placed into a knee immobilizer and can bear weight on her left leg but is having trouble getting around. She also feels unsteady and at risk for further falls. Patient is requesting admission I think that is warranted especially because she is on Eliquis and would be at high risk for injury if she does have any more falls. Discussed with our orthopedic colleague who will consult tomorrow. Discussed with hospitalist, Dr. Blair, who graciously accepts for admission. Please see hospitalist notes for further details about admission status and further workup. In anticipation of hospitalization we started an IV but the patient is not requiring any IV analgesics at this time. Twelve lead EKG confirms a functional pacemaker. I did order screening labs with BMP and CBC. The results of these blood tests are not back at the time of the dictation will be followed up by the admitting hospitalist. Imaging Data XR Right ankle: Attestation: I have reviewed the pertinent imaging results. Radiologist's impression: Findings/Impression: Bones: Decreased osseous mineralization which limits evaluation for subtle fractures. Alignment is normal. No displaced fractures or bone lesions. Joint spaces: Unremarkable. Soft tissues: Focal soft tissue swelling about the lateral malleolus. Vascular calcifications. XR L knee: Attestation: I have reviewed the pertinent imaging results. Radiologist's impression: Findings/Impression: Bones: Decreased osseous mineralization. Acute mildly displaced transverse patellar fracture. Joint spaces: Associated joint effusion. Soft tissues: Associated soft tissue swelling. ECG Data Attestation: I personally reviewed and interpreted this ECG as follows: Interpretation: Ventricular paced rhythm Rate: 72 CO: Not measurable QRS axis: Extreme left axis deviation. Paced QRS i ST segment/T wave: No ST segment elevation. Appropriate ST segment discordance with paced rhythm. No STEMI. QTc: 451 Discharge Plan Discharge Clinical Impression: Left patella fracture, Right ankle sprain Patient Disposition: Admitted As Observation
--- NOTE | 2025-04-10 17:07 | CRLHL7_ITS ---
For Patients: As a result of the Century Cures Act, medical imaging exams and procedure reports are released immediately into your electronic medical record. You may view this report before your referring provider. If you have questions, please contact your health care provider. Indication: Trauma. Technique: Right ankle, 3 views. Comparison: None. Findings/Impression: Bones: Decreased osseous mineralization which limits evaluation for subtle fractures. Alignment is normal. No displaced fractures or bone lesions. Joint spaces: Unremarkable. Soft tissues: Focal soft tissue swelling about the lateral malleolus. Vascular calcifications. Dictated by Rhett Goldsmith MD @ 04/10/2025 6:03:51 PM (Electronically Signed)
--- NOTE | 2025-04-10 17:16 | CRLHL7_ITS ---
For Patients: As a result of the Century Cures Act, medical imaging exams and procedure reports are released immediately into your electronic medical record. You may view this report before your referring provider. If you have questions, please contact your health care provider. Indication: Trauma. Technique: Left knee, 3 views. Comparison: None. Findings/Impression: Bones: Decreased osseous mineralization. Acute mildly displaced transverse patellar fracture. Joint spaces: Associated joint effusion. Soft tissues: Associated soft tissue swelling. Dictated by Rhett Goldsmith MD @ 04/10/2025 6:07:11 PM (Electronically Signed)
[2025-04-10] MEDS: ACETAMINOPHEN 500 MG TABLET 1000 MG PO (17:39)
[2025-04-10 19:32] LABS: Basophils Percent Auto 0.1 % (0.0-3.0); Eosinophils Percent Auto 0.9 % (0.0-7.0); Hematocrit 36.2 % (33.0-51.0); Immature Granulocytes Pct Auto 0.2 %; Lymphocytes Percent Auto 7.6 % (20-44); Mean Corpuscular HGB Conc 33 gm/dL (32-36); Mean Corpuscular Hemoglobin 32 pg (26-34); Mean Corpuscular Volume 96 fL (80-100); Monocytes Percent Auto 6.9 % (0.0-11.0); Neutrophils Percent Auto 84.3 % (42.0-72.0); Platelet Count* 160 K/uL (140-440); RDW Coefficient of Variation % 13.6 % (11.5-15.5); Red Blood Count 3.79 m/uL (4.00-5.20); White Blood Count* 13.02 K/uL (4.50-11.00)
[2025-04-10 19:33] LABS: Slide Review Reflex No
[2025-04-10 19:47] LABS: Chloride* 103 mmol/L (96-114)
[2025-04-10 19:48] LABS: Potassium* 4.5 mmol/L (3.6-5.1); Sodium* 133 mmol/L (135-149)
[2025-04-10 19:51] LABS: Anion Gap 9 mEq/L (7-15); Blood Urea Nitrogen* 43 mg/dL (7-30); Calcium* 10.5 mg/dL (8.4-10.6); Carbon Dioxide* 21 mmol/L (20-32); Creatinine* 1.3 mg/dL (0.5-1.5); Est. Creatinine Clearance* 26.33; Estimated Glomerular Filt Rate 40 ml/min; Glucose* 238 mg/dL (60-115)
--- NOTE | 2025-04-10 21:36 | PM.IMHP1 ---
Assessment and Plan Assessment and plan (1) Left patella fracture: Problem comment: - Ortho is aware - Knee immobilizer for now. Possible surgery, so I will make her NPO and adjust insulin (although given that she took a dose of Eliquis for afib this morning, I think it is more likely that if she needs surgery, it would be delayed a day or so). - From a medical standpoint, she is moderate to high risk for perioperative cardiopulmonary events, but this may be a quality of life issue. She did recently see her contact lens manufacturer who cleared her for renal mass biopsy surgery. If surgery is needed, CXR prior to surgery for a baseline may be helpful, no further w/u beyond that would be needed. - PT and OT consults - SW consult as patient may need home health vs SNF Status: Acute (2) Right ankle sprain: Problem comment: - PT OT consults Status: Acute (3) Recurrent falls: Problem comment: - multifactorial. Her essential tremor is severe, she has macular degeneration, she has nonischemic heart disease with dilated cardiomyopathy - This particular episode was mechanical. Status: Acute (4) Renal mass: Problem comment: - incidental finding on imaging 07/11 - continue outpatient f/u with PCP for this - planning biopsy as outpatient. Saw her contact lens manufacturer recently for clearance for this Status: Acute (5) Chronic systolic heart failure: Problem comment: -chronic, stable, currently asymptomatic, HFrEF With reduced ejection fraction, 35-40% Likely related to embolic ME and non ischemic changes (+/- left bundle branch block, +/- chemotherapy). Stage III, NYHA II LVEF: * 35% by echo Feb * 20% by JOSE LUIS (Oct) * 10-20% by echo Jun (LV 5.8 cm, noted severe MR) * 25-30% with mild MR by echo Jan GDMT: * Coreg 15.625 mg bid * Entresto 24/26 mg bid * Aldosterone antagonist: Stopped d/t prior TAM and hyperkalemia * SGLT2i: Prompted hypotension/syncope Structural options: Mitral CRISTY Jan with mild MR and mean gradient 3.3 at 62 bpm Volume status and diuretics: Management by Cardiomems/bumex. Change PAD to 14-20. Decrease Bumex to 0.5mg daily with 1mg dose 1 time per week Device therapy: CLOTH FOLDER MACHINE-D Nov Ischemic assessment: As above Status: Chronic (6) Chronic kidney disease: Problem comment: -stable, stage 4 Status: Acute (7) Presence of CardioMEMS HF system: Problem comment: 04/16/2018, Dr. Shoemaker, [facility] Status: Chronic Hospitalist- H&P: HPI History of Present Illness Date Seen: 04/10/25 Chief complaint: left knee injury Narrative: Tonya Russo is an 89 year old female with h/o CHF, afib on Eliquis, HTN, DM2 for which she now uses insulin, LBBB, NSTEMI, CAD, anxiety, CKD stage 4, primary idiopathic dilated cardiomyopathy, dual chamber pacemaker with defibrillator that was recently turned off for goals of care, SAH, osteoporosis with T12 compression fracture, mitral regurgitation s/p MitraClip, atrial right to left shunt who was at a bridal shower today when she tripped down two steps, landing on her left knee. She had pain making it difficult to walk and she is on Eliquis, so she came to the ER. Her two daughters are with her. Tonya lives with her daughter, Justine. They have not had any concerns about her memory or cognition. She is hard of hearing. They are concerned about how she will do with a knee immobilizer, especially if it's going to be a long time in one. Also, they have a family vacation/travel plans for next week. Review of Systems Status of ROS: Reports: 10 or more systems reviewed and unremarkable except as noted in History and below Medical Decision Making Medical Decision Making Code Status: DNR/DNI Has patient completed a Health Care Directive: Yes During This Stay, Who Would You Like To Make Decisions For You In The Event You Are Unable To Make Them For Yourself?: Daughters, Delmy and Justine [facility] Medical History (Updated 04/11/25 @ 00:07 by Priscilla Blair MD) Traumatic compression fracture of T10 vertebra (08/12/23) ?S22.070A - Wedge compression fracture of T9-T10 vertebra, initial encounter for closed fracture (ICD-10) Hematoma of occipital surface of head (05/14/20) ?S00.83XA - Contusion of other part of head, initial encounter (ICD-10) Closed wedge compression fracture of T1 vertebra with routine healing (04/18/20) ?S22.010D - Wedge compression fracture of first thoracic vertebra, subsequent encounter for fracture with routine healing (ICD-10) 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) ?N18.4 - Chronic kidney disease, stage 4 (severe) (ICD-10) ?D63.1 - Anemia in chronic kidney disease (ICD-10) Chronic kidney insufficiency ?N18.9 - Chronic kidney disease, unspecified (ICD-10) Atrial fibrillation ?I48.91 - Unspecified atrial fibrillation (ICD-10) Congestive heart failure ?I50.9 - Heart failure, unspecified (ICD-10) Chronic anticoagulation ?Z79.01 - long term care social worker (current) use of anticoagulants (ICD-10) Acute lower gastrointestinal bleeding ?K92.2 - Gastrointestinal hemorrhage, unspecified (ICD-10) Chronic systolic heart failure ?I50.22 - Chronic systolic (congestive) heart failure (ICD-10) Recurrent falls ?R29.6 - Repeated falls (ICD-10) Type 2 diabetes mellitus ?E11.9 - Type 2 diabetes mellitus without complications (ICD-10) Compression fracture Essential tremor ?G25.0 - Essential tremor (ICD-10) Presence of CardioMEMS HF system ?Z95.818 - Presence of other cardiac implants and grafts (ICD-10) Paroxysmal A-fib ?I48.0 - Paroxysmal atrial fibrillation (ICD-10) Acute idiopathic myocarditis ?I40.1 - Isolated myocarditis (ICD-10) Osteopenia ?M85.80 - Other specified disorders of bone density and structure, unspecified site (ICD-10) Macular degeneration ?H35.30 - Unspecified macular degeneration (ICD-10) Psoriasis ?L40.9 - Psoriasis, unspecified (ICD-10) History of breast cancer ?Z85.3 - Personal history of malignant neoplasm of breast (ICD-10) Hypertension ?I10 - Essential (primary) hypertension (ICD-10) Surgical History Hx of tonsillectomy ?Z90.89 - Acquired absence of other organs (ICD-10) H/O mastectomy ?Z90.10 - Acquired absence of unspecified breast and nipple (ICD-10) History of hysterectomy ?Z90.710 - Acquired absence of both cervix and uterus (ICD-10) Hx of mitral valve repair ?Z98.890 - Other specified postprocedural states (ICD-10) Presence of combination internal cardiac defibrillator (ICD) and pacemaker ?Z95.810 - Presence of automatic (implantable) cardiac defibrillator (ICD-10) Social History (Updated 04/10/25 @ 23:34 by Priscilla Blair MD) Narrative: Daughter, Justine, lives with her. Lifelong nonsmoker. Denies EtOH use. What is your current living situation?: I presently have a place to live Problems where you live: no known problems Problems where you live details: n/a In the past 12 months, utilities in danger of being shut off: no In past 12 months, lack of transportation kept you from medical appts, meetings, work, or getting things needed for daily living: no In the past 12 mos, have been you worried that your food would run out before you had money to buy more?: never true In the past 12 mos, the food you bought just didn't last and you didn't have money to buy more?: never true Smoking Status: Never smoker Do you use any of these nicotine containing products: None Second hand tobacco smoke exposure: No How often do you have a drink containing alcohol: monthly or less How often do you have six or more drinks on one occasion: Never AUDIT-C Alcohol total score: 1 Non-prescribed substance use: denies use Caffeine: Yes (coffee) How often does anyone, including family, friends and others, physically hurt you: never How often does anyone, including family, friends and others, insult or talk down to you: never How often does anyone, including family, friends and others, threaten you with harm: never How often does anyone, including family, friends and others, scream or curse at you: never service: No Meds Home Medications and Allergies Home Medications ?Medication ?Instructions ?Recorded ?Confirmed ?Type apixaban 2.5 mg tablet (Eliquis) 2.5 mg PO BID 05/24/23 04/10/25 History blood sugar diagnostic (Prodigy No #10 ea 05/24/23 01/27/24 History Coding strips) carvedilol 3.125 mg tablet 3.125 mg PO BID 05/24/23 04/10/25 History donepezil 5 mg tablet 5 mg PO HS 05/24/23 07/12/24 History simvastatin 10 mg tablet 10 mg PO HS 05/24/23 04/10/25 History calcium carbonate (Calcium 500) 500 mg PO BID PRN 01/27/24 04/10/25 History carvedilol 12.5 mg tablet 12.5 mg PO BID 01/27/24 04/10/25 History gabapentin 100 mg capsule 100 mg PO HS 01/27/24 04/10/25 History nitroglycerin 0.4 mg sublingual 0.4 mg sublingual Q5M PRN 01/27/24 04/10/25 History tablet lidocaine 5 % topical patch 1 patch transdermal Q24H #30 ea 01/28/24 04/10/25 Rx sacubitril 24 mg-valsartan 26 mg 1 tab PO BID 07/12/24 04/10/25 History tablet (Entresto) vit A 300 mcg-C 200 mg-E 27 1 tab PO DAILY 07/12/24 04/10/25 History mg-lutein 2 mg and minerals tablet (Ocuvite with Lutein) bumetanide 1 mg tablet 0.25 mg PO Q48H 04/10/25 04/10/25 History insulin glargine 100 unit/mL (3 18 unit subcut DAILY 04/10/25 04/10/25 History mL) subcutaneous pen (Basaglar KwikPen U-100 Insulin) Allergies Allergy/AdvReac Type Severity Reaction Status Date / Time hydralazine Allergy Unknown Verified 04/10/25 21:42 Penicillins Allergy Unknown Verified 12/11/24 13:15 dapagliflozin (From [facility]) AdvReac Severe syncope Verified 04/10/25 21:42 and falls Exam Narrative: Exam Narrative: General: No acute distress. Awake alert oriented x3. Hard of hearing. HEENT: Normocephalic atraumatic, pupils equally round and reactive to light and accommodation. Oropharynx clear. Mucous membranes are moist. No cervical lymphadenopathy, thyromegaly or carotid bruits. No JVD. Cardiovascular: Regular rate and rhythm. No murmurs, gallops, or rubs. Chest: No increased work of breathing. Clear to auscultation bilaterally. No crackles or wheezes. Abdomen: Bowel sounds present. Soft, nondistended, nontender. No hepatosplenomegaly or masses. Extremities: Left leg is in a knee immobilizer. Mild swelling and ecchymosis over the right ankle lateral malleolus. Trace bilateral ankle edema, no cyanosis or clubbing. Skin: No jaundice, no pallor, no rashes. Const: Vital Signs, click to edit/add: Vital Signs - 24 hr 04/10/25 16:46 04/10/25 17:04 04/10/25 17:15 Temperature 97.2 F L Pulse Rate 77 71 Pulse Rate [Pulse Oximeter] 83 Respiratory Rate 18 Blood Pressure [Le ft Arm] Blood Pressure [Le ft Upper Arm] 191/107 H Pulse Oximetry 96 90 98 Oxygen Delivery Me thod Room Air 04/10/25 17:30 04/10/25 17:45 04/10/25 18:00 Temperature Pulse Rate 71 72 77 Pulse Rate [Pulse Oximeter] Respiratory Rate Blood Pressure [Le ft Arm] Blood Pressure [Le ft Upper Arm] Pulse Oximetry 98 98 96 Oxygen Delivery Me thod 04/10/25 18:15 04/10/25 18:30 04/10/25 20:25 Temperature 98.7 F Pulse Rate 73 73 Pulse Rate [Pulse Oximeter] 77 Respiratory Rate 19 Blood Pressure [Le ft Arm] 184/103 H Blood Pressure [Le ft Upper Arm] Pulse Oximetry 99 98 96 Oxygen Delivery Me thod Room Air Hospitalist - H&P: Result Labs Labs: Short CBC 04/10/25 Range/Units 19:20 WBC 13.02 H (4.50-11.00) K/uL Hgb 12.0 (12.0-16.0) gm/dL Hct 36.2 (33.0-51.0) % Plt Count 160 (140-440) K/uL BMP 04/10/25 19:20 Sodium 133 L Potassium 4.5 Chloride 103 Carbon Dioxide 21 BUN 43 H Creatinine 1.3 Glucose 238 H Calcium 10.5 04/10/2025 EKG: Ventricular paced rhythm, 72 beats per minute. Ordering Physician: Spencer Dobbs M.D. Date of Service: 04/10/25 Procedure(s): XR ankle RT min 3V Accession Number(s): [id number] cc: Spencer Dobbs M.D.; Radha Grimes M.D.~ For Patients: As a result of the Cures Act, medical imaging exams and procedure reports are released immediately into your electronic medical record. You may view this report before your referring provider. If you have questions, please contact your health care provider. Indication: Trauma. Technique: Right ankle, 3 views. Comparison: None. Findings/Impression: Bones: Decreased osseous mineralization which limits evaluation for subtle fractures. Alignment is normal. No displaced fractures or bone lesions. Joint spaces: Unremarkable. Soft tissues: Focal soft tissue swelling about the lateral malleolus. Vascular calcifications. Dictated by Rhett Goldsmith MD @ 04/10/2025 6:03:51 PM (Electronically Signed) Ordering Physician: Spencer Dobbs M.D. Date of Service: 04/10/25 Procedure(s): XR knee LT 3V Accession Number(s): [id number] cc: Spencer Dobbs M.D.; Radha Grimes M.D.~ For Patients: As a result of the Cures Act, medical imaging exams and procedure reports are released immediately into your electronic medical record. You may view this report before your referring provider. If you have questions, please contact your health care provider. Indication: Trauma. Technique: Left knee, 3 views. Comparison: None. Findings/Impression: Bones: Decreased osseous mineralization. Acute mildly displaced transverse patellar fracture. Joint spaces: Associated joint effusion. Soft tissues: Associated soft tissue swelling. Dictated by Rhett Goldsmith MD @ 04/10/2025 6:07:11 PM (Electronically Signed)
[2025-04-10] MEDS: SODIUM CHLORIDE 0.9 % (FLUSH) 10 ML SYRINGE 5 ML IVF (21:44)
[2025-04-10] MEDS: MELATONIN 3 MG TABLET PO (23:40)
[2025-04-10] MEDS: LACTATED RINGERS 1000 ML 1,000 ML 75 ML IV (23:42)
[2025-04-11] VITALS (24 sets, daily range): BP systolic 94–162; BP diastolic 1–99; PULSE 70–89; RESP 14–20; TEMP 35.9–37; O2SAT 90–96
[2025-04-11] MEDS: carvediloL 6.25 MG TABLET 3.125 MG PO ×3 (00:13→21:26)
[2025-04-11] MEDS: carvediloL 6.25 MG TABLET 12.5 MG PO ×3 (00:13→21:28)
[2025-04-11] MEDS: SIMVASTATIN 10 MG TABLET PO ×2 (00:15→21:27)
[2025-04-11] MEDS: SACUBITRIL 24 mg/VALSARTAN 26 mg TABLET 1 TAB PO ×3 (00:15→21:27)
[2025-04-11] MEDS: GABAPENTIN 100 MG CAPSULE PO ×2 (00:15→21:27)
[2025-04-11] MEDS: INSULIN ASPART 100 UNIT/ML SUBCUT ×2 (00:18→21:30)
--- NOTE | 2025-04-11 06:35 | PC.NURSE ---
Shift note ([id number]): Patient admitted from ED at 2014. Pleasant, alert and oriented.?Daughters Justine and Delmy accompanied pt to room.?Remained in bed this shift. Denied pain since arriving. Purewick in place. Had a snack before bedtime. Has been NPO since midnight. BS 229 at 0000. 2 Units SS given. 0600 BS 173 SS Novolog held due to pt being NPO.?
[2025-04-11] MEDS: BUMETANIDE 1 MG TABLET 0.25 MG PO (09:12)
[2025-04-11] MEDS: INSULIN GLARGINE,HUM.REC.ANLOG 100 UNIT/ML INSULN.PEN 9 UNIT SUBCUT (09:15)
--- NOTE | 2025-04-11 09:33 | NUTR.NU ---
RDN with nutrition screen related to positive skin risk. Patient admitted for left patella fracture with recurrent falls. Ortho consulted, pt may need surgery. Current weight 143lb; height 5ft 4in; BMI 24.5 kg/m2. Per records, weight has been stable recently. Current diet is NPO in anticipation for surgery. No nutrition interventions at this time with current diet order and stable weight. RDN will continue to monitor and follow-up prn.
[2025-04-11] MEDS: LIDOCAINE 5% PATCH 1 PATCH TRANSDERMA (10:31)
[2025-04-11] MEDS: LACTATED RINGERS 1000 ML 1,000 ML 75 ML IV ×2 (12:45→19:30)
[2025-04-11] MEDS: ACETAMINOPHEN INJ 1,000 MG/100 ML VIAL 400 MG IVPB (12:49)
--- NOTE | 2025-04-11 13:07 | PM.IMPN1 ---
Assessment and Plan Assessment and plan (1) Left patella fracture: Problem comment: Plan for ORIF with Orthopedics. Postop will likely be weight-bearing with knee immobilizer in place. PT to evaluate mobility. Patient reports her gait and balance is good and she does not use a walker at home. With her current fracture and history of falls she will definitely need a walker. Status: Acute (2) Right ankle sprain: Problem comment: May benefit from a splint/brace. Evaluate as a part of PT and OT evaluations Status: Acute (3) Renal insufficiency: Problem comment: History of stage IV chronic kidney disease. Previously creatinine clearance was 16. Now up to 26. Continue to monitor Status: Inactive (4) Recurrent falls: Problem comment: Patient reports no problems with falls at home. Continue to evaluate Status: Acute (5) Chronic systolic heart failure: Problem comment: Getting intensive outpatient cardiology management with CardioMEMS and guideline directed medical therapy. MitraClip. PRODUCTION STATISTICAL CLERK pacemaker. Remarkable improvement in her echocardiogram from ejection fraction of 10-20% in 2020 to 30-35% in 2023 to 60 65% in December 2024. Status: Chronic (6) Diabetes mellitus: Problem comment: Hemoglobin A1c was 11.8 in October 2024. On Lantus. Will add in sliding scale and monitor. Status: Acute (7) Hypoxia: Problem comment: She has hypoxia without dyspnea which makes me suspect that this is more related to opioid therapy than heart failure. The presence of her heart failure needs close monitoring. No apparent decompensated cardio respiratory problem at this time. Status: Acute (8) Discharge planning issues: Problem comment: Postoperatively will need assessment to determine her ability to return home verses need for rehab stay due to impaired mobility Status: Acute Plan Patient admitted to the hospital for surgery and perioperative management of multiple chronic medical problems including hypoxia, heart failure, mobility problems. Total Time Spent Total Time Spent: Total time spent today is 55 minutes in reviewing outside records, coordination of care, discussion with patient, daughter and other providers ongoing management of her injuries and treatment Subjective Date Seen: 04/11/25 Interval history: Tonya Russo is an 89 year old female with h/o CHF, afib on Eliquis, HTN, DM2 for which she now uses insulin, LBBB, NSTEMI, CAD, anxiety, CKD stage 4, primary idiopathic dilated cardiomyopathy, dual chamber pacemaker with defibrillator that was recently turned off for goals of care, SAH, osteoporosis with T12 compression fracture, mitral regurgitation s/p MitraClip, atrial right to left shunt who was at a bridal shower today when she tripped down two steps, landing on her left knee. She had pain making it difficult to walk and she is on Eliquis, so she came to the ER. Her two daughters are with her. Tonya lives with her daughter, Justine. They have not had any concerns about her memory or cognition. She is hard of hearing. They are concerned about how she will do with a knee immobilizer, especially if it's going to be a long time in one. Also, they have a family vacation/travel plans for next week. Patient reports no recent illness. She reports injury to her right ankle with swelling and bruising over the right lateral malleolus. No other injuries. She did not lose consciousness or hit her head. She normally walks without a walker. She lives with her daughter in a home where she lives on 1 level. There are 2 steps to get in and then no steps within the house. She reports this has been going well for her and she has no concerns about returning home except for her current injury. In the emergency department she was identified with a transverse patellar fracture and probable right lateral ankle fracture without evidence of bony injury or instability. She has a history of heart failure which has been well compensated recently. No significant recent problems with edema or dyspnea. She has coronary artery disease without recent symptoms. She has a pacemaker. Previously had a defibrillator but now has a pacemaker only. History of AFib with RVR. Because of this she is on apixaban. Last dose was the morning of April 10. Exam Narrative: Exam Narrative: She is alert and appears in no distress. She gives her own history. Breathing is unlabored with supplemental oxygen. Notably her O2 sats are in the mid 80s while she is talking with me. She has recently received pain medication likely contributing to this hypoxia. Respirations are clear to auscultation without wheezing rales or rhonchi. Cardiovascular: S1, S2, regular rate and rhythm. Abdomen: Bowel sounds active. Abdomen is soft without tenderness or mass. Upper extremities without significant trauma. Right ankle is examined she has bruising and swelling over the lateral malleolus. Palpation there is minimally tender. She flex and extend the ankle fairly well without much discomfort. Left knee has an immobilizer on it. Distally she has intact pulses and sensation. Const: Vital Signs, click to edit/add: Vital Signs - 24 hr 04/10/25 16:46 04/10/25 17:04 04/10/25 17:15 Temperature 97.2 F L Pulse Rate 77 71 Pulse Rate [Pulse Oximeter] 83 Respiratory Rate 18 Blood Pressure [Le ft Arm] Blood Pressure [Le ft Upper Arm] 191/107 H Pulse Oximetry 96 90 98 Oxygen Delivery Me thod Room Air 04/10/25 17:30 04/10/25 17:45 04/10/25 18:00 Temperature Pulse Rate 71 72 77 Pulse Rate [Pulse Oximeter] Respiratory Rate Blood Pressure [Le ft Arm] Blood Pressure [Le ft Upper Arm] Pulse Oximetry 98 98 96 Oxygen Delivery Me thod 04/10/25 18:15 04/10/25 18:30 04/10/25 20:25 Temperature 98.7 F Pulse Rate 73 73 Pulse Rate [Pulse Oximeter] 77 Respiratory Rate 19 Blood Pressure [Le ft Arm] 184/103 H Blood Pressure [Le ft Upper Arm] Pulse Oximetry 99 98 96 Oxygen Delivery Me thod Room Air 04/10/25 23:00 04/10/25 23:00 04/11/25 03:00 Temperature 97.0 F L 97.6 F Pulse Rate Pulse Rate [Pulse Oximeter] 71 70 Respiratory Rate 20 20 17 Blood Pressure [Le ft Arm] 191/100 H 148/84 H Blood Pressure [Le ft Upper Arm] Pulse Oximetry 97 97 95 Oxygen Delivery Me thod Room Air Room Air Room Air 04/11/25 07:30 04/11/25 07:30 04/11/25 07:30 Temperature 97.5 F L Pulse Rate Pulse Rate [Pulse Oximeter] 72 72 Respiratory Rate 14 14 14 Blood Pressure [Le ft Arm] 151/87 H Blood Pressure [Le ft Upper Arm] Pulse Oximetry 96 96 Oxygen Delivery Me thod Room Air Room Air 04/11/25 11:51 Temperature 98.6 F Pulse Rate Pulse Rate [Pulse Oximeter] 76 Respiratory Rate 18 Blood Pressure [Le ft Arm] 94/56 L Blood Pressure [Le ft Upper Arm] Pulse Oximetry 94 Oxygen Delivery Me thod Room Air Documenting provider has reviewed patient's vital signs: yes Labs Labs: Laboratory Results - last 24 hr 04/10/25 19:20 WBC 13.02 H RBC 3.79 L Hgb 12.0 Hct 36.2 MCV 96 MCH 32 MCHC 33 RDW Coeff of Vilma 13.6 Plt Count 160 Neut % (Auto) 84.3 H Lymph % (Auto) 7.6 L [place] % (Auto) 6.9 Eos % (Auto) 0.9 Baso % (Auto) 0.1 Neut # (Auto) 11.00 H Lymph # (Auto) 1.00 [place] # (Auto) 0.90 Eos # (Auto) 0.10 Baso # (Auto) 0.00 Abs Immat Gran (auto) 0.00 Imm/Tot Granulo (auto) 0.2 Sodium 133 L Potassium 4.5 Chloride 103 Carbon Dioxide 21 Anion Gap 9 BUN 43 H Creatinine 1.3 Estimated Creat Clear 26.33 Estimated GFR 40 Glucose 238 H Calcium 10.5
[2025-04-11] MEDS: CEFAZOLIN 1 GM inj IVP (13:55)
--- NOTE | 2025-04-11 14:00 | CRLHL7_ITS ---
For Patients: As a result of the Century Cures Act, medical imaging exams and procedure reports are released immediately into your electronic medical record. You may view this report before your referring provider. If you have questions, please contact your health care provider. Indication: Procedural fluoroscopy. Left patellar fracture fixation. Technique: Procedural fluoroscopy. Two images saved. Fluoro time: 314 seconds. Comparison: 11/10/2024. Findings/Impression: Images show ORIF of a patellar fracture Dictated by Lucas Tellez MD @ 04/11/2025 4:00:46 PM (Electronically Signed)
--- NOTE | 2025-04-11 14:02 | P.NB_ITS ---
Nerve Block Nerve Block Time Seen by Provider: 13:58 Date Seen: 04/11/25 Type of block requested by surgeon for post-operative analgesia: adductor canal Side: left Time out performed: Yes Verification of patient name: Yes Verification of date of : Yes Site marking: site marked Name of person performing procedure: Conrad Continuous monitoring Was continuous monitoring of O2 sat, B/P, binder folder operator, recorded every 15 minutes?: Yes Procedure Checklist: sterile prep, needles and gloves Ultrasound guided. Images saved: Yes Medications given in 5ml increments after negative aspiration: Marcaine %: 0.25 mL: 7 Needle gauge: 20 and Exparel mL: 8 Patient tolerated procedure well: Yes Block Charges Block Charge (with Pro Fee): Femoral Nerve Use of Ultrasound Machine for Block: Yes- US Guidance/pain block
--- NOTE | 2025-04-11 14:03 | P.NB_ITS ---
Nerve Block Nerve Block Time Seen by Provider: 13:58 Date Seen: 04/11/25 Type of block requested by surgeon for post-operative analgesia: geniculars Side: left Time out performed: Yes Verification of patient name: Yes Verification of date of : Yes Site marking: site marked Name of person performing procedure: Conrad Continuous monitoring Was continuous monitoring of O2 sat, B/P, graining operator, recorded every 15 minutes?: Yes Procedure Checklist: sterile prep, needles and gloves Ultrasound guided. Images saved: Yes Medications given in 5ml increments after negative aspiration: Marcaine %: 0.25 mL: 7 Needle gauge: 25 and Exparel mL: 2 Patient tolerated procedure well: Yes Block Charges Block Charge (with Pro Fee): Genicular Nerve Block
--- NOTE | 2025-04-11 14:05 | P.ANES_ITS ---
Anesthesia Charges Start Date/Time Anesthesia Start Date: 04/11/25 Anesthesia Start Time: 13:43 Stop Date/Time Anesthesia Stop Date: 04/11/25 Anesthesia Stop Time: 15:50 Summary Extremes of Age - Over 70 or under 1: MDA Coding CPT Codes CPT Codes: ANESTH KNEE AREA SURGERY - 71964 ([id number]) P4 - PT W/SEV SYS DIS THREAT LIFE, QK - FIELD INSTRUCTOR 2-4 CNCRNT ANES PROC, QX - PLANT MANAGER SVC W/ MD MED DIRECTION Additional Codes: Summary - Extremes of Age - Over 70 or under 1: MDA ([id number])
--- NOTE | 2025-04-11 14:05 | W.ANESCHARGE ---
Anesthesia Charges Start Date/Time Anesthesia Start Date: 04/11/25 Anesthesia Start Time: 13:43 Stop Date/Time Anesthesia Stop Date: 04/11/25 Anesthesia Stop Time: 15:50 Summary Extremes of Age - Over 70 or under 1: MDA Coding CPT Codes CPT Codes: ANESTH KNEE AREA SURGERY - 50477 ([id number]) P4 - PT W/SEV SYS DIS THREAT LIFE, QK - SALES AND SERVICE TECHNICIAN 2-4 CNCRNT ANES PROC, QX - LOFTSMAN SVC W/ MD MED DIRECTION Additional Codes: Summary - Extremes of Age - Over 70 or under 1: MDA ([id number])
--- NOTE | 2025-04-11 14:25 | PC.NURSE ---
end of shift. pt has been very pleasnt. knee pain when up no pain in bed,. she has back pain, chronic and got a Lidoderm patch on. Purewick in place. pt did not want it later in the day. NPO since midnight. BS done. preop done. she is up with 1-2 assist and she is able to be up and able WBAT.
--- NOTE | 2025-04-11 15:35 | PM.ORCN ---
History of Present Illness HPI Date Seen: 04/11/25 Chief complaint: left knee injury Narrative: Tonya is a pleasant 89-year-old female. She sustained a fall from a standing height 04/10/2025. She was at a bridal shower when she unfortunately tripped landing onto the anterior aspect of her left knee. Had difficulty bearing weight. Presented [place] [facility]. X-rays were obtained revealed a left transverse patellar fracture. She was admitted to the hospitalist team and Orthopedics was consulted. She continues to have pain about the anterior aspect of left knee. It is worse with any attempted range of motion of the hip or knee or palpation according to her. History is notable for CHF, AFib (on Eliquis), type 2 diabetes mellitus, stage 4 chronic kidney disease, coronary artery disease, and multiple other cardiac comorbidities. [facility] Medical History Diabetes mellitus ?E11.9 - Type 2 diabetes mellitus without complications (ICD-10) Traumatic compression fracture of T10 vertebra (08/12/23) ?S22.070A - Wedge compression fracture of T9-T10 vertebra, initial encounter for closed fracture (ICD-10) Hematoma of occipital surface of head (05/14/20) ?S00.83XA - Contusion of other part of head, initial encounter (ICD-10) Closed wedge compression fracture of T1 vertebra with routine healing (04/18/20) ?S22.010D - Wedge compression fracture of first thoracic vertebra, subsequent encounter for fracture with routine healing (ICD-10) 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) ?N18.4 - Chronic kidney disease, stage 4 (severe) (ICD-10) ?D63.1 - Anemia in chronic kidney disease (ICD-10) Chronic kidney insufficiency ?N18.9 - Chronic kidney disease, unspecified (ICD-10) Atrial fibrillation ?I48.91 - Unspecified atrial fibrillation (ICD-10) Congestive heart failure ?I50.9 - Heart failure, unspecified (ICD-10) Chronic anticoagulation ?Z79.01 - detention (current) use of anticoagulants (ICD-10) Acute lower gastrointestinal bleeding ?K92.2 - Gastrointestinal hemorrhage, unspecified (ICD-10) Chronic systolic heart failure ?I50.22 - Chronic systolic (congestive) heart failure (ICD-10) Recurrent falls ?R29.6 - Repeated falls (ICD-10) Type 2 diabetes mellitus ?E11.9 - Type 2 diabetes mellitus without complications (ICD-10) Compression fracture Essential tremor ?G25.0 - Essential tremor (ICD-10) Presence of CardioMEMS HF system ?Z95.818 - Presence of other cardiac implants and grafts (ICD-10) Paroxysmal A-fib ?I48.0 - Paroxysmal atrial fibrillation (ICD-10) Acute idiopathic myocarditis ?I40.1 - Isolated myocarditis (ICD-10) Osteopenia ?M85.80 - Other specified disorders of bone density and structure, unspecified site (ICD-10) Macular degeneration ?H35.30 - Unspecified macular degeneration (ICD-10) Psoriasis ?L40.9 - Psoriasis, unspecified (ICD-10) History of breast cancer ?Z85.3 - Personal history of malignant neoplasm of breast (ICD-10) Hypertension ?I10 - Essential (primary) hypertension (ICD-10) Surgical History Hx of tonsillectomy ?Z90.89 - Acquired absence of other organs (ICD-10) H/O mastectomy ?Z90.10 - Acquired absence of unspecified breast and nipple (ICD-10) History of hysterectomy ?Z90.710 - Acquired absence of both cervix and uterus (ICD-10) Hx of mitral valve repair ?Z98.890 - Other specified postprocedural states (ICD-10) Presence of combination internal cardiac defibrillator (ICD) and pacemaker ?Z95.810 - Presence of automatic (implantable) cardiac defibrillator (ICD-10) Social History Narrative: Daughter, Justine, lives with her. Lifelong nonsmoker. Denies EtOH use. What is your current living situation?: I presently have a place to live Problems where you live: no known problems Problems where you live details: n/a In the past 12 months, utilities in danger of being shut off: no In past 12 months, lack of transportation kept you from medical appts, meetings, work, or getting things needed for daily living: no In the past 12 mos, have been you worried that your food would run out before you had money to buy more?: never true In the past 12 mos, the food you bought just didn't last and you didn't have money to buy more?: never true Smoking Status: Never smoker Do you use any of these nicotine containing products: None Second hand tobacco smoke exposure: No How often do you have a drink containing alcohol: monthly or less How often do you have six or more drinks on one occasion: Never AUDIT-C Alcohol total score: 1 Non-prescribed substance use: denies use Caffeine: Yes (coffee) How often does anyone, including family, friends and others, physically hurt you: never How often does anyone, including family, friends and others, insult or talk down to you: never How often does anyone, including family, friends and others, threaten you with harm: never How often does anyone, including family, friends and others, scream or curse at you: never service: No Meds Home Medications and Allergies Home Medications ?Medication ?Instructions ?Recorded ?Confirmed ?Type apixaban 2.5 mg tablet (Eliquis) 2.5 mg PO BID 05/24/23 04/10/25 History carvedilol 3.125 mg tablet 3.125 mg PO BID 05/24/23 04/10/25 History simvastatin 10 mg tablet 10 mg PO HS 05/24/23 04/10/25 History calcium carbonate (Calcium 500) 500 mg PO BID PRN 01/27/24 04/10/25 History carvedilol 12.5 mg tablet 12.5 mg PO BID 01/27/24 04/10/25 History gabapentin 100 mg capsule 100 mg PO HS 01/27/24 04/10/25 History nitroglycerin 0.4 mg sublingual 0.4 mg sublingual Q5M PRN 01/27/24 04/10/25 History tablet lidocaine 5 % topical patch 1 patch transdermal Q24H #30 ea 01/28/24 04/10/25 Rx sacubitril 24 mg-valsartan 26 mg 1 tab PO BID 07/12/24 04/10/25 History tablet (Entresto) vit A 300 mcg-C 200 mg-E 27 1 tab PO DAILY 07/12/24 04/10/25 History mg-lutein 2 mg and minerals tablet (Ocuvite with Lutein) bumetanide 1 mg tablet 0.25 mg PO Q48H 04/10/25 04/11/25 History insulin glargine 100 unit/mL (3 18 unit subcut DAILY 04/10/25 04/10/25 History mL) subcutaneous pen (Basaglar KwikPen U-100 Insulin) semaglutide 3 mg tablet (Rybelsus) 3 mg PO DAILY 04/11/25 04/11/25 History Held on 04/11/25. Instructions: PENDING RX ASSISTANCE APPROVAL Allergies Allergy/AdvReac Type Severity Reaction Status Date / Time hydralazine Allergy Unknown Verified 04/10/25 21:42 Penicillins Allergy Unknown Verified 12/11/24 13:15 dapagliflozin (From [facility]) AdvReac Severe syncope Verified 04/10/25 21:42 and falls Ortho Exam Narrative Exam Narrative: She is alert and oriented x3. She is resting supine in hospital bed. She is cooperative with the exam. Exam left knee shows small abrasion that is very superficial over the tibial tubercle. Small contusion with suspected hematoma deep near the similar region. Tender to palpation over the patella itself. Unable to do an active straight leg raise today. Knee range of motion is very painful. Neurologic intact all 5 dermatomes and myotomes left lower extremity to sensory light touch and motor function. Palpable DP and PT pulse. Const Vital Signs, click to edit/add: Vital Signs - 24 hr 04/10/25 16:46 04/10/25 17:04 04/10/25 17:15 Temperature 97.2 F L Pulse Rate 77 71 Pulse Rate [Pulse Oximeter] 83 Respiratory Rate 18 Blood Pressure [Left Arm] Blood Pressure [Left Upper Arm] 191/107 H Pulse Oximetry 96 90 98 Oxygen Delivery Method Room Air 04/10/25 17:30 04/10/25 17:45 04/10/25 18:00 Temperature Pulse Rate 71 72 77 Pulse Rate [Pulse Oximeter] Respiratory Rate Blood Pressure [Left Arm] Blood Pressure [Left Upper Arm] Pulse Oximetry 98 98 96 Oxygen Delivery Method 04/10/25 18:15 04/10/25 18:30 04/10/25 20:25 Temperature 98.7 F Pulse Rate 73 73 Pulse Rate [Pulse Oximeter] 77 Respiratory Rate 19 Blood Pressure [Left Arm] 184/103 H Blood Pressure [Left Upper Arm] Pulse Oximetry 99 98 96 Oxygen Delivery Method Room Air 04/10/25 23:00 04/10/25 23:00 04/11/25 03:00 Temperature 97.0 F L 97.6 F Pulse Rate Pulse Rate [Pulse Oximeter] 71 70 Respiratory Rate 20 20 17 Blood Pressure [Left Arm] 191/100 H 148/84 H Blood Pressure [Left Upper Arm] Pulse Oximetry 97 97 95 Oxygen Delivery Method Room Air Room Air Room Air 04/11/25 07:30 04/11/25 07:30 04/11/25 07:30 Temperature 97.5 F L Pulse Rate Pulse Rate [Pulse Oximeter] 72 72 Respiratory Rate 14 14 14 Blood Pressure [Left Arm] 151/87 H Blood Pressure [Left Upper Arm] Pulse Oximetry 96 96 Oxygen Delivery Method Room Air Room Air 04/11/25 11:51 04/11/25 12:45 04/11/25 15:31 Temperature 98.6 F Pulse Rate Pulse Rate [Pulse Oximeter] 76 76 Respiratory Rate 18 18 Blood Pressure [Left Arm] 94/56 L 118/62 Blood Pressure [Left Upper Arm] Pulse Oximetry 94 95 Oxygen Delivery Method Room Air Room Air Room Air Results Labs Labs: Laboratory Results - last 48 hr 04/10/25 19:20 WBC 13.02 H RBC 3.79 L Hgb 12.0 Hct 36.2 MCV 96 MCH 32 MCHC 33 RDW Coeff of Vilma 13.6 Plt Count 160 Neut % (Auto) 84.3 H Lymph % (Auto) 7.6 L Harlan % (Auto) 6.9 Eos % (Auto) 0.9 Baso % (Auto) 0.1 Neut # (Auto) 11.00 H Lymph # (Auto) 1.00 Harlan # (Auto) 0.90 Eos # (Auto) 0.10 Baso # (Auto) 0.00 Abs Immat Gran (auto) 0.00 Imm/Tot Granulo (auto) 0.2 Sodium 133 L Potassium 4.5 Chloride 103 Carbon Dioxide 21 Anion Gap 9 BUN 43 H Creatinine 1.3 Estimated Creat Clear 26.33 Estimated GFR 40 Glucose 238 H Calcium 10.5 Diagnostic results Additional Comments: Three views right ankle radiographs from 04/10/2025 performed [facility] were ordered by different provider and reviewed by me. This demonstrates soft tissue swelling about the lateral malleolus/lateral ankle with vascular calcifications. Slight irregularity at the distal tib-fib articulation of the distal fibula, but no acute fractures or avulsions. No signs of AVN. Three views of the left knee from [facility] dated 04/10/2025 were also ordered by different provider and reviewed by me. This demonstrates an acutely displaced mid transverse patellar fracture. Articular step-off of 3+ mm. Assessment and Plan Assessment and plan (1) Left patella fracture: Problem comment: Plan for ORIF with Orthopedics. Postop will likely be weight-bearing with knee immobilizer in place. PT to evaluate mobility. Patient reports her gait and balance is good and she does not use a walker at home. With her current fracture and history of falls she will definitely need a walker. Status: Acute Total time spent: Total time spent is greater than 50% in coordination of care (as documented) at patient's floor/unit and/or counseling patient: (2) Right ankle sprain: Problem comment: May benefit from a splint/brace. Evaluate as a part of PT and OT evaluations Status: Acute Total time spent: Total time spent is greater than 50% in coordination of care (as documented) at patient's floor/unit and/or counseling patient: (3) Renal insufficiency: Problem comment: History of stage IV chronic kidney disease. Previously creatinine clearance was 16. Now up to 26. Continue to monitor Status: Inactive Total time spent: Total time spent is greater than 50% in coordination of care (as documented) at patient's floor/unit and/or counseling patient: (4) Recurrent falls: Problem comment: Patient reports no problems with falls at home. Continue to evaluate Status: Acute Total time spent: Total time spent is greater than 50% in coordination of care (as documented) at patient's floor/unit and/or counseling patient: (5) Chronic systolic heart failure: Problem comment: Getting intensive outpatient cardiology management with CardioMEMS and guideline directed medical therapy. MitraClip. QA SPECIALIST pacemaker. Remarkable improvement in her echocardiogram from ejection fraction of 10-20% in 2020 to 30-35% in 2023 to 60 65% in December 2024. Status: Chronic Total time spent: Total time spent is greater than 50% in coordination of care (as documented) at patient's floor/unit and/or counseling patient: (6) Diabetes mellitus: Problem comment: Hemoglobin A1c was 11.8 in October 2024. On Lantus. Will add in sliding scale and monitor. Status: Acute Total time spent: Total time spent is greater than 50% in coordination of care (as documented) at patient's floor/unit and/or counseling patient: (7) Hypoxia: Problem comment: She has hypoxia without dyspnea which makes me suspect that this is more related to opioid therapy than heart failure. The presence of her heart failure needs close monitoring. No apparent decompensated cardio respiratory problem at this time. Status: Acute Total time spent: Total time spent is greater than 50% in coordination of care (as documented) at patient's floor/unit and/or counseling patient: (8) Discharge planning issues: Problem comment: Postoperatively will need assessment to determine her ability to return home verses need for rehab stay due to impaired mobility Status: Acute Total time spent: Total time spent is greater than 50% in coordination of care (as documented) at patient's floor/unit and/or counseling patient: Plan I had a good discussion today with the patient and her family members who were in hospital room with her today. It was helpful to show her a picture of the patella fracture for her to better grasp what this means. In addition to the fact that she is unable to perform an active straight leg raise, and given his displaced articular step-off, I do think surgery is indicated. We did discuss the risks, benefits, and alternatives in detail. This includes local risks (e.g. Infection, wound healing issues, malunion) as well as systemic risks (e.g. VTE, PA, stroke). She states understanding. Indeed she would like to proceed with surgery. Will plan to do this later today (01/09/2025). I have communicated and coordinate care with the hospitalist team as well as the anesthesia team. They will likely anticipate a general anesthetic given her Eliquis use and her inability to stop this with such short noticed. Postoperatively, I would anticipate she would be able to weight bear as tolerated using the knee immobilizer for ambulation assistance and a walker for balance purposes. PT and OT consultations will be undertaken. Social work consult for discharge planning as well.
--- NOTE | 2025-04-11 15:56 | P.ANES_ITS ---
Anesthesia Charges Start Date/Time Anesthesia Start Date: 04/11/25 Anesthesia Start Time: 13:43 Stop Date/Time Anesthesia Stop Date: 04/11/25 Anesthesia Stop Time: 15:50 Coding CPT Codes CPT Codes: ANESTH KNEE JOINT SURGERY - 68895 ([id number]) P4 - PT W/SEV SYS DIS THREAT LIFE, QK - PARI MUTUEL TICKET SELLER 2-4 CNCRNT ANES PROC, QX - PATIENT CARE SVC W/ MD MED DIRECTION
--- NOTE | 2025-04-11 15:56 | W.ANESCHARGE ---
Anesthesia Charges Start Date/Time Anesthesia Start Date: 04/11/25 Anesthesia Start Time: 13:43 Stop Date/Time Anesthesia Stop Date: 04/11/25 Anesthesia Stop Time: 15:50 Coding CPT Codes CPT Codes: ANESTH KNEE JOINT SURGERY - 06990 ([id number]) P4 - PT W/SEV SYS DIS THREAT LIFE, QK - START UP SPECIALIST 2-4 CNCRNT ANES PROC, QX - STABLE ATTENDANT SVC W/ MD MED DIRECTION
[2025-04-11] MEDS: CEFAZOLIN 1 GM in 0.9 % SODIUM CHLORIDE Mini-bag 100 ML IVPB (19:29)
[2025-04-11] MEDS: ACETAMINOPHEN 325 MG TABLET 975 MG PO (21:30)
[2025-04-12 03:00] VITALS: RESP 16
[2025-04-12] MEDS: CEFAZOLIN 1 GM in 0.9 % SODIUM CHLORIDE Mini-bag 100 ML IVPB (04:31)
[2025-04-12 04:35] VITALS: BP 140/81; PULSE 75; RESP 18; TEMP 36.6; O2SAT 92
[2025-04-12] MEDS: ACETAMINOPHEN 325 MG TABLET 975 MG PO (04:54)
[2025-04-12] MEDS: MAG HYDROX/ALUMINUM HYD/SIMETH 30 ML ORAL.SUSP PO (04:54)
--- NOTE | 2025-04-12 06:01 | PC.NURSE ---
[id number]: Patient pleasant and cooperative. A1/walker/GB, tolerates movement well. Dressing to L. knee C/D/I. Knee immobilizer to L. knee. Tylenol and active ice utilized for pain management. Denies N/V. Eating and voiding.
[2025-04-12 06:21] LABS: HCO3 VBG 24 mmol/L (21-28); PCO2 VBG 39 mmHG (40-50); PO2 VBG 58.2 mmHG (25-47); pH VBG 7.394 (7.32-7.43)
[2025-04-12 06:23] LABS: Basophils Percent Auto 0.1 % (0.0-3.0); Eosinophils Percent Auto 0.1 % (0.0-7.0); Hematocrit 32.2 % (33.0-51.0); Hemoglobin* 10.6 gm/dL (12.0-16.0); Immature Granulocytes Pct Auto 0.4 %; Lymphocytes Percent Auto 3.8 % (20-44); Mean Corpuscular HGB Conc 33 gm/dL (32-36); Mean Corpuscular Hemoglobin 32 pg (26-34); Mean Corpuscular Volume 96 fL (80-100); Monocytes Percent Auto 7.7 % (0.0-11.0); Neutrophils Percent Auto 87.9 % (42.0-72.0); Platelet Count* 127 K/uL (140-440); RDW Coefficient of Variation % 13.6 % (11.5-15.5); Red Blood Count 3.36 m/uL (4.00-5.20); White Blood Count* 13.77 K/uL (4.50-11.00)
[2025-04-12 06:29] LABS: Slide Review Reflex No
[2025-04-12 06:40] LABS: Chloride* 103 mmol/L (96-114); Sodium* 134 mmol/L (135-149)
[2025-04-12 06:41] LABS: Potassium* 4.2 mmol/L (3.6-5.1)
[2025-04-12 06:43] LABS: Blood Urea Nitrogen* 38 mg/dL (7-30); Creatinine* 1.5 mg/dL (0.5-1.5); Est. Creatinine Clearance* 22.82; Estimated Glomerular Filt Rate 34 ml/min
[2025-04-12 06:44] LABS: Anion Gap 7 mEq/L (7-15); Calcium* 10.2 mg/dL (8.4-10.6); Carbon Dioxide* 24 mmol/L (20-32); Glucose* 271 mg/dL (60-115)
[2025-04-12 07:00] VITALS: RESP 18; O2SAT 94
[2025-04-12 07:50] VITALS: PULSE 74; RESP 18
[2025-04-12 08:00] VITALS: BP 149/76; PULSE 74; RESP 18; TEMP 36.4; O2SAT 94
--- NOTE | 2025-04-12 08:04 | PM.ORPRC ---
Procedure Note Date of procedure: 04/11/25 Procedure: PREOPERATIVE DIAGNOSES: 1. Left patella fracture, closed, acute-with displacement POSTOPERATIVE DIAGNOSES: 1. Left patella fracture, closed, acute-with displacement NAME OF OPERATION: 1. Left patella open reduction internal fixation 2. Intraoperative fluoroscopy up to 1 hour. C-arm fluoroscopy directed by Abhishek Stack M.D. for intraoperative fracture reduction and hardware position evaluation. Fluoroscopy time was 31.4s with total dose of 1.33 mGy. SURGEON: Abhishek Stack MD UNLOADER OPERATOR: Leo Denis PA-C; Of note, a skilled patient care nursing assistant was critical for this case to aide in patient positioning, knee manipulation, tissue retraction, reduction maintenance, closure, and bracing. ANESTHESIA: General endotracheal anesthetic EBL: 10 IMPLANTS: Arthrex 4.0 mm bone partially threaded cannulated screws (x2) with FiberTape. TOURNIQUET: 60 min at 250 torr. COMPLICATIONS: None evident INDICATIONS: The patient is a pleasant 89-year-old female who sustained a left knee injury within recent time. Severe pain. Difficulty bearing weight. Presented to medical facility. X-rays confirmed a patella fracture. They were given a knee immobilizer. Upon my evaluation, the patient was unable to perform an active straight leg raise. With these findings, surgery is recommended to stabilize extensor mechanism/patella fracture. FINDINGS: Closed, displaced patella fracture that was still reducible. PROCEDURE: Following a thorough discussion of risks, benefits, and alternatives, consent was obtained and the left knee was marked. The patient was brought to the operating room and placed supine on the operating table. Induction of anesthesia was undertaken. Appropriate time out was performed identifying proper patient, site and procedure. 1 g IV Ancef was administered within 1 hour of incision preoperatively. The left lower extremity was prepped and draped in the appropriate sterile fashion using ChloraPrep. The limb was exsanguinated and the tourniquet inflated. A longitudinal anterior midline skin incision was made centered over the patella. Sharp incision through skin and subcutaneous tissue allowed identification of the extensor retinaculum/quad tendon. The transverse fracture was identified, opened, and cleared of interposed periosteum and hematoma. It was then reduced and held with pointed tenaculum clamps (x2). C-arm fluoroscopic imaging was utilized throughout the case to obtain a lateral view of the knee and confirm reduction at the patella. Two K-wire guidewires were then placed from proximal to distal and confirmed to be within the bone and extra-articular. They were aimed parallel and depth gauge measured appropriately. Of note, a 15 blade was utilized to cut vertically through the quad tendon parallel with its fibers to get down to the screw head for both visualization and securing of the eventual FiberTape. They were then drilled and the screws passed without difficulty. Good compression was seen across the fracture site and felt within the screws. At this stage, the swedged FiberTape on the long straight needle was passed from proximal towards distal through 1 of the screws, brought back towards the other screw and across the patella on the anterior surface diagonally, and passed through the second screw again proximal to distal finally bring its tail back to the original starting point creating a tension band concept. The FiberTape was tied with the knot left at the screw head site to be in the proximal pole and hopefully less prominent. Excellent compression was again confirmed achieved. C-arm fluoroscopic imaging again confirmed the patella to be improved position and stable. The knee was thoroughly irrigated normal saline. Closure performed in layered fashion with 0 Vicryl to reapproximate the quad tendon and synovial layer to help very the knot stack, as well as 2-0 Vicryl and 4-0 Monocryl for subcutaneous and subcuticular closure, respectively. The tourniquet was deflated, dressings were applied, and a knee immobilizer/T-scope knee brace applied locked in extension. The patient was awoken from anesthesia and transferred to the PACU in stable condition. A skilled patient care nursing assistant was critical for this case to aide in patient positioning, knee manipulation, tissue retraction, reduction maintenance, closure, and bracing. PLAN: 1. Elevate operative extremity. 2. Encouraged ice. 3. Percocet for pain as needed. 4. Weightbear as tolerated operative extremity in the brace (locked straight, if T-scope). Crutch or walker ambulation assistance p.r.n. 5. Follow up with PA visit in 2-3 weeks for wound check. Initiate physical therapy for state her leg raises in the knee immobilizer but hold off on knee range of motion until 4 weeks. Progress ROM with passive/active assisted range of motion goal of 0-90 degrees by 6 weeks postop.
[2025-04-12] MEDS: INSULIN ASPART 100 UNIT/ML SUBCUT ×2 (08:55→12:56)
[2025-04-12] MEDS: carvediloL 6.25 MG TABLET 3.125 MG PO (08:55)
[2025-04-12] MEDS: SACUBITRIL 24 mg/VALSARTAN 26 mg TABLET 1 TAB PO (08:55)
[2025-04-12] MEDS: carvediloL 6.25 MG TABLET 12.5 MG PO (08:55)
[2025-04-12] MEDS: INSULIN GLARGINE,HUM.REC.ANLOG 100 UNIT/ML INSULN.PEN 18 UNIT SUBCUT (08:56)
[2025-04-12] MEDS: SODIUM CHLORIDE 0.9 % (FLUSH) 10 ML SYRINGE 5 ML IVF (09:08)
[2025-04-12] MEDS: LIDOCAINE 5% PATCH 1 PATCH TRANSDERMA (10:03)
[2025-04-12 11:00] VITALS: BP 104/89; PULSE 74; RESP 18; O2SAT 96
--- NOTE | 2025-04-12 12:28 | PM.DS1 ---
DS: Providers Provider Date Seen: 04/12/25 Date of admission: 04/11/25 13:06 Primary care physician: Radha Grimes MD Admitting Clinician: Ross Perez MD Attending Physician on discharge: Ross Perez MD Date of Discharge: 04/12/25 DS: Diagnosis Discharge Diagnosis (1) Left patella fracture: Status: Acute Problem details: Plan for ORIF with Orthopedics. Postop will likely be weight-bearing with knee immobilizer in place. PT to evaluate mobility. Patient reports her gait and balance is good and she does not use a walker at home. PT is determined that she can walk with a knee immobilizer and a walker fairly effectively. (2) Right ankle sprain: Status: Acute Problem details: Patient felt that she did not need a brace or any support for her right ankle sprain. Not having significant discomfort. (3) Diabetes mellitus: Status: Acute Problem details: Hemoglobin A1c was 11.8 in October 2024. On Lantus. Will add in sliding scale and monitor. (4) Hypoxia: Status: Acute Problem details: She has hypoxia without dyspnea which makes me suspect that this is more related to opioid therapy than heart failure. The presence of her heart failure needs close monitoring. No apparent decompensated cardio respiratory problem at this time. Hypoxia resolved. (5) Chronic systolic heart failure: Status: Chronic Problem details: During her hospital stay her heart failure was well compensated and she had no significant symptoms. Getting intensive outpatient cardiology management with Cardio[facility] and guideline directed medical therapy. MitraClip. [employer] pacemaker. Remarkable improvement in her echocardiogram from ejection fraction of 10-20% in 2020 to 30-35% in 2023 to 60 65% in December 2024. DS: Summary Hospital Course Hospital Course: Tonya Russo is an 89 year old female with h/o CHF, afib on Eliquis, HTN, DM2 for which she now uses insulin, LBBB, NSTEMI, CAD, anxiety, CKD stage 4, primary idiopathic dilated cardiomyopathy, dual chamber pacemaker with defibrillator that was recently turned off for goals of care, SAH, osteoporosis with T12 compression fracture, mitral regurgitation s/p MitraClip, atrial right to left shunt who was at a bridal shower today when she tripped down two steps, landing on her left knee. She had pain making it difficult to walk and she is on Eliquis, so she came to the ER. Her two daughters are with her. Tonya lives with her daughter, Justine. They have not had any concerns about her memory or cognition. She is hard of hearing. They are concerned about how she will do with a knee immobilizer, especially if it's going to be a long time in one. Also, they have a family vacation/travel plans for next week. Patient reports no recent illness. She reports injury to her right ankle with swelling and bruising over the right lateral malleolus. No other injuries. She did not lose consciousness or hit her head. She normally walks without a walker. She lives with her daughter in a home where she lives on 1 level. There are 2 steps to get in and then no steps within the house. She reports this has been going well for her and she has no concerns about returning home except for her current injury. In the emergency department she was identified with a transverse patellar fracture and probable right lateral ankle fracture without evidence of bony injury or instability. She has a history of heart failure which has been well compensated recently. No significant recent problems with edema or dyspnea. She has coronary artery disease without recent symptoms. She has a pacemaker. Previously had a defibrillator but now has a pacemaker only. History of AFib with RVR. Because of this she is on apixaban. Last dose was the morning of April 10. On April 11 she underwent ORIF of her patella fracture by Dr. Stack. No complications. April 12 she reports doing well. She has not needed any opioid pain medications she is tolerating activity with therapy, using a walker and a knee immobilizer. Status at Discharge Functional status at discharge: uses cane/walker (Wear knee immobilizer at all times when out of bed or chair) Overall status at discharge: patient is progressing back to baseline Time Spent with Patient Time attestation: Total time spent providing and/or coordinating discharge services: 40 minutes Exam Narrative: Exam Narrative: She is alert and oriented to her circumstances. A little bit forgetful of recent events. Pleasant and cooperative. Respirations are clear to auscultation. Cardiovascular: S1, S2, regular rate and rhythm. Abdomen is soft without tenderness. Left lower extremity is wrapped with an Chuy bandage and a knee immobilizer. Right ankle has some bruising on the lateral malleolus but no significant tenderness she tolerates motion and weight-bearing quite well. Const: Vital Signs, click to edit/add: Vital Signs - 24 hr 04/11/25 12:45 04/11/25 15:15 04/11/25 15:31 Temperature Pulse Rate 70 Pulse Rate [Pulse Oximeter] 76 Respiratory Rate 18 16 Blood Pressure 139/89 Blood Pressure [Le ft Arm] 118/62 Pulse Oximetry 95 94 Oxygen Delivery Me thod Room Air Room Air Room Air Oxygen Flow Rate 04/11/25 15:45 04/11/25 15:50 04/11/25 15:55 Temperature 97.7 F Pulse Rate 71 70 70 Pulse Rate [Pulse Oximeter] Respiratory Rate 15 16 16 Blood Pressure 113/91 H 127/1 L 107/83 Blood Pressure [Le ft Arm] Pulse Oximetry 92 91 95 Oxygen Delivery Me thod Room Air Nasal Cannula Oxygen Flow Rate 2 04/11/25 16:00 04/11/25 16:05 04/11/25 16:10 Temperature 97.5 F L Pulse Rate 73 74 70 Pulse Rate [Pulse Oximeter] Respiratory Rate 16 15 16 Blood Pressure 125/99 H 138/87 147/80 H Blood Pressure [Le ft Arm] Pulse Oximetry 96 96 94 Oxygen Delivery Me thod Room Air Room Air Oxygen Flow Rate 04/11/25 16:20 04/11/25 16:30 04/11/25 16:30 Temperature 97.5 F L 97.5 F L Pulse Rate 70 74 Pulse Rate [Pulse Oximeter] Respiratory Rate 16 16 16 Blood Pressure 160/91 H 162/89 H Blood Pressure [Le ft Arm] Pulse Oximetry 92 94 Oxygen Delivery Me thod Room Air Room Air Oxygen Flow Rate 04/11/25 16:45 04/11/25 17:03 04/11/25 17:15 Temperature Pulse Rate 70 70 74 Pulse Rate [Pulse Oximeter] Respiratory Rate 14 16 16 Blood Pressure 159/92 H 151/89 H 139/89 Blood Pressure [Le ft Arm] Pulse Oximetry 92 92 92 Oxygen Delivery Me thod Room Air Room Air Room Air Oxygen Flow Rate 04/11/25 17:30 04/11/25 18:00 04/11/25 19:00 Temperature 97.1 F L Pulse Rate 70 74 72 Pulse Rate [Pulse Oximeter] Respiratory Rate 16 16 18 Blood Pressure 160/84 H 115/65 144/79 H Blood Pressure [Le ft Arm] Pulse Oximetry 94 95 90 Oxygen Delivery Me thod Room Air Room Air Room Air Oxygen Flow Rate 2 04/11/25 20:00 04/11/25 21:00 04/11/25 22:00 Temperature 97.6 F 96.6 F L Pulse Rate 80 84 89 Pulse Rate [Pulse Oximeter] Respiratory Rate 16 16 20 Blood Pressure 130/83 142/85 H 152/79 H Blood Pressure [Le ft Arm] Pulse Oximetry 91 93 93 Oxygen Delivery Me thod Room Air Room Air Room Air Oxygen Flow Rate 04/11/25 22:22 04/11/25 23:00 04/12/25 03:00 Temperature 96.6 F L Pulse Rate Pulse Rate [Pulse Oximeter] 89 Respiratory Rate 20 20 16 Blood Pressure Blood Pressure [Le ft Arm] 152/79 H Pulse Oximetry 93 93 Oxygen Delivery Me thod Room Air Room Air Oxygen Flow Rate 04/12/25 04:35 04/12/25 07:00 04/12/25 07:50 Temperature 97.8 F Pulse Rate Pulse Rate [Pulse Oximeter] 75 74 Respiratory Rate 18 18 18 Blood Pressure Blood Pressure [Le ft Arm] 140/81 H Pulse Oximetry 92 94 Oxygen Delivery Me thod Room Air Room Air Oxygen Flow Rate 04/12/25 08:00 Temperature 97.6 F Pulse Rate Pulse Rate [Pulse Oximeter] 74 Respiratory Rate 18 Blood Pressure Blood Pressure [Le ft Arm] 149/76 H Pulse Oximetry 94 Oxygen Delivery Me thod Room Air Oxygen Flow Rate Documenting provider has reviewed patient's vital signs: yes DS: Data Data Completed and Pending Labs on day of discharge: Labs from last 24 hours 04/12/25 06:00 WBC 13.77 H RBC 3.36 L Hgb 10.6 L Hct 32.2 L MCV 96 MCH 32 MCHC 33 RDW Coeff of Vilma 13.6 Plt Count 127 L Neut % (Auto) 87.9 H Lymph % (Auto) 3.8 L [place] % (Auto) 7.7 Eos % (Auto) 0.1 Baso % (Auto) 0.1 Neut # (Auto) 12.10 H Lymph # (Auto) 0.50 L [place] # (Auto) 1.10 H Eos # (Auto) 0.00 Baso # (Auto) 0.00 Abs Immat Gran (auto) 0.10 Imm/Tot Granulo (auto) 0.4 VBG pH 7.394 VBG pCO2 39 L VBG pO2 58.2 H VBG HCO3 24 Sodium 134 L Potassium 4.2 Chloride 103 Carbon Dioxide 24 Anion Gap 7 BUN 38 H Creatinine 1.5 Estimated Creat Clear 22.82 Estimated GFR 34 Glucose 271 H Calcium 10.2 Imaging Knee x-ray: Radiologist's impression: Indication: Trauma. Technique: Left knee, 3 views. Comparison: None. Findings/Impression: Bones: Decreased osseous mineralization. Acute mildly displaced transverse patellar fracture. Joint spaces: Associated joint effusion. Soft tissues: Associated soft tissue swelling. Discharge Plan Discharge Disposition: Home, Self-Care Date of Admission: 04/11/25 13:06 Attending Provider on Discharge: Ross Perez Consulting Providers: Reva Renteria Primary Care Provider: Radha Grimes Condition: Improved Anticipated Discharge Date/Time: 04/12/25 13:00 Discharge Medications: Continued simvastatin 10 mg tablet 10 mg PO HS carvedilol 3.125 mg tablet 3.125 mg PO BID Patient Comments: total of 15.625mg bid Eliquis 2.5 mg tablet 2.5 mg PO BID insulin glargine [Basaglar KwikPen U-100 Insulin] 100 unit/mL (3 mL) insulin pen 18 unit subcut DAILY bumetanide 1 mg tablet 0.25 mg PO Q48H Rx Instructions: 0.25mg every other day, plus 0.25mg prn wt gain Rybelsus 3 mg tablet 3 mg PO DAILY nitroglycerin 0.4 mg tablet, sublingual 0.4 mg sublingual Q5M PRN gabapentin 100 mg capsule 100 mg PO HS carvedilol 12.5 mg tablet 12.5 mg PO BID Patient Comments: total of 15.625mg bid calcium carbonate [Calcium 500] 500 mg calcium (1,250 mg) tablet,chewable 500 mg PO BID PRN lidocaine 5 % Adhesive Patch,Medicated 1 patch transdermal Q24H Qty: 30 0RF Entresto 24-26 mg tablet 1 tab PO BID Ocuvite with Lutein 300 mcg-200 mg-27 mg-2 mg tablet 1 tab PO DAILY Rx Instructions: administer after a meal Discharge Orders: Discharge Order (Routine); Ordered 04/12/25 Ordered By: Ross Perez Patient Education: Crutch Instructions (DC), Patellar Fracture (DC) Activity Level: Weight Bearing as Tolerated and Wear Brace Activity Detail: May weight bear as tolerated with the knee immobilizer on. No knee motion for 4 weeks. May start PT now, but not for knee ROM. Outpatient PT/OT will be scheduled, and can start now. No ROM until 4 weeks postop. Ice, oral medications (take 1000mg Acetaminophen every 6 hours as needed for pain; don't exceed 4,000mg in a 24 hour period), topical medications as needed for pain. May consider lidocaine patch to the side of your knee, not over the wound. Elevated leg when possible. May remove the Chuy bandage and white cotton role after 3 days. Compression chuy bandage can be reapplied as desired. Take off the adhesive bandage after 10 days. May shower with adhesive dressing on or off. No soaking wound. No topicals. Report to our clinic if any wound concerns present. Call our orthopedic clinic with any acute concerns [phone] Discharge Diet: Diabetic Follow Up Appointments: Radha Grimes MD [Primary Care Provider, Family Practice] Forms: [employer] Info Instructions
[2025-04-12] MEDS: polyethylene glycoL 3350 17 GM PACK PO (12:56)
--- NOTE | 2025-04-12 13:43 | PC.SOCIAL ---
Discharge planning: SW met with patient and patient's daughter to discuss resources/supports for home. Patient and daughter state they are wondering about a shower chair for home. SW explained that OT would be better able to answer this question when they come to do therapy later. SW discussed options for home health care if that is recommended for patient and provided a list. Patient and daughter report they have no preference for an agency if this is needed. Patient's daughter inquired about home health aide for bathing. SW provided a funeral home general manager list for private pay and explained if patient did need home health care there may be a chance a home health aide might come with that to assist with bathing. Patient and daughter had no questions at this time. SW spoke with surgeon provider who states patient would prefer OP therapy vs home health. SW discussed with therapy team the process for this and they explained they will fill out a referral and then someone from the clinic will call them. SW relayed this information to the family. Patient had no other questions at this time.
--- NOTE | 2025-04-12 15:19 | PC.NURSE ---
End of Shift: Patient pleasant and cooperative, A&O. VSS, afebrile. SpO2 maintained above 90% on RA. Patient denies pain at rest, but reports pain with activity, declines PRN medication. 1A with walker and gait belt. Knee immobilizer in place. Tolerating regular diet. Gave sliding scale insulin per protocol.
--- NOTE | 2025-04-12 18:26 | PC.NURSE ---
I arrived in the afternoon to see the patient for the first time on my shift and found her clothed and anticipating discharge. My preceptor assessed her before my arrival and did not report any adverse findings. My own assessment found no concerns. When reviewing discharge instructions I noticed inconsistencies; an education section for crutches, the patient has not used them and was not recommended to use them, as well as a recommendation for ortho follow up, yet no such follow up scheduled. I asked the present IM doctor to review the chart for DC readiness and my preceptor worked with the front end software developer to review as well. The patient was ultimately discharged soon after with the advice she may be recommended crutches in the future, but not to use now, and that she is to call a number provided to set up an orthopedics follow up. I also emphasized that she is not to take more than the recommended amount of acetaminophen per day given she is already taking it scheduled. The patient left the floor with an aid, using a wheelchair, and with her daughter present to drive her home.??
== END 2025-04-12 16:00 | disposition home or self-care (01) | DRG 516 ==
LOC: ED 19:27 → MEDSURG 19:55
PROVIDERS: Orthopaedic Surgery Sports Medicine; Admitting Provider Family Medicine; Emergency Provider Emergency Medicine; PCP Family Medicine; Visit Provider Family Medicine
PROC: 0QSF04Z Reposition Left Patella with Internal Fixation Device, Open Approach (ICD-10-PCS; CPT 27524; principal; 2025-04-11 14:00)
DX: S82.032A Displaced transverse fracture of left patella, initial encounter for closed fracture (principal); I13.0 Hypertensive heart and chronic kidney disease with heart failure and stage 1 through stage 4 chronic kidney disease, or unspecified chronic kidney disease; I42.0 Dilated cardiomyopathy; I50.22 Chronic systolic (congestive) heart failure; N18.4 Chronic kidney disease, stage 4 (severe); S93.491A Sprain of other ligament of right ankle, initial encounter; R09.02 Hypoxemia; G89.18 Other acute postprocedural pain; M25.571 Pain in right ankle and joints of right foot; W10.9XXA Fall (on) (from) unspecified stairs and steps, initial encounter; Y92.094 Garage of other non-institutional residence as the place of occurrence of the external cause; Z79.01 Long term (current) use of anticoagulants; I48.0 Paroxysmal atrial fibrillation; G25.0 Essential tremor; E11.22 Type 2 diabetes mellitus with diabetic chronic kidney disease; Z79.4 Long term (current) use of insulin; Z91.81 History of falling; H35.30 Unspecified macular degeneration; Z95.0 Presence of cardiac pacemaker; I34.0 Nonrheumatic mitral (valve) insufficiency; Z85.3 Personal history of malignant neoplasm of breast
CPT/HCPCS: 01392; 01400; 36415; 64447; 64454; 73560; 73562; 73610; 76000; 76942; 80048; 82803; 82962; 85025; 93005; 97116; 97162; 97165; 97530; 97535; 99100; 99283; 99285; A9270; C1713; G0378; J0131; J0330; J0665; J0666; J0690; J1100; J1815; J2405; J2704; J2710; J3010; J7120

== ENCOUNTER 2025-06-27 13:00 | Outpatient (RCR) | payer MEDICARE, BC, SELFPAY ==
--- NOTE | 2025-05-09 13:07 | PT.OPEX ---
PT [place] Outpatient Eval PT [facility] Outpatient Eval Start: 05/09/25 07:54 Freq: Status: Active Protocol: Document 05/09/25 13:03 ENM (Rec: 05/09/25 13:04 ENM [id number]) E-signed By Lena Nina, DPT Physical Therapy Outpatient Evaluation Insurance Information Recert Due Date 08/07/25 Insurance Name Medicare B Medical Diagnosis other specified post procedural states unspecified fracture of left patella, initial encounter for closed fracture DOS 04/11/25 Treating Diagnosis left knee pain, impaired gait, impaired transfers, impaired balance, decreased knee ROM, muscle weakness Referring MD Seda/Adeel Subjective Subjective Patient presents to PT 4 weeks s/p left patellar ORIF DOS 04/11/25. A month ago they fell on the steps when their cousin was helping them navigate getting into the house. Things have been going well after surgery. Has some discomfort but no real pain. The swelling has been going down. She has been icing 3x a day. She lives with her daughter. Has been able to get around ok with the walker and KI. Has been able to navigate the 2-3 steps to get in<>out of house. She needs assistance for getting out of bed and the car. Is finding getting out of the chair the most challenging. Does have tenderness at her right ankle after the fall that hasn' t been looked at yet. She was independent at baseline PMHx: diabetes, HTN, pacemaker, arthritis, stroke, mastectomy and breast cancer history Pain Comments 12/13 Current Work Status Retired Precautions Treatment Per MD visit 05/03/25- She can continue to weight bear as Precautions/ tolerated in the knee immobilizer. We will start Contraindications physical therapy at this point for straight leg raise is in knee immobilizer; she can also do this at home while the brace is on. No range of motion until 4 weeks postop. After that 4 weeks, she can begin progressing passive and active knee motion. By 6 weeks , goal is to have achieved 0-90 degrees knee ROM. Weight Bearing Weight Bear as Tolerated Status Objective Other/Pertinent Knee AROM Objective L knee 0-5-45 no pain R knee 0-0-122 Ankle AROM DF R 5 degs with knee flexion compensation PF R 46 degs INV R 6 degs EV R 10 degs no pain Strength: Knee extensors: able to complete SLR in KI without assistance good quad set without pain Ankle DF 5/5 Ankle INV 4-/5 Ankle EV 4/5 Gait/balance: Patient ambulates with KI in place using 2WW with step through mechanics. They display decreased weight acceptance of LLE and decreased knee ROM throughout gait cycle Observation/Swelling: superior patella L 35 cm R 35 cm mid patella L 36 cm R 34 cm inferior patella L 31.5 cm R 29 cm Incision is healing well. They display mild bruising and swelling over the knee cap Other: Requires CGA at LE for supine<>sit transfer Requires CGA-ModA with sit to stand transfer Assessment Assessment/ Patient is an 89 year old female presenting 4 weeks s/p Impression left patellar ORIF DOS 04/09/25. They fell on the steps at their family members house. Since surgery their pain has been minimal and well managed using tylenol. They have been able to navigate their home environment with use of 2WW and knee immobilizer. They have difficulties with supine<>sit transfers, sit to stand transfers, car transfers and ambulation. At baseline they live with one of their daughters and were independent with all mobility. Upon assessment patient displays mild bruising, mild swelling, decreased knee AROM (-5-45) and decreased LE strength which is consistent with s/p knee surgery. They display good a quad set and ability to complete SLR without assistance. They require CGA at LE for supine<>sit transfers and CGA-ModA for completing standing transfers. Patients caregivers were present in session and had all questions answered. They are feeling confident in helping the patient complete home exercise program. Tonya would greatly benefit from skilled PT to address impairments stated above for return to PLOF after injury. As well as to decrease caregiver burden and risk for future falls. Primary Functional ambulation, transfers Limitations Plan of Care Rehabilitation Good Potential Physical Therapy In 3-4 weeks (to be met at start of June) : Goals 1. Patient will be IND with HEP and self management of symptoms 2. Patient will display at least 100 degs of knee flexion for improved transfers 3. Patient will be able to complete full pain free SLR 2x10 without KI in order to progress to next phase of rehab 4. Patient will be able to transfer in<>out of car without any difficulty to progress toward PLOF In 7-9 weeks (to be met by mid July) : 1. Patient will display knee flexion ROM to at least 115 degs for improved ability to perform the stairs 2. Patient will be able to comfortably ambulate their home environment using LRAD without KI and no increase in knee pain to progress toward PLOF 3. Patient will be able to complete sit to stand transfers without assistance from daughters to decrease caregiver burden 4. Patient will be able to get in<>out of bed without assistance to maintain independence with bed mobility Coordination/ Referral Source Communication With Treatment Plan/ Gait Training,Ice/Cold/Vasopneumatic,Joint Mobilization Direct Interventions ,Manual Therapy,Neuromuscular Re-ed,Orthotics/Braces, Self-Care/Home Management,Therapeutic Activities, Therapeutic Exercises Frequency/Duration 1-2x a week for 8-10 weeks Patient Will Be Completion of LTG(s),Independent w/HEP Discharged From Therapy Evaluation Billing Untimed Code 24 Treatment Minutes Complexity Low Certification Information Initial 05/09/25 Certification Date Ending Certification 08/07/25 Date Provider Signature Yes Required Provider Signature POC & Medical Necessity Shows Agreement With Physician NPI Number Write NPI# Here Physician Comment/ : Change Physician Signature Please Sign/Date Here & Date Requested
== END 2025-06-27 14:47 | disposition home or self-care (01) ==
PROVIDERS: PCP Family Medicine; Visit Provider Family Medicine
DX: Z48.89 Encounter for other specified surgical aftercare (principal); S82.002D Unspecified fracture of left patella, subsequent encounter for closed fracture with routine healing; M25.562 Pain in left knee; Z51.89 Encounter for other specified aftercare
CPT/HCPCS: 97110; 97112; 97116; 97140; 97161

== ENCOUNTER 2025-07-13 14:36 | Observation (INO) | payer MEDICARE, BC, SELFPAY ==
--- OUTSIDE RECORDS SUMMARY | 2025-06-23 09:30 | XMS_ITS | Encounter Summary ---
Author Organization [facility] Address [address] [place] [address] Care Team Providers Care Special Library Librarian Name Role Phone Unavailable Primary Care Provider Unavailabl e Reason for Referral * Outpatient (Routine) - Authorized Specialty Diagnoses / Procedures Referred By Reny neumann Referred To Contact Urology Marysol Ang MPAS, P.A.-C., P.A. [address] [address] Phone: tel: fax: [facility] Region Referral ID Status Reason Start Date Expiration Date V isits Requested Visits Authorized [id number] Authorized 06/23/2025 12/23/2026 1 1 Reason for Visit * Appointment Request (Routine) - Closed Specialty Diagnoses / Procedures Referred By Reny neumann Referred To Contact Urology Diagnoses Mass Kidney Radha Grimes M.D. [address] [place] [phone] Phone: tel: fax: Referral ID Status Reason Start Date Expiration Date Visits Re quested Visits Authorized [id number] Closed 06/02/2025 09/02/2026 1 1 Encounter Details Date Type Department Care Team (Latest Contact Info) Description 06/23/2025 9:30 AM CDT Comprehensive Visit Department of Urology in [address] [place] [phone] Marysol Ang MPAS, Wendy.-C., P.A. [address] [phone] Mass Kidney (Primary Dx); Chronic Kidney Disease (CKD), Stage 3 Unspecified (HCC); Anticoagulant Therapy Discharge Disposition: Home or Self Care Social History Tobacco Use Types Packs/Day Years Used Date Smoking Tobacco: Never Assessed Depression Answer Date Recor ded PHQ-9 Total Score (max 27) 0 02/19 Comments Unknown Sex and Gender Information Value Date Recorded Sex Assigned at Not on file Legal Sex Female 2:13 PM CDT Gender Identity Not on file Sexual Orientation Not on file documented as of this encounter Plan of Treatment Upcoming Encounters Date Type Department Care Team (Late st Contact Info) Description 08/18/2025 11:15 AM CDT Appointment Department of Radiology, [facility] in [place], [place] [address] [place] [address] Marysol Ang MPAS, Wendy.-C., P.A. [address] [phone] Scheduled Referrals Name Type Priority Associated Diagnoses Orde r Schedule Urology office visit (clinic) Outpatient Referral Routine Expected: 06/23/2025, Expires: 09/23/2026 documented as of this encounter Results * (ABNORMAL) Hemoglobin A1c (06/23/2025 10:47 AM CDT) Hemoglobin A1c, B 7.1(H) 4.2 - 5.6 % 06/23/2025 11:04 AM CDT [facility] Comment: Hemoglobin A1c values greater than or equal to 6.5 percent are diagnostic for diabetes mellitus. Diagnosis should be confirmed by repeat testing. In diabetic patients, HbA1c goals should be discussed with healthcare provider. Blood (Blood, Venous) 06/23/2025 10:47 AM CDT 06/23/2025 10:48 AM CDT us Marysol FINNEY, P.A.-C., P.A. LAB BLOOD AD D-ON Final Result [facility] [place] [facility] [address] [place] [address], [facility] [address] [place] [address] * (ABNORMAL) Comprehensive Metabolic Panel (06/23/2025 10:47 AM CDT) Potassium, P 4.7 3.6 - 5.2 mmol/L 06/23/2025 11:13 AM CDT [facility] Sodium, P 133(L) 135 - 145 mmol/L 06/23/2025 11:13 AM CDT [facility] Chloride, P 97(L) 98 - 107 mmol/L 06/23/2025 11:13 AM CDT [facility] Bicarbonate, P 23 22 - 29 mmol/L 06/23/2025 11:13 AM CDT [facility] Anion Gap, P 13 7 - 15 06/23/2025 11:13 AM CDT [facility] BUN (Blood Urea Nitrogen), P 30(H) 6 - 21 mg/dL 06/23/2025 11:13 AM CDT [facility] Creatinine 1.44(H) 0.59 - 1.04 mg/dL 06/23/2025 11:13 AM CDT [facility] Estimated GFR (eGFR) 35(L) >=60 mL/min/BS A 06/23/2025 11:13 AM CDT [facility] Comment: Estimated GFR calculated using the 2020 CKD_EPI creatinine equation. Calcium, Total, P 11.1(H) 8.8 - 10.2 mg/dL 06/23/2025 11:13 AM CDT [facility] Glucose, P 103 70 - 140 mg/dL 06/23/2025 11:13 AM CDT [facility] Protein, Total, P 7.5 6.3 - 7.9 g/dL 06/23/2025 11:13 AM CDT [facility] Albumin, P 4.1 3.5 - 5.0 g/dL 06/23/2025 11:13 AM CDT [facility] Aspartate Aminotransferase (AST), P 23 8 - 43 U/L 06/23/2025 11:13 AM CDT [facility] Alkaline Phosphatase, P 81 35 - 104 U/L 06/23/2025 11:13 AM CDT [facility] Alanine Aminotransferase (ALT), P 13 7 - 45 U/L 06/23/2025 11:13 AM CDT [facility] Bilirubin, Total, P 0.6 0.0 - 1.2 mg/dL 06/23/2025 11:13 AM CDT [facility] Blood (Blood, Venous) 06/23/2025 10:47 AM CDT 06/23/2025 10:48 AM CDT us Marysol FINNEY, P.A.-C., P.A. LAB BLOOD AD D-ON Final Result [facility] [place] [facility] [address] [place] [address], [facility] [address] [place] [address] * (ABNORMAL) CBC with Differential, Blood (06/23/2025 10:47 AM CDT) Hemoglobin 12.8 11.6 - 15.0 g/dL 06/23/2025 10:54 AM CDT [facility] Hematocrit 38.4 35.5 - 44.9 % 06/23/2025 10:54 AM CDT [facility] Erythrocytes 4.07 3.92 - 5.13 x10(12)/L 06/23/2025 10:54 AM CDT [facility] MCV 94.3 78.2 - 97.9 fL 06/23/2025 10:54 AM CDT [facility] RBC Distrib Width 13.8 12.2 - 16.1 % 06/23/2025 10:54 AM CDT [facility] Platelet Count 207 157 - 371 x10(9)/L 06/23/2025 10:54 AM CDT [facility] Leukocytes 10.1(H) 3.4 - 9.6 x10(9)/L 06/23/2025 10:54 AM CDT [facility] Neutrophils 8.47(H) 1.56 - 6.45 x10(9)/L 06/23/2025 10:54 AM CDT [facility] Lymphocytes 0.68(L) 0.95 - 3.07 x10(9)/L 06/23/2025 10:54 AM CDT [facility] Monocytes 0.69 0.26 - 0.81 x10(9)/L 06/23/2025 10:54 AM CDT [facility] Eosinophils 0.21 0.03 - 0.48 x10(9)/L 06/23/2025 10:54 AM CDT [facility] Basophils 0.04 0.01 - 0.08 x10(9)/L 06/23/2025 10:54 AM CDT [facility] Blood (Blood, Venous) 06/23/2025 10:47 AM CDT 06/23/2025 10:48 AM CDT us Marysol FINNEY, P.A.-C., P.A. LAB BLOOD AD D-ON Final Result [facility] [facility] [address] [place] [address], [facility] [address] [place] [address] documented in this encounter Visit Diagnoses Diagnosis Mass Kidney- Primary Chronic Kidney Disease (CKD), Stage 3 Unspecified (HCC) Anticoagulant Therapy documented in this encounter Additional Health Concerns Assessment Noted Time PHQ-9 Depression Total Score: 0 02/20/20 22 2:00 PM CDT documented as of this encounter
--- OUTSIDE RECORDS SUMMARY | 2025-06-23 10:35 | XMS_ITS | Encounter Summary ---
Author Organization [facility] Address [address] [place] [address] Care Team Providers Care Recreation Attendant Supervisor Name Role Phone Unavailable Primary Care Provider Unavailabl e Encounter Details Date Type Department Care Team (Latest Contact Info) Description 06/23/2025 10:35 AM CDT - 06/23/2025 11:59 PM CDT Hospital Encounter Department of Laboratory Medicine in [address] [phone] Marysol Ang, MPAS, P.A.-C., P.A. [address] [phone] Mass Kidney Discharge Disposition: Home or Self Care Social [...] on file documented as of this encounter Medications at Time of Discharge acetaminophen (TYLENOL) 500 mg capsule Take by mouth every 6 (six) hours as needed for pain. amiodarone (PACERONE) 200 mg tablet Take 200 mg by mouth daily. apixaban (ELIQUIS) 2.5 mg tablet Take 2.5 mg by mouth 2 (two) times a day. bumetanide (BUMEX) 0.5 mg tablet Take 0.5 mg by mouth daily. carvediloL (COREG) 12.5 mg tablet Take 12.5 mg by mouth 2 (two) times a day with meals. donepeziL (ARICEPT) 5 mg tablet Take 5 mg by mouth at bedtime. glimepiride (AMARYL) 1 mg tablet Take 1 mg by mouth daily with breakfast. LORazepam (ATIVAN) 0.5 mg tablet Take 0.5 mg by mouth 2 (two) times a day as needed for anxiety. magnesium chloride (SLOW-MAG) 71.[address] tablet Take 143 mg by mouth every morning before breakfast. Do not crush or chew. nitroglycerin (NITROSTAT) 0.[address] 0.4 mg under the tongue every 5 (five) minutes as needed for chest pain. omeprazole (PriLOSEC) [address] capsule Take 20 mg by mouth every morning before breakfast. sennosides (SENOKOT) 8.6 mg tablet Take 8.6 mg by mouth daily. simvastatin (ZOCOR) 10 mg tablet Take 10 mg by mouth at bedtime. documented as of this encounter Plan of Treatment Upcoming Encounters Date Type Department Care Team (Late st Contact Info) Description 08/18/2025 11:15 AM CDT Appointment Department of Radiology, [facility], in [place], [place] [address] [place] [address] Marysol Ang, MPAS, P.A.-C., P.A. [address] [phone] documented as of this encounter Visit Diagnoses Diagnosis Mass Kidney documented in this encounter Additional Health Concerns Assessment Noted Time PHQ-9 Depression Total Score: 0 02/20/20 22 2:00 PM CDT documented as of this encounter
--- OUTSIDE RECORDS SUMMARY | 2025-06-23 10:35 | XMS_ITS | Encounter Summary ---
Author Organization [facility] Address [address] [place] [address] Care Team Providers Care Frame Welder Cargo Utility Trailers Name Role Phone Unavailable Primary Care Provider Unavailabl e Encounter Details Date Type Department Care Team (Latest Contact Info) Description 06/23/2025 10:35 AM CDT - 06/23/2025 11:59 PM CDT Hospital Encounter Department of Laboratory Medicine in [address] [phone] Marysol Ang, MPAS, P.A.-C., P.A. [address] [phone] Mass Kidney Discharge Disposition: Home [...] 11:15 AM CDT Appointment Department of Radiology, [facility], in [place], [place] [address] [place] [address] Marysol Ang, MPAS, P.A.-C., P.A. [address] [phone] documented as of this encounter Procedures Procedure Name Priority Date/Time Associated Diagnosis Comments CBC WITH DIFFERENTIAL, B Routine 06/23/2025 10:47 AM CDT Mass Kidney HEMOGLOBIN A1C, B Routine 06/23/2025 10: 47 AM CDT Mass Kidney COMPREHENSIVE METABOLIC PANEL, S/P Routine 06/23/2025 10:47 AM CDT Mass Kidney documented in this encounter Results * (ABNORMAL) Hemoglobin A1c [...] P.A. LAB BLOOD AD D-ON Final Result [facility] [place] [facility] [address] [place] [address], [facility] in [place] [address] [place] [phone] * (ABNORMAL) Comprehensive Metabolic Panel (06/23/2025 10:47 [...] P.A. LAB BLOOD AD D-ON Final Result [facility] [place] [facility] [address] [place] [address], [facility] in [place] [address] [place] [address] * (ABNORMAL) CBC with Differential, Blood (06/23/2025 [...] P.A. LAB BLOOD AD D-ON Final Result [facility] [address] [place] [address], [facility] in [place] [address] [place] [address] documented in this encounter Visit Diagnoses Diagnosis Mass Kidney documented in this encounter Additional Health Concerns Assessment Noted Time PHQ-9 Depression Total Score: 0 04/19/20 22 2:00 PM CDT documented as of this encounter
--- OUTSIDE RECORDS SUMMARY | 2025-07-13 14:40 | XMS_ITS | Encounter Summary ---
Author Organization [facility] Address [address] [place] [address] Care Team Providers Care Improvement Intern Name Role Phone Unavailable Primary Care Provider Unavailabl e Reason for Visit * Reason Onset Date Comments Communication 06/09/2025 Upcoming appt Encounter Details Date Type Department Care Team (Latest Contact Info) Description 06/09/2025 Clinical Communication Department of Urology in [address] [phone] Marysol Ang MPAS, P.A.-C., P.A. [address] [place] [phone] Communication (Upcoming appt) Social History Tobacco Use Types Packs/Day Years [...] Appointment Department of Radiology, [facility], in [place], [place] [address] [place] [address] Marysol Ang MPAS, P.A.-C., P.A. [address] [place] [phone] documented as of this encounter Visit Diagnoses Not on filedocumented in this encounter Additional Health Concerns Assessment Noted Time PHQ-9 Depression Total Score: 0 02/20/20 22 2:00 PM CDT documented as of this encounter
--- OUTSIDE RECORDS SUMMARY | 2025-07-13 14:40 | XMS_ITS | Encounter Summary ---
Author Organization [facility] Address [address] [place] [address] Care Team Providers Care Parts Professional Name Role Phone Unavailable Primary Care Provider Unavailabl e Reason for Referral * MRI/CAT/PET Scan (Routine) - Authorized Specialty Diagnoses / Procedures Referred By Contjarek t Referred To Contact Radiology Diagnoses Kidney And Ureter Disorder Procedures MR Abdomen Pelvis Urogram without and with IV Contrast MR Abdomen Pelvis Urogram without and with IV Contrast Marysol Ang MPAS, P.A.-C., P.A. [address] [place] [address] Phone: tel: fax: [facility] Referral ID Status Reason Start Date Expiration Date V isits Requested Visits Authorized [id number] Authorized 06/24/2025 09/24/2026 1 1 Reason for Visit * Reason Onset Date Comments Follow-up Orders 06/23/2025 Encounter Details Date Type Department Care Team (Latest Contact Info) Description 06/23/2025 Clinical Communication Department of Urology in [address] [phone] Marysol Ang MPAS, P.A.-C., P.A. [address] [place] [address] Follow-up Orders Social History Tobacco Use Types Packs/Day Years [...] 11:15 AM CDT Appointment Department of Radiology, [facility], in [place], [place] [address] [place] [address] Marysol Ang, MPAS, P.A.-C., P.A. [address] [place] [address] Scheduled Orders Name Type Priority Associated Diagnoses Orde r Schedule MR Abdomen Pelvis Urogram without and with IV Contrast Imaging RAD - Routine (most inpatients and all outpatients) Kidney And Ureter Disorder Expected: 06/27/2025, Expires: 09/24/2026 documented as of this encounter Visit Diagnoses Diagnosis Kidney And Ureter Disorder documented in this encounter Additional Health Concerns Assessment Noted Time PHQ-9 Depression Total Score: 0 02/20/20 2:00 PM CDT documented as of this encounter
--- OUTSIDE RECORDS SUMMARY | 2025-07-13 14:40 | XMS_ITS | Clinical Summary ---
Author Organization [facility] Address [address] [place] [address] Care Team Providers Care Relationship Banker Name Role Phone Unavailable Primary Care Provider Unavailabl e Source Comments Patient records contain information from all sites at [facility]. For routine questions regarding patient records, call [phone] during business hours, M-F 8:00 AM - 5:00 PM Central Time. Record requests for emergency care only can be directed to [phone] at any time.[facility] Allergies Active Allergy Reactions Criticality Noted Date Comments Dapagliflozin Other (see comments) High 04/20/2020 Syncope and falls Furosemide Rash Medium 07/16/2017 Hydralazine Nausea And Vomiting High 06/24/2018 Penicillins Edema (Reselect Reaction),Swelling High 08/29/2019 Per CareEverywhere Records: Arm swelling 07/13/15 received rx for Keflex 30 doses per med history Arm swelling 07/13/15 received rx for Keflex 30 doses per med history Medications acetaminophen (TYLENOL) 500 mg capsule Take by mouth every 6 (six) hours as needed for pain. Active amiodarone (PACERONE) 200 mg tablet Take 200 mg by mouth daily. Active apixaban (ELIQUIS) 2.5 mg tablet Take 2.5 mg by mouth 2 (two) times a day. Active bumetanide (BUMEX) 0.5 mg tablet Take 0.5 mg by mouth daily. Active carvediloL (COREG) 12.5 mg tablet Take 12.5 mg by mouth 2 (two) times a day with meals. Active donepeziL (ARICEPT) 5 mg tablet Take 5 mg by mouth at bedtime. Active glimepiride (AMARYL) 1 mg tablet Take 1 mg by mouth daily with breakfast. Active LORazepam (ATIVAN) 0.5 mg tablet Take 0.5 mg by mouth 2 (two) times a day as needed for anxiety. Active magnesium chloride (SLOW-MAG) 71.[address] tablet Take 143 mg by mouth every morning before breakfast. Do not crush or chew. Active nitroglycerin (NITROSTAT) 0.[address] 0.4 mg under the tongue every 5 (five) minutes as needed for chest pain. Active omeprazole (PriLOSEC) [address] capsule Take 20 mg by mouth every morning before breakfast. Active sennosides (SENOKOT) 8.6 mg tablet Take 8.6 mg by mouth daily. Active simvastatin (ZOCOR) 10 mg tablet Take 10 mg by mouth at bedtime. Active Encounters Date Type Department Care Team Description 06/24/2025 Orders Only Department of Urology in [address] [phone] Marysol Ang MPAS, Laura.Destinee.-C., P.A. Kidney And Ureter Disorder (Primary Dx) 06/23/2025 10:35 AM CDT - 06/23/2025 11:59 PM CDT Hospital Encounter Department of Laboratory Medicine in [address] [phone] Marysol Ang MPAS P.Destinee.-C., P.A. Mass Kidney Discharge Disposition: Home or Self Care 06/23/2025 10:35 AM CDT - 06/23/2025 11:59 PM CDT Hospital Encounter Department of Laboratory Medicine in [address] [phone] Marysol Ang MPAS, P.A.-C., P.A. Mass Kidney Discharge Disposition: Home or Self Care 06/23/2025 9:30 AM CDT Comprehensive Visit Department of Urology in [address] [phone] Marysol Ang MPAS, P.A.-C., P.A. Mass Kidney (Primary Dx); Chronic Kidney Disease (CKD), Stage 3 Unspecified (HCC); Anticoagulant Therapy Discharge Disposition: Home or Self Care 06/23/2025 Clinical Communication Department of Urology in [address] [phone] Marysol Ang MPAS, P.A.-C., P.A. Follow-up Orders 06/09/2025 Clinical Communication Department of Urology in [address] [phone] Marysol Ang MPAS, P.A.-C., P.A. Communication (Upcoming appt) from Last 3 Months Social History Tobacco Use Types Packs/Day Years [...] Sign Reading Time Taken Comments Blood Pressure 118/66 02/19/2022 2:06 PM CDT Pulse - - Temperature - - Respiratory Rate - - Oxygen Saturation - - Inhaled Oxygen Concentration - - Weight - - Height - - Body Mass Index - - Plan of Treatment Upcoming Encounters Date Type Department Care Team (Late st Contact Info) Description 08/18/2025 11:15 AM CDT Appointment Department of Radiology, [facility], in [place], [place] [address] [place] [address] Marysol Ang MPAS, P.A.-C., P.A. [address], [place] [phone] Health Maintenance Due Date Last Done Comments Zoster Vaccines (1 of 2) 1987 Depression Screening (Annual PHQ-2) 11/03/2024 Fall Risk Screen (Annual) 11/03/2024 COVID-19 Vaccine ( season) 2025 08/04/2024, 09/11/2023, 03/07/2023, Additional history exists Influenza Vaccine (#1) 2025 , 08/26/2023, 08/07/2022, Additional history exists DTaP,Tdap,and Td Vaccines (4 - Td or Tdap) 06/02/2033 06/02/2023, 10/14/2017, 09/18/2007 Pneumococcal vaccine (50+ years) Completed 09/22/2014, 08/02/2003 RSV vaccine - (32-36 weeks) or 60+ years Completed 10/31/2024 IPV Vaccines Aged Out No longer eligi ble based on patient's age to complete this topic Procedures Procedure Name Priority Date/Time Associated Diagnosis Comments HEMOGLOBIN A1C, B Routine 06/23/2025 10: 47 AM CDT Mass Kidney COMPREHENSIVE METABOLIC PANEL, S/P Routine 06/23/2025 10:47 AM CDT Mass Kidney CBC WITH DIFFERENTIAL, B Routine 06/23/2025 10:47 AM CDT Mass Kidney from Last 3 Months Results * (ABNORMAL) CBC with Differential, Blood (06/23/2025 [...] P.A. LAB BLOOD AD D-ON Final Result [facility] [address] [place] [address], [facility] [place] [address] [place] [phone] * (ABNORMAL) Hemoglobin A1c (06/23/2025 10:47 AM [...] P.A. LAB BLOOD AD D-ON Final Result [facility] [place] [facility] [address] [place] [address], [facility] [place] [address] [place] [address] * (ABNORMAL) Comprehensive Metabolic Panel (06/23/2025 10:47 [...] P.A. LAB BLOOD AD D-ON Final Result Performing Organization Address City/State/[facility] Co de Phone Number [facility] [address] [place] [address], [facility] [place] [address] [place] [address] from Last 3 Months Insurance MEDICARE [facility]
--- OUTSIDE RECORDS SUMMARY | 2025-07-13 14:41 | XMS_ITS | Encounter Summary ---
Author Organization [facility] Address [address] [place] [address] Care Team Providers Care Chair Inspector And Leveler Name Role Phone Unavailable Primary Care Provider Unavailabl e Encounter Details Date Type Department Care Team (Late st Contact Info) Description 06/24/2025 Orders Only Department of Urology in [address] [phone] Marysol Ang MPAS, P.A.-C., P.A. [address] [place] [address] Kidney And Ureter Disorder (Primary Dx) Social History Tobacco Use Types Packs/Day Years [...] Radiology, [facility], in [place], [place] [address] [place] [address] Marysol Ang MPAS, P.A.-C., P.A. [address] [place] [phone] documented as of this encounter Visit Diagnoses Diagnosis Kidney And Ureter Disorder- Primary documented in this encounter Additional Health Concerns Assessment Noted Time PHQ-9 Depression Total Score: 0 02/20/20 22 2:00 PM CDT documented as of this encounter
--- OUTSIDE RECORDS SUMMARY | 2025-07-13 14:41 | XMS_ITS | Clinical Summary ---
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 Name Role Phone Leonard Newman MD Unavailable Sony Darling MD Unavailable [phone] Titus Grijalva MD Unavailable Jose Daniel Lilly MD Unavailable Unavail able Nurses, Advanced Heart Failure Unavailable + Kashif Frey MD Unavailable Rosie Sabillon RN Unavailable Yola Hernandez RN Unavailable Unavailable Radha Grimes MD Primary Care Provide r Shaka Alicea Unavailable Toby Rayo MD Unavailable [phone] Allergies Active Allergy Reactions Criticality Noted Date Comments Dapagliflozin Intolerance-Can't Take,Syncope High 04/20/2020 Syncope and falls Furosemide Rash Medium 07/16/2017 Hydralazine Nausea And Vomiting High 06/24/2018 Penicillins Edema Medium 10/12/2024 Arm swelling 07/13/15 received rx for Keflex 30 doses per med history Medications vit A,C and A-pugswu-axfkffhf (OCUVITE WITH LUTEIN) 300 mcg-200 mg-27 mg-2 mg tabIndications:vi tamin deficiency Take 1 tablet. by mouth once daily in the evening. Active calcium carbonate 500 mg calcium (1,250 mg) chewable tabletIndications :hypocalcemia prevention,post-m enopausal osteoporosis prevention CHEW 1 TAB BY MOUTH TWICE DAILY NEEDED 03/09/20 21 Active lidocaine 4 % topical patchIndications: Traumatic compression fracture of T10 thoracic vertebra, sequela Apply to intact skin to cover most painful area for max 12hr per 24hr period. 0 08/19/20 23 Active nitroglycerin (NITROSTAT) 0.4 mg sublingual tabletIndications :Nonischemic cardiomyopathy (HC) Place 1 Tablet (0.4 mg) under the tongue every 5 minutes if needed for Chest Pain. Up to 3 tablets in 15 minutes. 25 Tablet 11/13/19 24 Active miconazole nitrate 2% ointment (CRITIC-AID CLEAR AF) 2 % ointIndications:V ulvar dermatitis Apply topically to affected area(s) two times daily. 56.7 g 03/10/20 24 Active miscellaneous medical supply miscIndications:C hronic systolic CHF (congestive heart failure), NYHA class 3 (HC),Bilateral exudative age-related macular degeneration, unspecified stage (HC) As directed. Talking scale--patient has CHF and poor vision due to macular degeneration 1 Each 07/09/20 24 Active sennosides (SENNA) 8.6 mg tablet Take 8.6 mg by mouth once daily if needed for Constipation. 05/24/20 23 Active carvediloL (Coreg) 3.125 mg tabletIndications :Chronic systolic CHF (congestive heart failure), NYHA class 3 (HC) Take 1 Tablet (3.125 mg) by mouth two times daily with meals. Take with (1) 12.5 mg tablet twice daily for a total of 15.625 mg twice daily. 180 Tablet 3 08/25/20 24 Active sacubitril-valsar jung (ENTRESTO) 24-26 mg tabletIndications :chronic heart failure Take 1 Tablet by mouth two times daily. 180 Tablet 3 09/17/20 24 Active bumetanide (BUMEX) 0.5 mg tabletIndications :Chronic [...] 10/12/20 24 Active clobetasol (TEMOVATE) 0.05 % ointmentIndicatio ns:Atrophic vaginitis Apply topically to vulva once nightly for 2-3 times per week 60 g 5 11/09/19 25 Active empty container (Sharps Container) miscIndications:T ype [...] 12/10/19 25 Active apixaban (Eliquis) 2.5 mg tabletIndications :Paroxysmal atrial fibrillation (HC) Take 1 Tablet (2.5 mg) by mouth two times daily. resume Eliquis on 12/18/2024 PM 12/18/19 25 Active Prodigy No Coding stripIndications: Type 2 diabetes mellitus with stage 3 chronic kidney disease, with long-term current use of insulin, unspecified whether stage 3a or 3b CKD (HC) As directed two times daily. Dispense item covered by pt ins. E11.9 IDDM type II - Test 4 times/day. Reason: Unstable diabetes 400 Each 3 12/21/19 25 Active Diabetic ShoeIndications:T ype 2 diabetes mellitus with stage 3 chronic kidney disease, with long-term current use of insulin, unspecified whether stage 3a or 3b CKD (HC) As directed. 1 Each 01/14/20 25 Active Post Mastectomy BraIndications:Pr imary cancer of right breast (HC),S/P mastectomy, right For personal use. 1 Packet 01/14/20 25 Active simvastatin 10 mg tabletIndications :hyperlipidemia TAKE 1 TABLET (10 MG) BY MOUTH AT BEDTIME. 90 Tablet 01/21/20 25 Active semaglutide (Rybelsus) 7 mg tabletIndications :Type 2 diabetes mellitus with stage 3 chronic kidney disease, with long-term current use of insulin, unspecified whether stage 3a or 3b CKD (HC) Take 1 Tablet (7 mg) by mouth once daily before a meal. Start after completing 3 mg doses. Take on an empty stomach at least 30 minutes before the first food, beverage, medications of the day with plain water only. Do not crush, or chew. 120 Tablet 1 5 12:56 PM CDT 03/23/20 25 Active carvediloL 12.5 mg tabletIndications :Chronic systolic CHF (congestive heart failure), NYHA class 3 (HC),Nonischemic cardiomyopathy (HC) TAKE 1 TABLET (12.5 MG) BY MOUTH TWO TIMES DAILY. TAKE WITH (1) 3.125 MG TABLET FOR A TOTAL OF 15.625 MG 180 Tablet 3 04/25/20 25 Active Basaglar KwikPen U-100 Insulin 100 unit/mL (3 mL) penIndications:Ty pe 2 diabetes mellitus with stage 3 chronic kidney disease, with long-term current use of insulin, unspecified whether stage 3a or 3b CKD (HC) PRODUCT DESIRED: BASAGLAR KWIKPEN. INJECT 18 UNITS ONCE DAILY IN THE MORNING. 60 mL 04/28/20 25 Active gabapentin (NEURONTIN) 100 mg capsuleIndication s:Restless legs Take 1 Capsule (100 mg) by mouth at bedtime. 90 Capsule 3 06/23/20 25 Active semaglutide (Rybelsus) 3 mg tabletIndications :Type 2 diabetes mellitus with stage 3 chronic kidney disease, with long-term current use of insulin, unspecified whether stage 3a or 3b CKD (HC) Take 1 Tablet (3 mg) by mouth once daily. Take on an empty stomach at least 30 minutes before the first food, beverage, medications of the day with plain water only. Do not crush, or chew. 30 Tablet 1 5 12:21 PM CDT 02/19/20 25 025 Discontin ued(*Med complete/ Regimen complete/ Level of care change) gabapentin (NEURONTIN) 100 mg capsuleIndication s:Restless legs TAKE 1 CAPSULE (100 MG) BY MOUTH AT BEDTIME. 90 Capsule 05/25/20 25 025 Discontin ued(Reord er (E-cancel not sent)) Active Problems Patient Care Coordination No te Formatting of this note migh t be different from the original. HF/Structural Research Eligibility Review Date: 07/29/19 Age: 84 y.o. 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 Primary gold plater is Kashif Frey MD. CardioMEMs is MRI [...] Overview (04/23/2017): - present since 2012 per [facility] NSTEMI (non-ST elevated myocardial infarction) 0 04/23/2017 Overview (04/23/2017): - negative angiogram, ?Stress cmp ACP (advance care planning) 05/11/2013 Overview (05/11/2013): Patient has identified Health Care Agent(s): Yes Add Health Care Agents: Yes Health Care Agent(s): Primary Health Care Agent: Jeffery Russo Relationship: spouse Secondary Health Care Agent: Delmy Russo Relationship: daughter (n) [phone](w) Secondary Health Care Agent: Justine Russo Relationship: daughter (c) [phone] (w) Guardian: Relationship: Phone: Patient has Advance [...] heart stops; She has little chance of care home survival if her heart stops and the [...] Planning: Disease-specific Session Tonya Russo is a [facility] patient. Her PCP is Dr Raphael Michelle at [facility]. Advance care planning discussions were completed with Tonya and her spouse and healthcare agent, Jeffery Russo. Her daughter and alternative HCA, Delmy Russo, was also present. Understanding of Illness and Disease [place]: Tonya identifies her medical condition as being [...] Hospice when/if appropriate. Would desire placement at [facility] if not able to be cared for at home. 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 Tonya priyanka with serious challenges [...] years in her home and moved to [facility] prior to . As a result of [...] and primary care provider. Hard Choices for [place] People booklet was given to Tonya and [...] or Hospice when /if appropriate. Hospice Care, [facility], Home Care, and [facility] a Loved One brochure(s) were given to Tonya and/or her healthcare agent. Advance Care Planning recommendations and Tonya's concerns and questions were cc e d to her primary provider. Interviewer: Maris Cantrell, RN 05/10/2013 Essential hypertension 03/17/2012 Osteopenia 10/04/2009 [...] Encounters Date Type Department Care Team Description 07/13/2025 Nurse Triage [facility] [address] [place] [address] Radha Grimes MD Blood In Stool 2025 1:40 PM CDT Ancillary Procedure [facility] [address] [place] [address] [address] Arrived 2025 Nurse/Clinic Staff Only [facility] [address] [place] [address] Radha Grimes MD Nurse/Clinic Staff Only (Low Blood sugar) 2025 Travel 06/29/2025 9:50 AM CDT Procedure Only [facility] [address] [place] [address] Device Check (Monthly Remote CardioMEMs De... 06/29/2025 Travel 06/23/2025 12:35 PM CDT Office Visit [facility] [address] [place] [address] Radha Grimes MD Medication Management (Refills for restlaess legs./Just coming back from Urology appointment); Sinus Problem (Nose runs all the time. Mucus in the throat. Still has blood in the right side, not bloody nose but clots.) 06/23/2025 Travel 06/16/2025 Telephone [facility] [address] [place] [address] Kashif Frey MD Appointment 06/09/2025 Telephone [facility] [place] Prescription Assistance Program [facility] [id number] [place] [phone] Ramila Jones, PharmD Medication Management (AllProfex Prescription Assistance- Rybelsus/) 06/02/2025 Refill [facility] [address] [place] [address] Radha Grimes MD Refill Request (Gabapentin) 05/30/2025 9:50 AM CDT Procedure Only [facility] [address] [place] [address] Device Check (Monthly Remote CardioMEMs De... 05/30/2025 Refill [facility] [address] [place] [address] Radha Grimes MD Refill Request (Gabapentin) 05/30/2025 Travel 05/27/2025 Medical Messaging [facility] [address] [place] [address] Radha Grimes MD Possible kidney referral to [place] 05/23/2025 Refill [facility] [address] [place] [address] Radha Grimes MD Refill Request (Gabapentin) 05/10/2025 Travel 04/29/2025 9:50 AM CDT Procedure Only [facility] [address] [place] [address] Device Check (Monthly Remote CardioMEMs De... 04/28/2025 11:45 AM CDT Office Visit [facility] [address] [facility] [address] [place] [address] Toby Rayo MD Diabetes (3 months) 04/28/2025 Travel 04/27/2025 Refill [facility] [address] [place] [address] Radha Grimes MD Refill Request (Basaglar Kwikpen U-100 Insulin) 04/25/2025 Refill [facility] [address] [place] [address] Kashif Frey MD Refill Request (Carvedilol) from Last 3 Months Immunizations Immunization Administration [...] AM CDT Legal Sex Female 5:24 AM ADDICTION NURSE Gender Identity Female 02/15/2024 10:51 AM [...] Sign Reading Time Taken Comments Blood Pressure 166/92 06/23/2025 12:59 PM CDT Pulse 75 06/23/2025 12:59 PM CDT Temperature 36.5 C (97.7 F) 12/17/2024 4:45 PM ADDICTION NURSE Respiratory Rate 17 12/17/2024 4:33 PM ADDICTION NURSE Oxygen Saturation 97% 06/23/2025 12:54 PM CDT Inhaled Oxygen Concentration - - Weight 62 kg (136 lb 9.6 oz) 06/23/2025 12:54 PM CDT Height 162.6 cm (5' 4) 12/17/2024 12:45 PM ADDICTION NURSE Body Mass Index 23.45 12/17/2024 12:45 PM ADDICTION NURSE Plan of Treatment Upcoming Encounters Date Type Department Care Team (Late st Contact Info) Description 07/29/2025 8:50 AM CDT Office Visit [facility] [address] [place] [address] Radha Grimes MD [address] [place] [address] 07/29/2025 9:50 AM CDT Procedure Only [facility] [address] [place] [address] 07/29/2025 11:20 AM CDT Office Visit [facility] [address] [facility] [address] [place] [address] [place] [address] [place] [address] 08/11/2025 Cardiac Device Check [facility] [phone] 08/29/2025 9:50 AM CDT Procedure Only [facility] [address] [place] [address] 09/28/2025 9:50 AM ADDICTION NURSE Procedure Only [facility] [address] [place] [address] 10/28/2025 9:50 AM ADDICTION NURSE Procedure Only [facility] [address] [place] [address] Health Maintenance Due Date Last Done Comments Zoster (shingles) series for age 50+ (1 of 2) 1987 COVID-19 vaccine series ( season) 2025 08/04/2024, 09/11/2023, 03/07/2023, Additional history exists Influenza Vaccine (#1) 2025 , 08/26/2023, 08/07/2022, Additional history exists BMI (ht and wt [...] series for age 50+ Completed 09/22/2014, 08/02/2003 RSV vaccine for adults or Completed 10/31/2024 Hepatitis B series for 19+ Aged Out N o longer eligible based on patient's age to complete this topic Goals Goal Patient Goal Type Associated Problems Recent Progress Patient-Stated? Author BLOOD PRESSURE - Maintains BP less than 140/90 Blood Pressure No Christianne Bridges LPN Medical Devices Implanted Type Area Water Inspector Device Identifier Shelf Expiration Date Model / Serial / Lot Mri Conditional Decker Operator-D Implanted:12/02 by Simone Lemon MD (Quantity not on file) COMMUNITY HEALTH NURSING DIRECTOR-D [employer] CLARIA MRI QUAD COMMUNITY HEALTH NURSING DIRECTOR-D SURESCAN [id number] / [id number] / Cardiomems-2017 Implanted:04/06 (Quantity not on file) CardioMEMS Procedures Procedure Name Priority Date/Time Associated Diagnosis Comments XR MAMMO UNI SCREENING LEFT Routine 2025 1:46 PM CDT Visit for screening mammogram URINALYSIS MICROSCOPIC Routine 06/23/2025 2:05 PM CDT Left kidney mass URINE CULTURE Routine 06/23/2025 2:05 PM CDT Left kidney mass XR DXA BONE DENSITY 2 SITES AXIAL Routine 10/03/2011 11:17 AM ADDICTION NURSE Osteopenia from Last 3 Months or Most Recently Relevant to Health Maintenance Results * XR MAMMO UNI SCREENING LEFT (2025 1:46 PM CDT) Anatomical Region Laterality Modality BREASTS, Breast Left Left Mammography Impressions 2025 3:34 PM CDT There is no radiographic evidence for malignancy. Recommend annual mammograms. MAMMOGRAM ASSESSMENT: ACR 1 Negative PATIENTS: You will also receive a letter with your examination results in an easy to read format. If you have questions about your results, please contact your referring provider. Narrative 2025 3:34 PM CDT For Patients: As a result of the Century Cures Act, medical imaging exams and procedure reports are released immediately into your electronic medical record. You may view this report before your referring provider. If you have questions, please contact your health care provider. XR MAMMO UNI SCREENING LEFT [[id number]] CLINICAL HISTORY: This is an asymptomatic 89 y.o. patient. INDICATION FOR EXAM: Mammogram Screening. TECHNIQUE: CC and MLO views were obtained. This study was evaluated with the assistance of Computer-Aided Detection. COMPARISON FILM: Yes 07/09/24 [facility] 05/23/23 [facility] FINDINGS: There are scattered areas of fibroglandular density. There are no dominant masses, suspicious micro calcifications or areas of architectural distortion. us Radha Grimes MD MAMMO Final Result * (ABNORMAL) URINALYSIS MICROSCOPIC [[id number]] - routine (06/23/2025 2:05 PM CDT) RBC 0-2 0-2, None Seen /HPF 06/24/2025 5:43 AM CDT [facility] WBC 26-50(A) 0-2, 3-5, None Seen /HPF 06/24/2025 5:43 AM CDT [facility] BACTERIA None Seen None Seen, Rare, Few Bacteria/ HPF 06/24/2025 5:43 AM CDT [facility] EPITHELIAL CELLS None Seen None Seen, Few Epi/HPF 06/24/2025 5:43 AM CDT [facility] HYALINE CASTS 0-2 0-2, 3-5 /LPF 06/24/2025 5:43 AM CDT [facility] Urine URINE SPECIMEN / Unknown Non-Blood / Unknown 06/23/2025 2:05 PM CDT 06/23/2025 2:14 PM CDT Radha Grimes MD URINE Final Result [facility] [address] [place] [address], * URINE CULTURE [[id number]] (06/23/2025 2:05 PM CDT) CULTURE <10,000 CFU/mL multiple organisms 06/25/2025 2:58 PM CDT [facility] Urine URINE SPECIMEN / Unknown Non-Blood / Unknown 06/23/2025 2:05 PM CDT 06/23/2025 2:14 PM CDT us Radha Grimes MD MICROBIOLOGY Final Result [facility] [address] [address], * XR DEXA BONE DENSITY 2 SITES (10/03/2011 11:17 AM ADDICTION NURSE) Anatomical Region Laterality Modality Spine, HIPS, HIPL, HIPR Other Narrative 10/16/2011 2:29 PM ADDICTION NURSE Please see scanned document for results of this study. Procedure Note Rita Augustin D - 10/16/2011 Please see scanned document for results of this study. us Raphael Michelle MD DEXA Final Re sult from Last 3 Months or Most Recently Relevant to Health Maintenance Insurance MEDICARE PB ONLY MEDICARE PART B HB ONLY [facility] MEDICARE PART A HB ONLY HC MEDICARE PPS MEDICARE PART B HB [place] [address] [phone] [facility] MEDICARE PART A [place] [address] [address] [place] [address] 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 POLST 03/14/2021 12:00 AM * Full Code [...] Comments Code Status Discussion: Discussed Care Teams Rugby League Footballer Relationship Specialty Start Date End Date Radha Grimes MD [address] [place] [address] PCP - General Family Practice 02/26/23 Leonard Newman MD [address] [place] [address] Cardiology Cardiovascular Disease 02/25/12 Sony Darling MD [address] [place] [address] Surgery - Otolaryngology 09/18/12 Titus Grijalva MD [address] [place] [address] Otolaryngology Surgery - Otolaryngology 02/02/13 Jose Daniel Lilly MD [address] [place] [address] Surgery - Orthopedics 09/21/13 Nurses, Advanced Heart Failure [address] [address] Heart Failure Care Coordination Gas Fitter 04/28/17 Kashif Frey MD [address] [address] Cardiology - CHF Cardiovascular Disease 03/09/18 Rosie Sabillon RN [address] [place] [id number] Registered Nurse Registered Nurse 06/17/18 Yola Hernandez, JANICE Registered Nurse 07/27/18 Shaka Alicea, ÓSCAR [address] [place] [address] Occupational Therapy 02/20/24 [place] [address] [place] [address] Endocrinology Endocrinology 01/07/25
[2025-07-13 14:46] VITALS: BP 167/88; PULSE 97; RESP 18; TEMP 37.2; O2SAT 96; BMI 24.1
--- NOTE | 2025-07-13 15:13 | CRLHL7_ITS ---
For Patients: As a result of the 21st Century Cures Act, medical imaging exams and procedure reports are released immediately into your electronic medical record. You may view this report before your referring provider. If you have questions, please contact your health care provider. INDICATION: GI bleed.. TECHNIQUE: CT angiogram abdomen and pelvis acquired with 98 cc Omnipaque 350 IV contrast. 3D MIP reconstructions were created and also reviewed. COMPARISON: 07/11/2024. FINDINGS: No extravasation is seen to suggest active GI bleed. No pooling of contrast is seen delayed. The abdominal aorta is tortuous and nonaneurysmal. No dissection. Moderate noncalcified plaque is seen. Mild stenosis at the origin of the celiac artery. Mild stenosis of the origin of the superior mesenteric artery. Mild stenosis origin of the right renal artery. Mesenteric arteries patent. The iliac arteries are unremarkable. Linear consolidation within the lower lobes likely represents chronic scarring bilaterally. The liver is unchanged in appearance. There is heterogeneity of the posterior right akanksha liver with no definite discrete lesion. Prominent vasculature within the inferior right akanksha liver could potentially represent a portosystemic shunt (series 5, image 87). The gallbladder is partially distended. No biliary ductal dilatation. The spleen is normal in size. A subcentimeter hypoattenuating lesion within the spleen measuring 7 millimeters is indeterminate but likely benign. Recommend close attention on follow-up. There is atrophy of the pancreas without peripancreatic stranding or main ductal dilatation. The adrenal glands are unremarkable. The kidneys are normal in size. There is abnormal appearance of the lower pole left kidney with a dominant mass and the satellite mass along the inferior left margin. This likely represents renal cell carcinoma. The largest component measures 6 centimeters in craniocaudal dimension. The mass is in aggregate on axial images measuring proximally 4.9 x 3.8 centimeters (series 11, image 83). There is a cyst within the upper pole left kidney. Multiple cysts are seen within the right kidney. The urinary bladder is distended with mild thickening, likely due to underdistention. Extensive sigmoid diverticulosis is seen. There is thickening of the sigmoid colon with no definite evidence of focal diverticulitis. Surgical clip or embolization coil is seen at the rectosigmoid colon (11, 143). Procedure streak artifact which limits evaluation there are diverticula scattered throughout the remainder of the colon as well. The appendix is nondilated. The small bowel is nondilated without evidence of a small-bowel obstruction or enteritis. There is thickened distal esophagus, likely due to underdistention. The stomach is partially distended with mild mucosal enhancement and mild thickening. This is favored to be due to partial distension rather than gastritis. No free air. No ascites. No organized drainable fluid collection. No omental caking or peritoneal nodularity. Subcentimeter abdominal retroperitoneal lymph nodes are noted. Doing well with adenopathy. The uterus is absent. No subcutaneous fluid collection or traumatic stranding. Bone windows demonstrate chronic severe T12 compression fracture. IMPRESSION: 1. Extensive colonic diverticulosis, greatest within the sigmoid colon, with no definite evidence of acute diverticulitis. 2. No gross contrast extravasation to suggest active GI bleed. 3. Mild thickening and mucosal enhancement of the stomach. This is favored to be due to underdistention rather than gastritis. 4. 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 A follow-up renal protocol MRI may be performed for further evaluation. 5. Additional findings as above. Please note that all CT scans at this facility use dose modulation, iterative reconstruction, and/or weight-based dosing when appropriate to reduce radiation dose to as low as reasonably achievable. Dictated by Alonso Frankel MD @ 07/13/2025 4:13:30 PM (Electronically Signed)
--- NOTE | 2025-07-13 15:15 | ED.GIBLEED ---
HPI - GI Bleed General Date Seen: 07/13/25 Chief complaint: GI Bleed Stated complaint: blood in stool, elevated BP, sent by urgent care Time Seen by Provider: 07/13/25 14:59 Source: patient Mode of arrival: ambulatory Limitations: no limitations History of Present Illness HPI Narrative: Patient is an 89-year-old female history of diabetes presenting to the emergency department lower GI bleed. States she was doing well on all day and then she had a bowel movement today that was watery is had bright red blood. Has had no further bowel movement since then. Has urinated and states her urine was clear. Denies any abdominal pain. Denies any chest pain, shortness of breath, headache, dizziness, weakness, numbness. Has not had any dysuria or polyuria. States she has been feeling mildly tired and lightheaded since the episode of hematochezia. Also states she feels like her abdomen is more bloated. 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 Denies any previous abdominal surgeries. No other concerns noted at this time. Related Data Home Medications ?Medication ?Instructions ?Recorded ?Confirmed apixaban 2.5 mg tablet (Eliquis) 2.5 mg PO BID 05/24/23 07/13/25 carvedilol 3.125 mg tablet 3.125 mg PO BID 05/24/23 06/28/25 simvastatin 10 mg tablet 10 mg PO HS 05/24/23 06/28/25 calcium carbonate (Calcium 500) 500 mg PO BID PRN 01/27/24 06/28/25 carvedilol 12.5 mg tablet 12.5 mg PO BID 01/27/24 06/28/25 gabapentin 100 mg capsule 100 mg PO HS 01/27/24 06/28/25 nitroglycerin 0.4 mg sublingual 0.4 mg sublingual Q5M PRN 01/27/24 06/28/25 tablet sacubitril 24 mg-valsartan 26 mg 1 tab PO BID 07/12/24 06/28/25 tablet (Entresto) vit A 300 mcg-C 200 mg-E 27 1 tab PO DAILY 07/12/24 06/28/25 mg-lutein 2 mg and minerals tablet (Ocuvite with Lutein) insulin glargine 100 unit/mL (3 18 unit subcut DAILY 04/10/25 06/28/25 mL) subcutaneous pen (Basaglar KwikPen U-100 Insulin) semaglutide 3 mg tablet (Rybelsus) 3 mg PO DAILY 04/11/25 06/28/25 bumetanide 0.5 mg tablet mg PO 05/27/25 06/28/25 Previous Rx's ?Medication ?Instructions ?Recorded lidocaine 5 % topical patch 1 patch transdermal Q24H #30 ea 01/28/24 Allergies Allergy/AdvReac Type Severity Reaction Status Date / Time hydralazine Allergy Unknown Verified 05/27/25 11:00 Penicillins Allergy Unknown Verified 05/27/25 11:00 dapagliflozin (From [facility]) AdvReac Severe syncope Verified 05/27/25 11:00 and falls Review of Systems Status of ROS: Reports: 10 or more systems reviewed and unremarkable except as noted in History and below [facility] Medical History Renal mass ?N28.89 - Other specified disorders of kidney and ureter (ICD-10) Chronic kidney disease ?N18.9 - Chronic kidney disease, unspecified (ICD-10) Diabetes mellitus ?E11.9 - Type 2 diabetes mellitus without complications (ICD-10) Traumatic compression fracture of T10 vertebra (08/12/23) ?S22.070A - Wedge compression fracture of T9-T10 vertebra, initial encounter for closed fracture (ICD-10) Hematoma of occipital surface of head (05/14/20) ?S00.83XA - Contusion of other part of head, initial encounter (ICD-10) Closed wedge compression fracture of T1 vertebra with routine healing (04/18/20) ?S22.010D - Wedge compression fracture of first thoracic vertebra, subsequent encounter for fracture with routine healing (ICD-10) 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) ?N18.4 - Chronic kidney disease, stage 4 (severe) (ICD-10) ?D63.1 - Anemia in chronic kidney disease (ICD-10) Chronic kidney insufficiency ?N18.9 - Chronic kidney disease, unspecified (ICD-10) Atrial fibrillation ?I48.91 - Unspecified atrial fibrillation (ICD-10) Congestive heart failure ?I50.9 - Heart failure, unspecified (ICD-10) Chronic anticoagulation ?Z79.01 - longterm (current) use of anticoagulants (ICD-10) Acute lower gastrointestinal bleeding ?K92.2 - Gastrointestinal hemorrhage, unspecified (ICD-10) Chronic systolic heart failure ?I50.22 - Chronic systolic (congestive) heart failure (ICD-10) Recurrent falls ?R29.6 - Repeated falls (ICD-10) Type 2 diabetes mellitus ?E11.9 - Type 2 diabetes mellitus without complications (ICD-10) Compression fracture Essential tremor ?G25.0 - Essential tremor (ICD-10) Presence of CardioMEMS HF system ?Z95.818 - Presence of other cardiac implants and grafts (ICD-10) Paroxysmal A-fib ?I48.0 - Paroxysmal atrial fibrillation (ICD-10) Acute idiopathic myocarditis ?I40.1 - Isolated myocarditis (ICD-10) Osteopenia ?M85.80 - Other specified disorders of bone density and structure, unspecified site (ICD-10) Macular degeneration ?H35.30 - Unspecified macular degeneration (ICD-10) Psoriasis ?L40.9 - Psoriasis, unspecified (ICD-10) History of breast cancer ?Z85.3 - Personal history of malignant neoplasm of breast (ICD-10) Hypertension ?I10 - Essential (primary) hypertension (ICD-10) Surgical History History of open reduction and internal fixation (ORIF) procedure (04/11/25) ?Z98.890 - Other specified postprocedural states (ICD-10) Hx of tonsillectomy ?Z90.89 - Acquired absence of other organs (ICD-10) H/O mastectomy ?Z90.10 - Acquired absence of unspecified breast and nipple (ICD-10) History of hysterectomy ?Z90.710 - Acquired absence of both cervix and uterus (ICD-10) Hx of mitral valve repair ?Z98.890 - Other specified postprocedural states (ICD-10) Presence of combination internal cardiac defibrillator (ICD) and pacemaker ?Z95.810 - Presence of automatic (implantable) cardiac defibrillator (ICD-10) Social History Narrative: DaughterJustine, lives with her. Lifelong nonsmoker. Denies EtOH use. What is your current living situation?: I presently have a place to live Problems where you live: no known problems Problems where you live details: n/a In the past 12 months, utilities in danger of being shut off: no In past 12 months, lack of transportation kept you from medical appts, meetings, work, or getting things needed for daily living: no In the past 12 mos, have been you worried that your food would run out before you had money to buy more?: never true In the past 12 mos, the food you bought just didn't last and you didn't have money to buy more?: never true Smoking Status: Never smoker Do you use any of these nicotine containing products: None Second hand tobacco smoke exposure: No How often do you have a drink containing alcohol: monthly or less How often do you have six or more drinks on one occasion: Never AUDIT-C Alcohol total score: 1 Non-prescribed substance use: denies use Caffeine: Yes (coffee) How often does anyone, including family, friends and others, physically hurt you: never How often does anyone, including family, friends and others, insult or talk down to you: never How often does anyone, including family, friends and others, threaten you with harm: never How often does anyone, including family, friends and others, scream or curse at you: never service: No Exam Narrative: Exam Narrative: Const: Well-nourished, Well-developed, in no distress Eyes: PERRL, no conjunctival injection, and symmetrical lids HENT: Atraumatic external nose and ears. Moist mucous membranes. Neck: Symmetric, trachea midline, No thyromegaly. CVS: RRR, No murmurs or gallops. Peripheral pulses 2+ and equal in all extremities RESP: Unlabored respiratory effort. Clear to auscultation bilaterally. GI: Nontender, mild distension, No rebound or guarding. MSK:Extremities w/o deformity, Normal Active ROM Skin: Warm, Dry. No rashes or lesions. Neuro: Normal Muscle tone, No focal neurological deficits. Psych: Awake, Alert, & Oriented x3. Appropriate mood and affect. Const: Vital Signs, click to edit/add: Vital Signs - 24 hr 07/13/25 14:46 07/13/25 16:42 Temperature 98.9 F 97.0 F L Pulse Rate [Pulse Oximeter] 97 85 Respiratory Rate 18 18 Blood Pressure [Ri ght Upper Arm] 167/88 H 156/94 H Pulse Oximetry 96 94 Oxygen Delivery Me thod Room Air Room Air Course Vital Signs Vital signs: Initial Vital Signs Temperature 98.9 F 07/13/25 14:46 Temperature Source Temporal Artery Scan 07/13/25 14:46 Pulse Rate 97 07/13/25 14:46 Respiratory Rate 18 07/13/25 14:46 Blood Pressure 167/88 H 07/13/25 14:46 Blood Pressure Mean 114 H 07/13/25 14:46 Pulse Oximetry 96 07/13/25 14:46 Oxygen Delivery Method Room Air 07/13/25 14:46 Vital Signs Temperature 98.9 F 07/13/25 14:46 Pulse Rate 97 07/13/25 14:46 Respiratory Rate 18 07/13/25 14:46 Blood Pressure 167/88 H 07/13/25 14:46 Pulse Oximetry 96 07/13/25 14:46 Oxygen Delivery Method Room Air 07/13/25 14:46 Temperature 97.0 F L 07/13/25 16:42 Pulse Rate 85 07/13/25 16:42 Respiratory Rate 18 07/13/25 16:42 Blood Pressure 156/94 H 07/13/25 16:42 Pulse Oximetry 94 07/13/25 16:42 Oxygen Delivery Method Room Air 07/13/25 16:42 MDM - GI Bleed MDM Narrative Medical decision making narrative: Patient is an 89-year-old female presenting for a GI bleed. No history of abdominal surgeries so low concern of any possible fistula formation. No history of inflammatory bowel disease. Will do a CTA to look for causes of possible bleed. Is a history of diverticulosis that could be causing the bleeding. No apparent signs of abdominal masses. CBC, CMP, urinalysis all ordered. Urinalysis ordered to look for any signs of hematuria. She does take apixaban. Her lab work returned showing no acute concerning abnormalities. She does have some white blood cells and trace leukocyte esterases in your urine but she is not having any urinary symptoms. Does states she is having some vaginal itching but this has been an ongoing issue which she was prescribed a cream for. Her blood sugars is at 149 and her hemoglobin is actually up compared to her baseline. Is 12.5 today. Overall she is feeling well. CT scan reviewed by myself and the radiologist shows no clear signs of an active GI bleed. There is on a mass in the left kidney that is concerning for malignancy. They are aware of this mass. No other concerning abnormality seen. Her vital signs are stable and she only had 1 episode of blood in her stool. Patient was getting ready for discharge and was comfortable discharging but then went have not bowel movement and had anita blood coming from her rectum. I did a rectal exam I do not notice any internal hemorrhoids that could be causing this. Chart review shows that they believe this is a diverticular bleed last time I spoke to the on-call hospitalist. At this time is recommended the patient be admitted to the hospital for observation. They are agreeable to this plan Lab Data Labs: Lab Results 07/13/25 07/13/25 07/13/25 Range/Units 15:20 15:26 16:40 WBC 8.42 (4.50-11.00) K/uL RBC 4.05 (4.00-5.20) m/uL Hgb 12.5 (12.0-16.0) gm/dL Hct 37.8 (33.0-51.0) % MCV 93 (80-100) fL MCH 31 (26-34) pg MCHC 33 (32-36) gm/dL RDW Coeff of [place]ma 13.6 (11.5-15.5) % Plt Count 175 (140-440) K/uL Neut % (Auto) 78.3 H (42.0-72.0) % Lymph % (Auto) 9.4 L (20-44) % [place] % (Auto) 9.7 (0.0-11.0) % Eos % (Auto) 2.0 (0.0-7.0) % Baso % (Auto) 0.2 (0.0-3.0) % Neut # (Auto) 6.60 (1.7-7.0) K/uL Lymph # (Auto) 0.80 L (0.90-2.90) K/uL [place] # (Auto) 0.80 (0.00-0.90) K/UL Eos # (Auto) 0.17 (0.00-0.50) K/uL Baso # (Auto) 0.02 (0.00-0.30) K/uL Abs Immat Gran (auto) 0.03 (0.00-0.30) K/uL Imm/Tot Granulo (auto) 0.4 % Sodium 133 L (135-149) mmol/L Potassium 4.3 (3.6-5.1) mmol/L Chloride 100 (96-114) mmol/L Carbon Dioxide 25 (20-32) mmol/L Anion Gap 8 (7-15) mEq/L BUN 28 (7-30) mg/dL Creatinine 1.4 (0.5-1.5) mg/dL Estimated Creat Clear 22.98 Estimated GFR 36 ml/min Glucose 149 H (60-115) mg/dL Calcium 10.5 (8.4-10.6) mg/dL Total Bilirubin 0.6 (0.1-1.5) mg/dL AST 27 (12-35) U/L ALT 15 (4-35) U/L Alkaline Phosphatase 69 (40-150) U/L Total Protein 7.2 (6.0-8.3) g/dL Albumin 4.0 (3.3-5.0) g/dL Urine Color Yellow (Yellow) Urine Appearance Clear (Clear) Urine pH 7.0 (5.0-8.5) Ur Specific [place] 1.015 (1.000-1.030) Urine Protein 2+ A (Negative) Urine Glucose (UA) Negative (Negative) Urine Ketones Negative (Negative) Urine Blood 2+ A (Negative) Urine Nitrite Negative (Negative) Urine Bilirubin Negative (Negative) Urine Urobilinogen 0.2 (0.2-1.0) Ur Leukocyte Esterase Trace A (Negative) Urine RBC 0-2 (0-2) Urine WBC 5-10 A (0-5) Ur Squamous Epith Cells None (None-Few) Urine Bacteria Few A (None) POC Creatinine 1.6 H (0.6-1.3) mg/dl Imaging Data CT scan abdomen pelvis: Attestation: I have reviewed the pertinent imaging results. Radiologist's impression: 1. Extensive colonic diverticulosis, greatest within the sigmoid colon, with no definite evidence of acute diverticulitis. 2. No gross contrast extravasation to suggest active GI bleed. 3. Mild thickening and mucosal enhancement of the stomach. This is favored to be due to underdistention rather than gastritis. 4. 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 A follow-up renal protocol MRI may be performed for further evaluation. 5. Additional findings as above. Please note that all CT scans at this facility use dose modulation, iterative reconstruction, and/or weight-based dosing when appropriate to reduce radiation dose to as low as reasonably achievable. Dictated by Alonso Frankel MD @ 07/13/2025 4:13:30 PM Discharge Plan Discharge Clinical Impression: Hematochezia Patient Disposition: Admitted As Observation Condition: Stable
[2025-07-13 15:36] LABS: Hematocrit 37.8 % (33.0-51.0); Hemoglobin* 12.5 gm/dL (12.0-16.0); Immature Granulocytes Abs Auto 0.03 K/uL (0.00-0.30); Immature Granulocytes Pct Auto 0.4 %; Mean Corpuscular HGB Conc 33 gm/dL (32-36); Mean Corpuscular Hemoglobin 31 pg (26-34); Mean Corpuscular Volume 93 fL (80-100); RDW Coefficient of Variation % 13.6 % (11.5-15.5); Red Blood Count 4.05 m/uL (4.00-5.20); White Blood Count* 8.42 K/uL (4.50-11.00)
[2025-07-13 15:40] LABS: Lymphocytes Absolute Auto 0.80 K/uL (0.90-2.90); Slide Review Reflex No
[2025-07-13 15:42] LABS: Creatinine, Point-of-Care* 1.6 mg/dl (0.6-1.3)
[2025-07-13 16:00] LABS: Albumin* 4.0 g/dL (3.3-5.0); Chloride* 100 mmol/L (96-114); Potassium* 4.3 mmol/L (3.6-5.1); Sodium* 133 mmol/L (135-149)
[2025-07-13 16:03] LABS: Alanine Aminotransferase* 15 U/L (4-35); Alkaline Phosphatase* 69 U/L (40-150); Anion Gap 8 mEq/L (7-15); Aspartate Amino Transferase* 27 U/L (12-35); Bilirubin Total* 0.6 mg/dL (0.1-1.5); Blood Urea Nitrogen* 28 mg/dL (7-30); Calcium* 10.5 mg/dL (8.4-10.6); Carbon Dioxide* 25 mmol/L (20-32); Creatinine* 1.4 mg/dL (0.5-1.5); Est. Creatinine Clearance* 22.98; Estimated Glomerular Filt Rate 36 ml/min; Glucose* 149 mg/dL (60-115); Total Protein* 7.2 g/dL (6.0-8.3)
[2025-07-13 16:42] VITALS: BP 156/94; PULSE 85; RESP 18; TEMP 36.1; O2SAT 94
[2025-07-13 16:47] LABS: Appearance Urine Clear (Clear)
--- NOTE | 2025-07-13 18:05 | PM.IMHP1 ---
Assessment and Plan Assessment and plan (1) Hematochezia: Problem comment: - presumably diverticular bleed in the absence of hemorrhoids or concerning findings CT - follow hemoglobin, clear liquid diet, advance tomorrow if remains stable - holding Eliquis, given IV PPI on admission Status: Acute (2) Diabetes mellitus: Problem comment: - insulin dependent, last A1C 7.1 on 06/23/25 - currently on 18 units of Basaglar every morning, + 7mg of semaglutide; daughter has noted lower blood sugars recently - hold Semaglutide, will order 9U of Basaglar for tomorrow morning with regular Accu-Cheks Status: Acute (3) (HFpEF) heart failure with preserved ejection fraction: Problem comment: - last TTE on 12/2024 with results below - Dr. Frey is Mammographer - currently has reassuring vital signs, will continue home doses of Carvedilol and Entresto with holding parameters Final Impressions: Limited Echocardiogram performed 1. Limited Echo for generator change. 2. Normal LV size, normal wall thickness, normal global systolic function with an estimated EF of 60 - 65%. 3. The apical cap is hypokinetic. 4. Right ventricular cavity size is mildly enlarged, global systolic RV function is normal. Pacemaker wire present. 5. 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 Mean diastolic gradient ~ 3 mmHg, HR 72 BPM. 6. Tricuspid valve is non coapting. 7. Severe tricuspid regurgitation. 8. The inferior vena cava is dilated, respiratory size variation less than 50%. Status: Acute (4) Paroxysmal A-fib: Problem comment: - rate controlled on Carvedilol, anticoagulated on Eliquis - also has pacemaker - HOLDING Eliquis 07/13/25 for hematochezia Status: Acute (5) T12 compression fracture: Problem comment: - chronic/severe on imaging, known - uses prn Lidocaine patch Status: Acute (6) Renal mass: Problem comment: - known by patient and daughters, incidental finding on imaging 07/2024 - has seen [facility], seeing [place] in the future as well Status: Acute Plan - Per above - likely home with daughter in 1-2 days pending clinical course - Daughter Justine updated bedside, questions answered Hospitalist- H&P: HPI History of Present Illness Date Seen: 07/13/25 Chief complaint: blood in stool, elevated BP, sent by urgent care Narrative: Tonya Russo is a 89 year old female with a history of paroxysmal atrial fibrillation anticoagulated on Eliquis, HFpEF, and IDDM2 who presented to the ER today after an episode of hematochezia. She had gone to [employer] for lunch, had eggs benedict. Came home, had a watery bright red stool. No associated abdominal pain or nausea; no dizziness. No syncope or pre-syncope. Hospitalized for hematochezia one year ago, presumably diverticular bleed. This self-resolved and she had elected to not purse repeat colonoscopy given age and comorbidities. ER: - Hgb 12.5 - GFR 36 (baseline), normal BUN - VS reassuring without tachycardia or hypotension - no evidence of hemorrhoids on exam - had another episode of hematochezia in the ER - Ab/P CTA: diverticulosis, no contrast extravasation, L kidney mass (known) Given patient's age, comorbidities, and anticoagulated status; she is admitted to the hospital for monitoring in the setting of presumed diverticular bleed. Histories updated below, Dr. Grimes is PCP. Review of Systems Status of ROS: Reports: 10 or more systems reviewed and unremarkable except as noted in History and below Medical Decision Making Medical Decision Making Code Status: DNR/DNI Has patient completed a Health Care Directive: Yes During This Stay, Who Would You Like To Make Decisions For You In The Event You Are Unable To Make Them For Yourself?: Alex Fletcher [facility] Medical History (Updated 07/13/25 @ 19:40 by Tammy Troy MD) Essential tremor ?G25.0 - Essential tremor (ICD-10) T12 compression fracture ?S22.080A - Wedge compression fracture of T11-T12 vertebra, initial encounter for closed fracture (ICD-10) Renal mass ?N28.89 - Other specified disorders of kidney and ureter (ICD-10) (HFpEF) heart failure with preserved ejection fraction ?I50.30 - Unspecified diastolic (congestive) heart failure (ICD-10) Left patella fracture ?S82.002A - Unspecified fracture of left patella, initial encounter for closed fracture (ICD-10) Chronic kidney disease ?N18.9 - Chronic kidney disease, unspecified (ICD-10) Diabetes mellitus ?E11.9 - Type 2 diabetes mellitus without complications (ICD-10) Traumatic compression fracture of T10 vertebra (08/12/23) ?S22.070A - Wedge compression fracture of T9-T10 vertebra, initial encounter for closed fracture (ICD-10) Hematoma of occipital surface of head (05/14/20) ?S00.83XA - Contusion of other part of head, initial encounter (ICD-10) Closed wedge compression fracture of T1 vertebra with routine healing (04/18/20) ?S22.010D - Wedge compression fracture of first thoracic vertebra, subsequent encounter for fracture with routine healing (ICD-10) 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) ?N18.4 - Chronic kidney disease, stage 4 (severe) (ICD-10) ?D63.1 - Anemia in chronic kidney disease (ICD-10) Chronic kidney insufficiency ?N18.9 - Chronic kidney disease, unspecified (ICD-10) Congestive heart failure ?I50.9 - Heart failure, unspecified (ICD-10) Acute lower gastrointestinal bleeding ?K92.2 - Gastrointestinal hemorrhage, unspecified (ICD-10) Recurrent falls ?R29.6 - Repeated falls (ICD-10) Type 2 diabetes mellitus ?E11.9 - Type 2 diabetes mellitus without complications (ICD-10) Presence of CardioMEMS HF system ?Z95.818 - Presence of other cardiac implants and grafts (ICD-10) Paroxysmal A-fib ?I48.0 - Paroxysmal atrial fibrillation (ICD-10) Acute idiopathic myocarditis ?I40.1 - Isolated myocarditis (ICD-10) Osteopenia ?M85.80 - Other specified disorders of bone density and structure, unspecified site (ICD-10) Macular degeneration ?H35.30 - Unspecified macular degeneration (ICD-10) Psoriasis ?L40.9 - Psoriasis, unspecified (ICD-10) History of breast cancer ?Z85.3 - Personal history of malignant neoplasm of breast (ICD-10) Hypertension ?I10 - Essential (primary) hypertension (ICD-10) Surgical History History of open reduction and internal fixation (ORIF) procedure (04/11/25) ?Z98.890 - Other specified postprocedural states (ICD-10) Hx of tonsillectomy ?Z90.89 - Acquired absence of other organs (ICD-10) H/O mastectomy ?Z90.10 - Acquired absence of unspecified breast and nipple (ICD-10) History of hysterectomy ?Z90.710 - Acquired absence of both cervix and uterus (ICD-10) Hx of mitral valve repair ?Z98.890 - Other specified postprocedural states (ICD-10) Presence of combination internal cardiac defibrillator (ICD) and pacemaker ?Z95.810 - Presence of automatic (implantable) cardiac defibrillator (ICD-10) Social History (Updated 07/13/25 @ 19:32 by Tammy Troy MD) Narrative: Daughter, Justine, lives with her in [place] Lifelong nonsmoker. No ETOH use. DNR/DNI What is your current living situation?: I presently have a place to live Problems where you live: no known problems Problems where you live details: n/a In the past 12 months, utilities in danger of being shut off: no In past 12 months, lack of transportation kept you from medical appts, meetings, work, or getting things needed for daily living: no In the past 12 mos, have been you worried that your food would run out before you had money to buy more?: never true In the past 12 mos, the food you bought just didn't last and you didn't have money to buy more?: never true Smoking Status: Never smoker Do you use any of these nicotine containing products: None Second hand tobacco smoke exposure: No How often do you have a drink containing alcohol: monthly or less Alcohol type: beer How often do you have six or more drinks on one occasion: Never AUDIT-C Alcohol total score: 1 Non-prescribed substance use: denies use Caffeine: Yes How often does anyone, including family, friends and others, physically hurt you: never How often does anyone, including family, friends and others, insult or talk down to you: never How often does anyone, including family, friends and others, threaten you with harm: never How often does anyone, including family, friends and others, scream or curse at you: never service: No Meds Home Medications and Allergies Home Medications ?Medication ?Instructions ?Recorded ?Confirmed ?Type apixaban 2.5 mg tablet (Eliquis) 2.5 mg PO BID 05/24/23 07/13/25 History carvedilol 3.125 mg tablet 3.125 mg PO BID 05/24/23 07/13/25 History simvastatin 10 mg tablet 10 mg PO HS 05/24/23 07/13/25 History calcium carbonate (Calcium 500) 500 mg PO BID PRN 01/27/24 07/13/25 History carvedilol 12.5 mg tablet 12.5 mg PO BID 01/27/24 07/13/25 History gabapentin 100 mg capsule 100 mg PO HS 01/27/24 07/13/25 History nitroglycerin 0.4 mg sublingual 0.4 mg sublingual Q5M PRN 01/27/24 07/13/25 History tablet lidocaine 5 % topical patch 1 patch transdermal Q24H #30 ea 01/28/24 07/13/25 Rx sacubitril 24 mg-valsartan 26 mg 1 tab PO BID 07/12/24 07/13/25 History tablet (Entresto) vit A 300 mcg-C 200 mg-E 27 1 tab PO DAILY 07/12/24 07/13/25 History mg-lutein 2 mg and minerals tablet (Ocuvite with Lutein) insulin glargine 100 unit/mL (3 18 unit subcut DAILY 04/10/25 07/13/25 History mL) subcutaneous pen (Basaglar KwikPen U-100 Insulin) semaglutide 3 mg tablet (Rybelsus) 3 mg PO DAILY 04/11/25 07/13/25 History bumetanide 0.5 mg tablet 0.25 mg PO Q OTHER DAY 05/27/25 07/13/25 History semaglutide 7 mg tablet (Rybelsus) 7 mg PO DAILY 07/13/25 07/13/25 History Allergies Allergy/AdvReac Type Severity Reaction Status Date / Time hydralazine Allergy Unknown Verified 05/27/25 11:00 Penicillins Allergy Unknown Verified 05/27/25 11:00 dapagliflozin (From [facility]erged With [facility]) AdvReac Severe syncope Verified 05/27/25 11:00 and falls Exam Narrative: Exam Narrative: GEN: Alert and oriented, sitting up comfortably in bed, nontoxic HEENT: EOMIs bilaterally, no scleral icterus or conjunctival pallor CV: Irregular rhythm, rate 70s R: LCTA bilaterally Ab: Soft and nontender, normal bowel sounds Rectal: Deferred given normal exam in ER Ext: wwp, no concerning edema. Incision from left knee surgery (patellar fracture 04/27) appears well-healed Skin: No concerning skin lesions or rashes on exposed skin Neuro: Head tremor noted (baseline) Psych: Appropriate Const: Vital Signs, click to edit/add: Vital Signs - 24 hr 07/13/25 14:46 07/13/25 16:42 Temperature 98.9 F 97.0 F L Pulse Rate [Pulse Oximeter] 97 85 Respiratory Rate 18 18 Blood Pressure [Ri ght Upper Arm] 167/88 H 156/94 H Pulse Oximetry 96 94 Oxygen Delivery Me thod Room Air Room Air Hospitalist - H&P: Result Labs Labs: Short CBC 07/13/25 Range/Units 15:26 WBC 8.42 (4.50-11.00) K/uL Hgb 12.5 (12.0-16.0) gm/dL Hct 37.8 (33.0-51.0) % Plt Count 175 (140-440) K/uL BMP 07/13/25 15:26 Sodium 133 L Potassium 4.3 Chloride 100 Carbon Dioxide 25 BUN 28 Creatinine 1.4 Glucose 149 H Calcium 10.5 Liver Function 07/13/25 Range/Units 15:26 Total Bilirubin 0.6 (0.1-1.5) mg/dL AST 27 (12-35) U/L ALT 15 (4-35) U/L Alkaline Phosphatase 69 (40-150) U/L Albumin 4.0 (3.3-5.0) g/dL Urine 07/13/25 Range/Units 16:40 Urine Color Yellow (Yellow) Urine Appearance Clear (Clear) Urine pH 7.0 (5.0-8.5) Ur Specific [place] 1.015 (1.000-1.030) Urine Protein 2+ A (Negative) Urine Glucose (UA) Negative (Negative)
[2025-07-13 18:06] VITALS: BP 165/97; PULSE 72; RESP 18; TEMP 36.6; O2SAT 93
[2025-07-13 18:37] LABS: Hemoglobin* 12.8 gm/dL (12.0-16.0)
[2025-07-13 18:38] VITALS: BP 166/80; PULSE 77; RESP 18; TEMP 36.6; O2SAT 98
[2025-07-13 18:45] VITALS: BMI 24.3
[2025-07-13] MEDS: PANTOPRAZOLE SODIUM 40 MG INJ IVP (19:56)
[2025-07-13] MEDS: SODIUM CHLORIDE 0.9 % (FLUSH) 10 ML SYRINGE 5 ML IVF (19:56)
[2025-07-13] MEDS: SIMVASTATIN 10 MG TABLET PO (21:06)
[2025-07-13] MEDS: GABAPENTIN 100 MG CAPSULE PO (21:06)
[2025-07-13 23:00] VITALS: BP 156/92; PULSE 70; RESP 18; TEMP 36.6; O2SAT 97
[2025-07-13 23:50] VITALS: PULSE 75
[2025-07-14] VITALS (7 sets, daily range): BP systolic 123–185; BP diastolic 75–111; PULSE 70–77; RESP 14–18; TEMP 36.3–36.5; O2SAT 93–98
--- NOTE | 2025-07-14 04:58 | PC.NURSE ---
Shift note: Blood sugar rechecked at 2335 after snacks from previous shift was 116. No intervention was given at that time. Patient was doing well. Blood sugar recheck at 0200 and 0440 were 80 and 73. 240ml of orange juice and 120ml with 1 cup of jello give at 0200 and 0440 respectively. No hypoglycemic symptoms reported. Patient had no bloody stool on this shift. No abdominal pain and fever. Patient had adequate sleep.
[2025-07-14 06:28] LABS: Hematocrit 34.3 % (33.0-51.0); Hemoglobin* 11.3 gm/dL (12.0-16.0); Immature Granulocytes Abs Auto 0.01 K/uL (0.00-0.30); Immature Granulocytes Pct Auto 0.2 %; Mean Corpuscular HGB Conc 33 gm/dL (32-36); Mean Corpuscular Hemoglobin 31 pg (26-34); Mean Corpuscular Volume 93 fL (80-100); RDW Coefficient of Variation % 13.6 % (11.5-15.5); Red Blood Count 3.69 m/uL (4.00-5.20); White Blood Count* 5.80 K/uL (4.50-11.00)
[2025-07-14 06:30] LABS: Lymphocytes Absolute Auto 0.70 K/uL (0.90-2.90); Slide Review Reflex No
[2025-07-14 06:42] LABS: Albumin* 3.4 g/dL (3.3-5.0); Chloride* 101 mmol/L (96-114); Potassium* 3.9 mmol/L (3.6-5.1); Sodium* 132 mmol/L (135-149)
[2025-07-14 06:44] LABS: Blood Urea Nitrogen* 26 mg/dL (7-30); Creatinine* 1.3 mg/dL (0.5-1.5); Est. Creatinine Clearance* 24.74; Estimated Glomerular Filt Rate 40 ml/min
[2025-07-14 06:45] LABS: Alanine Aminotransferase* 19 U/L (4-35); Alkaline Phosphatase* 56 U/L (40-150); Anion Gap 8 mEq/L (7-15); Aspartate Amino Transferase* 28 U/L (12-35); Bilirubin Total* 0.4 mg/dL (0.1-1.5); Calcium* 10.0 mg/dL (8.4-10.6); Carbon Dioxide* 23 mmol/L (20-32); Glucose* 136 mg/dL (60-115); Total Protein* 6.2 g/dL (6.0-8.3)
[2025-07-14] MEDS: SODIUM CHLORIDE 0.9 % (FLUSH) 10 ML SYRINGE 5 ML IVF ×2 (09:29→20:16)
--- NOTE | 2025-07-14 10:04 | P.IMPN_ITS ---
Assessment and Plan Assessment and plan (1) Hematochezia: Problem comment: - presumably diverticular bleed in the absence of hemorrhoids or concerning findings CT - patient declines/refuses colonoscopy - holding Eliquis - continue IV PPI - hemoglobin 12.5 ->12.8->11.3. Trend - diet clears -> full/soft, monitor, adjust as necessary depending on tolerance, stools, bleeding Status: Acute (2) Diabetes mellitus: Problem comment: - insulin dependent, last A1C 7.1 on 06/23/25 - currently on 18 units of Basaglar every morning, + 7mg of semaglutide; daughter has noted lower blood sugars recently - hold Semaglutide, will order 9U of Basaglar with regular Accu-Cheks Status: Acute (3) (HFpEF) heart failure with preserved ejection fraction: Problem comment: - last TTE on 12/2024 with results below - Dr. Frey is Student Development Advisor - currently has reassuring vital signs, will continue home doses of Carvedilol and Entresto with holding parameters Final Impressions: Limited Echocardiogram performed 1. Limited Echo for generator change. 2. Normal LV size, normal wall thickness, normal global systolic function with an estimated EF of 60 - 65%. 3. The apical cap is hypokinetic. 4. Right ventricular cavity size is mildly enlarged, global systolic RV function is normal. Pacemaker wire present. 5. 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 Mean diastolic gradient ~ 3 mmHg, HR 72 BPM. 6. Tricuspid valve is non coapting. 7. Severe tricuspid regurgitation. 8. The inferior vena cava is dilated, respiratory size variation less than 50%. Status: Acute (4) Paroxysmal A-fib: Problem comment: - rate controlled on Carvedilol, anticoagulated on Eliquis - also has pacemaker - HOLDING Eliquis 07/13/25 for hematochezia Status: Acute (5) T12 compression fracture: Problem comment: - chronic/severe on imaging, known - uses prn Lidocaine patch Status: Acute (6) Renal mass: Problem comment: - known by patient and daughters, incidental finding on imaging 07/2024 - has seen [facility], seeing [place] in the future as well Status: Acute Plan Continue to monitor stools, trend hgb. Full diet for now if tolerated, may need to adjust depending on tolerance, stools, bleeding. Plan would be to d/c home when hgb stable and bleeding has ceased while holding Eliquis. Refuses colonosc opy. Total Time Spent Total Time Spent: Today I spent 45 minutes seeing the patient, reviewing Expanse and EPIC notes/diagnostics, discussing the care plan with our care time that includes social work, PT/OT, pharmacy, RT, penitentiary and documenting my impressions and plan in the medical record. Subjective Date Seen: 07/14/25 Interval history: Patient is seen lying in bed, having just awakened from sleep. Reports feeling wonderful. Denies abdominal pain or cramping. No nausea. Denies headache or dizziness. Chest pain or shortness of breath. Remains afebrile, vitally stable. No BM overnight, last was yesterday afternoon. This morning had a red (not bright, not dark per staff) stool. Exam Narrative: Exam Narrative: PHYSICAL EXAM General: Pleasant, conversant, NAD HEENT: Normocephalic, atraumatic, sclera white, EOMI, oral mucosa moist Cardiovascular: RRR, S1S2. No pitting edema Pulmonary: CTA bilaterally without rhonchi, rales, expiratory wheezes. No dyspnea Abdominal: Soft, nondistended, NTTP, no guarding Neurological: Alert, answering questions appropriately, cranial nerves intact, no focal findings Extremities: No gross joint deformity or swelling. AROMI. Neurovascularly intact Skin: Warm, dry. Const: Vital Signs, click to edit/add: Vital Signs - 24 hr 07/13/25 14:46 07/13/25 16:42 07/13/25 18:06 Temperature 98.9 F 97.0 F L 97.8 F Pulse Rate Pulse Rate [Pulse Oximeter] 97 85 72 Respiratory Rate 18 18 18 Blood Pressure [Le ft Arm] Blood Pressure [Ri ght Upper Arm] 167/88 H 156/94 H 165/97 H Pulse Oximetry 96 94 93 Oxygen Delivery Me thod Room Air Room Air Room Air 07/13/25 18:38 07/13/25 23:00 07/13/25 23:00 Temperature 97.9 F 97.9 F Pulse Rate Pulse Rate [Pulse Oximeter] 77 70 70 Respiratory Rate 18 18 18 Blood Pressure [Le ft Arm] 166/80 H 156/92 H Blood Pressure [Ri ght Upper Arm] Pulse Oximetry 98 97 Oxygen Delivery Me thod Room Air Room Air 07/13/25 23:50 07/14/25 02:00 07/14/25 07:00 Temperature 97.7 F Pulse Rate 75 Pulse Rate [Pulse Oximeter] 71 71 Respiratory Rate 18 16 Blood Pressure [Le ft Arm] 143/88 H Blood Pressure [Ri ght Upper Arm] Pulse Oximetry 94 Oxygen Delivery Me thod Room Air 07/14/25 07:00 Temperature 97.7 F Pulse Rate Pulse Rate [Pulse Oximeter] 71 Respiratory Rate 16 Blood Pressure [Le ft Arm] 123/80 Blood Pressure [Ri ght Upper Arm] Pulse Oximetry 98 Oxygen Delivery Me thod Room Air Labs Labs: Laboratory Results - last 24 hr 07/13/25 07/13/25 07/13/25 15:20 15:26 16:40 WBC 8.42 RBC 4.05 Hgb 12.5 Hct 37.8 MCV 93 MCH 31 MCHC 33 RDW Coeff of Vilma 13.6 Plt Count 175 Neut % (Auto) 78.3 H Lymph % (Auto) 9.4 L [place] % (Auto) 9.7 Eos % (Auto) 2.0 Baso % (Auto) 0.2 Neut # (Auto) 6.60 Lymph # (Auto) 0.80 L [place] # (Auto) 0.80 Eos # (Auto) 0.17 Baso # (Auto) 0.02 Abs Immat Gran (auto) 0.03 Imm/Tot Granulo (auto) 0.4 Sodium 133 L Potassium 4.3 Chloride 100 Carbon Dioxide 25 Anion Gap 8 BUN 28 Creatinine 1.4 Estimated Creat Clear 22.98 Estimated GFR 36 Glucose 149 H Calcium 10.5 Total Bilirubin 0.6 AST 27 ALT 15 Alkaline Phosphatase 69 Total Protein 7.2 Albumin 4.0 Urine Color Yellow Urine Appearance Clear Urine pH 7.0 Ur Specific [place] 1.015 Urine Protein 2+ A Urine Glucose (UA) Negative Urine Ketones Negative Urine Blood 2+ A Urine Nitrite Negative Urine Bilirubin Negative Urine Urobilinogen 0.2 Ur Leukocyte Esterase Trace A Urine RBC 0-2 Urine WBC 5-10 A Ur Squamous Epith Cells None Urine Bacteria Few A POC Creatinine 1.6 H 07/13/25 07/14/25 18:16 06:11 WBC 5.80 RBC 3.69 L Hgb 12.8 11.3 L Hct 34.3 MCV 93 MCH 31 MCHC 33 RDW Coeff of [place] 13.6 Plt Count 156 Neut % (Auto) 72.0 Lymph % (Auto) 12.8 L [place] % (Auto) 11.4 H Eos % (Auto) 3.1 Baso % (Auto) 0.5 Neut # (Auto) 4.18 Lymph # (Auto) 0.70 L [place] # (Auto) 0.70 Eos # (Auto) 0.18 Baso # (Auto) 0.03 Abs Immat Gran (auto) 0.01 Imm/Tot Granulo (auto) 0.2 Sodium 132 L Potassium 3.9 Chloride 101 Carbon Dioxide 23 Anion Gap 8 BUN 26 Creatinine 1.3 Estimated Creat Clear 24.74 Estimated GFR 40 Glucose 136 H Calcium 10.0 Total Bilirubin 0.4 AST 28 ALT 19 Alkaline Phosphatase 56 Total Protein 6.2 Albumin 3.4 Urine Color Urine Appearance Urine pH Ur Specific [place] Urine Protein Urine Glucose (UA) Urine Ketones Urine Blood Urine Nitrite Urine Bilirubin Urine Urobilinogen Ur Leukocyte Esterase Urine RBC Urine WBC Ur Squamous Epith Cells Urine Bacteria POC Creatinine
--- NOTE | 2025-07-14 10:05 | NUTR.NU ---
RDN with MD consult for diverticulosis. Patient admitted with hematochezia presumed diverticular bleed per H&P. Medical history includes, but not limited to diabetes mellitus, heart failure, paroxysmal atrial fibrillation, chronic T12 compression fracture, diverticulosis, and renal mass. Current weight 134lbs, height 5ft 3in, and BMI 23.8 kg/m2. No significant weight change noted with weight history of 129lbs 05/27/25, 138lbs 05/03/25, 138lbs 04/12/25, 125lbs 12/11/24, and 131lbs 07/12/24. Patient reports a good appetite prior to admission with consuming 3 meals/day with snacks prn. Patient lives with her daughter who does the cooking and grocery shopping. No intakes recorded since admission. Patient's diet advanced to full-liquids this morning at breakfast. Patient is accepting of nutrition education at this time. Patient declined verbal education for designated caregiver and will pass along handouts provided. Patient was provided diet education on a low fiber diet. Discussed foods to include and foods to avoid until MD recommends advancing to high fiber diet. Education also provided on gradually increasing fiber, importance of adequate hydration, and following a high fiber diet (25-35 grams/day) long-term.? Verbal and written information as well as sample menus provided on both diets from AND [facility].? Patient verbalized understanding.? RDN's contact information was provided and patient was encouraged to contact RDN with questions. RDN will follow-up prn.
[2025-07-14] MEDS: PANTOPRAZOLE SODIUM 40 MG INJ IVP (10:56)
[2025-07-14 14:31] LABS: Hemoglobin* 11.6 gm/dL (12.0-16.0)
--- NOTE | 2025-07-14 15:07 | PC.NURSE ---
VSS, on RA, tolerating full liq diet. 1 BM formed, small blood tinge in water, MD aware. ambulating in room to BR and Chair with cane SBA.
--- NOTE | 2025-07-14 19:24 | PC.NURSE ---
Nursing Care Hours: [id number] Pt this shift calm and cooperative, alert and oriented. No c/o pain. SBA with cane. Walked arcos x1. Tolerating liquid diet. Pt BP elevated x2 without symptoms. pt reports feeling stressed d/t wanting to go home and have regular meals.
[2025-07-14] MEDS: GABAPENTIN 100 MG CAPSULE PO (20:16)
[2025-07-14] MEDS: SIMVASTATIN 10 MG TABLET PO (20:16)
[2025-07-15 02:51] VITALS: BP 148/89; PULSE 75; RESP 16; TEMP 36.6; O2SAT 94
--- NOTE | 2025-07-15 04:23 | PC.NURSE ---
Shift note: Patient is alert and oriented. Doing well ambulated with A1 and a cane. No bloody stool noted tonight. Tolerated full liquid diet well. Elevated systolic Bp. Patient had adequate sleep.
[2025-07-15 06:29] LABS: Hemoglobin* 11.9 gm/dL (12.0-16.0)
[2025-07-15 06:35] LABS: Chloride* 105 mmol/L (96-114)
[2025-07-15 06:36] LABS: Potassium* 4.0 mmol/L (3.6-5.1); Sodium* 135 mmol/L (135-149)
[2025-07-15 06:39] LABS: Anion Gap 6 mEq/L (7-15); Blood Urea Nitrogen* 20 mg/dL (7-30); Calcium* 10.2 mg/dL (8.4-10.6); Carbon Dioxide* 24 mmol/L (20-32); Creatinine* 1.4 mg/dL (0.5-1.5); Est. Creatinine Clearance* 22.98; Estimated Glomerular Filt Rate 36 ml/min; Glucose* 89 mg/dL (60-115)
[2025-07-15 07:00] VITALS: BP 155/99; PULSE 74; PULSE 75; PULSE 80; RESP 16; TEMP 36.4; O2SAT 95
[2025-07-15] MEDS: PANTOPRAZOLE SODIUM 40 MG INJ IVP (08:41)
[2025-07-15] MEDS: SODIUM CHLORIDE 0.9 % (FLUSH) 10 ML SYRINGE 5 ML IVF (08:42)
[2025-07-15] MEDS: CLOTRIMAZOLE (VAG) cream 1 APPLIC VAGINAL (11:15)
--- NOTE | 2025-07-15 12:30 | PM.DS1 ---
DS: Providers Provider Date Seen: 07/15/25 Date of admission: 07/13/25 18:16 Primary care physician: Radha Grimes MD Admitting Clinician: Tammy Troy MD Date of Discharge: 07/15/25 DS: Diagnosis Discharge Diagnosis (1) Hematochezia: Status: Acute Problem details: Previous episode of hematochezia was clinically thought to be diverticular bleeding. Last colonoscopy was about 7 years ago and showed diverticulosis without other abnormalities. Patient has declined colonoscopy to further evaluate. She is admitted to the hospital for monitoring of bleeding. Her Eliquis was held and her bleeding stopped over the subsequent 1st 2 days of her hospital stay. She is tolerating regular diet. Hemoglobin went from 12.5 on admission to 11.9 on discharge. (2) Diabetes mellitus: Status: Acute Problem details: Blood sugars well controlled. On insulin and semaglutide. Some a glue tight held in the hospital. (3) Renal mass: Status: Acute Problem details: - known by patient and daughters, incidental finding on imaging 07/2024. - has seen [facility], seeing [place] in the future as well (4) Paroxysmal A-fib: Status: Acute Problem details: On rate control with carvedilol and anticoagulated with Eliquis. Will hold Eliquis through the weekend and then start Eliquis again on FridayJuly 18. Continue to monitor for recurrent bleeding on Eliquis. If she has recurrent bleeding she will need re-evaluation and difficult decisions will be required to determine whether she should have intervention to stop bleeding or she should stop Eliquis DS: Summary Hospital Course Hospital Course: Admission HPI: Patient is an 89-year-old female history of diabetes presenting to the emergency department lower GI bleed. States she was doing well on all day and then she had a bowel movement today that was watery is had bright red blood. Has had no further bowel movement since then. Has urinated and states her urine was clear. Denies any abdominal pain. Denies any chest pain, shortness of breath, headache, dizziness, weakness, numbness. Has not had any dysuria or polyuria. States she has been feeling mildly tired and lightheaded since the episode of hematochezia. Also states she feels like her abdomen is more bloated. 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 Denies any previous abdominal surgeries. No other concerns noted at this time. She was admitted to the hospital with a plan for conservative management, monitoring hemoglobin, vital signs and bleeding. She continued to have some bleeding over the 1st day but then bleeding has been minimal. Her hemoglobin dropped from 12.5 on admission to 11.9 on discharge. She is tolerating and regular diet without difficulty. Ongoing discussion about plan of care led to the conclusion that she does not want a colonoscopy. She wants to continue to just monitor. I have recommended that she resume her Eliquis for stroke prophylaxis for AFib starting on FridayJuly 18. She is to return to the emergency room if she gets significant rectal bleeding again. At that time difficult decisions would be made about whether to intervene to stop the bleeding verses stopping Eliquis. Status at Discharge Functional status at discharge: uses cane/walker Overall status at discharge: patient is progressing back to baseline Time Spent with Patient Time attestation: Total time spent providing and/or coordinating discharge services: 40 minutes Exam Narrative: Exam Narrative: She is alert, pleasant and in no distress. Hard of hearing. Respirations are clear to auscultation. Cardiovascular: S1, S2 relatively regular rhythm. Abdomen is soft without tenderness or mass. Const: Vital Signs, click to edit/add: Vital Signs - 24 hr 07/14/25 15:00 07/14/25 15:00 07/14/25 16:40 Temperature 97.3 F L Pulse Rate 71 Pulse Rate [Pulse Oximeter] 77 77 Respiratory Rate 16 16 Blood Pressure [Le ft Arm] 185/111 H Pulse Oximetry 98 [facility] 07/14/25 19:00 07/14/25 23:00 07/14/25 23:00 Temperature 97.6 F Pulse Rate Pulse Rate [Pulse Oximeter] 71 70 70 Respiratory Rate 16 16 16 Blood Pressure [Le ft Arm] 179/103 H 140/75 H Pulse Oximetry 97 93 [facility]xygen [facility] Room Air 07/14/25 23:00 07/15/25 02:51 07/15/25 07:00 Temperature 98 F Pulse Rate 71 Pulse Rate [Pulse Oximeter] 75 75 Respiratory Rate 16 16 Blood Pressure [Le ft Arm] 148/89 H Pulse Oximetry 94 [facility] 07/15/25 07:00 Temperature 97.6 F Pulse Rate Pulse Rate [Pulse Oximeter] 80 Respiratory Rate 16 Blood Pressure [Le ft Arm] 155/99 H Pulse Oximetry 95 Oxygen Delivery Me thod Room Air Documenting provider has reviewed patient's vital signs: yes DS: Data Data Completed and Pending Completed studies during hospitalization: Procedures Reposition Left Patella with Internal Fixation Device, Open Approach (04/11/25) Labs on day of discharge: Labs from last 24 hours 07/15/25 07/14/25 05:57 14:20 Hgb 11.9 L 11.6 L Sodium 135 Potassium 4.0 Chloride 105 Carbon Dioxide 24 Anion Gap 6 L BUN 20 Creatinine 1.4 Estimated Creat Clear 22.98 Estimated GFR 36 Glucose [address] scan - abdomen: Radiologist's impression: INDICATION: GI bleed.. TECHNIQUE: CT angiogram abdomen and pelvis acquired with 98 cc Omnipaque 350 IV contrast. 3D MIP reconstructions were created and also reviewed. COMPARISON: 07/11/2024. FINDINGS: No extravasation is seen to suggest active GI bleed. No pooling of contrast is seen delayed. The abdominal aorta is tortuous and nonaneurysmal. No dissection. Moderate noncalcified plaque is seen. Mild stenosis at the origin of the celiac artery. Mild stenosis of the origin of the superior mesenteric artery. Mild stenosis origin of the right renal artery. Mesenteric arteries patent. The iliac arteries are unremarkable. Linear consolidation within the lower lobes likely represents chronic scarring bilaterally. The liver is unchanged in appearance. There is heterogeneity of the posterior right akanksha liver with no definite discrete lesion. Prominent vasculature within the inferior right akanksha liver could potentially represent a portosystemic shunt (series 5, image 87). The gallbladder is partially distended. No biliary ductal dilatation. The spleen is normal in size. A subcentimeter hypoattenuating lesion within the spleen measuring 7 millimeters is indeterminate but likely benign. Recommend close attention on follow-up. There is atrophy of the pancreas without peripancreatic stranding or main ductal dilatation. The adrenal glands are unremarkable. The kidneys are normal in size. There is abnormal appearance of the lower pole left kidney with a dominant mass and the satellite mass along the inferior left margin. This likely represents renal cell carcinoma. The largest component measures 6 centimeters in craniocaudal dimension. The mass is in aggregate on axial images measuring proximally 4.9 x 3.8 centimeters (series 11, image 83). There is a cyst within the upper pole left kidney. Multiple cysts are seen within the right kidney. The urinary bladder is distended with mild thickening, likely due to underdistention. Extensive sigmoid diverticulosis is seen. There is thickening of the sigmoid colon with no definite evidence of focal diverticulitis. Surgical clip or embolization coil is seen at the rectosigmoid colon (11, 143). Procedure streak artifact which limits evaluation there are diverticula scattered throughout the remainder of the colon as well. The appendix is nondilated. The small bowel is nondilated without evidence of a small-bowel obstruction or enteritis. There is thickened distal esophagus, likely due to underdistention. The stomach is partially distended with mild mucosal enhancement and mild thickening. This is favored to be due to partial distension rather than gastritis. No free air. No ascites. No organized drainable fluid collection. No omental caking or peritoneal nodularity. Subcentimeter abdominal retroperitoneal lymph nodes are noted. Doing well with adenopathy. The uterus is absent. No subcutaneous fluid collection or traumatic stranding. Bone windows demonstrate chronic severe T12 compression fracture. IMPRESSION: 1. Extensive colonic diverticulosis, greatest within the sigmoid colon, with no definite evidence of acute diverticulitis. 2. No gross contrast extravasation to suggest active GI bleed. 3. Mild thickening and mucosal enhancement of the stomach. This is favored to be due to underdistention rather than gastritis. 4. 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 A follow-up renal protocol MRI may be performed for further evaluation. Discharge Plan Discharge Disposition: Home, Self-Care Date of Admission: 07/13/25 18:16 Attending Provider on Discharge: Ross Perez Primary Care Provider: Radha Grimes Condition: Stable Anticipated Discharge Date/Time: 07/15/25 16:00 Discharge Medications: Continued bumetanide 0.5 mg tablet 0.25 mg PO Q48H simvastatin 10 mg tablet 10 mg PO HS carvedilol 3.125 mg tablet 3.125 mg PO BID Patient Comments: total of 15.625mg bid insulin glargine [Basaglar KwikPen U-100 Insulin] 100 unit/mL (3 mL) insulin pen 18 unit subcut DAILY Rybelsus 7 mg tablet 7 mg PO DAILY nitroglycerin 0.4 mg tablet, sublingual 0.4 mg sublingual Q5M PRN gabapentin 100 mg capsule 100 mg PO HS carvedilol 12.5 mg tablet 12.5 mg PO BID Patient Comments: total of 15.625mg bid calcium carbonate [Calcium 500] 500 mg calcium (1,250 mg) tablet,chewable 500 mg PO BID PRN lidocaine 5 % Adhesive Patch,Medicated 1 patch transdermal Q24H Qty: 30 0RF sacubitril-valsartan [Entresto] 24-26 mg tablet 1 tab PO BID Ocuvite with Lutein 300 mcg-200 mg-27 mg-2 mg tablet 1 tab PO DAILY Rx Instructions: administer after a meal Held Eliquis 2.5 mg tablet 2.5 mg PO BID Hold Instructions: Resume on 07/18/25. Restart Eliquis on Friday, July 18 2025 Discharge Orders: Discharge Order (Routine); Ordered 07/15/25 Ordered By: Ross Perez Patient Education: Rectal Bleeding (ED) Additional Instructions: You may have a very small amount of blood in your stool for a couple more days. If you otherwise feel well this does not require immediate evaluation. If you have heavy rectal bleeding or feel lightheaded return to the emergency department. Start taking your Eliquis on FridayJuly 18. This may increase your risk of bleeding again but it is important to be on Eliquis if you can tolerate it. Activity Level: Activity as Tolerated Discharge Diet: Regular Follow Up Appointments: Radha Grimes MD [Primary Care Provider, Family Practice] - 07/21/25 10:45 am Referral Note: Follow-up next week for recheck and hemoglobin Forms: [facility] Inst[facility]
[2025-07-15 15:00] VITALS: BP 157/86; PULSE 73; RESP 16; TEMP 36.4; O2SAT 96
== END 2025-07-15 15:45 | disposition home or self-care (01) ==
LOC: ED 18:03 → MEDSURG 18:17
PROVIDERS: Physician Assistant; Admitting Provider Family Medicine; Emergency Provider Student in an Organized Health Care Education/Training Program; PCP Family Medicine; Visit Provider Family Medicine
DX: K92.1 Melena (principal); E11.9 Type 2 diabetes mellitus without complications; Z79.4 Long term (current) use of insulin; Z86.79 Personal history of other diseases of the circulatory system; N28.89 Other specified disorders of kidney and ureter
CPT/HCPCS: 36415; 74174; 80048; 80053; 81001; 82565; 82962; 85018; 85025; 87086; 96374; 96376; 99284; 99285; A9270; G0378; J2470; Q9967

== ENCOUNTER 2025-10-11 13:30 | Emergency (ER) | payer MEDICARE, BC, SELFPAY ==
[2025-10-11 14:11] VITALS: BP 181/95; PULSE 86; RESP 18; TEMP 36.4; O2SAT 96
--- NOTE | 2025-10-11 15:13 | ED.GENADULT ---
HPI - General Adult General Date Seen: 10/11/25 Chief complaint: Diabetic Related Problem Stated complaint: High blood sugar Time Seen by Provider: 10/11/25 15:03 Source: patient Mode of arrival: ambulatory Limitations: no limitations History of Present Illness HPI narrative: Patient is an 89-year-old female with a history of paroxysmal AFib, CHF, diabetes presenting to the emergency department for hyperglycemia. She states her blood sugars usually 100-130. She checked this morning and it was 135. She took her daily insulin. She then went to [employer] and says she will large amount of candy and sugary treats. She got home at around 11:30 in was not feeling well. States she felt lightheaded and dizzy and states everything above her waist just felt abnormal. She checked her blood sugar at home and was 417. This was extremely high for her. She was concerned so came to the emergency department. We checked a blood sugar in triage and it was 161. She states she feels back to normal. Is able a ambulate without issues. No longer feels dizzy. Denies any associated chest pain, shortness of breath, abdominal pain, headache, vision changes, nausea, vomiting. No other concerns noted Related Data Home Medications ?Medication ?Instructions ?Recorded ?Confirmed apixaban 2.5 mg tablet (Eliquis) 2.5 mg PO BID 05/24/23 07/13/25 Held on 07/15/25. Instructions: Resume on 07/18/25. Restart Eliquis on Friday, July 18 2025 carvedilol 3.125 mg tablet 3.125 mg PO BID 05/24/23 07/13/25 simvastatin 10 mg tablet 10 mg PO HS 05/24/23 07/13/25 calcium carbonate (Calcium 500) 500 mg PO BID PRN 01/27/24 07/13/25 carvedilol 12.5 mg tablet 12.5 mg PO BID 01/27/24 07/13/25 gabapentin 100 mg capsule 100 mg PO HS 01/27/24 07/13/25 nitroglycerin 0.4 mg sublingual 0.4 mg sublingual Q5M PRN 01/27/24 07/13/25 tablet sacubitril 24 mg-valsartan 26 mg 1 tab PO BID 07/12/24 07/13/25 tablet (Entresto) vit A 300 mcg-C 200 mg-E 27 1 tab PO DAILY 07/12/24 07/13/25 mg-lutein 2 mg and minerals tablet (Ocuvite with Lutein) insulin glargine 100 unit/mL (3 18 unit subcut DAILY 04/10/25 07/13/25 mL) subcutaneous pen (Basaglar KwikPen U-100 Insulin) bumetanide 0.5 mg tablet 0.25 mg PO Q48H 05/27/25 07/14/25 semaglutide 7 mg tablet (Rybelsus) 7 mg PO DAILY 07/13/25 07/13/25 Previous Rx's ?Medication ?Instructions ?Recorded lidocaine 5 % topical patch 1 patch transdermal Q24H #30 ea 01/28/24 Allergies Allergy/AdvReac Type Severity Reaction Status Date / Time hydralazine Allergy Unknown Verified 10/11/25 14:24 Penicillins Allergy Unknown Verified 10/11/25 14:24 dapagliflozin (From [facility]) AdvReac Severe syncope Verified 10/11/25 14:24 and falls Review of Systems Status of ROS: Reports: 10 or more systems reviewed and unremarkable except as noted in History and below [facility] Medical History Essential tremor ?G25.0 - Essential tremor (ICD-10) T12 compression fracture ?S22.080A - Wedge compression fracture of T11-T12 vertebra, initial encounter for closed fracture (ICD-10) Renal mass ?N28.89 - Other specified disorders of kidney and ureter (ICD-10) (HFpEF) heart failure with preserved ejection fraction ?I50.30 - Unspecified diastolic (congestive) heart failure (ICD-10) Left patella fracture ?S82.002A - Unspecified fracture of left patella, initial encounter for closed fracture (ICD-10) Chronic kidney disease ?N18.9 - Chronic kidney disease, unspecified (ICD-10) Diabetes mellitus ?E11.9 - Type 2 diabetes mellitus without complications (ICD-10) Traumatic compression fracture of T10 vertebra (08/12/23) ?S22.070A - Wedge compression fracture of T9-T10 vertebra, initial encounter for closed fracture (ICD-10) Hematoma of occipital surface of head (05/14/20) ?S00.83XA - Contusion of other part of head, initial encounter (ICD-10) Closed wedge compression fracture of T1 vertebra with routine healing (04/18/20) ?S22.010D - Wedge compression fracture of first thoracic vertebra, subsequent encounter for fracture with routine healing (ICD-10) 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) ?N18.4 - Chronic kidney disease, stage 4 (severe) (ICD-10) ?D63.1 - Anemia in chronic kidney disease (ICD-10) Chronic kidney insufficiency ?N18.9 - Chronic kidney disease, unspecified (ICD-10) Congestive heart failure ?I50.9 - Heart failure, unspecified (ICD-10) Acute lower gastrointestinal bleeding ?K92.2 - Gastrointestinal hemorrhage, unspecified (ICD-10) Recurrent falls ?R29.6 - Repeated falls (ICD-10) Type 2 diabetes mellitus ?E11.9 - Type 2 diabetes mellitus without complications (ICD-10) Presence of CardioMEMS HF system ?Z95.818 - Presence of other cardiac implants and grafts (ICD-10) Paroxysmal A-fib ?I48.0 - Paroxysmal atrial fibrillation (ICD-10) Acute idiopathic myocarditis ?I40.1 - Isolated myocarditis (ICD-10) Osteopenia ?M85.80 - Other specified disorders of bone density and structure, unspecified site (ICD-10) Macular degeneration ?H35.30 - Unspecified macular degeneration (ICD-10) Psoriasis ?L40.9 - Psoriasis, unspecified (ICD-10) History of breast cancer ?Z85.3 - Personal history of malignant neoplasm of breast (ICD-10) Hypertension ?I10 - Essential (primary) hypertension (ICD-10) Surgical History History of open reduction and internal fixation (ORIF) procedure (04/11/25) ?Z98.890 - Other specified postprocedural states (ICD-10) Hx of tonsillectomy ?Z90.89 - Acquired absence of other organs (ICD-10) H/O mastectomy ?Z90.10 - Acquired absence of unspecified breast and nipple (ICD-10) History of hysterectomy ?Z90.710 - Acquired absence of both cervix and uterus (ICD-10) Hx of mitral valve repair ?Z98.890 - Other specified postprocedural states (ICD-10) Presence of combination internal cardiac defibrillator (ICD) and pacemaker ?Z95.810 - Presence of automatic (implantable) cardiac defibrillator (ICD-10) Social History Narrative: Daughter, Justine, lives with her in [place] Lifelong nonsmoker. No ETOH use. DNR/DNI What is your current living situation?: I presently have a place to live Problems where you live: no known problems Problems where you live details: n/a In the past 12 months, utilities in danger of being shut off: no In past 12 months, lack of transportation kept you from medical appts, meetings, work, or getting things needed for daily living: no In the past 12 mos, have been you worried that your food would run out before you had money to buy more?: never true In the past 12 mos, the food you bought just didn't last and you didn't have money to buy more?: never true Smoking Status: Never smoker Do you use any of these nicotine containing products: None Second hand tobacco smoke exposure: No How often do you have a drink containing alcohol: monthly or less Alcohol type: beer How often do you have six or more drinks on one occasion: Never AUDIT-C Alcohol total score: 1 Non-prescribed substance use: denies use Caffeine: Yes How often does anyone, including family, friends and others, physically hurt you: never How often does anyone, including family, friends and others, insult or talk down to you: never How often does anyone, including family, friends and others, threaten you with harm: never How often does anyone, including family, friends and others, scream or curse at you: never service: No Exam Narrative: Exam Narrative: Const: Well-nourished, Well-developed, in no distress Eyes: PERRL, no conjunctival injection, and symmetrical lids HENT: Atraumatic external nose and ears. Moist mucous membranes. Neck: Symmetric, trachea midline, No thyromegaly. CVS: RRR, No murmurs or gallops. Peripheral pulses 2+ and equal in all extremities RESP: Unlabored respiratory effort. Clear to auscultation bilaterally. GI: Nontender/Nondistended, No rebound or guarding. MSK:Extremities w/o deformity, Normal Active ROM Skin: Warm, Dry. No rashes or lesions. Neuro: Normal Muscle tone, No focal neurological deficits. Psych: Awake, Alert, & Oriented x3. Appropriate mood and affect. Const: Vital Signs, click to edit/add: Vital Signs - 24 hr 10/11/25 14:11 Temperature 97.5 F L Pulse Rate [Right Pulse Oximeter] 86 Respiratory Rate 18 Blood Pressure [Le ft Upper Arm] 181/95 H Pulse Oximetry 96 Oxygen Delivery Me thod Room Air Course Vital Signs Vital signs: Initial Vital Signs Temperature 97.5 F L 10/11/25 14:11 Temperature Source Temporal Artery Scan 10/11/25 14:11 Pulse Rate 86 10/11/25 14:11 Pulse Rhythm Regular 10/11/25 14:11 Pulse Strength 3+ Normal 10/11/25 14:11 Respiratory Rate 18 10/11/25 14:11 Blood Pressure 181/95 H 10/11/25 14:11 Blood Pressure Mean 123 H 10/11/25 14:11 Blood Pressure Position Sitting 10/11/25 14:11 Pulse Oximetry 96 10/11/25 14:11 Oxygen Delivery Method Room Air 10/11/25 14:11 Vital Signs Temperature 97.5 F L 10/11/25 14:11 Pulse Rate 86 10/11/25 14:11 Respiratory Rate 18 10/11/25 14:11 Blood Pressure 181/95 H 10/11/25 14:11 Pulse Oximetry 96 10/11/25 14:11 Oxygen Delivery Method Room Air 10/11/25 14:11 Temperature 97.5 F L 10/11/25 14:11 Pulse Rate 86 10/11/25 14:11 Respiratory Rate 18 10/11/25 14:11 Blood Pressure 181/95 H 10/11/25 14:11 Pulse Oximetry 96 10/11/25 14:11 Oxygen Delivery Method Room Air 10/11/25 14:11 Medical Decision Making MDM Narrative Medical decision making narrative: Patient is an 89-year-old female presenting to the emergency department for hyperglycemia and dizziness. Dizziness is now fully resolved with the greatly improved blood sugar. Current blood sugars 161. Her symptoms were all related to the acute hyperglycemia from eating all of the sugar. I do think it will be beneficial to check basic labs to make sure nothing else was causing his symptoms. Will order CBC, BMP, magnesium. She is agreeable to this plan. Rest of her lab work returned showing no concerning abnormalities. Her glucose has gone down to 146. Symptoms were all from her hyperglycemia caused by eating quite a few cookies before her insulin kicked in. She is safe for discharge Lab Data Labs: Lab Results 10/11/25 Range/Units 15:20 WBC 7.66 (4.50-11.00) K/uL RBC 4.11 (4.00-5.20) m/uL Hgb 12.9 (12.0-16.0) gm/dL Hct 39.1 (33.0-51.0) % MCV 95 (80-100) fL MCH 31 (26-34) pg MCHC 33 (32-36) gm/dL RDW Coeff of Vilma 15.0 (11.5-15.5) % Plt Count 157 (140-440) K/uL Neut % (Auto) 77.0 H (42.0-72.0) % Lymph % (Auto) 11.9 L (20-44) % [place] % (Auto) 9.0 (0.0-11.0) % Eos % (Auto) 1.6 (0.0-7.0) % Baso % (Auto) 0.4 (0.0-3.0) % Neut # (Auto) 5.90 (1.7-7.0) K/uL Lymph # (Auto) 0.90 (0.90-2.90) K/uL [place] # (Auto) 0.70 (0.00-0.90) K/UL Eos # (Auto) 0.12 (0.00-0.50) K/uL Baso # (Auto) 0.03 (0.00-0.30) K/uL Abs Immat Gran (auto) 0.01 (0.00-0.30) K/uL Imm/Tot Granulo (auto) 0.1 % Sodium 135 (135-149) mmol/L Potassium 3.7 (3.6-5.1) mmol/L Chloride 97 (96-114) mmol/L Carbon Dioxide 25 (20-32) mmol/L Anion Gap 13 (7-15) mEq/L BUN 25 (7-30) mg/dL Creatinine 1.3 (0.5-1.5) mg/dL Estimated GFR 40 ml/min Glucose 146 H (60-115) mg/dL Calcium 10.3 (8.4-10.6) mg/dL Magnesium 1.9 (1.5-2.6) mg/dL Discharge Plan Discharge Clinical Impression: Hyperglycemia Patient Disposition: Home, Self-Care Condition: Stable Additional Instructions: Continue to use her insulin as directed. Return to emergency department for new or worsening symptoms. Symptoms are all likely caused by your acute high blood sugar that has since improved. I would not change any of your medications. Follow-up with your primary care provider. Prescriptions: No Action bumetanide 0.5 mg tablet 0.25 mg PO Q48H simvastatin 10 mg tablet 10 mg PO HS carvedilol 3.125 mg tablet 3.125 mg PO BID Patient Comments: total of 15.625mg bid Eliquis 2.5 mg tablet 2.5 mg PO BID insulin glargine [Basaglar KwikPen U-100 Insulin] 100 unit/mL (3 mL) insulin pen 18 unit subcut DAILY Rybelsus 7 mg tablet 7 mg PO DAILY nitroglycerin 0.4 mg tablet, sublingual 0.4 mg sublingual Q5M PRN gabapentin 100 mg capsule 100 mg PO HS carvedilol 12.5 mg tablet 12.5 mg PO BID Patient Comments: total of 15.625mg bid calcium carbonate [Calcium 500] 500 mg calcium (1,250 mg) tablet,chewable 500 mg PO BID PRN lidocaine 5 % Adhesive Patch,Medicated 1 patch transdermal Q24H Qty: 30 0RF sacubitril-valsartan [Entresto] 24-26 mg tablet 1 tab PO BID Ocuvite with Lutein 300 mcg-200 mg-27 mg-2 mg tablet 1 tab PO DAILY Rx Instructions: administer after a meal Follow Up/Referrals: Radha Grimes MD [Primary Care Provider, Family Practice] Stand Alone Forms: [employer] Info Instructions
[2025-10-11 15:34] LABS: Hematocrit* 39.1 % (33.0-51.0); Hemoglobin* 12.9 gm/dL (12.0-16.0); Immature Granulocytes Abs Auto 0.01 K/uL (0.00-0.30); Immature Granulocytes Pct Auto 0.1 %; Mean Corpuscular HGB Conc 33 gm/dL (32-36); Mean Corpuscular Hemoglobin 31 pg (26-34); Mean Corpuscular Volume 95 fL (80-100); RDW Coefficient of Variation % 15.0 % (11.5-15.5); Red Blood Count* 4.11 m/uL (4.00-5.20); White Blood Count* 7.66 K/uL (4.50-11.00)
[2025-10-11 15:38] LABS: Lymphocytes Absolute Auto 0.90 K/uL (0.90-2.90); Slide Review Reflex No
[2025-10-11 15:48] LABS: Chloride* 97 mmol/L (96-114); Potassium* 3.7 mmol/L (3.6-5.1); Sodium* 135 mmol/L (135-149)
[2025-10-11 15:50] LABS: Blood Urea Nitrogen* 25 mg/dL (7-30); Creatinine* 1.3 mg/dL (0.5-1.5); Estimated Glomerular Filt Rate 40 ml/min
[2025-10-11 15:51] LABS: Anion Gap 13 mEq/L (7-15); Calcium* 10.3 mg/dL (8.4-10.6); Carbon Dioxide* 25 mmol/L (20-32); Glucose* 146 mg/dL (60-115)
== END 2025-10-11 16:07 | disposition home or self-care (01) ==
PROVIDERS: Emergency Provider Student in an Organized Health Care Education/Training Program; PCP Family Medicine
DX: E11.22 Type 2 diabetes mellitus with diabetic chronic kidney disease (principal); E11.65 Type 2 diabetes mellitus with hyperglycemia; I13.0 Hypertensive heart and chronic kidney disease with heart failure and stage 1 through stage 4 chronic kidney disease, or unspecified chronic kidney disease; N18.9 Chronic kidney disease, unspecified; I50.9 Heart failure, unspecified; Z79.4 Long term (current) use of insulin; Z79.84 Long term (current) use of oral hypoglycemic drugs
CPT/HCPCS: 36415; 80048; 83735; 85025; 99283